=== PATIENT | male | born 1965 | race Caucasian/White ===

== ENCOUNTER 2024-08-23 16:34 | Emergency (ER) | payer BC, SELFPAY ==
[2024-08-23 16:35] VITALS: BP 146/88; PULSE 91; RESP 16; TEMP 36.8; O2SAT 96
--- NOTE | 2024-08-23 16:45 | DI.RAD_ITS ---
Exam(s) XR HAND RT COMPLETE EXAM: XR HAND RT COMPLETE CLINICAL HISTORY: right hand pain. TECHNIQUE: 2D digital imaging was performed. Three views. COMPARISON: No exams were available for comparison FINDINGS: BONES: Oblique fracture extending through mid to distal shaft of the 5th metacarpal. Small comminute d fragment. Mild displacement. No significant angulation. No additional fractures. No bony destru ctive lesion is seen. JOINTS: No dislocation present. Mild positive ulnar variance. SOFT TISSUE: Mild swelling. IMPRESSION: Fifth metacarpal fracture. DATA REPOSITORY: RADIATION DOSE DELIVERED:
--- NOTE | 2024-08-23 16:46 | W.ED.GENAD ---
Discharge Plan Disposition Patient Disposition: Home Discharge Details Clinical Impression: Closed fracture of metacarpal of right hand Primary Care Provider: Giovanni Wing ED Provider: Franko Birch Home Meds and New Rx's Prescriptions: No Action fluoxetine 20 mg capsule 20 mg PO DAILY albuterol 90 mcg/actuation aerosol 90 mcg inhalation PRN PRN loratadine [Claritin] 1 tab PO DAILY acetaminophen [Acetaminophen Extra Strength] 500 mg tablet 650 mg PO BID fluticasone propionate [Flonase Allergy Relief] 1 spray intranasal DAILY Discharge Instructions Instructions: Hand Fracture ED Additional Instructions: You have been referred for follow-up at [facility] orthopedic surgery as well as an [facility] orthopedic surgery, they will both contact you to schedule an appointment that works best for you Keep your hand in the splint Take 600 mg Motrin every 6 hours or 650 mg Tylenol every 4 hours as needed for pain You can continue to apply ice about 15 to 20 minutes once an hour to help with swelling HPI General Date/Time Provider Initiated Documentation: 08/23/24 16:39. Limitations to Documentation: no limitations. Information obtained by: patient. HPI Narrative: 59-year-old gentleman without significant past medical history presents for evaluation of acute onset right hand pain. Just prior to arrival the patient was flyfishing and coming [place] of [place] river and fell forward jamming his right fifth finger. Reports pain localized to the pinky finger aspect of the right hand. He is right-hand dominant. There is associated swelling, but no numbness tingling or open wounds. Did not take any medications prior to arrival Related Data Home Medications ?Medication ?Instructions ?Recorded ?Confirmed acetaminophen 500 mg tablet 650 mg PO BID 08/23/24 08/23/24 (Acetaminophen Extra Strength) albuterol 90 mcg/actuation aerosol 90 mcg inhalation PRN PRN 08/23/24 08/23/24 inhaler fluoxetine 20 mg capsule 20 mg PO DAILY 08/23/24 08/23/24 fluticasone propionate 1 spray intranasal DAILY 08/23/24 08/23/24 loratadine 1 tab PO DAILY 08/23/24 08/23/24 Allergies Allergy/AdvReac Type Severity Reaction Status Date / Time No Known Allergies Allergy Verified 08/23/24 16:38 General Stated Complaint: Orthopedic JOHNNA: 4 Exam Narrative Exam Narrative: Review of Systems: All systems reviewed & are unremarkable except as noted in HPI and below Well-developed, no acute distress NCAT Unlabored respiratory effort Right hand with swelling over the fifth metacarpal, tenderness at the MCP, no deformity of the digit, good cap refill neurovascularly intact, pain with range of motion at the MCP no crossover of pinky with fist. Course Vital Signs Vital signs: Vital Signs Temperature 36.8 C 08/23/24 16:35 Pulse 91 H 08/23/24 16:35 Respiratory Rate 16 08/23/24 16:35 Blood Pressure 146/88 H 08/23/24 16:35 Pulse Oximetry 96 08/23/24 16:35 Temperature 36.8 C 08/23/24 16:35 Temperature Source Oral 08/23/24 16:35 Pulse 91 H 08/23/24 16:35 Respiratory Rate 16 08/23/24 16:35 Blood Pressure 146/88 H 08/23/24 16:35 Pulse Oximetry 96 08/23/24 16:35 Oxygen Delivery Method Room Air 08/23/24 16:35 Oxygen Flow Rate 0 08/23/24 16:35 Pain Level 8 08/23/24 16:35 Comment Pain w/ movement 08/23/24 16:35 Procedures Orthopedic Splinting/Casting Injury #1: Side: right Upper Extremity Injury Location: hand Upper Extremity Immobilizer: ulnar gutter Medical Decision Making Emergent evaluation of acute right hand pain. Initial differential includes fracture, contusion, less likely dislocation. Swelling noted with tenderness in the setting of trauma. Pain medication will be given and imaging will be obtained of the right hand to evaluate for bony injury. 1730 X-ray reviewed and independently interpreted: Fracture with displacement of fifth metacarpal. Discussed with our orthopedic surgeon. Can be repaired here or at [facility] as the patient does live in [place]. Referrals to both have been sent. The patient was placed in an ulnar gutter splint. Discharged to follow-up with orthopedic surgery for definitive repair. Recommend Motrin and Tylenol as needed for pain. Splint instructions provided to the patient. Discharged in good condition. Quality:SDOH Health Related Social Needs: No Data to Display PFSH All Active Problems (Updated 08/23/24 @ 17:24 by Franko Birch MD) Closed fracture of metacarpal of right hand (Acute) Social History Smoking/Tobacco Use Status: Never Smoking risk assessment performed?: Yes Alcohol Intake: current Alcohol Intake frequency: 0-2 drinks per day Drug use: Rarely Substance use type: marijuana Housing: house Do you feel safe at home: Yes Do you feel safe in your relationship?: Yes
[2024-08-23] MEDS: Acetaminophen 500 MG TAB 1000 MG PO (17:01)
--- OUTSIDE RECORDS SUMMARY | 2024-08-23 17:26 | XMS_ITS | Encounter Summary ---
Author Organization [facility] [place] [address] Care Team Providers Care Attending Psychiatrist Name Role Phone Giovanni Wing MD Primary Care Provider [phone] Encounter Details Date Type Department Care Team (Late st Contact Info) Description 05/02/2023 Telephone Urology at [facility] [place] [place] [phone] Alexx Huntley MD [facility] [place] [address] [place] [address] Social History Tobacco Use Types Packs/Day Years Used Date Smoking Tobacco: Never Smokeless Tobacco: Never Alcohol Use Standard Drinks/Week Comments Yes 14 (1 standard drink = 0.6 oz pu re alcohol) 2/day liquor most often Overall Financial Resource Strain (CARDIA) Answe r Date Recorded How hard is it for you to pa y for the very basics like food, housing, medical care, and heating? Not hard at all 11/02/2022 Hunger Vital Sign Answer Date Recorded Within the past 12 months, y ou worried that your food would run out before you got the money to buy more. Never true 11/02/20 22 Within the past 12 months, t he food you bought just didn't last and you didn't have money to get more. Never true 11/02/2022 PRAPARE - Transportation Answer Date Re corded In the past 12 months, has l ack of transportation kept you from medical appointments or from getting medications? No 10/19 In the past 12 months, has l ack of transportation kept you from meetings, work, or from getting things needed for daily living? No 11/02/2022 Housing Stability Vital Sign Answer López e Recorded In the last 12 months, was t here a time when you were not able to pay the mortgage or rent on time? No 11/02/2022 In the last 12 months, how many places have you lived? 1 11/02/2022 In the last 12 months, was t here a time when you did not have a steady place to sleep or slept in a longterm (including now)? No 11/02/2022 Sex and Gender Information Value Date Recorded Sex Assigned at Not on file Gender Identity Not on file Sexual Orientation Not on file documented as of this encounter Miscellaneous Notes * Telephone Encounter - [facility] - 05/02/2023 8:38 AM EDTSummary: earlier appt available LMOM for pt to call back for a sooner appt available tomorrow at 11:20am with Dr. Huntley. documented in this encounter Plan of Treatment Not on file documented as of this encounter Visit Diagnoses Not on filedocumented in this encounter Care Teams Attending Psychiatrist Relationship Specialty Start Date End Date Giovanni Wing MD [address] [place] [address] PCP - General Family Medicine 08/29/18 documented as of this encounter
--- OUTSIDE RECORDS SUMMARY | 2024-08-23 17:26 | XMS_ITS | Encounter Summary ---
Author Organization [facility] Address [facility] [place] [address] Care Team Providers Care Manager Travel Name Role Phone Giovanni Wing MD Primary Care Provider [phone] Encounter Details Date Type Department Care Team (Latest Contact Info) Description 04/04/2023 Travel Social History Tobacco Use Types Packs/Day Years [...] place to sleep or slept in a snf (including now)? No 11/02/2022 Sex and Gender Information Value Date Recorded Sex Assigned at Not on file Gender Identity Not on file Sexual Orientation Not on file documented as of this encounter Plan of Treatment Not on file documented as of this encounter Visit Diagnoses Not on filedocumented in this encounter Care Teams Manager Travel Relationship Specialty Start Date End Date Giovanni Wign MD [address] [address] PCP - General Family Medicine 08/29/18 documented as of this encounter
--- OUTSIDE RECORDS SUMMARY | 2024-08-23 17:26 | XMS_ITS | Encounter Summary ---
Author Organization [facility] [place] [address] Care Team Providers Care Lump Machine Operator Name Role Phone Giovanni Wing MD Primary Care Provider [phone] Encounter Details Date Type Department Care Team (Latest Contact Info) Description 05/03/2023 2:00 PM EDT Laboratory Appointment Lab [facility] [place] [id number] Malignant neoplasm of prostate Social History Tobacco Use Types Packs/Day Years [...] place to sleep or slept in a detention (including now)? No 11/02/2022 Sex and Gender Information Value Date Recorded Sex Assigned at Not on file Gender Identity Not on file Sexual Orientation Not on file documented as of this encounter Plan of Treatment Not on file documented as of this encounter Procedures Procedure Name Priority Date/Time Associated Diagnosis Comments PSA (ULTRASENSITIVE) STAT 05/03/2023 2:11 PM EDT Malignant neoplasm of prostate documented in this encounter Results * PSA (Ultrasensitive) (05/03/2023 2:11 PM EDT) Prostate Specific Antigen (Ultrasensitive) <0.01 0.00 - 4.00 ng/mL [facility] Comment: PLEASE NOTE: The above reference interval is intended for healthy males with an intact prostate. Values within this reference interval may indicate recurrence in men who have undergone radical prostatectomy. This result was generated using a Colleen Kush immunoassay. ??Results obtained from other methods or manufacturers cannot be used interchangeably with this method. Blood 05/03/2023 2:11 PM EDT 05/03/2023 2:26 PM EDT Narrative Resulting Agency Comment Spec In Lab Rj Mcdonald MD CHEMISTRY ORDERABL ES [facility] [place] [address] documented in this encounter Visit Diagnoses Diagnosis Malignant neoplasm of prostate documented in this encounter Care Teams Lump Machine Operator Relationship Specialty Start Date End Date Giovanni Wing MD [address] [place] [address] PCP - General Family Medicine 08/29/18 documented as of this encounter
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
--- OUTSIDE RECORDS SUMMARY | 2024-08-23 17:26 | XMS_ITS | Clinical Summary ---
Author Organization [facility] Address [facility] [place] [address] Care Team Providers Care Business Solutions Director Name Role Phone Giovanni Wing MD Primary Care Provider [phone] Allergies No known active allergies Medications Medication Sig Dispensed Refills Start Date End Date Status VENTOLIN HFA 90 mcg/actuation HFA Aerosol Inhaler Inhale 2 puffs into the lungs as needed. 3 07/20/2017 Active triamcinolone (KENALOG) 0.1 % Cream Apply topically as needed. 0 06/26/2017 Active cholecalciferol, Vitamin D3, 1,000 unit Capsule Take 1,000 Units by mouth daily. Active MELATONIN ORAL Take by mouth nightly as needed. Active acetaminophen (TYLENOL) 650 mg Tablet Sustained Release 1,300 mg daily. Active FISH OIL-DHA-EPA ORAL Take by mouth daily. Active fluticasone propionate (Flonase) 50 mcg/actuation [place], Suspension every 24 hours. Ac tive loratadine (Claritin) 10 mg Tablet every 24 hours. Active FLUoxetine (PROzac) 10 mg Capsule TAKE 3 CAPSULES BY MOUTH EVERY DAY for 90 Active FIBER CHOICE ORAL Take by mouth. Metamucil tablets 12 tabs a day Active sildenafiL (Viagra) 100 mg tablet Take 1 tablet by mouth as needed. 30 tablet 5 01/31/2023 Active Miscellaneous Medical Supply KitIndications:Erecti le dysfunction after radical prostatectomy Vacuum erection device to be used as needed 1 kit 06/08/2023 Active Active Problems Problem Noted Date Diagnosed Date Erectile dysfunction after radical prostatectomy 05/03/2023 Pain in left elbow 02/02/2023 VASU (stress urinary incontinence), male 02/01/20 Prostate cancer 12/28/2022 Malignant neoplasm of prostate 11/11/2022 Rectal hemorrhage 08/14/2022 Elevated PSA 07/17/2022 Lower urinary tract symptoms (LUTS) 07/17/2022 Pain in right elbow 12/01/2021 Anxiety state 07/11/2019 Asthma 07/11/2019 Overweight 07/11/2019 Back pain 07/11/2019 Health care maintenance 07/11/2019 Muscle pain 03/28/2018 Thoracic spondylosis without myelopathy 01/24/20 18 Finger infection 10/26/2017 Pain in toe of right foot 12/12/2016 Hallux rigidus of right foot 11/21/2016 Chronic SI joint pain 02/24/2016 Mechanical low back pain 07/18/2012 Immunizations Name Administration Dates Next Due Hepatitis A Adult (HavRix, Vaqta) 01/15/2020, Influenza (Novel [id number]) Injectable ,12/12/2013,09/17/2012,2010 Influenza Trivalent w/Preservative 08/06/2018 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,2018 Pneumococcal Vaccine, Unspec ified Formulation 10/14/2018 Rabies Vaccine, IM Diploid Cell 08/05/2019,07/22,07/15/2019 Td Adult, Absorbed 10/25/2017 Tdap 01/26/2009 Typhoid, VICP 07/11/2019 Family History Medical History Relation Comments Parkinsonism Father Seizure Disorder Mother Diabetes Neg Hx Relation Status Comments Father Alive Mother Alive Sister Alive Social History Tobacco Use Types Packs/Day Years Used Date Smoking Tobacco: Never Smokeless Tobacco: Never Tobacco Cessation:Counseling Given: Not Answered Alcohol Use Standard Drinks/Week Comments Yes 14 [...] the money to buy more. Never true 12/15/20 22 Within the past 12 months, t [...] place to sleep or slept in a fdc (including now)? No 11/02/2022 DH IPV Inpatient Questions Answer Date Recorded Does Anyone Try to Keep You From Having Contact with Others or Doing Things Outside Your Home? no 06/15/2023 Feels Threatened by Someone no 05/20 Feels Unsafe at Home or Work/School no 06/15/2023 Physical Signs of Abuse Present no 06/15/2023 Sex and Gender Information Value Date Recorded Sex Assigned at Not on file Gender Identity Not on file Sexual Orientation Not on file Last Filed Vital Signs Vital Sign Reading Time Taken Comments Blood Pressure 126/81 08/10/2023 8:36 AM EDT Pulse 56 08/10/2023 8:36 AM EDT Temperature 36.6 ??C (97.9 ??F) 06/15/2023 7:52 PM ED T Respiratory Rate 20 06/15/2023 7:52 PM EDT Oxygen Saturation 97% 06/15/2023 7:52 PM EDT Inhaled Oxygen Concentration - - Weight 81.6 kg (180 lb) 06/15/2023 7:52 PM EDT Height 172.7 cm (5' 8) 12/28/2022 11:45 AM EST Body Mass Index 27.37 12/28/2022 11:45 AM EST Plan of Treatment Health Maintenance Due Date Last Done Comments CT Colonography 1967 FIT DNA 1967 FIT 1965 Sigmoidoscopy 1965 HIV screen 1985 Hepatitis C Screening 1985 Lipid Screening 1985 Hepatitis B vaccine (0-59 yrs) (1) 1986 Zoster vaccine (1 of 2) 2017 Pneumococcal Vaccine: At-Ris k 5-64yrs (2 of 2 - PCV) 10/14/2019 10/14/2018 Advance Directive 2022 Covid-19 Vaccine (1 - 2022-2 4 season) 2024 Influenza (Flu) vaccine (1 o f 1 - Influenza standard series) 07/20/2024 08/06/2018, 09/02/2014, 12/12/2013, Additional history exists Diabetes Screening (HgbA1C o r Glucose) 02/08/2026 02/08/2023, 12/29/2022, 12/14/2022, Additional history exists Tetanus/Diphtheria/Pertussis Vaccines (3 - Td or Tdap) 10/25/2027 10/25/2017, 01/26/2009 Colonoscopy 08/19/2028 08/19/2018, 08/19/2018 Colorectal Cancer Screening 08/19/2028 Sigmoidoscopy (10 year) with FIT yearly 08/19/2028 08/19/2018, 08/19/2018 Medical Devices Implanted Type Area Distribution Field Engineer Device Identifier Shelf Expiration Date Model / Serial / Lot Cariva Synthetic Catilage Implant 10mm Implanted:Qty: 1 on 10/31/2018 by Pascual [facility] Right: Toe 03/18/2020 CAR-10-US / NA / [id number] Description:RIGHT GREAT TOE Procedures Procedure Name Priority Date/Time Associated Diagnosis Comments COMPREHENSIVE METABOLIC PANEL Routine 02/08/2023 9:14 AM EDT Malignant neoplasm of prostate COLONOSCOPY Routine 08/19/2018 4:21 PM EDT from Last 3 Months or Most Recently Relevant to Health Maintenance Results * (ABNORMAL) Comprehensive metabolic panel (non-fasting) (02/08/2023 9:14 AM EDT) Glucose 104 65 - 199 mg/dL [facility] Comment:Diabetes: >=200 mg/d L plus symptoms Blood Urea Nitrogen 15 10 - 20 mg/dL [facility] Creatinine 0.90 0.80 - 1.50 mg/dL [facility] Sodium 139 135 - 145 mmol/L [facility] Potassium 4.5 3.5 - 5.0 mmol/L [facility] Comment: Please note: ??Patients with WBC >100,000 may have falsely elevated Potassium levels. ??For accurate Potassium quantification in these patients send serum separator tube (gold top) for subsequent determinations. ??Contact the Clinical Chemistry Laboratory if there are any questions. Chloride 105 98 - 107 mmol/L [facility] Carbon Dioxide 24 22 - 31 mmol/L [facility] Anion Gap 10 5 - 15 mmol/L [facility] Calcium 10.7(H) 8.5 - 10.5 mg/dL [facility] Protein, Total 7.1 6.1 - 8.0 g/dL [facility] Albumin 4.5 3.2 - 5.2 g/dL [facility] Aspartate Aminotransferase 22 0 - 39 unit/L [facility] Alanine Aminotransferase 21 0 - 55 unit/L [facility] Alkaline Phosphatase 66 40 - 130 unit/L [facility] Bilirubin, Total 0.4 0.2 - 1.3 mg/dL [facility] Est Glomerular Filtration Rate 101 >=60 mL/min/1. 73 m?? [facility] Comment: This patient's estimated GFR was calculated using the 2020 CKD-EPI equation. The estimated GFR can vary from the measured GFR by up to 30% in the absence of rapidly changing kidney function. Assessment of the estimated GFR is not appropriate when creatinine concentrations are rapidly changing. For clinical situations in which a more precise estimate of GFR is necessary, consider alternative methods of GFR estimation such as a 24-hour urine creatinine clearance. Assignment of CKD stage 1-5 for patients with an eGFR near the transition point between stages may be based on clinical assessment of muscle mass and symptoms in addition to eGFR. Blood 02/08/2023 9:14 AM EDT 02/08/2023 9:25 AM EDT Narrative Resulting Agency Comment Spec In Lab Henrik Yun MD [place] [address] * COLONOSCOPY (08/19/2018 4:21 PM EDT) COLONOSCOPY [facility] Endoscopy Procedure Date: 08/19/2018 4:21 PM ? Patient Name: Devan Chen ? Date of : 1965 ? Age: 53 ? Order #: [id number] ? Instrument Name: [id number] ? Procedure: ? Colonoscopy Indications: ? Screening for colorectal malignant ? neoplasm Providers: ? Angy Moreno, SERA, ? Rachelle Delgado Referring MD: ?Munira Crawford MD Medicines: ? Fentanyl 150 micrograms IV, Midazolam ? 4 mg IV Complications: ? No immediate complications. Procedure: ? Pre-Anesthesia Assessment: ? - Prior to the procedure, a History ? and Physical was performed, and ? patient medications, allergies and ? sensitivities were reviewed. The ? patient's tolerance of previous ? anesthesia was reviewed. ? - The risks and benefits of the ? procedure and the sedation options ? and risks were discussed with the ? patient. All questions were answered ? and informed consent was obtained. ? - Patient identification and proposed ? procedure were verified prior to the ? procedure by the physician, the nurse ? and the store facility technician. The procedure was ? verified in the pre-procedure area in ? the procedure room. ? - Pre-procedure physical examination ? revealed no contraindications to ? sedation. ? - ASA Grade Assessment: II - A ? patient with mild systemic disease. ? The procedure, indications, benefits, ? risks and alternatives were explained ? to the patient. Specifically ? discussed were potential ? complications including, but not ? limited to, bleeding, perforation, ? infection, missing a cancer, and ? adverse medication reactions. The ? patient was placed in the left ? lateral decubitus position, and a ? digital rectal exam was performed. ? The Colonoscope was inserted in the ? anus and under direct visualization, ? advanced to the terminal ileum. ? Careful inspection was made as the ? colonoscope was withdrawn. The ? colonoscopy was performed without ? difficulty. The patient tolerated the ? procedure well. The quality of the ? bowel preparation was evaluated using ? the BBPS ([place] Bowel Preparation ? Scale) with scores of: Right Colon = ? 2 (minor amount of residual staining, ? small fragments of stool and/or ? opaque liquid, but mucosa seen well), ? Transverse Colon = 2 (minor amount of ? residual staining, small fragments of ? stool and/or opaque liquid, but ? mucosa seen well) and Left Colon = 2 ? (minor amount of residual staining, ? small fragments of stool and/or ? opaque liquid, but mucosa seen well). ? The total BBPS score equals 6. The ? quality of the bowel preparation was ? good. ? Findings: ? The perianal and digital rectal examinations were ? normal. ? The terminal ileum appeared normal. ? A 2 mm polyp was found in the sigmoid colon. The ? polyp was sessile. The polyp was removed with a cold ? biopsy forceps. Resection and retrieval were ? complete. Verification of patient identification for ? the specimen was done by the physician, nurse and ? store facility technician using the patient's name, date and ? medical record number. Estimated blood loss was ? minimal. ? The exam was otherwise without abnormality on direct ? and retroflexion views. ? Moderate Sedation: ? Moderate (conscious) sedation was administered by the ? endoscopy nurse and supervised by the endoscopist. ? The patient's oxygen saturation, heart rate, blood ? pressure and response to care were monitored. Impression: ?- The examined portion of the ileum ? was normal. ? - One 2 mm polyp in the sigmoid ? colon, removed with a cold biopsy ? forceps. Resected and retrieved. ? - The examination was otherwise ? normal on direct and retroflexion ? views. Recommendation: ?- Discharge patient to home (with ? escort). ? - Resume previous diet. ? - Await pathology results. ? - Repeat colonoscopy for surveillance ? based on pathology results. ? Attending Participation: ? I personally performed the entire procedure. ? Cirilo Pathak, 08/19/2018 5:11:32 PM Number of Addenda: 0 Note Initiated On: 08/19/2018 4:21 PM PROVATION 08/19/2018 4:21 PM EDT Munira Crawford MD GENERAL SURGICAL O RDERABLES PROVATION from Last 3 Months or Most Recently Relevant to Health Maintenance Advance Directives * Attempt Cardiopulmonary Resuscitation - Inpatient (Latest Code Status on File) Date Activated Date Inactivated Comments 12/28/2022 10:30 PM 12/29/2022 7:59 PM Question Answer Comments Code Status decision made by: Patient * Attempt Cardiopulmonary Resuscitation - Inpatient Date Activated Date Inactivated Comments 12/28/2022 11:59 AM 12/28/2022 10:30 PM Question Answer Comments Code Status decision made by: Patient * Full Code Date Activated Date Inactivated Comments 10/26/2017 10:59 PM 10/27/2017 2:13 PM Question Answer Comments Does patient have capacity to make decision: Yes Care Teams Business Solutions Director Relationship Specialty Start Date End Date Giovanni Wing MD [address] [place] [place] [address] PCP - General Family Medicine 08/29/18
--- OUTSIDE RECORDS SUMMARY | 2024-08-23 17:26 | XMS_ITS | Encounter Summary ---
Author Organization [facility] [place] [address] Care Team Providers Care Cable Television Installer Name Role Phone Giovanni Wing MD Primary Care Provider [phone] Encounter Details Date Type Department Care Team (Latest Contact Info) Description 02/08/2024 3:05 PM EDT Laboratory Appointment Lab [facility]L [facility] [place] [id number] Malignant neoplasm of prostate Social History Tobacco [...] place to sleep or slept in a long term (including now)? No 11/02/2022 DH IPV Inpatient [...] Date/Time Associated Diagnosis Comments PSA (ULTRASENSITIVE) STAT 02/08/2024 3:12 PM EDT Malignant neoplasm of prostate documented in this encounter Results * PSA (Ultrasensitive) (02/08/2024 3:12 PM EDT) Prostate Specific Antigen (Ultrasensitive) <0.01 0.00 - 4.00 ng/mL [facility] Comment: PLEASE NOTE: The above reference interval is intended for healthy males with an intact prostate. Values within this reference interval may indicate recurrence in men who have undergone radical prostatectomy. This result was generated using a Colleen Kush immunoassay. ??Results obtained from other methods or manufacturers cannot be used interchangeably with this method. Blood 02/08/2024 3:12 PM EDT 02/08/2024 3:17 PM EDT Narrative Resulting Agency Comment Spec In Lab Rj Mcdonald MD CHEMISTRY ORDERABL ES [facility] [place] [address] documented in this encounter Visit Diagnoses Diagnosis Malignant neoplasm of prostate documented in this encounter Care Teams Cable Television Installer Relationship Specialty Start Date End Date Giovanni Wing MD [address] [address] PCP - General Family Medicine 08/29/18 documented as of this encounter
--- OUTSIDE RECORDS SUMMARY | 2024-08-23 17:26 | XMS_ITS | Encounter Summary ---
Author Organization [facility] [place] [address] Care Team Providers Care Public Health Professor Name Role Phone Giovanni Wing MD Primary Care Provider [phone] Encounter Details Date Type Department Care Team (Latest Contact Info) Description 08/10/2023 8:00 AM EDT Laboratory Appointment Lab [facility]L [facility] [place] [id number] Malignant neoplasm of prostate Social History Tobacco [...] place to sleep or slept in a senior living (including now)? No 11/02/2022 DH IPV Inpatient [...] Date/Time Associated Diagnosis Comments PSA (ULTRASENSITIVE) STAT 08/10/2023 8:00 AM EDT Malignant neoplasm of prostate documented in this encounter Results * PSA (Ultrasensitive) (08/10/2023 8:00 AM EDT) Prostate Specific Antigen (Ultrasensitive) <0.01 0.00 - 4.00 ng/mL [facility] Comment: PLEASE NOTE: The above reference interval is intended for healthy males with an intact prostate. Values within this reference interval may indicate recurrence in men who have undergone radical prostatectomy. This result was generated using a Colleen Kush immunoassay. ??Results obtained from other methods or manufacturers cannot be used interchangeably with this method. Blood 08/10/2023 8:00 AM EDT 08/10/2023 8:05 AM EDT Narrative Resulting Agency Comment Spec In Lab Rj Mcdonald MD CHEMISTRY ORDERABL ES [facility] [place] [address] documented in this encounter Visit Diagnoses Diagnosis Malignant neoplasm of prostate documented in this encounter Care Teams Public Health Professor Relationship Specialty Start Date End Date Giovanni Wing MD [address] [address] PCP - General Family Medicine 08/29/18 documented as of this encounter
--- OUTSIDE RECORDS SUMMARY | 2024-08-23 17:26 | XMS_ITS | Encounter Summary ---
Author Organization [facility] Address [facility] [place] [address] Care Team Providers Care Or Nurse Manager Name Role Phone Giovanni Wing MD Primary Care Provider [phone] Reason for Visit * Physical Therapy (Routine) - Closed Specialty Diagnoses / Procedures Referred By Contac t Referred To Contact Physical Therapy Diagnoses VASU (stress urinary incontinence), male Alexx Huntley MD [facility] [place] [address] Ioana Lorenzana, PT [facility] PHYSICAL MEDICINE & [place] [address] Referral ID Status Reason Start Date Expiration Date V isits Requested Visits Authorized [id number] Closed Evaluate and Treat 01/31/2023 01/31/2024 30 30 Encounter Details Date Type Department Care Team (Late st Contact Info) Description 03/29/2023 1:00 PM EDT Office Visit Physical Therapy at [facility] [address] [place] [address] Ioana Lorenzana, PT [facility] PHYSICAL MEDICINE & [place] [address] Muscle spasm; VASU (stress urinary incontinence), male Social History Tobacco Use Types Packs/Day Years [...] as of this encounter Miscellaneous Notes * Initial Evaluation - Ioana Lorenzana, PT - 03/29/2023 1:00 PM EDT Images from the original note were not included. Physical Therapy Initial Evaluation Note: Outpatient Date of Exam/First Treatment: 03/29/2023 Date of onset: 12/11 Referring Provider: Alexx Huntley MD Primary Insurance: Payor: [employer] [place] / Plan[place] / Product Type: *No Producttype* / Diagnosis and comorbidities: 1. Muscle spasm 2. VASU (stress urinary incontinence), male CURRENT HISTORY: History of current problem: Devan Chen is a 57 y.o. male referred to physical therapy for lev ani tightness associated with VASU. The patient states that his VASU was worse right after prostatectomy and now only wearing a pad when leaving the house. Leakage is occurring with heavy lifting and laughing. Voiding every hour but drinking lots of water and coffee. The patient has a history of back injuries and has strengthened back to health. Denies trouble with bowels. Patient's expressed goals for treatment: decrease pad use with decreased VASU Previous treatment/self care: heather Social History and Personal Factors affecting Plan of Care: sits all day working from home Medical/Surgical History: Patient Active Problem List Diagnosis Code ??? Mechanical low back pain M54.59 ??? Chronic SI joint pain M53.3, G89.29 ??? Hallux rigidus of right foot M20.21 ??? Pain in toe of right foot M79.674 ??? Finger infection L08.9 ??? Thoracic spondylosis without myelopathy M47.814 ??? Muscle pain M79.10 ??? Anxiety state F41.1 ??? Asthma J45.909 ??? Overweight E66.3 ??? Back pain M54.9 ??? Health care maintenance Z00.00 ??? Pain in right elbow M25.521 ??? Elevated PSA R97.20 ??? Lower urinary tract symptoms (LUTS) R39.9 ??? Rectal hemorrhage K62.5 ??? Malignant neoplasm of prostate C61 ??? Prostate cancer C61 ??? VASU (stress urinary incontinence), male N39.3 ??? Pain in left elbow M25.522 Prostate surgery: yes; date and type: 12/11 Have you had radiation treatment? 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 12/2022 Is your pelvic issue getting: Better Section 2: History 03/29/2023 1:07 PM PF MALE HISTORY Have you had any Prostate surgery or Radiation treatments? Prostatectomy Date(s) of radiation treatment? NA Section 3: Pelvic Pain 03/29/2023 1:07 PM PF MALE PELVIC PAIN Do you participate in regular sexual activity? Yes Do you have difficulty achieving and/or maintaining an erection? No Do you have pain with ejaculation? No Have you ever had prostatitis? No Do you have pain with a rectal exam? No Do you have pain with sitting? No Do you have any of the following areas of pain (check all that apply): Lower Back pain Do you have a history of abuse or trauma? No Section 4: Bladder Symptoms - Incontinence 03/29/2023 1:07 PM PF MALE BLADDER SYMPTOMS INCONTINENCE Do you have Leakage with: (check all that apply) Laughing Frequency of leakage: (check all that apply) Other - (Not Listed) Severity of leakage: (Select all that apply) Drops Section 5: Bladder Symptoms - Voiding 03/29/2023 1:07 PM PF MALE BLADDER SYMPTOMS VOIDING Do you have pain or burning when voiding? No Do you see blood in your urine? No Do you have frequent urinary tract infections (more than 3 times in 6 months)? No Would you describe your bladder sensation during filling as one of the following? Normal Do you usually experience frequent urination? Yes Number of daytime voids? (from the moment you wake up until you go to bed): 10 Number of nighttime voids? (get up from sleep to void): 3 Section 6: Bowel Symptoms 03/29/2023 1:07 PM PF MALE BOWEL SYMPTOMS Do you move your bowels Daily How often do you move your bowels in a day? 3 What is your stool consistency? Normal Do you include fiber in your diet? Yes Do you use laxatives or enemas regularly to maintain normal bowel function? No Do you experience a strong urge or urgency and have to moya to the bathroom to have a bowel movement? No Do you usually have pain when you pass stool? No Do you have a history of constipation? No Do you have diarrhea often? (either weekly or monthly) No Do you ever ignore the urge to defecate? No Do you lose stool beyond your control if the stool is well formed? No Do you lose stool beyond your control if the stool is loose or liquid? No Do you lose gas from your rectum beyond your control? No Do you feel you need to strain too hard to have a bowel movement? No Do you have to manually push on rectum to have or complete a bowel movement? No Do you feel you have not completely emptied your bowels at the end of a bowl movement? No Section 7: Fluid Intake 03/29/2023 1:07 PM PF MALE FLUID INTAKE Do you drink any of the following? (Check all that apply) Water Coffee / Tea / Soda - caffeinated Alcohol Juice How many ounces per day of non-caffeinated drinks do you drink? (Water, decaffeinated tea, juice, etc.) 64 oz (8 glasses) How many ounces per day of caffeinated drinks do you drink? (Coffee, Tea, etc.) 32 oz / (4 glasses) How many ounces per day of alcoholic beverages do you drink? 24 oz / (3 glasses) International Prostate System Score: 02/08/2023 9:45 AM IPSS Responses International Prostate Symptom Score 12 (Moderate LUTS) IPSS: ncomplete emptying Less than half the time IPSS: Frequency More than half the time IPSS: Intermittency Less than 1 time in 5 IPSS: Urgency Less than 1 time in 5 IPSS: Weak Stream Less than half the time IPSS: Straining Not at all IPSS: Nocturia 2 times IPSS: Quality of life Mixed - about equally satisfied and dissatisfied Score of 1-7 mild, 8-19 moderate and 20-35 severe CLINICAL FINDINGS: EXAMINATION OBJECTIVE: OBSERVATION: Patient is a pleasant gentleman in no acute distress POSTURE: Slightly rounded shoulders STRENGTH: lower extremity grossly 5/5 Patient gives verbal consent to external and internal exam. Patient has been given permission to terminate the exam at any time and/or ask questions. External Exam: Pelvic Floor Contraction: moderate levator ani activity with perineal body elevation Relaxation: Yes Anus: skin: redness perianal area Hemorrhoids:0 Discharge: none Sensation and reflex testing: S3-5, light touch intact and equal Anal wink present Rectal Exam: External anal sphincter: strength: 5/5,, tight, symmetric Puborectalis muscle strength: strength: 5/5, tone: 4/5 with pain, hold time: 5 seconds Number of quick contractions in 10 seconds: 5 Muscle tenderness: coccygeus deferred, piriformis deferred, Obturator Internus mild, Levator Ani marked SEMG: Resting rate 40mv ableto decrease to 20mv with relaxation LH: 30mv once relaxed CLINICAL EVALUATION AND DIAGNOSIS: Devan Chen is a 57 y.o. male is a 57 y.o. yo male referred for 1. Muscle spasm 2. VASU (stress urinary incontinence), male . These findings are consistent with overactive pelvic floor muscles, impaired strength, impaired coordination and impaired endurance with muscle spasm, pelvic floor dysfunction and stress urinary incontinence. The patient's clinical presentation is evolving due to slowly improving over time with kegels at home. This evaluation required clinical decision making of moderate complexity using standardized patient questionnaires, functional outcome measures and/or subjective and objective data gathered duringthe visit. With skilled physical therapy Devan Chen has a good prognosis to achieve their therapy goals. GOALS: MET Short Term Therapy Goals (4 weeks) Patient will... Patient will demonstrate the ability to adhere to an independent home program of pelvic floor muscle exercises for continued improvements in PFM function and functional ability. Patient will demonstrate an increase in pelvic floor muscle endurance to 10 sec for improved continence. Patient to demonstrate proper internal self massage with model with 50% accuracy Patient will demonstrate ability to perform PFM contraction with good quality 50% accuracy, no overflow and good relaxation. MET Leaf Stripper Therapy Goals (3 months) Patient will... The patient will be able to sit with VAS <2/10 pelvic pain. Patient to be independent in the performance of a HEP of PFM exercises on a daily basis to increasestrength and recruitment in increase continence control. Patient will be able to contract PFM effectively before increased intra abdominal pressure (cough, sneeze, lift) to be continent for 50% decreased UI INITIAL TREATMENT INCLUDED: Interventions completed today: Initial Evaluation: including patient education regarding physical therapy plan of care, diagnosis,and anatomy with use of model. Manual Therapy: [x] PFM STM [x] rectal Neuromuscular Re-education: [x] SEMG biofeedback [] Long hold 10 on, 10 off, using visual cue of SEMG graph [] Quick Flick, attention to full relaxation in between 3 sets of 5 reps [x] Downtraining/relaxation: vc to close eyes and take deep breaths, best result following endurance exercises [x] Pelvic Floor training: [x] Downtraining/relaxation: vc to close eyes and take deep breaths, best result following endurance exercises [] Reverse pelvic floor with diaphragmatic breathing [] Long hold 10 on, 20 off, 3 sets of 5 reps [] Short holds 3 on, 7 off, 3 sets of 5 reps [] Hip RC PREs: hip abd/ER with theraband and hip add/IR with ball, in sitting, 3 sets of 5 reps [] Instruction in PFM contraction/Kegel with full relaxation in between [] Yoga video for releasing the pelvic floor [x] Internal massage tool: Instruction in home use: [] Urge suppression: [] Sit down [] Pelvic floor contraction [] 3 sets of 5 reps of 5 on 10 off [] Long hold 30 sec [] Quick flick x5-10 [] Distraction [] Deep breath and relax [] Perineal pressure [] Walk normally to toilet, once urge goes away, do not moya Therapeutic exercise: [] Stretching [] Pelvic floor, [] LB, [] LE, [x] Strengthening []TrA Set, with [x]Sahrmann TrA level [] Self-care/Training: [] Dietary considerations [] Increase water intake by 8 oz to decrease urine concentration and bladder irritation [] Decrease caffeine consumption by 1 [] Decrease bladder irritants [] Decrease bowel irritants [] Reviewed difference in soluble and insoluble fiber [] Gluten free [] Dairy free [] FODMAP [x] Toilet positioning with stool to elevate legs and mechanics [] Bladder diary [x] Diaphragmatic breathing/mindfulness Patient will follow HEP as instructed above. No scans are attached to the encounter. PLAN: Frequency and duration:1 more visit Plan of care: Therapeutic exercise, pelvic floor muscle exercises, SEMG/Real time US, STM, stretching, patient/family education, home exercise program, relaxation/downtraining Total Treatment time: 60 minutes: eval 45 Total Timed Code Treatment: 15 minutes Informed Consent: The patient consented to the physical therapy evaluation. The plan has been discussed with the patient and the patient agrees to and understands the physical therapy treatment plan and goals. IOANA LORENZANA PT Physician Signature: Date: In signing this document, the physician certifies these services are medically necessary. documented in this encounter Plan of Treatment Not on file documented as of this encounter Visit Diagnoses Diagnosis Muscle spasm Spasm of muscle VASU (stress urinary incontinence), male Stress incontinence, male documented in this encounter Care Teams Or Nurse Manager Relationship Specialty Start Date End Date Giovanni Wing MD [address] [place] [address] PCP - General Family Medicine 08/29/18 documented as of this encounter
--- OUTSIDE RECORDS SUMMARY | 2024-08-23 17:26 | XMS_ITS | Encounter Summary ---
Author Organization [facility] Address [facility] [place] [address] Care Team Providers Care Professor Of Psychology Name Role Phone Giovanni Wing MD Primary Care Provider [phone] Encounter Details Date Type Department Care Team (Late st Contact Info) Description 08/10/2023 9:00 AM EDT Office Visit Urology at [facility] [place] [address] Rj Mcdonald MD [facility] [address] Malignant neoplasm of prostate Social History Tobacco [...] place to sleep or slept in a care home (including now)? No 11/02/2022 DH IPV Inpatient [...] on file documented as of this encounter Last Filed Vital Signs Vital Sign Reading Time Taken Comments Blood Pressure 126/81 08/10/2023 8:36 AM EDT Pulse 56 08/10/2023 8:36 AM EDT Temperature - - Respiratory Rate - - Oxygen Saturation - - Inhaled Oxygen Concentration - - Weight - - Height - - Body Mass Index - - documented in this encounter Progress Notes * Rj Mcdonald MD - 08/10/2023 9:00 AM EDT UROLOGY NOTE Mr Chen is here as a scheduled follow up s/p RALRP with PLND on 12/28/22 for a pT2N0 GG2 CaP with Mg+. He has good control of urine and bladder emptying. He describes normal erectile function. PSA remains undetectable. Surgical Pathology DIAGNOSIS A - Bilateral pelvic lymph nodes (excision): - Six lymph nodes and associated fibroadipose tissue, negative for malignancy (0/6). B - Prostate (radical prostatectomy): - Prostatic adenocarcinoma, Grade Group 2, Angie score 3+4=7. - See synoptic report for additional details and staging. Electronically signed by: Pat Villa MD Verified: 01/19/2023 10:43 Pathologist Performed at: -[facility], [place] [address] Weaving Inspector: Paolo Dowling MD, [facility] Certificate: [id number] SYNOPTIC Specimen Procedure: Radical prostatectomy Prostate Size Prostate Weight (Grams): 47 g Prostate Size in Centimeters (cm): 4.6 x 3.9 x 3.6 Centimeters (cm) Tumor Histologic Type: Acinar adenocarcinoma Histologic Grade Grade: Grade group 2 ([place] Score 3 + 4 = 7) Minor Tertiary Pattern 5 (less than 5%): Not applicable Percentage of Pattern 4: Less than or equal to 5% Intraductal Carcinoma (IDC): Not identified Cribriform Glands: Not identified Treatment Effect: No known presurgical therapy Tumor Quantitation Estimated Percentage of Prostate Involved by Tumor: 11 - 20% Location of Dominant Nodule: Left anterior/apical Extraprostatic Extension (EPE): Not identified Urinary Bladder Neck Invasion: Not identified Seminal Vesicle Invasion: Not identified Lymphovascular Invasion: Not Identified Perineural Invasion: Present Margins Margin Status: Invasive carcinoma present at margin Linear Length of Margin(s) Involved by Carcinoma: Less than 3 mm (limited) Focality of Margin Involvement: Multifocal Margin(s) Involved by Invasive Carcinoma: Left apical; Left posterior Margin Involvement by Invasive Carcinoma in Area of Extraprostatic Extension (EPE): Not identified Angie Pattern at Margin(s) Involved by Carcinoma: Pattern 3 Regional Lymph Nodes Regional Lymph Node Status: All regional lymph nodes negative for tumor Number of Lymph Nodes Examined: 6 Pathologic Stage Classification (pTNM, AJCC 8th Edition) Primary Tumor (pT): pT2 pN Category: pN0 Additional Findings SYNOPTIC Additional Findings: High-grade prostatic intraepithelial neoplasia (PIN); Nodular prostatic hyperplasia Best Tumor Blocks for Future Studies Tumor Block(s): B3, B9 Normal Block(s): B12 CAP eCC 2021 Q1 Release Past Medical History Past Medical History: Diagnosis Date Asthma Cancer prostate Chronic anxiety Chronic pain back Past Surgical History Past Surgical History: Procedure Laterality Date JOINT REPLACEMENT Right large toe LUMBAR DISC SURGERY L5-S1 PRO COLONOSCOPY, BIOPSY N/A 08/19/2018 COLONOSCOPY FLEXIBLE, WITH BX (WRVU 3.66) performed by Cirilo Pathak MD at [facility] ENDOSCOPY PRO HALLUX RIGIDUS W/CHEILECTOMY 1ST MP JT W/IMPLT Right 10/31/2018 CORRECTION HALLUX RIGIDUS, W IMPLANT (WRVU 8.01) performed by Pascual Peasron MD at [facility] MAIN OR PRO LAP, PELVIC LYMPHADENECTOMY Bilateral 12/28/2022 LAPAROSCOPY,WITH BILATERAL TOTAL PELVIC LYMPHADENECTOMY, ROBOTIC (VU 12) performed by Rj Mcdonald MD at [facility] MAIN OR PRO LAP, PROSTATECTOMY, RADICAL, W/NERVE SPARE N/A 12/28/2022 LAPAROSCOPIC PROSTATECTOMY, ROBOTICS ASSISTED (WRVU 21.36) performed by Rj Mcdonald MD at [facility] MAIN OR US GUIDED BIOPSY PROSTATE WITH URONAV FUSION 09/21/2022 US Guided Biopsy Prostate with Uronav Fusion 09/21/2022 [facility] RAD ULTRASOUND Social History Social History Socioeconomic History Marital status: Spouse name: None Number of children: None Years of education: None Highest education level: None Occupational History 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 Employer: [employer] Tobacco Use Smoking status: Never Smokeless tobacco: Never Vaping Use Vaping Use: Never used Substance and Sexual Activity Alcohol use: Yes Alcohol/week: 14.0 standard drinks Types: 14 Shots of liquor per week Comment: 2/day liquor most often Drug use: Yes Types: Marijuana Comment: occasionally Sexual activity: Yes Partners: Female Other Topics Concern None Social History Narrative None Social Determinants of Health Financial Resource Strain: Low Risk Difficulty of Paying Living Expenses: Not hard at all Food Insecurity: No Food Insecurity Worried About Running Out of Food in the Last Year: Never true Ran Out of Food in the Last Year: Never true Transportation Needs: No Transportation Needs Lack of Transportation (Medical): No Lack of Transportation (Non-Medical): No Physical Activity: Not on file Housing Stability: Low Risk Unable to Pay for Housing in the Last Year: No Number of Places Lived in the Last Year: 1 Unstable Housing in the Last Year: No Family History Family History Problem Relation Age of Onset Seizure Disorder Mother Parkinsonism Father Diabetes Neg Hx ROS: negative for fever, chills, nausea, vomiting, diarrhea, constipation, hematuria, dysuria, CP, SOB Patient Vitals for the past 24 hrs: Pulse BP 08/10/23 0836 56 126/81 Alert, oriented, nad A/P: Doing well s/p RALRP with PLND, PSA is undetectable and excellent functional outcomes. I explained the findings of the PSA to the patient and recommended to schedule a f/u in 6 months with a repeat PSA. documented in this encounter Plan of Treatment Not on file documented as of this encounter Results * PSA (Ultrasensitive) (02/08/2024 3:12 PM EDT) Prostate Specific Antigen (Ultrasensitive) <0.01 0.00 - 4.00 ng/mL [facility] Comment: PLEASE NOTE: The above reference interval is intended for healthy males with an intact prostate. Values within this reference interval may indicate recurrence in men who have undergone radical prostatectomy. This result was generated using a iPosias immunoassay. ??Results obtained from other methods or manufacturers cannot be used interchangeably with this method. Blood 02/08/2024 3:12 PM EDT 02/08/2024 3:17 PM EDT Narrative Resulting Agency Comment Spec In Lab Rj Mcdonald MD CHEMISTRY ORDERABL ES [facility] [place] [place] [address] documented in this encounter Visit Diagnoses Diagnosis Malignant neoplasm of prostate documented in this encounter Care Teams Professor Of Psychology Relationship Specialty Start Date End Date Giovanni Wing MD [address] [place] [address] PCP - General Family Medicine 08/29/18 documented as of this encounter
--- OUTSIDE RECORDS SUMMARY | 2024-08-23 17:26 | XMS_ITS | Encounter Summary ---
Author Organization [facility] Address [facility] [place] [address] Care Team Providers Care Intake Man Name Role Phone Giovanni Wing MD Primary Care Provider [phone] Reason for Visit * Occupational Therapy (Routine) - Closed Specialty Diagnoses / Procedures Referred By Emanuel flores Referred To Contact Occupational Therapy Diagnoses Pain in left elbow Suzy Jacobs PA [facility] [place] [address] [address]hab Ot [address] [place] [address] Referral ID Status Reason Start Date Expiration Date V isits Requested Visits Authorized [id number] Closed Evaluate and Treat 11/03/2022 11/03/2023 30 30 Encounter Details Date Type Department Care Team (Late st Contact Info) Description 03/28/2023 7:45 AM EDT Office Visit Occupational Therapy at [facility] [address] [place] [id number] Shara Alvarado OT Pain in left elbow [...] place to sleep or slept in a alf (including now)? No 11/02/2022 Sex and Gender Information Value Date Recorded Sex Assigned at Not on file Gender Identity Not on file Sexual Orientation Not on file documented as of this encounter Progress Notes * Shara Alvarado, OT - 03/28/2023 7:45 AM EDT OCCUPATIONAL THERAPY PROGRESS NOTE Certification Period: 02/02/23-05/05/23 Referral Source: LORENE Cowart MD Follow-up: PRN Total Treatment time: 45 Minutes Timed Code Treatment Time: 35 minutes OCCUPATIONAL PROFILE: Devan Chen is a 57 y.o. year old Right hand dominant male who is referred for left elbow pain since approximately Sep 2022. [place] hunting season - holding rifle and loading firewood. Got an [facility] left wrist brace that he wore for [...] 0/10 - Able to perform without difficulty 10) Activity At Evaluation 02/22/23 03/28/23 1.) Computer work Does not tend to have difficulty- send ergonomic suggestions- 08/28. 08/28 - Making gains, discomfort still there. Able to make computer changes- switched chairs- arm rest is supportive, foot rest, and new computer screen. A while ago tried Dragon dictation but was not able use it. Has been trying to keep elbows more close to his sides. 06/28 - feels mild discomfort after workingon the computer. 08/28 while using it. 2.) Firewood -12/29 Still a work in progress- still wouldn't do it. Still would be a 1-12/29. Has not recently; that kind of activity still sometimes aggravates -02/26. 3.) Opening containers -04/28 d/t pain -05/28- Probably a little better, still hurts to do and has been trying to avoid it. 05/28 - a little better than it was; edu jar of maple syrup - lid sticks alittle bit so will slightly aggravate it. Gave Dycem. 4.) Sleeping has been fine. Carries rifle [...] a lot of attention to it. 8-07/29. 5.) Driving - does not drive very much and does not bother him. Driving has been fine. Average Score: 5.7/10 6/10 6/10 Pain: (Assessed using the visual analog pain [...] OT but still discomfort in lateral elbow. Special Testing Completed: Sensation intact No edema evident Cozens - positive and weaker on left Anshu MF extension- mild positive on left Palpation: TTP left lateral epicondyle, triceps, mild at medial epicondyle 03/28/23: Matheus and Anshu mild positive on left. Mild TTP lateral epicondyle, tightness improvedin wrist extensors though still evident. Upper Limb Tension Test Right 03/21/23 Left 03/21/23 Median Nerve NT Mild Positive Ulnar Nerve NT Mild Positive Radial Nerve NT Positive Active Range of Motion: Measured in degrees of active motion with goniometer Right Left 03/28/23 Left 02/22/23 Left eval Elbow Extension/Flexion 0/WNL WNL, Mild with elbow flexion/mild discomfort with extension +1/WNL -5*/WNL Wrist Extension/Flexion 60/50 53/72 53/75 52*/58 Ulnar/Radial Deviation 32/14 32/13 Pronation/Supination WNL WNL WNL mild discomfort Composite Extension/Flexion 54/31 53/40 mild discomfort with extension /38 mild discomfort with ext54/30* Strength: Boiling House Hand Testing with Dynamometer setting #2 Pinch Testing with Pinch Gauge Right Left 03/28/23 Left 02/22/23 Left eval Boiling House Hand setting 2 89.8 43.6, with slight twinge/mildly bothers it. 26.2, 26.4 - starts to notice pain in left lateral elbow 35.3 Boiling House Hand Average 94.5 16.7 Rahman 21 17 21.5 3 Pt 17 15.5 twinge 18 no pain 15 Tip 12.5 13 11.5 Treatment Today: Educated patient in etiology and biomechanics as related to the patient's symptoms Hot pack (30204) for 10 minutes: applied with eight layers of towels in addition to hot pack insulation for a total of 12 layers, utilized for superficial heating for soft tissue preparation prior totreatment activities applied to the left elbow. Re-assessed PSFS function, pain, AROM, and strength - making gradual progress. Still discomfort in lateral elbow with gripping/lifting. Adding iontophoresis to treatment - first patch today. Kneading massage to left wrist extensors. Iontophoresis (72630): Skin prepped with soap and water, applied Iontopatch 80 mA with 2.0 cc of 0.4% dexamethasone sodium phosphate to be worn for 4 hours, then removed with soap and water, for reduction of pain and inflammation, applied today to the left lateral elbow / extensor wad. Provided with home exercise program to include 3x/day: -Heat first -Wall pec/bicep stretch -Composite flexion stretch elbow at side - hold as of 03/21 -Composite flexion stretch elbow extended - on hold as of 03/21 HEP: 1 lb left wrist extensor eccentrics - 2 sets of 10 reps 2x/day. - hold hold as of 03/21 brown theraputty for discount clerk and tip pinch; red tband for scap retraction. -Avoiding gripping/lifting with elbow extended and pronated -Pictures of computer workstation for ergonomic suggestions -AROM brachial plexus stretch, AROM radial nerve stretch, ulnar nerve glide distal, median nerve glide flossing See scanned documents Custom left volar wrist cockup orthosis Instructed in orthosis care and to be worn while sleeping to rest forearm musculature in a neutral position Instructed in home modalities to include: Moist heat CLINICAL DECISION MAKING: Devan Chen has left lateral epicondylitis causing functional deficits in ADL/IADL performance. Please see above, PSFS and DASH for specific functional deficits 03/28/23: Re-assessed PSFS function, pain, AROM, and strength - making gradual progress. Still discomfort in lateral elbow with gripping/lifting. Adding iontophoresis to treatment - first patch today.Re-education in scapular reaction as well as a reassessment of HEP is provided. Patient reports improvements with HEP and continues to progress. Nerve glides are going well to decrease left upper extremity tension/likely neural tension. Devan Chen is able to demonstrate home exercises with written instructions provided. Devan Chen has good potential for gains with therapy with identified needs for skilled therapy for treatment of deficits noted during evaluation, to maximize functional performance during daily activities. Fci Goals (to be met by discharge): Date Goal Met: 1.) Devan Chen will demonstrate significantly improved functional performance from re-assessment as measured by a total average score of 8 using the PSFS. Goal Status: In progress Short Term Goals (to be met by 04/09/23): Date Goal Met: Devan Cehn will be independent with home exercise program with written instructions. Goal Status: Met, ongoing Devan Chen will gain 2 degrees of left elbow extension, 5 lbs left discount clerk strength to demonstrate significantly improved functional performance as measured by >/= 2 point improvement on the total average score of the PSFS. Goal Status: In progress Devan Chen will demonstrate the ability to complete gripping firewood, opening containers tasks at a level of 6/10, with 0-2/10 pain using the visual analog pain scale. Goal Status: In progress PLAN: The patient is to be seen 2 time(s) per week, for 3 week(s) to progress toward short and assisted goals, Joint mobilizations to decrease pain and/or increase ROM , Soft tissue mobilization as therapeutically necessary to decrease pain and/or increase mobility, Therapeutic exercises to increase functional mobility, Orthosis to provide support and protection to the joint, Functional activities to increase hand function and independence in self care and Perform modalities as therapeuticallynecessary to decrease pain and increase mobility to include: Hot pack, Ultrasound, Iontopatch and Kinesiotape, Cupping (X) Devan Chen participated in the evaluation, collaborated on treatment goals, and agrees to the treatment plan. documented in this encounter Plan of Treatment Not on file documented as of this encounter Visit Diagnoses Diagnosis Pain in left elbow Pain in joint, upper arm documented in this encounter Care Teams Intake Man Relationship Specialty Start Date End Date Giovanni Wing MD [address] [address] PCP - General Family Medicine 08/29/18 documented as of this encounter
--- OUTSIDE RECORDS SUMMARY | 2024-08-23 17:26 | XMS_ITS | Encounter Summary ---
Author Organization Counts Include [facility] Address One [facility] [place] [address] Care Team Providers Care Roof Service Technician Name Role Phone Giovanni Wing MD Primary Care Provider [phone] Encounter Details Date Type Department Care Team (Latest Contact Info) Description 03/21/2023 Travel Social History Tobacco Use Types Packs/Day [...] on filedocumented in this encounter Care Teams Roof Service Technician Relationship Specialty Start Date End Date Giovanni Wing MD [address] [address] PCP - General Family Medicine 08/29/18 documented as of this encounter
--- OUTSIDE RECORDS SUMMARY | 2024-08-23 17:26 | XMS_ITS | Encounter Summary ---
Author Organization [facility] Address [facility] [place] [address] Care Team Providers Care Shop Repairer Name Role Phone Giovanni Wing MD Primary Care Provider [phone] Reason for Visit * Occupational Therapy (Routine) - Closed Specialty Diagnoses / Procedures Referred By Emanuel flores Referred To Contact Occupational Therapy Diagnoses Pain in left elbow Suzy Jacobs PA [facility] [place] [address] [address]hab Ot [address] [place] [address] Referral ID Status Reason Start Date Expiration Date V isits Requested Visits Authorized [id number] Closed Evaluate and Treat 11/03/2022 11/03/2023 30 30 Encounter Details Date Type Department Care Team (Late st Contact Info) Description 04/04/2023 2:00 PM EDT Office Visit Occupational Therapy at [facility] [address] [place] [id number] Shara Alvarado OT Pain in left elbow [...] - Therapy - Shara Alvarado OT - 04/04/2023 2:00 PM EDT OCCUPATIONAL THERAPY TREATMENT NOTE Certification Period: 02/02/23-05/05/23 Referral Source: LORENE Cowart MD Follow-up: PRN Total Treatment time: 45 Minutes Timed Code Treatment Time: 35 minutes OCCUPATIONAL PROFILE: Devan Chen is a 57 y.o. year old Right hand dominant male who is referred for left elbow pain since approximately Sep 2022. [place] hunting season - holding rifle and loading firewood. Got an [facility] left wrist brace that he wore [...] feels mild discomfort after workingon the computer. 1010 while using it. 2.) Firewood 1-12/29 Still a work in progress- still wouldn't do it. Still would be a 1-2. Has not recently; that kind of activity still sometimes aggravates -02/26. 3.) Opening containers 5-04/28 d/t pain -05/28- Probably a little better, [...] extension /38 mild discomfort with ext54/30* Strength: Recreation Program Coordinator Testing with Dynamometer setting #2 Pinch Testing with Pinch Gauge Right Left 03/28/23 Left 02/22/23 Left eval Recreation Program Coordinator setting 2 89.8 43.6, with slight twinge/mildly bothers it. 26.2, 26.4 - starts to notice pain in left lateral elbow 35.3 Recreation Program Coordinator Average 94.5 16.7 Rahman 21 17 21.5 3 Pt 17 15.5 twinge 18 no pain 15 Tip 12.5 13 11.5 Treatment Today: Educated patient in etiology and biomechanics as related to the patient's symptoms Hot pack (25656) for 10 minutes: applied with eight layers of towels in addition to hot pack insulation for a total of 12 layers, utilized for superficial heating for soft tissue preparation prior totreatment activities applied to the left elbow. Ultrasound (73540) (100%, 3.3 MHz, 1.0 W/cm2, 7 minutes) with additional 2 minutes of set-up time, used for soft tissue preparation prior to treatment activities applied today to the left just distalto lateral epicondyle. Kneading massage to left wrist extensors origin along with pin and stretch for ECRB - educated in pt performing this at home. Iontophoresis (50591): Skin prepped with soap and water, applied Iontopatch 80 mA with 2.0 cc of 0.4% dexamethasone sodium phosphate to be worn for 4 hours, then removed with soap and water, for reduction of pain and inflammation, applied today to the left lateral elbow / extensor wad. Patch 3 Educated patient in removal of patch using cool water and soap. Discussed body mechanics when hunting and use of shotgun strap to eliminate need for carrying shotgun. Discussed importance of body awareness related to shoulder tension when carrying gun and taking breaks, as well and putting gun down and doing shoulder rolls as needed. Provided with home exercise program to include 3x/day: -Heat first -Wall pec/bicep stretch -Composite flexion stretch elbow at side - hold as of 5/3 -Composite flexion stretch elbow extended - on hold as of 5/3 HEP: 1 lb left wrist extensor eccentrics - 2 sets of 10 reps 2x/day. - hold hold as of 5/3 brown theraputty for vice president of sales and tip pinch; red tband for scap [...] PSFS and DASH for specific functional deficits 04/04/23: Pt reports over the weekend he overused his left arm a bit carrying items out his drivewaybut it has calmed down. Educated today in pin and stretch manual technique for ECRB, and applied 3rd ionto patch. Pt noticing steady improvements in his symptoms. Devan Chen is able to demonstrate home exercises with written instructions provided. Devan Chen has good potential for gains with therapy with identified needs for skilled therapy for treatment of deficits noted during evaluation, to maximize functional performance during daily activities. Intermediate Goals (to be met by discharge): Date [...] of left elbow extension, 5 lbs left vice president of sales strength to demonstrate significantly improved functional performance [...] 3 week(s) to progress toward short and fpc goals, Joint mobilizations to decrease pain and/or [...] arm documented in this encounter Care Teams Shop Repairer Relationship Specialty Start Date End Date Giovanni Wing MD [address] [address] PCP - General Family Medicine 08/29/18 documented as of this encounter
--- OUTSIDE RECORDS SUMMARY | 2024-08-23 17:26 | XMS_ITS | Encounter Summary ---
Author Organization [facility] Address One [facility] [place] [address] Care Team Providers Care Forest Ecology Professor Name Role Phone Giovanni Wing MD Primary Care Provider [phone] Encounter Details Date Type Department Care Team (Latest Contact Info) Description 04/18/2023 Travel Social History Tobacco Use Types Packs/Day [...] place to sleep or slept in a half-way (including now)? No 11/02/2022 Sex and Gender Information Value Date Recorded Sex Assigned at Not on file Gender Identity Not on file Sexual Orientation Not on file documented as of this encounter Plan of Treatment Not on file documented as of this encounter Visit Diagnoses Not on filedocumented in this encounter Care Teams Forest Ecology Professor Relationship Specialty Start Date End Date Giovanni Wing MD [address] [address] PCP - General Family Medicine 08/29/18 documented as of this encounter
--- OUTSIDE RECORDS SUMMARY | 2024-08-23 17:26 | XMS_ITS | Encounter Summary ---
Author Organization [facility] [place] [address] Care Team Providers Care Liner Inserter Name Role Phone Giovanni Wing MD Primary Care Provider [phone] Reason for Visit * Reason Comments Insect Bite Encounter Details Date Type Department Care Team (Late st Contact Info) Description 04/10/2023 7:58 AM EDT - 04/10/2023 8:36 AM EDT Emergency Emergency Department [facility] [place] [id number] Tick bite of groin, initial encounter; Cellulitis, unspecified cellulitis site Discharge Disposition: Home Social History Tobacco Use Types Packs/Day Years [...] place to sleep or slept in a residential (including now)? No 11/02/2022 Sex and Gender Information Value Date Recorded Sex Assigned at Not on file Gender Identity Not on file Sexual Orientation Not on file documented as of this encounter Last Filed Vital Signs Vital Sign Reading Time Taken Comments Blood Pressure 126/84 04/10/2023 8:05 AM EDT Pulse 69 04/10/2023 8:05 AM EDT Temperature 36.7 ??C (98.1 ??F) 04/10/2023 8:05 AM ED T Respiratory Rate 18 04/10/2023 8:05 AM EDT Oxygen Saturation 96% 04/10/2023 8:05 AM EDT Inhaled Oxygen Concentration - - Weight - - Height - - Body Mass Index - - documented in this encounter Discharge Instructions * Discharge Instructions* Moisés Suarez PA - 04/10/2023 8:20 AM EDT You were seen in the emergency department for a tick bite and surrounding cellulitis. Please take your antibiotics as prescribed. Return emergency department if you have worsening redness, swelling, pain, fevers, chills or if you have any other questions or concerns. Your antibiotics will make you s ensitive to the sun. Please stay out of the sun or use skin protection. Antibiotics can also make you nauseous. Please eat something before you take your doxycycline. * Attachments The following attachments cannot be sent through Care Everywhere. * Cellulitis (Guatemalan) * Tick Bite (Guatemalan) documented in this encounter Medications at Time of Discharge Medication Sig Dispensed Refills Start Date End Date sildenafiL (Viagra) 100 mg tablet Take 1 tablet by mouth as needed. 30 tablet 5 01/31/2023 FIBER CHOICE ORAL Take by mouth. Metamucil tablets 12 tabs a day fluticasone propionate (Flonase) 50 mcg/actuation [place], Suspension every 24 hours. loratadine (Claritin) 10 mg Tablet every 24 hours. FLUoxetine (PROzac) 10 mg Capsule TAKE 3 CAPSULES BY MOUTH EVERY DAY for 90 FISH OIL-DHA-EPA ORAL Take by mouth daily. acetaminophen (TYLENOL) 650 mg Tablet Sustained Release 1,300 mg daily. MELATONIN ORAL Take by mouth nightly as needed. cholecalciferol, Vitamin D3, 1,000 unit Capsule Take 1,000 Units by mouth daily. VENTOLIN HFA 90 mcg/actuation HFA Aerosol Inhaler Inhale 2 puffs into the lungs as needed. 3 07/20/2017 triamcinolone (KENALOG) 0.1 % Cream Apply topically as needed. 0 06/26/2017 doxycycline (Vibramycin) 100 mg capsule Take 1 capsule by mouth 2 times daily for 10 days. 20 capsule 04/10/2023 04/20/2023 documented as of this encounter ED Notes * Moisés Suarez PA - 04/10/2023 8:36 AM EDT ED Provider Note HPI: Devan Chen is a 57 y.o. male who presents to the Emergency Department with concerns for a tickbite in his left groin with surrounding redness. Patient states that 2 nights ago he removed a tickfrom his left groin. He was given a prophylactic dose of doxycycline last night although he thinks that the tick was on for less than 24 hours. However he has had a slow progression of redness from the surrounding bite and is concerned for infection. He admits to a itchy/burning sensation around the tick bite. He denies any significant discomfort. No fevers or chills. ROS as per HPI Vitals: ED Triage Vitals [04/10/23 0805] BP: 126/84 Heart Rate: 69 Resp: 18 Temp: 36.7 ??C (98.1 ??F) Temp src: Temporal SpO2: 96 % O2 Device: O2 Flow Rate (L/min): n/a Physical Exam Constitutional: Appears well-developed and well-nourished. No distress. Head: Normocephalic and atraumatic. Cardiovascular: Normal rate Pulmonary/Chest: Effort normal Musculoskeletal: Exhibits no edema or tenderness. Neurological: Alert and oriented Skin: Skin is warm and dry. Small area of excoriated skin left groin with mild surrounding erythema. No surrounding induration, warmth or fluctuance. No subcutaneous air. Minimally tender with palpation. ED Course: No orders to display Procedures Assessment and Plan: 57 y.o. male presents emergency department with early cellulitis of his left groin after a tick bite. Patient has no systemic symptoms of infection. No evidence of deep space infection. We will plan to proceed with treatment with doxycycline which she has tolerated in the past. We discussed that this medication makes you more sensitive to the sun and we discussed GI side effects. Patient return to the emergency department if he has increased redness, pain, fevers, chills or if he has any other questions/concerns. Medications managed: Doxycycline Did this case involve critical care? No The visit findings, diagnosis, and care plan were discussed with the patient. The diagnosis and care plans discussions were outlined in the discharge instructions. The patient expressed understanding of the details of the visit, the return precautions and that he should returnto the ER at any time for worsening symptoms, new symptoms, or other concerns. he agrees with the follow- up plan. Moisés Suarez PA 04/10/23 0853 documented in this encounter Plan of Treatment Not on file documented as of this encounter Visit Diagnoses Diagnosis Tick bite of groin, initial encounter Cellulitis, unspecified cellulitis site documented in this encounter Care Teams Liner Inserter Relationship Specialty Start Date End Date Giovanni Wing MD [address] [place] [id number] PCP - General Family Medicine 08/29/18 documented as of this encounter
--- OUTSIDE RECORDS SUMMARY | 2024-08-23 17:26 | XMS_ITS | Encounter Summary ---
Author Organization [facility] Address [facility] [place] [address] Care Team Providers Care Sand Drier Name Role Phone Giovanni Wing MD Primary Care Provider [phone] Encounter Details Date Type Department Care Team (Late st Contact Info) Description 03/12/2023 Telephone Physical Therapy at [address] [place] [phone] Iesha Wylie Social History Tobacco Use Types Packs/Day Years [...] place to sleep or slept in a penitentiary (including now)? No 11/02/2022 Sex and Gender Information Value Date Recorded Sex Assigned at Not on file Gender Identity Not on file Sexual Orientation Not on file documented as of this encounter Plan of Treatment Not on file documented as of this encounter Visit Diagnoses Not on filedocumented in this encounter Care Teams Sand Drier Relationship Specialty Start Date End Date Giovanni Wing MD [address] [place] [address] PCP - General Family Medicine 08/29/18 documented as of this encounter
--- OUTSIDE RECORDS SUMMARY | 2024-08-23 17:26 | XMS_ITS | Encounter Summary ---
[facility] Organization [facility] Address [facility] [place] [address] Care Team Providers Care Take Down Inspector Name Role Phone Giovanni Wing MD Primary Care Provider [phone] Encounter Details Date Type Department Care Team (Late st Contact Info) Description 05/03/2023 3:00 PM EDT Office Visit Urology at [facility], [place] [place] [address] Rj Mcdonald MD [facility] [place] [address] Malignant neoplasm of prostate Social History Tobacco [...] place to sleep or slept in a fpc (including now)? 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 He has recovered well and describes good erectile function and bladder control. PSA is undetectable. Surgical Pathology DIAGNOSIS A - Bilateral pelvic lymph nodes (excision): - Six lymph nodes and associated fibroadipose tissue, negative for malignancy (0/6). B - Prostate (radical prostatectomy): - Prostatic adenocarcinoma, Grade Group 2, Angie score 3+4=7. - See synoptic report for additional details and staging. Electronically signed by: Pat Villa MD Verified: 01/19/2023 10:43 Pathologist Performed at: -[facility] Dept. of Pathology, [place] [id number] Crossing Guard: Paolo Dowling MD, FCAP, CLIA Certificate: [id number] SYNOPTIC Specimen Procedure: Radical prostatectomy Prostate Size Prostate Weight (Grams): 47 g Prostate Size in Centimeters (cm): 4.6 x 3.9 x 3.6 Centimeters (cm) Tumor Histologic Type: Acinar adenocarcinoma Histologic Grade Grade: Grade group 2 (Angie Score 3 + 4 = 7) Minor [...] CAP eCC 2021 Q1 Release Past Medical History: Diagnosis Date Asthma Cancer prostate Chronic anxiety Chronic pain back Past Surgical History: Procedure Laterality Date JOINT REPLACEMENT Right large toe LUMBAR DISC SURGERY L5-S1 PRO COLONOSCOPY, BIOPSY N/A 08/19/2018 COLONOSCOPY FLEXIBLE, WITH BX (WRVU 3.66) performed by Cirilo Pathak MD at [facility] ENDOSCOPY PRO HALLUX RIGIDUS W/CHEILECTOMY 1ST MP JT W/IMPLT Right 10/31/2018 CORRECTION HALLUX RIGIDUS, W IMPLANT (WRVU 8.01) performed by Pascual Pearson MD at [facility] MAIN OR PRO LAP, PELVIC LYMPHADENECTOMY Bilateral 12/28/2022 LAPAROSCOPY,WITH BILATERAL TOTAL PELVIC LYMPHADENECTOMY, ROBOTIC (WRVU 12) performed by Rj Mcdonald MD at [facility] MAIN OR PRO LAP, PROSTATECTOMY, RADICAL, W/NERVE SPARE N/A 12/28/2022 LAPAROSCOPIC PROSTATECTOMY, ROBOTICS ASSISTED (WRVU 21.36) performed by Rj Mcdonald MD at [facility] MAIN OR US GUIDED BIOPSY PROSTATE WITH URONAV FUSION 09/21/2022 US Guided Biopsy Prostate with Uronav Fusion 09/21/2022 [facility] RAD ULTRASOUND Social History Socioeconomic History Marital status: Spouse name: None Number of children: None Years of education: None Highest education level: None Occupational History 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 Alert, oriented, nad A/P: Doing well s/p RALRP with PLND, PSA is undetectable. I explained the findings to the patient and recommended to schedule a f/u in 3 months with a repeat PSA. documented in this encounter Plan of Treatment Not on file documented as of this encounter Results * PSA (Ultrasensitive) (08/10/2023 8:00 AM EDT) Prostate Specific Antigen (Ultrasensitive) <0.01 0.00 - 4.00 ng/mL [facility] Comment: PLEASE NOTE: The above [...] Lab Rj Mcdonald MD CHEMISTRY ORDERABL ES [facility] [place] [address] documented in this encounter Visit Diagnoses Diagnosis Malignant neoplasm of prostate documented in this encounter Care Teams Take Down Inspector Relationship Specialty Start Date End Date Giovanni Wing MD [address] [place] [address] PCP - General Family Medicine 08/29/18 documented as of this encounter
--- OUTSIDE RECORDS SUMMARY | 2024-08-23 17:26 | XMS_ITS | Encounter Summary ---
Author Organization [facility], [facility] Address [facility] [place] [address] Care Team Providers Care Calcine Furnace Tender Name Role Phone Giovanni Wing MD Primary Care Provider [phone] Encounter Details Date Type Department Care Team (Latest Contact Info) Description 06/15/2023 Travel Social History Tobacco Use Types Packs/Day [...] on filedocumented in this encounter Care Teams Calcine Furnace Tender Relationship Specialty Start Date End Date Giovanni Wing MD [address] [place] [address] PCP - General Family Medicine 08/29/18 documented as of this encounter
--- OUTSIDE RECORDS SUMMARY | 2024-08-23 17:26 | XMS_ITS | Encounter Summary ---
Author Organization [facility] Address [facility] [place] [address] Care Team Providers Care Blower Operator Name Role Phone Giovanni Wing MD Primary Care Provider [phone] Reason for Visit * Occupational Therapy (Routine) - Closed Specialty Diagnoses / Procedures Referred By Emanuel flores Referred To Contact Occupational Therapy Diagnoses Pain in left elbow Suzy Jacobs PA [facility] [place] [address] [address] [address] [place] [address] Referral ID Status Reason Start Date Expiration Date V isits Requested Visits Authorized [id number] Closed Evaluate and Treat 11/03/2022 11/03/2023 30 30 Encounter Details Date Type Department Care Team (Late st Contact Info) Description 03/21/2023 7:45 AM EDT Office Visit Occupational Therapy at [facility] [address] [place] [phone] Shara Alvarado OT Pain in left elbow [...] a senior living (including now)? No 11/02/2022 Sex and Gender Information Value Date Recorded Sex Assigned at Not on file Gender Identity Not on file Sexual Orientation Not on file documented as of this encounter Miscellaneous Notes * Treatment - Therapy - Sapna Allan - 03/21/2023 7:45 AM EDT OCCUPATIONAL THERAPY TREATMENT NOTE Certification Period: 02/02/23-05/05/23 Referral Source: LORENE Cowart MD Follow-up: PRN Total Treatment time: 45 Minutes Timed Code Treatment Time: 35 minutes OCCUPATIONAL PROFILE: Devan Chen is a 57 y.o. year old Right hand dominant male who is referred for left elbow pain since approximately Sep 2022. [place] hunting season - holding rifle and loading firewood. Got an OTC left wrist brace that he wore for [...] without difficulty 10) Activity At Evaluation 02/22/23 1.) Computer work Does not tend to have difficulty- send ergonomic suggestions- 08/28. 08/28 - Making gains, discomfort still there. Able to make computer changes- switched chairs- arm rest is supportive, foot rest, and new computer screen. A while ago tried Dragon dictation but was not able use it. Has been trying to keep elbows more close to his sides. 2.) Firewood -12/29 Still a work in progress- still wouldn't do it. Still would be a . 3.) Opening containers 5-04/28 d/t pain -05/28- Probably a little better, still hurts to do and has been trying to avoid it. 4.) Sleeping has been fine. Carries rifle in right hand previously but this year he did with the left hand. Shoulder strap previously used would slip down shoulder. 5.) Driving - does not drive very much and does not bother him. Average Score: 5.7/10 610 Pain: (Assessed using the visual analog pain scale) At Rest: 3/10 left lateral elbow, also a little into the tricep With Activity: 8/10 left lateral elbow with pronated gripping/lifting 4/6/23: 1-2/10 at rest, gets up to a 6/10 with gripping Special Testing Completed: Sensation intact No edema evident Cozens - positive and weaker on left Maudsley MF extension- mild positive on left Palpation: TTP left lateral epicondyle, triceps, mild at medial epicondyle Upper Limb Tension Test Right 03/21/23 Left 03/21/23 Median Nerve NT Mild Positive Ulnar Nerve NT Mild Positive Radial Nerve NT Positive Active Range of Motion: Measured in degrees of active motion with goniometer Right Left 02/22/23 Left eval Elbow Extension/Flexion 0/WNL +1/WNL -5*/WNL Wrist Extension/Flexion 60/50 53/75 52*/58 Ulnar/Radial Deviation 32/14 32/13 Pronation/Supination WNL WNL WNL mild discomfort Composite Extension/Flexion 54/31 /38 mild discomfort with ext 54/30* Strength: Hunter Testing with Dynamometer setting #2 Pinch Testing with Pinch Gauge Right Left 02/22/23 Left eval Hunter setting 2 89.8 26.2, 26.4 - starts to notice pain in left lateral elbow 35.3 Hunter Average 94.5 16.7 Rahman 21 21.5 3 Pt 17 18 no pain 15 Tip 12.5 11.5 Treatment Today: Educated patient in etiology and biomechanics as related to the patient's symptoms Hot pack (59381) for 10 minutes: applied with eight layers of towels in addition to hot pack insulation for a total of 12 layers, utilized for superficial heating for soft tissue preparation prior totreatment activities applied to the left elbow. Patient reports elbow is improving and that pain has shifted more radially. Upper limb traction testing is completed of the left side. Results listed above. Manual massage of left wrist extensors, and wrist flexors. Ultrasound (30079) (100%, 3.3 MHz, 1.0 W/cm2, 7 minutes) with additional 2 minutes of set-up time, used for soft tissue preparation prior to treatment activities applied today to the left lateral epicondyle and extensor wad. Therex and nerve glides completed for left tension and nerve impingement. Added to HEP: AROM brachial plexus stretch, AROM radial nerve stretch, ulnar nerve glide distal, median nerve glide flossing HEP is reassessed for streamlining / eliminating least pertinent exercises, and to follow nata'tsprogress. Provided with home exercise program to include 3x/day: -Heat first -Wall pec/bicep stretch -Composite flexion stretch elbow at side - hold as of 03/21 -Composite flexion stretch elbow extended - on hold as of 03/21 HEP: 1 lb left wrist extensor eccentrics - 2 sets of 10 reps 2x/day. - hold hold as of 03/21 brown theraputty for patient financial representative and tip pinch; red tband for scap retraction. -Avoiding gripping/lifting with elbow extended and pronated -Send pictures of computer workstation for ergonomic suggestions See scanned documents Fabricated a custom left volar wrist cockup orthosis Instructed in orthosis care and to be worn while sleeping to rest forearm musculature in a neutral position Instructed in home modalities to include: Moist heat CLINICAL DECISION MAKING: Devan Chen has left lateral epicondylitis causing functional deficits in ADL/IADL performance. Please see above, PSFS and DASH for specific functional deficits 03/21/23: Patient reports that his pain and discomfort are improving. However, the location of his discomfort has moved more radially. Patient continues to present with tension in his EDC's and mild tension in his lateral epicondyle. Re- education in scapular reaction as well as a reassessment of HEP is provided. Patient reports improvements with HEP and continues to progress. Nerve glides are provided to decrease left upper extremity tension and nerve impingement. . Devan Chen is able to demonstrate home exercises with written instructions provided. Devan Chen has good potential for gains with therapy with identified needs for skilled therapy for treatment of deficits noted during evaluation, to maximize functional performance during daily activities. [facility] Goals (to be met by discharge): Date Goal Met: 1.) Devan Chen will demonstrate significantly improved functional performance from re-assessment as measured by a total average score of 8 using the PSFS. Goal Status: In progress Short Term Goals (to be met by 02/22/23): Date Goal Met: Devan Chen will be independent with home exercise program with written instructions. Goal Status: In progress Devan Chen will gain 2 degrees of left elbow extension, 5 lbs left patient financial representative strength to demonstrate significantly improved functional performance [...] PLAN: The patient is to be seen 1 time(s) per week, for 3 week(s) to progress toward short and intermediate goals, Joint mobilizations to decrease pain and/or increase ROM , Soft tissue mobilization as therapeutically necessary to decrease pain and/or increase mobility, Therapeutic exercises to increase functional mobility, Orthosis to provide support and protection to the joint, Functional activities to increase hand function and independence in self care and Perform modalities as therapeuticallynecessary to decrease pain and increase mobility to include: Hot pack, Ultrasound and Kinesiotape, Cupping (X) Devan Chen participated in the evaluation, collaborated on treatment goals, and agrees to the treatment plan. This treatment and note were done under the direct supervision of a licensed occupational therapistby an occupational therapy student. documented in this encounter Plan of Treatment Not on file documented as of this encounter Visit Diagnoses Diagnosis Pain in left elbow Pain in joint, upper arm documented in this encounter Care Teams Blower Operator Relationship Specialty Start Date End Date Giovanni Wing MD [address] [address] PCP - General Family Medicine 08/29/18 documented as of this encounter
--- OUTSIDE RECORDS SUMMARY | 2024-08-23 17:26 | XMS_ITS | Encounter Summary ---
Author Organization [facility] Address [facility] [place] [address] Care Team Providers Care Battery Charger Name Role Phone Giovanni Wing MD Primary Care Provider [phone] Reason for Visit * Occupational Therapy (Routine) - Closed Specialty Diagnoses / Procedures Referred By Emanuel flores Referred To Contact Occupational Therapy Diagnoses Pain in left elbow Suzy Jacobs PA [facility] [place] [address] [address] [facility] [address] [place] [address] Referral ID Status Reason Start Date Expiration Date V isits Requested Visits Authorized [id number] Closed Evaluate and Treat 11/03/2022 11/03/2023 30 30 Encounter Details Date Type Department Care Team (Late st Contact Info) Description 04/09/2023 3:15 PM EDT Office Visit Occupational Therapy at [facility] [address] [place] [address] Shara Alvarado OT Pain in left elbow [...] place to sleep or slept in a assisted (including now)? No 11/02/2022 Sex and Gender Information Value Date Recorded Sex Assigned at Not on file Gender Identity Not on file Sexual Orientation Not on file documented as of this encounter Miscellaneous Notes * Treatment - Therapy - Sapna Allan - 04/09/2023 3:15 PM EDT OCCUPATIONAL THERAPY TREATMENT NOTE Certification Period: 02/02/23-05/05/23 Referral Source: LORENE Cowart MD Follow-up: PRN Total Treatment time: 45 Minutes Timed Code Treatment Time: 35 minutes OCCUPATIONAL PROFILE: Devan Chen is a 57 y.o. year old Right hand dominant male who is referred for left elbow pain since approximately Sep 2022. [place] hunting season - holding rifle and loading [...] in 2006, sees chiropractor and massage therapist Reassessment, mannual massage I's Date of onset of symptoms: September 2022 [...] workingon the computer. 1010 while using it. 06/28 Patient reports not leaning into all the support he has, and noticing fatigue. Reports that he needs to to get up for breaks due left arm and chest feeling weak, reports taking a couple breaks a day 2.) Firewood -12/29 Still a work in progress- still wouldn't do it. Still would be a -12/29. Has not recently; that kind of activity still sometimes aggravates -02/26. Has not done task recently -05/28 3.) Opening containers -04/28 d/t pain -05/28- Probably a little better, still hurts to do and has been trying to avoid it. 05/28 - a little better than it was; edu jar of maple syrup - lid sticks alittle bit so will slightly aggravate it. Gave Mar. Patient reports he has noticed no pain [...] to adjust the sizing of the rubber hotel security officer holding the strap in place. Reports that [...] 2-5/10, varies depending on activity. Special Testing Completed: Sensation intact No edema evident Cozens - positive and weaker on left Anshu MF extension- mild positive on left Palpation: TTP left lateral epicondyle, triceps, mild at medial epicondyle 03/28/23: Matheus and Anshu mild positive on left. Mild TTP lateral epicondyle, tightness improvedin wrist extensors though still evident. Upper Limb Tension Test Right 5/3/23 Left 03/21/23 Median Nerve NT Mild Positive [...] /38 mild discomfort with ext 54/30* Strength: Whizzer Hand Testing with Dynamometer setting #2 Pinch Testing with Pinch Gauge Right Left 04/09/23 Left 03/28/23 Left 02/22/23 Left eval Whizzer Hand setting 2 89.8 51.5, 71.8 78.2 43.6, with slight twinge/mildly bothers it. 26.2, 26.4 - starts to notice pain in left lateral elbow 35.3 Whizzer Hand Average 94.5 67.1 patient reports no pain or discomfort 16.7 Rahman 21 23 17 21.5 3 Pt 17 16 15.5 twinge 18 no pain 15 Tip 12.5 12 13 11.5 Treatment Today: Educated patient in etiology and biomechanics as related to the patient's symptoms Hot pack (77420) for 10 minutes: applied with eight layers of towels in addition to hot pack insulation for a total of 12 layers, utilized for superficial heating for soft tissue preparation prior totreatment activities applied to the left elbow. Completed reassessment of PSFS, strength, ROM and pain. Discussed continued areas of concern for patient. Patient reports that positions such as those required to button a shirt and lift a plate continue to cause slight pain. Kneading massage to left wrist extensors. Iontophoresis (99116): Skin prepped with soap and water, applied Iontopatch 80 mA with 2.0 cc of 0.4% dexamethasone sodium phosphate to be worn for 4 hours, then removed with soap and water, for reduction of pain and inflammation, applied today to the left lateral elbow / extensor wad. Patch 4 Educated patient in removal of patch using cool water and soap. Completed pronated I's and standing I's - Added to HEP Provided with home exercise program to include 3x/day: -Heat first -Wall pec/bicep stretch -Composite flexion stretch elbow at side - hold as of 03/21 -Composite flexion stretch elbow extended - on hold as of 03/21 HEP: 1 lb left wrist extensor eccentrics - 2 sets of 10 reps 2x/day. - hold hold as of 03/21 brown theraputty for hotel security officer and tip pinch; red tband for scap [...] PSFS and DASH for specific functional deficits 04/09/23 Patient reports that he over used his arm significantly this past weekend without any pain or discomfort following activity. He reports he used moist heat and massage following his activitiesto assist in recovery. Reassessment of PSFS, pain, strength and ROM completed. Patient has remained consistent in ROM however has improved in functional performance and strength. Discussed continued areas of concern for patient. Patient reports that positions such as those required to button a shirt and lift a plate continue to cause slight pain. Completed prone I's and standing I's - Added to HEP. Kneading massage to left wrist extensors. Devan Chen is able to demonstrate home exercises with written instructions provided. Devan Chen has good potential for gains with therapy with identified needs for skilled therapy for treatment of deficits noted during evaluation, to maximize functional performance during daily activities. [facility] Goals (to be met by discharge): Date Goal Met: 1.) Devan Chen will demonstrate significantly improved functional performance from re-assessment as measured by a total average score of 8 using the PSFS. Goal Status: In progress Short Term Goals (to be met by 5/22/23): Date Goal Met: Devan Chen will be independent with home exercise program with written instructions. Goal Status: Met, ongoing Devan Chen will gain 2 degrees of left elbow extension, 5 lbs left hotel security officer strength to demonstrate significantly improved functional performance [...] 3 week(s) to progress toward short and shelter goals, Joint mobilizations to decrease pain and/or [...] arm documented in this encounter Care Teams Battery Charger Relationship Specialty Start Date End Date Giovanni Wing MD [address] [place] [address] PCP - General Family Medicine 08/29/18 documented as of this encounter
--- OUTSIDE RECORDS SUMMARY | 2024-08-23 17:26 | XMS_ITS | Encounter Summary ---
Author Organization [facility] Address [facility] [place] [address] Care Team Providers Care Security Delivery Specialist Name Role Phone Giovanni Wing MD Primary Care Provider Reason for Visit * Reason Comments Tick Removal Redness, warmth and itching around site Encounter Details Date Type Department Care Team (Late st Contact Info) Description 06/15/2023 7:47 PM EDT - 06/15/2023 8:33 PM EDT Emergency Emergency Services at [facility] [address] [place] [id number] Kian Delaney MD [facility] [place] [address] Cellulitis of skin of back; Tick bite of flank, initial encounter Discharge Disposition: Home Social History Tobacco Use Types Packs/Day Years Used Date Smoking Tobacco: Never Smokeless Tobacco: Never Alcohol Use Standard Drinks/Week Comments Yes 14 (1 standard drink = 0.6 oz pu re alcohol) 2/day liquor most often Overall Financial Resource Strain (CARDIA) Laly r Date Recorded How hard is it [...] place to sleep or slept in a chcf (including now)? No 11/02/2022 DH IPV Inpatient [...] Sign Reading Time Taken Comments Blood Pressure 103/58 06/15/2023 7:52 PM EDT Pulse 84 06/15/2023 7:52 PM EDT Temperature 36.6 ??C (97.9 ??F) 06/15/2023 7:52 PM ED T Respiratory Rate 20 06/15/2023 7:52 PM EDT Oxygen Saturation 97% 06/15/2023 7:52 PM EDT Inhaled Oxygen Concentration - - Weight 81.6 kg (180 lb) 06/15/2023 7:52 PM EDT Height - - Body Mass Index 27.37 12/28/2022 11:45 AM EST documented in this encounter Discharge Instructions * Discharge Instructions* Kian Delaney MD - 06/15/2023 8:24 PM EDT Keep skin clean and dry Take doxycycline as prescribed to treat your skin infection Follow-up with your primary care provider next week to ensure you are getting better If you have worsening redness, pain, swelling, fevers or any other concerns please return the emergency department for evaluation * Attachments The following attachments cannot be sent through Care Everywhere. * Tick Bite (Kenyan) * Cellulitis (Kenyan) documented in this encounter Medications at Time of Discharge Medication Sig Dispensed Refills Start Date End Date Miscellaneous Medical Supply KitIndications:Erectile dysfunction after radical prostatectomy Vacuum erection device to be used as needed 1 kit 06/08/2023 sildenafiL (Viagra) 100 mg tablet Take 1 tablet by mouth as needed. 30 tablet 5 01/31/2023 FIBER CHOICE ORAL Take by mouth. Metamucil tablets 12 tabs a day fluticasone propionate (Flonase) 50 mcg/actuation [place], Suspension every 24 hours. loratadine (Claritin) 10 [...] times daily for 10 days. 20 capsule 06/15/2023 06/25/2023 documented as of this encounter ED Notes * Kian Delaney MD - 06/15/2023 8:33 PM EDT Images from the original note were not included. EMERGENCY DEPARTMENT ATTENDING PHYSICIAN NOTE History of Present Illness Devan Chen is a 58 y.o. male with a pmhx significant for prostate cancer not currently on treatment, asthma, anxiety who presents to the Emergency Department with the chief complaint of tick bite. Patient states he gets lots of tick bites, he noticed this tick bite to his right flank and his removed it either yesterday or this morning. He states it started to get progressively more itchy similar to when he had a skin cellulitis post tick bite a few months ago. No fever, chills, chest pain, shortness of breath, nausea, vomiting or diarrhea. No evidence of systemic symptoms or illness. No wound drainage. He is not immunosuppressed. The History of Present Illness was obtained from patient Review of Symptoms: As noted in the History of Present Illness. Past Medical History: Diagnosis Date Asthma Cancer prostate Chronic anxiety Chronic pain back Past Surgical History: Procedure Laterality Date JOINT REPLACEMENT Right large toe LUMBAR DISC SURGERY L5-S1 PRO COLONOSCOPY, BIOPSY N/A 08/19/2018 COLONOSCOPY FLEXIBLE, WITH BX (WRVU 3.66) performed by Cirilo Pathak MD at [facility] ENDOSCOPY PRO HALLUX RIGIDUS W/CHEILECTOMY 1ST MP JT W/IMPLT Right 10/31/2018 CORRECTION HALLUX RIGIDUS, W IMPLANT (WRVU 8.01) performed by Pascual Pearson MD at [facility] MAIN OR PRO LAP, PELVIC LYMPHADENECTOMY Bilateral 12/28/2022 LAPAROSCOPY,WITH BILATERAL TOTAL PELVIC LYMPHADENECTOMY, ROBOTIC (WRVU 12) performed by Rj Mcdonald MD at [facility] MAIN OR PRO LAP, PROSTATECTOMY, RADICAL, W/NERVE SPARE N/A 12/28/2022 LAPAROSCOPIC PROSTATECTOMY, ROBOTICS ASSISTED (WRVU 21.36) performed by Rj Mcdonald MD at [facility] MAIN OR US GUIDED BIOPSY PROSTATE WITH URONAV FUSION 09/21/2022 US Guided Biopsy Prostate with Uronav Fusion 09/21/2022 [facility] RAD ULTRASOUND Social History Socioeconomic History Marital status: Spouse name: Not on file Number of children: Not on file Years of education: Not on file Highest education level: Not on file Occupational History 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 Employer: [employer] Tobacco Use Smoking status: Never Smokeless tobacco: Never Vaping Use Vaping Use: Never used Substance and Sexual Activity Alcohol use: Yes Alcohol/week: 14.0 standard drinks Types: 14 Shots of liquor per week Comment: 2/day liquor most often Drug use: Yes Types: Marijuana Comment: occasionally Sexual activity: Yes Partners: Female Other Topics Concern Not on file Social History Narrative Not on file Social Determinants of Health Financial Resource Strain: [...] Disorder Mother Parkinsonism Father Diabetes Neg Hx No Known Allergies No current facility-administered medications on file prior to encounter. Current Outpatient Medications on File Prior to Encounter Medication Sig Dispense Refill FLUoxetine (PROzac) 10 mg Capsule TAKE 3 CAPSULES BY MOUTH EVERY DAY for 90 acetaminophen (TYLENOL) 650 mg Tablet Sustained Release 1,300 mg daily. cholecalciferol, Vitamin D3, 1,000 unit Capsule Take 1,000 Units by mouth daily. Miscellaneous Medical Supply Kit Vacuum erection device to be used as needed 1 kit 0 sildenafiL (Viagra) 100 mg tablet Take 1 tablet by mouth as needed. 30 tablet 5 FIBER CHOICE ORAL Take by mouth. Metamucil tablets 12 tabs a day fluticasone propionate (Flonase) 50 mcg/actuation [place], Suspension every 24 hours. loratadine (Claritin) 10 mg Tablet every 24 hours. FISH OIL-DHA-EPA ORAL Take by mouth daily. MELATONIN ORAL Take by mouth nightly as needed. VENTOLIN HFA 90 mcg/actuation HFA Aerosol Inhaler Inhale 2 puffs into the lungs as needed. 3 triamcinolone (KENALOG) 0.1 % Cream Apply topically as needed. 0 Physical Exam: Nursing notes and vitals were reviewed. Patient Vitals for the past 24 hrs: Temp Pulse Resp BP SpO2 O2 Device 06/15/231951 36.6 ??C (97.9 ??F) 84 20 103/58 97 % RA General: Well appearing, no acute distress HEENT: NCAT, Oropharynx clear, mmm, +SLIME, +EOMI Neck: Supple, FROM, No midline tenderness to palpation, Pulm: No increased work of breathing. Cardiac: Regular rate and rhythm. Normal pulses throughout Abd: SNTND, No peritoneal rebound or guarding. Skin: No rashes, no petechiae right flank shows an area of erythema and increased warmth consistentwith cellulitis. Neuro: Alert and Oriented. Normal gait, speech and balance. Follows commands. No acute deficits. MSK: No lower extremity swelling, pain, or tenderness Psych: Normal mood, thought and affect Results: Labs Reviewed - No data to display Media Information Document Information Photographic Image: Photographs - Images Right flank 06/15/2023 20:18 Attached To: Hospital Encounter on 06/15/23 Source Information Kian Delaney MD [facility] Emergency No orders to display ED Course & Medical Decision Making: Patient presents to the emergency department with recent removal of a tick to the right flank. Associated erythema and increased warmth noted most likely consistent with associated cellulitis. Also considered erythema migrans. No evidence of systemic illness or sepsis. No indication for laboratory studies today. Patient started on doxycycline. Patient treated with this a few months ago and responded well. Patient voiced understanding of outpatient care instructions and return precautions. Patient well-appearing at time of discharge. I have personally reviewed all of the patient's lab results for this visit and note the following results of significance: None for this encounter I have personally reviewed the patient's EKG and interpreted it as follows: None for this encounter I have personally reviewed the patient's x-ray images and interpreted them as follows: None for this encounter I have personally reviewed the patient's CT images and interpreted them as follows: None for this encounter I have spoken with the following individuals to solicit additional history and to assist in my medical decision making: at the bedside I have reviewed available records to assist in my medical decision making. Records reviewed include: EHR My ability to evaluate or manage the patient during this ED visit was directly affected by the following social determinant(s) of health: [ ] No Primary Care Provider [ ] Kenyan not primary language [ ] Housing instability [ ] Insurance instability [ ] Continuity of care [ ] Undocumented citizenship [ ] Impaired healthcare literacy [ ] Medication noncompliance [ ] Problems related to education [ ] No transportation [ ] Problems related to psychosocial circumstances (I.e., substance use) [X] None Diagnosis: 1. Cellulitis of skin of back 2. Tick bite of flank, initial encounter Condition: stable Disposition: discharge Kian Delaney MD 06/15/23 4322 documented in this encounter Miscellaneous Notes * ED Triage - Jordon Ugalde RN - 06/15/2023 7:59 PM EDT Pt.ambulated to triage with . PT.reports he has an infected tick bite of his right flank. Pt.reports pulled out tick this morning. Area is red, warm and itchy.Pt.reports denies, any chills, fever, malaise, or ROSADO. VSS, NAD HPI (Adult) Stated Reason for Visit: Pt.reports he has an infected tick bite on the right side of his flank History Obtained From: patient Duration (Days): 1 Medications/Treatments Prior to Arrival: none documented in this encounter Plan of Treatment Not on file documented as of this encounter Visit Diagnoses Diagnosis Cellulitis of skin of back Cellulitis and abscess of trunk Tick bite of flank, initial encounter documented in this encounter Administered Medications Inactive Administered Medications - up to 3 most recent administrations Medication Order MAR Action Action Date Dose Rate Site doxycycline monohydrate (Monodox) capsule 100 mg 100 mg, Oral, ONCE, 1 dose, On Sun06/15/23 at 2024, STAT, Indication for (Active or Suspected): Skin/Skin Structure Given 06/15/2023 8:31 PM EDT 100 mg documented in this encounter Active and Recently Administered Medications Times are shown in EDT. Scheduled Medication Order 2023 06/14/2023 06/15/2023 doxycycline monohydrate (Monodox) capsule 100 mg (COMPLETED) 100 mg, Oral, ONCE, 1 dose, On Sun06/15/23 at 2024, STAT, Indication for (Active or Suspected): Skin/Skin Structure 2030 (Given - Provid er: Jordon Ugalde RN) documented in this encounter Care Teams Security Delivery Specialist Relationship Specialty Start Date End Date Giovanni Wing MD [address] [place] [address] PCP - General Family Medicine 08/29/18 documented as of this encounter
--- OUTSIDE RECORDS SUMMARY | 2024-08-23 17:26 | XMS_ITS | Encounter Summary ---
Author Organization [facility] Address [facility] [place] [address] Care Team Providers Care Mess Cook Name Role Phone Giovanni Wing MD Primary Care Provider Encounter Details Date Type Department Care Team (Latest Contact Info) Description 05/03/2023 2:40 PM EDT Office Visit Urology at [facility] [place] [address] Alexx Huntley MD [facility] [place] [address] VASU (stress urinary incontinence), male; Erectile dysfunction after radical prostatectomy Social History Tobacco Use Types Packs/Day Years [...] place to sleep or slept in a group home (including now)? No 11/02/2022 Sex and Gender Information Value Date Recorded Sex Assigned at Not on file Gender Identity Not on file Sexual Orientation Not on file documented as of this encounter Last Filed Vital Signs Vital Sign Reading Time Taken Comments Blood Pressure 123/81 05/03/2023 2:25 PM EDT Pulse 75 05/03/2023 2:25 PM EDT Temperature - - Respiratory Rate - - Oxygen Saturation - - Inhaled Oxygen Concentration - - Weight - - Height - - Body Mass Index - - documented in this encounter Progress Notes * Alexx Huntley MD - 05/03/2023 2:40 PM EDT S: I saw Mr. Chen in follow-up for his history of erectile dysfunction and VASU following RARP. Hewas previously seen in January for these issues. Regarding his erectile dysfunction, he was prescribed a regimen of sildenafil. He denies any adverse effects from this medication, specifically pain, headaches, priapism or other concerning findings.He does note improvement in his erectile dysfunction on this medication. At our last visit we also discussed using a vacuum device to encourage corporal tissue oxygenation. He has been using the device without issue. He says he has been having good success with his erections without the need sildenafil and is very happy with this. Regarding his stress urinary incontinence, at our last visit I recommended a referral to pelvic floor physical therapy for further evaluation and management. He worked with pelvic floor physical therapy and notes that he is not currently using any pads. He also notes that leakage with abdominal exertion has resolved, save for the occasional loss of a drop of urine with heavy lifting. There have been no changes to his past medical, surgical, or social histories since his last visit.His allergies and medications were reviewed. A review of systems was performed and he has no pertinent positives, except for those listed in thehistory of present illness. O: On physical exam today he is in general a healthy, well-appearing man. He is awake, alert and oriented to person place and time. Mood and affect are normal. Gait: Normal and neurologically intact. No focal motor or sensory deficits are noted. Skin: Skin is warm and dry. There are no visible scars, rashes or lesions. HEENT: He is normocephalic and atraumatic. There is no scleral icterus. Pupils are equally round and reactive to light and accommodation. Extraocular motions intact. Trachea is midline. Lungs: No audible wheezing, normal respiratory effort. Chest rise is symmetric. Extremities: Extremities do not demonstrate clubbing, cyanosis or edema. His abdomen is nondistended. A: This is a 57-year-old gentleman with a history of erectile dysfunction and VASU that have both substantially improved with recovery from RARP. P: He is doing very well at this time and has had recovery of erectile function and recovery of urinary continence. We discussed future changes that may occur with both of these conditions but at present he is very happy with the results. He is welcome to follow-up on an as-needed basis. All questions were answered to his satisfaction, and he expressed understanding. Thank you very much for allowing me to participate in his care. Please do not hesitate to contact me if you have any questions. documented in this encounter Plan of Treatment Not on file documented as of this encounter Visit Diagnoses Diagnosis VASU (stress urinary incontinence), male Stress incontinence, male Erectile dysfunction after radical prostatectomy documented in this encounter Care Teams Mess Cook Relationship Specialty Start Date End Date Giovanni Wing MD [address] [place] [address] PCP - General Family Medicine 08/29/18 documented as of this encounter
--- OUTSIDE RECORDS SUMMARY | 2024-08-23 17:26 | XMS_ITS | Encounter Summary ---
Author Organization [facility] Address [facility] [place] [address] Care Team Providers Care Black Top Raker Name Role Phone Giovanni Wing MD Primary Care Provider [phone] Encounter Details Date Type Department Care Team (Latest Contact Info) Description 03/28/2023 Travel Social History Tobacco Use Types Packs/Day [...] on filedocumented in this encounter Care Teams Black Top Raker Relationship Specialty Start Date End Date Giovanni Wing MD [address] [address] PCP - General Family Medicine 08/29/18 documented as of this encounter
--- OUTSIDE RECORDS SUMMARY | 2024-08-23 17:26 | XMS_ITS | Encounter Summary ---
Author Organization [facility] Address [facility] [address] Care Team Providers Care Hospital Tray Service Worker Name Role Phone Giovanni Wing MD Primary Care Provider [phone] Encounter Details Date Type Department Care Team (Latest Contact Info) Description 03/30/2023 Travel Social History Tobacco Use Types Packs/Day [...] place to sleep or slept in a correction (including now)? No 11/02/2022 Sex and Gender Information Value Date Recorded Sex Assigned at Not on file Gender Identity Not on file Sexual Orientation Not on file documented as of this encounter Plan of Treatment Not on file documented as of this encounter Visit Diagnoses Not on filedocumented in this encounter Care Teams Hospital Tray Service Worker Relationship Specialty Start Date End Date Giovanni Wing MD [address] [address] PCP - General Family Medicine 08/29/18 documented as of this encounter
--- OUTSIDE RECORDS SUMMARY | 2024-08-23 17:26 | XMS_ITS | Encounter Summary ---
Author Organization [facility] Address [facility] [place] [address] Care Team Providers Care Research Neuropsychologist Name Role Phone Giovanni Wing MD Primary Care Provider Reason for Visit * Occupational Therapy (Routine) - Closed Specialty Diagnoses / Procedures Referred By Emanuel flores Referred To Contact Occupational Therapy Diagnoses Pain in left elbow Suzy Jacobs PA [facility] [place] [address] [facility] [address] [place] [address] Referral ID Status Reason Start Date Expiration Date V isits Requested Visits Authorized [id number] Closed Evaluate and Treat 11/03/2022 11/03/2023 30 30 Encounter Details Date Type Department Care Team (Late st Contact Info) Description 03/30/2023 2:30 PM EDT Office Visit Occupational Therapy at [facility] [address] [place] [phone] Shara Alvarado OT Pain in left elbow [...] place to sleep or slept in a nursing home (including now)? No 11/02/2022 Sex and Gender Information Value Date Recorded Sex Assigned at Not on file Gender Identity Not on file Sexual Orientation Not on file documented as of this encounter Miscellaneous Notes * Treatment - Therapy - Sapna Allan - 03/30/2023 2:30 PM EDT OCCUPATIONAL THERAPY TREATMENT NOTE Certification Period: 02/02/23-05/05/23 Referral Source: LORENE Cowart MD Follow-up: PRN Total Treatment time: 30 Minutes Timed Code Treatment Time: 25 minutes OCCUPATIONAL PROFILE: Devan Chen is a 57 y.o. year old Right hand dominant male who is referred for left elbow pain since approximately Sep 2022. [place] hunting season - holding rifle and loading [...] feels mild discomfort after workingon the computer. 10 while using it. 2.) [place] 1-12/29 Still [...] Testing Completed: Sensation intact No edema evident Matheus - positive and weaker on left Anshu [...] extension /38 mild discomfort with ext54/30* Strength: Supervisor Hanging And Trimming Testing with Dynamometer setting #2 Pinch Testing with Pinch Gauge Right Left 03/28/23 Left 02/22/23 Left eval Supervisor Hanging And Trimming setting 2 89.8 43.6, with slight twinge/mildly bothers it. 26.2, 26.4 - starts to notice pain in left lateral elbow 35.3 Supervisor Hanging And Trimming Average 94.5 16.7 Rahman 21 17 21.5 3 Pt 17 15.5 twinge 18 no pain 15 Tip 12.5 13 11.5 Treatment Today: Educated patient in etiology and biomechanics as related to the patient's symptoms Hot pack (79184) for 10 minutes: applied with eight layers of towels in addition to hot pack insulation for a total of 12 layers, utilized for superficial heating for soft tissue preparation prior totreatment activities applied to the left elbow. Ultrasound (38442) (100%, 3.3 MHz, 1.0 W/cm2, 7 minutes) with additional 2 minutes of set-up time, used for soft tissue preparation prior to treatment activities applied today to the left lateral epicondyle. Kneading massage to left wrist extensors origin. Iontophoresis (09446): Skin prepped with soap and water, applied Iontopatch 80 mA with 2.0 cc of 0.4% dexamethasone sodium phosphate to be worn for 4 hours, then removed with soap and water, for reduction of pain and inflammation, applied today to the left lateral elbow / extensor wad. Patch 2 Educated patient in removal of patch using [...] elbow at side - hold as of 3 -Composite flexion stretch elbow extended - on hold as of 03/21 HEP: 1 lb left wrist extensor eccentrics - 2 sets of 10 reps 2x/day. - hold hold as of 3 brown theraputty for sales executive and tip pinch; red tband for scap [...] PSFS and DASH for specific functional deficits 03/30/23: Patient reports that he overused his left arm this week when carrying a turkey, hunting. Reports that there was no significant pain only noticeable muscle use. Discussed body mechanics when hunting and use of shotgun strap to eliminate need for carrying shotgun. Discussed importance of body awareness related to shoulder tension when carrying gun and taking breaks, as well and putting gundown and doing shoulder rolls as needed. Manual massage applied over left wrist extensors origin. Ultrasound applied to the left lateral epicondyle. Ionophoresis patch 2 applied today to the left lateral elbow / extensor wad. Patient reports feeling improvements following first patch. Educated patient on removal of patch using cool water and soap. Devan Chen is able to demonstrate home [...] with written instructions. Goal Status: Met, ongoing Devna Chen will gain 2 degrees of left elbow extension, 5 lbs left sales executive strength to demonstrate significantly improved functional performance [...] 3 week(s) to progress toward short and mcfp goals, Joint mobilizations to decrease pain and/or [...] arm documented in this encounter Care Teams Research Neuropsychologist Relationship Specialty Start Date End Date Giovanni Wing MD [address] [place] [address] PCP - General Family Medicine 08/29/18 documented as of this encounter
--- OUTSIDE RECORDS SUMMARY | 2024-08-23 17:26 | XMS_ITS | Encounter Summary ---
Author Organization [facility] Address [facility] [place] [address] Care Team Providers Care Environmental Compliance Inspector Name Role Phone Giovanni Wing MD Primary Care Provider [phone] Encounter Details Date Type Department Care Team (Latest Contact Info) Description 04/09/2023 Travel Social History Tobacco Use Types Packs/Day [...] on filedocumented in this encounter Care Teams Environmental Compliance Inspector Relationship Specialty Start Date End Date Giovanni Wing MD [address] [address] PCP - General Family Medicine 08/29/18 documented as of this encounter
--- OUTSIDE RECORDS SUMMARY | 2024-08-23 17:26 | XMS_ITS | Encounter Summary ---
Author Organization Formerly [facility], 1928–1983 Address [facility] [place] [address] Care Team Providers Care Generator Operator Name Role Phone Giovanni Wing MD Primary Care Provider [phone] Encounter Details Date Type Department Care Team (Late st Contact Info) Description 06/08/2023 Orders Only Urology at [place] [address] Alexx Huntley MD [facility] [place] [address] Erectile dysfunction after radical prostatectomy Social History [...] in a fdc (including now)? No 11/02/2022 Sex and Gender Information Value Date Recorded Sex Assigned at Not on file Gender Identity Not on file Sexual Orientation Not on file documented as of this encounter Plan of Treatment Not on file documented as of this encounter Visit Diagnoses Diagnosis Erectile dysfunction after radical prostatectomy documented in this encounter Care Teams Generator Operator Relationship Specialty Start Date End Date Giovanni Wing MD [address] [place] [address] PCP - General Family Medicine 08/29/18 documented as of this encounter
--- OUTSIDE RECORDS SUMMARY | 2024-08-23 17:26 | XMS_ITS | Encounter Summary ---
Author Organization [facility] Address [facility] [place] [address] Care Team Providers Care Trap Puller Name Role Phone Giovanni Wing MD Primary Care Provider [phone] Encounter Details Date Type Department Care Team (Latest Contact Info) Description 05/03/2023 Travel Social History Tobacco Use Types Packs/Day [...] on filedocumented in this encounter Care Teams Trap Puller Relationship Specialty Start Date End Date Giovanni Wing MD [address] [address] PCP - General Family Medicine 08/29/18 documented as of this encounter
--- OUTSIDE RECORDS SUMMARY | 2024-08-23 17:26 | XMS_ITS | Encounter Summary ---
Author Organization [facility] Address One [facility] [place] [address] Care Team Providers Care Yard Demurrage Clerk Name Role Phone Giovanni Wing MD Primary Care Provider [phone] Encounter Details Date Type Department Care Team (Latest Contact Info) Description 08/10/2023 Travel Social History Tobacco Use Types Packs/Day [...] place to sleep or slept in a retirement (including now)? No 11/02/2022 DH IPV Inpatient [...] on filedocumented in this encounter Care Teams Yard Demurrage Clerk Relationship Specialty Start Date End Date Giovanni Wing MD [address] [place] [address] PCP - General Family Medicine 08/29/18 documented as of this encounter
--- OUTSIDE RECORDS SUMMARY | 2024-08-23 17:27 | XMS_ITS | Encounter Summary ---
Author Organization [facility] [place] [address] Care Team Providers Care Physical Instructor Name Role Phone Giovanni Wing MD Primary Care Provider [phone] Encounter Details Date Type Department Care Team (Latest Contact Info) Description 12/14/2022 9:30 AM EST Clinical Support Same Day at [facility] [place] [id number] Malignant neoplasm of prostate Social History Tobacco [...] place to sleep or slept in a mcc (including now)? No 11/02/2022 Sex and Gender Information Value Date Recorded Sex Assigned at Not on file Gender Identity Not on file Sexual Orientation Not on file documented as of this encounter Last Filed Vital Signs Vital Sign Reading Time Taken Comments Blood Pressure 113/81 12/14/2022 9:29 AM EST Pulse 74 12/14/2022 9:29 AM EST Temperature - - Respiratory Rate - - Oxygen Saturation 97% 12/14/2022 9:29 AM EST Inhaled Oxygen Concentration - - Weight 87.5 kg (193 lb) 12/14/2022 9:29 AM EST Height 174 cm (5' 8.5) 12/14/2022 9:29 AM EST Body Mass Index 28.92 12/14/2022 9:29 AM EST documented in this encounter Progress Notes * Dottie Salas RN - 12/14/2022 9:30 AM EST Anesthesia questionnaire reviewed with patient while in the [facility]. Patient reports no problems with anesthesia in the past. Patient states has instructions from surgeons office regarding preoperative bowel prep. Pre-operative instruction booklet reviewed. Patient verbalizes a good understanding of all information. PLAN Testing: Labs, T+S and urine done. Patient sent to for a CXR. Special medication instructions: n/a Procedure date: 12/28/22 - Dr. Mcdonald. Pre Surgery Covid screening patient response: No covid within the last 3 months. documented in this encounter Plan of Treatment Not on file documented as of this encounter Procedures Procedure Name Priority Date/Time Associated Diagnosis Comments URINE HOLD Routine 12/14/2022 11:11 AM EST URINALYSIS WITH REFLEX CULTURE Routine 12/14/2022 11:11 AM EST Malignant neoplasm of prostate TYPE AND SCREEN VALIDITY Routine 12/14/2022 10:04 AM EST ABORH RECHECK STATUS Routine 12/14/2022 10:04 AM EST HEMOGRAM Routine 12/14/2022 10:04 AM EST Malignant neoplasm of prostate DIFFERENTIAL, AUTOMATED Routine 12/14/2022 10:04 AM EST Malignant neoplasm of prostate HC VENIPUNCTURE Routine 12/14/2022 10:04 AM EST Malignant neoplasm of prostate ABO/RH TYPING Routine 12/14/2022 10:04 AM EST Malignant neoplasm of prostate HC CBC,PLT & AUTO DIFF Routine 12/14/2022 10:04 AM EST Malignant neoplasm of prostate ANTIBODY SCREEN Routine 12/14/2022 10:04 AM EST Malignant neoplasm of prostate BASIC METABOLIC PANEL STAT 12/14/2022 10:04 AM EST Malignant neoplasm of prostate documented in this encounter Results * Urine Hold (12/14/2022 11:11 AM EST) Hold, Urine Sample in lab. [facility] Urine Urine / Unknown 12/14/2022 1 1:11 AM EST 12/14/2022 11:18 AM EST Rj Mcdonald MD URINE ORDERABLES [facility] [address] [place] [address] * Urinalysis with reflex Culture (12/14/2022 11:11 AM EST) Glucose, Urine Dipstick Negative Negative mg/dL [facility] Protein, Urine Dipstick Negative Negative mg/dL [facility] Bilirubin, Urine Dipstick Negative Negative mg/dL [facility] Comment: Clinical correlation required for positive Urine Bilirubin results as false positive may occur with some drugs and drug related products. If a false positive is suspected a serum total bilirubin should be considered if clinically indicated. Urobilinogen, Urine Dipstick Normal Normal mg/dL [facility] pH, Urn (dipstick) 7.0 5.0 - 8.0 [facility] Blood, Urine Dipstick Negative Negative mg/dL [facility] Ketone, Urine Dipstick Negative Negative mg/dL [facility] Nitrite, Urine Dipstick Negative Negative [facility] Leukocytes, Urine Dipstick Negative Negative mcL [facility] Appearance, Urine Dipstick Clear Clear [facility] Specific [place] Urine Automated 1.020 1.005 - 1.030 [facility] Color, Urine Dipstick Yellow Yellow [facility] Reflex to Culture No [facility] Clean Catch Urine 12/14/2022 11:11 AM EST 12/14/2022 11:17 AM EST Narrative Resulting Agency Comment Spec In Lab Rj Mcdonald MD URINE ORDERABLES Performing Organization Address City/[facility]/ZIP Co de Phone Number [facility] [place] [address] * Type and Screen Validity (12/14/2022 10:04 AM EST) T&S only valid at [facility] Comment:This Type and Screen result is only valid at the [facility] Blood 12/14/2022 10:0 4 AM EST 12/14/2022 10:04 AM EST Narrative Resulting Agency Comment Spec In Lab Rj Mcdonald MD BLOOD BANK LAB ORD ERABLES Performing Organization Address City/[facility]/ZIP Co de Phone Number [facility] [place] [address] * ABORH Recheck Status (12/14/2022 10:04 AM EST) ABORH Recheck Order Order Placed [facility] ABORH Type Recheck Complete [facility] Blood 12/14/2022 10:0 4 AM EST 12/14/2022 10:04 AM EST Narrative Resulting Agency Comment Spec In Lab Rj Mcdonald MD BLOOD BANK LAB ORD ERABLES Performing Organization Address City/[facility]/[place] [address] * Differential, Automated (12/14/2022 10:04 AM EST) Neutrophil % 52.4 % [facility] Neutrophil Absolute 2.48 1.70 - 6.10 x10(3)/[facility] Lymph % 34.5 % [facility] Lymphocytes Abs 1.6 0.9 - 3.2 x10(3)/[facility] Monocyte % 11.0 % [facility] Monocyte Abs 0.5 0.3 - 0.9 x10(3)/[facility] Eos % 0.6 % [facility] Eosinophils Abs 0.0 0.0 - 0.4 x10(3)/[facility] Basophil % 1.3 % [facility] Baso Absolute 0.1 0.0 - 0.1 x10(3)/[facility] Immature Gran % 0.20 % [facility] Comment: Immature granulocytes(IG's)percentage and absolute count will include metamyelocytes, myelocytes, and promyelocytes. Blood smears from CBCs yielding IG's will be scanned manually for concordance. If this scan disagrees with the automated IG or if promyelocytes are noted, a manual differential will be performed. Immature Gran Absolute 0.01 0.00 - 0.04 x10(3)/[facility] Blood 12/14/2022 10:0 4 AM EST 12/14/2022 10:12 AM EST Narrative Resulting Agency Comment Spec In Lab Rj Mcdonald MD HEMATOLOGY ORDERAB LES Performing Organization Address [facility] [place] [place] [address] * Hemogram (12/14/2022 10:04 AM EST) White Blood Cell 4.7 4.0 - 9.5 x10(3)/[facility] Red Blood Cell 5.00 4.58 - 5.54 x10(6)/[facility] Hemoglobin 15.1 13.7 - 16.5 g/dL [facility] Hematocrit 44.2 40.5 - 48.5 % [facility] Mean Cell Volume 88.4 82.9 - 93.1 fL [facility] Mean Cell Hemoglobin 30.2 27.5 - 32.1 pg [facility] Mean Cell Hemoglobin Concentration 34.2 32.0 - 35.7 g/dL [facility] Platelet 241 145 - 357 x10(3)/[facility] RDW Standard Deviation 38.0 36.0 - 45.0 fL [facility] RDW coefficient of variation 11.9 11.4 - 13.8 % [facility] Mean Platelet Volume 10.4 7.6 - 12.9 fL [facility] NRBC% auto 0.0 % [facility] NRBC Absolute 0.000 0.000 - 0.000 x10(3)/[facility] Blood 12/14/2022 10:0 4 AM EST 12/14/2022 10:12 AM EST Narrative Resulting Agency Comment Spec In Lab Rj Mcdonald MD HEMATOLOGY ORDERAB LES Performing Organization Address City/[facility] Co de Phone Number [facility] [place] [address] * Antibody screen (12/14/2022 10:04 AM EST) Ab Screen Interp Negative [facility] Expires at 2359 on: 12/31/2022 [facility] Blood 12/14/2022 10:0 4 AM EST 12/14/2022 10:04 AM EST Narrative Resulting Agency Comment Spec In Lab Rj Mcdonald MD BLOOD BANK LAB ORD ERABLES Performing Organization Address City/[facility] Co de Phone Number [facility] [place] [address] * ABO/Rh Typing (12/14/2022 10:04 AM EST) ABORH Type O Pos [facility] Blood 12/14/2022 10:0 4 AM EST 12/14/2022 10:04 AM EST Narrative Resulting Agency Comment Spec In Lab Rj Mcdonald MD BLOOD BANK LAB ORD ERABLES [facility] [place] [address] * (ABNORMAL) Basic Metabolic Panel (non-fasting) (12/14/2022 10:04 AM EST) Glucose 85 65 - 199 mg/dL [facility] Comment:Diabetes: >=200 mg/d L plus symptoms Blood Urea Nitrogen 20 10 - 20 mg/dL [facility] Creatinine 0.97 0.80 - 1.50 mg/dL [facility] Sodium 136 135 - 145 mmol/L [facility] Potassium 4.6 3.5 - 5.0 mmol/L [facility] Comment: Please note: ??Patients with WBC >100,000 may have falsely elevated Potassium levels. ??For accurate Potassium quantification in these patients send serum separator tube (gold top) for subsequent determinations. ??Contact the Clinical Chemistry Laboratory if there are any questions. Chloride 102 98 - 107 mmol/L [facility] Carbon Dioxide 27 22 - 31 mmol/L [facility] Anion Gap 7 5 - 15 mmol/L [facility] Calcium 11.1(H) 8.5 - 10.5 mg/dL [facility] Est Glomerular Filtration Rate 92 >=60 mL/min/1. 73 m?? [facility] Comment: This patient's estimated GFR was [...] and symptoms in addition to eGFR. Blood 12/14/2022 10:0 4 AM EST 12/14/2022 10:12 AM EST Narrative Resulting Agency Comment Spec In Lab Rj Mcdonald MD CHEMISTRY ORDERABL ES [facility] [place] [address] documented in this encounter Visit Diagnoses Diagnosis Malignant neoplasm of prostate documented in this encounter Care Teams Physical Instructor Relationship Specialty Start Date End Date Giovanni Wing MD [address] [place] [address] PCP - General Family Medicine 08/29/18 documented as of this encounter
--- OUTSIDE RECORDS SUMMARY | 2024-08-23 17:27 | XMS_ITS | Encounter Summary ---
Author Organization [facility] [place] [address] Care Team Providers Care Vat Overhauler Name Role Phone Giovanni Wing MD Primary Care Provider [phone] Encounter Details Date Type Department Care Team (Late st Contact Info) Description 01/05/2023 2:00 PM EST Clinical Support Urology at [facility] [id number] Elevated PSA Social History Tobacco Use Types Packs/Day Years [...] as of this encounter Progress Notes * Krzysztof Son, RN - 01/05/2023 2:00 PM EST Patient presents today for a voiding trial and catheter removal s/p LAPAROSCOPIC PROSTATECTOMY, ROBOTICS ASSISTED . The patient was given Ciprofloxacin 500mg 1 by mouth. All incisions well approximated. No signs of infection noted. Procedure: 160ml normal saline instilled via sierra catheter. Balloon deflated. Sierra gently removed. Patient voided 160ml's. FOS good. Good control. Kegals practiced at this time. All instructions and literature reviewed with patient. Patient verbalized understanding of instructions. Supplies given: none PVR: 0cc measured in the supine position with the bladder scanner shortly after the patient had voided. Krzysztof Son RN documented in this encounter Plan of Treatment Not on file documented as of this encounter Visit Diagnoses Diagnosis Elevated PSA Elevated prostate specific antigen (PSA) documented in this encounter Care Teams Vat Overhauler Relationship Specialty Start Date End Date Giovanni Wing MD [address] [place] [address] PCP - General Family Medicine 08/29/18 documented as of this encounter
--- OUTSIDE RECORDS SUMMARY | 2024-08-23 17:27 | XMS_ITS | Encounter Summary ---
Author Organization [facility] Address [facility] [place] [address] Care Team Providers Care Lumber Stacker Name Role Phone Giovanni Wing MD Primary Care Provider [phone] Reason for Referral * Physical Therapy (Routine) - Closed Specialty Diagnoses / Procedures Referred By Contac t Referred To Contact Physical Therapy Diagnoses VASU (stress urinary incontinence), male Alexx Huntley MD [facility] [place] [place] [address] Sophia Lorenzana, PT [facility] PHYSICAL MEDICINE & [place] [address] Referral ID Status Reason Start Date Expiration Date V isits Requested Visits Authorized [id number] Closed Evaluate and Treat 01/31/2023 01/31/2024 30 30 Encounter Details Date Type Department Care Team (Latest Contact Info) Description 01/31/2023 4:00 PM EDT [place] [address] Alexx Huntley MD [facility] [place] [address] VASU (stress urinary incontinence), male; Erectile dysfunction [...] Sign Reading Time Taken Comments Blood Pressure 111/72 01/31/2023 4:06 PM EDT Pulse 79 01/31/2023 4:06 PM EDT Temperature - - Respiratory Rate - - Oxygen Saturation - - Inhaled Oxygen Concentration - - Weight - - Height - - Body Mass Index - - documented in this encounter Progress Notes * Alexx Huntley MD - 01/31/2023 4:00 PM EDT S: I have been requested by Dr. Mcdonald to see Mr. Chen for my opinion regarding his erectile dysfunction. He is a very pleasant 57-year-old gentleman with a history of erectile dysfunction for the last 5 weeks following radical prostatectomy. He says his penile rigidity is approximately 70-80% at best without medications. He has not tried PDE5 inhibitors in the past. His intentional erections are intact. His sustaining capacities are adequate. Nocturnal/morning spontaneous erections are absent, and less frequent than previous. He rates his sexual desire at 100% and says it is intact. He says his ejaculation is absent following RARP. He notes leakage of urine with arousal but not orgasm. Orgasmic capability is intact. He notes lifelong leftward penile curvature. He denies penile pain. He denies a history of penile trauma.He denies a history of pelvic or perineal trauma. He denies a history of regular bicycle riding. Sexual Health Inventory for Men (MARGARET) 1. Rate your confidence: 4 2. Hard enough for penetration: 0 3. Maintain after penetration: 0 4. Maintain to completion: 0 5. Satisfaction from intercourse: 0 -- TOTAL 4 -- 1-7 Severe ED 8-11 Moderate ED 12-16 Mild to Moderate ED 17-21 Mild ED Other issues include a history of prostate cancer status post RARP last month. Follow-up PSA is pending. Regarding his continence. He notes VASU with laughing or flatulence. He wears 1 shield per day and it is not saturated when he removes it. He is happy with these results thus far. Past medical history is notable for asthma, anxiety and depression, and seasonal allergies. Past surgical history includes RARP, right big toe joint replacement, back surgery. From a social perspective, he denies ever smoking. Alcohol usage is [address] drug usage is occasional cannabis. He is . 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 Family history is negative for any genitourinary cancers. He has no known drug allergies. His medications were reviewed and are consistent with those in the electronic medical record. A review of systems was performed and [...] clubbing, cyanosis or edema. His abdomen is soft, nontender, nondistended. There is no abdominal tenderness, guarding or rebound. No abdominal or inguinal hernias are seen. His phallus is circumcised. There are no penile lesions or palpable plaques. He has a patent, orthotopic urinary meatus. Both testes are scrotally located. The bilateral cords are palpable and withinnormal limits. There are no testicular masses or nodules bilaterally. His scrotum is without edema or erythema. A digital rectal exam was deferred. On standing cough test today he exhibited no leakage after four forceful coughs, indicating Male Stress Incontinence Grading Scale (MSIGS) score of 0. Pad placed this morning was dry. A: This is a 57-year-old gentleman with erectile dysfunction and VASU following RARP. P: We discussed his erectile dysfunction and VASU following robotic prostatectomy. At present, his VASU appears to be improving appropriately and he is doing well. We discussed potentially starting pelvic floor physical therapy to continue to improve his VASU and maximize his continence moving forward. He would like to proceed and I have placed a referral to PT for further evaluation and management. We discussed post-prostatectomy ED at length. We specifically talked about the management of post-prostatectomy ED. We then discussed the treatment algorithm for post-prostatectomy ED, and I explained his options. He seemed most comfortable with proceeding with PDE5 inhibitor therapy after extensive explanation of the risks and benefits. I sent a prescription for sildenafil to his pharmacy and also advised him to contact my office for any issues related to cost. If the medication is too expensive or not covered by his insurance, then a more cost-effective supply will be pursued. I explained to take the medication 2 hours before sexual activity. I also explained to take sildenafil on an empty stomach. I advised him that he may have side effects while the medication is active,including facial flushing, nasal congestion, headache, and color vision changes. These side effectsare a normal and expected part of PDE 5 inhibitor therapy and can be mitigated by taking NSAIDs if needed. I advised him to trial this medication at the 100 mg dose and then to trial it at 50 mg. If 50 mg is also an adequate dose, he will then have twice as much sildenafil. We discussed appropriatemedication administration, dosing and side effects. I also advised him to seek emergency care for arigid erection lasting longer than 4 hours. I advised him that he can use medication on demand for sexual activity or daily for penile rehabilitation if he chooses. We also discussed using a vacuum device to encourage corporal tissue oxygenation and he would like to proceed. I have given him resources to review for purchasing a penile vacuumerection device. He was in agreement with this plan and expressed understanding. All of his question s were answered at length. I spent approximately 45 minutes in counseling and coordination of care for this visit. I will see him again in 2 months to assess his progress. I will keep you updated as we move forward. Thank you very much for this kind referral. Please do not hesitate to contact me if you have any questions. documented in this encounter Plan of Treatment Scheduled Referrals Name Type Priority Associated Diagnoses Orde r Schedule Referral to Physical Therapy Outpatient Referral Routine VASU (stress urinary incontinence), male Ordered: 01/31/2023 documented as of this encounter Visit Diagnoses Diagnosis VASU (stress urinary incontinence), male Stress incontinence, male Erectile dysfunction after radical prostatectomy documented in this encounter Care Teams Lumber Stacker Relationship Specialty Start Date End Date Giovanni Wing MD [address] [address] PCP - General Family Medicine 08/29/18 documented as of this encounter
--- OUTSIDE RECORDS SUMMARY | 2024-08-23 17:27 | XMS_ITS | Encounter Summary ---
Author Organization [facility] Address [facility] [place] [address] Care Team Providers Care Control Systems Drafting Officer Name Role Phone Giovanni Wing MD Primary Care Provider [phone] Reason for Visit * Occupational Therapy (Routine) - Closed Specialty Diagnoses / Procedures Referred By Emanuel flores Referred To Contact Occupational Therapy Diagnoses Pain in left elbow Suzy Jacobs PA [facility] DR [place] [address] [address] [place] [address] Referral ID Status Reason Start Date Expiration Date V isits Requested Visits Authorized [id number] Closed Evaluate and Treat 11/03/2022 11/03/2023 30 30 Encounter Details Date Type Department Care Team (Late st Contact Info) Description 02/08/2023 1:00 PM EDT Office Visit Occupational Therapy at [facility] [address] [place] [phone] Shara Alvarado OT Pain in left elbow [...] place to sleep or slept in a prison (including now)? No 11/02/2022 Sex and Gender Information Value Date Recorded Sex Assigned at Not on file Gender Identity Not on file Sexual Orientation Not on file documented as of this encounter Miscellaneous Notes * Treatment - Therapy - Shara Alvarado OT - 02/08/2023 1:00 PM EDT OCCUPATIONAL THERAPY TREATMENT NOTE Certification Period: 02/02/23-05/05/23 Referral Source: LORENE Cowart MD Follow-up: PRN Total Treatment time: 45 Minutes Timed Code Treatment Time: 30 minutes OCCUPATIONAL PROFILE: Devan Chen is a 57 y.o. year old Right hand dominant male who is referred for left elbow pain since approximately Sep 2022. 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 Got an [facility] left wrist brace that he wore [...] 0/10 - Able to perform without difficulty 10/10) Activity At Evaluation 1.) Computer work Does not tend to have difficulty- send ergonomic suggestions- 08/28. 2.) Firewood 1-12/29 3.) Opening containers 5-/10 d/t pain 4.) Sleeping has been fine. Carries rifle in right hand previously but this year he did with the left hand. Shoulder strap previously used would slip down shoulder. 5.) Driving - does not drive very much and does not bother him. Average Score: 5.7/10 Pain: (Assessed using the visual analog pain scale) At Rest: 3/10 left lateral elbow, also a little into the tricep With Activity: 8/10 left lateral elbow with pronated gripping/lifting Special Testing Completed: Sensation intact No edema evident Cozens - positive and weaker on left [place] MF extension- mild positive on left Palpation: TTP left lateral epicondyle, triceps, mild at medial epicondyle Active Range of Motion: Measured in degrees of active motion with goniometer Right Left eval Elbow Extension/Flexion 0/WNL -5*/WNL Wrist Extension/Flexion 60/50 52*/58 Ulnar/Radial Deviation 32/14 32/13 Pronation/Supination WNL WNL mild discomfort Composite Extension/Flexion 54/31 54/30* Strength: Veneer Clipper Helper Testing with Dynamometer setting #2 Pinch Testing with Pinch Gauge Right Left eval Veneer Clipper Helper setting 2 89.8 35.3 Veneer Clipper Helper Average 94.5 16.7 Rahman 21 21.5 3 Pt 17 15 Tip 12.5 11.5 Treatment Today: Educated patient in etiology and biomechanics as related to the patient's symptoms Hot pack (72384) for 15 minutes: applied with eight layers of towels in addition to hot pack insulation for a total of 12 layers, utilized for superficial heating for soft tissue preparation prior totreatment activities applied to the left elbow. Ultrasound (42828) (100%, 3.3 MHz, 0.8 W/cm2, 7 minutes) with additional 2 minutes of set-up time, used for soft tissue preparation prior to treatment activities applied today to the left lateral elbow. Fitted with left counterforce strap to wear during the day. Educated in self cross friction massage. Added to HEP: 1 lb left wrist extensor eccentrics - 2 sets of 10 reps 2x/day. Provided with home exercise program to include 3x/day: -Heat first -Wall pec/bicep stretch -Composite flexion stretch elbow at side -Composite flexion stretch elbow extended -Avoiding gripping/lifting with elbow extended and pronated [...] PSFS and DASH for specific functional deficits 02/08/23: He has been wearing wrist orthosis at night, trying to avoid pain provoking activities during the day, good compliance with HEP. Discussed having him send picture of computer set up for ergonomic suggestions. . Devan Chen is able to demonstrate home exercises with written instructions provided. Devna Chen has good potential for gains with therapy with identified needs for skilled therapy for treatment of deficits noted during evaluation, to maximize functional performance during daily activities. Electrician Telephone Goals (to be met by discharge): Date [...] of left elbow extension, 5 lbs left concrete building assembler strength to demonstrate significantly improved functional performance [...] 3 week(s) to progress toward short and custodial goals, Joint mobilizations to decrease pain and/or [...] arm documented in this encounter Care Teams Control Systems Drafting Officer Relationship Specialty Start Date End Date Giovanni Wing MD [address] [place] [address] PCP - General Family Medicine 08/29/18 documented as of this encounter
--- OUTSIDE RECORDS SUMMARY | 2024-08-23 17:27 | XMS_ITS | Encounter Summary ---
Author Organization Pending [facility] To [facility] Address [facility] [place] [address] Care Team Providers Care Wood Pattern Maker Name Role Phone Giovanni Wing MD Primary Care Provider [phone] Encounter Details Date Type Department Care Team (Latest Contact Info) Description 02/08/2023 8:59 AM EDT - 02/08/2023 11:59 PM EDT Hospital Encounter Hematology and Oncology at [facility] [place] [address] Malignant neoplasm of prostate Discharge Disposition: Home Social History Tobacco Use [...] on file documented as of this encounter Medications at Time of Discharge Medication Sig Dispensed Refills Start Date End Date sildenafiL (Viagra) 100 mg tablet Take 1 tablet by mouth as needed. 30 tablet 5 01/31/2023 FIBER CHOICE ORAL Take by mouth. Metamucil tablets 12 tabs a day fluticasone propionate (Flonase) 50 mcg/actuation [place], Suspension every 24 hours. loratadine (Claritin) 10 [...] Cream Apply topically as needed. 0 06/26/2017 documented as of this encounter Plan of Treatment Not on file documented as of this encounter Procedures Procedure Name Priority Date/Time Associated Diagnosis Comments URINALYSIS MICROSCOPIC EXAM Routine 02/08/2023 9:30 AM EDT URINALYSIS WITH REFLEX CULTURE Routine 02/08/2023 9:30 AM EDT Malignant neoplasm of prostate URINE CULTURE Routine 02/08/2023 9:30 AM EDT HEMOGRAM Routine 02/08/2023 9:14 AM EDT Malignant neoplasm of prostate DIFFERENTIAL, AUTOMATED Routine 02/08/2023 9:14 AM EDT Malignant neoplasm of prostate HC CBC,PLT & AUTO DIFF Routine 9:14 AM EDT Malignant neoplasm of prostate HC VENIPUNCTURE Routine 02/08/2023 9:14 AM EDT Malignant neoplasm of prostate HC PROSTATE SPECIFIC ANTIGEN Routine 02/08/2023 9:14 AM EDT Malignant neoplasm of prostate COMPREHENSIVE METABOLIC PANEL Routine 02/08/2023 9:14 AM EDT Malignant neoplasm of prostate documented in this encounter Results * Urine culture (02/08/2023 9:30 AM EDT) Urine Culture No growth (Less than 1,000 cfu/ml). [facility] Clean Catch Urine 02/08/2023 9:30 AM EDT 02/08/2023 1:17 PM EDT Narrative Resulting Agency Comment Spec In Lab Henrik Yun MD MICROBIOLOGY - GENER AL ORDERABLES Performing Organization Address City/[facility]/ZIP Co de Phone Number [facility] [address] * (ABNORMAL) Urinalysis Microscopic Exam (02/08/2023 9:30 AM EDT) RBC, Urine 2 0 - 3 /HPF [facility] WBC, Urine 12(H) 0 - 3 /HPF [facility] Squamous Epithelial Cells Raw Data, Urine 1 <=4 /HPF [facility] Hyaline Casts, Urine 2 0 - 2 /LPF [facility] Clean Catch Urine 02/08/2023 9:30 AM EDT 02/08/2023 9:43 AM EDT Narrative Resulting Agency Comment Spec In Lab Henrik Yun MD URINE ORDERABLES [facility] [address] * (ABNORMAL) Urinalysis with reflex Culture (02/08/2023 9:30 AM EDT) Glucose, Urine Dipstick Negative Negative mg/dL [facility] Protein, Urine Dipstick Trace(A) Negative mg/dL [facility] Bilirubin, Urine Dipstick Negative Negative mg/dL [facility] Comment: Clinical correlation required for positive Urine Bilirubin results as false positive may occur with some drugs and drug related products. If a false positive is suspected a serum total bilirubin should be considered if clinically indicated. Urobilinogen, Urine Dipstick Normal Normal mg/dL [facility] pH, Urn (dipstick) 7.0 5.0 - 8.0 [facility] Blood, Urine Dipstick Negative Negative mg/dL [facility] Ketone, Urine Dipstick Negative Negative mg/dL [facility] Nitrite, Urine Dipstick Negative Negative [facility] Leukocytes, Urine Dipstick Small(A) Negative [facility] Appearance, Urine Dipstick Clear Clear [facility] Specific [place] Urine Automated 1.023 1.005 - 1.030 [facility] Color, Urine Dipstick Yellow Yellow [facility] Reflex to Culture Yes [facility] Clean Catch Urine 02/08/2023 9:30 AM EDT 02/08/2023 9:43 AM EDT Narrative Resulting Agency Comment Spec In Lab Henrik Yun MD URINE ORDERABLES Performing Organization Address [facility]/State/[facility] Co de Phone Number [facility] [address] * Differential, Automated (02/08/2023 9:14 AM EDT) Neutrophil % 61.0 % [facility] Neutrophil Absolute 2.86 1.70 - 6.10 x10(3)/[facility] Lymph % 26.9 % [facility] Lymphocytes Abs 1.3 0.9 - 3.2 x10(3)/[facility] Monocyte % 10.0 % [facility] Monocyte Abs 0.5 0.3 - 0.9 x10(3)/[facility] Eos % 0.6 % [facility] Eosinophils Abs 0.0 0.0 - 0.4 x10(3)/[facility] Basophil % 1.3 % [facility] Baso Absolute 0.1 0.0 - 0.1 x10(3)/[facility] Immature Gran % 0.20 % [facility] Comment: Immature granulocytes(IG's)percentage and absolute count will include metamyelocytes, myelocytes, and promyelocytes. Blood smears from CBCs yielding IG's will be scanned manually for concordance. If this scan disagrees with the automated IG or if promyelocytes are noted, a manual differential will be performed. Immature Gran Absolute 0.01 0.00 - 0.04 x10(3)/[facility] Blood 02/08/2023 9:14 AM EDT 02/08/2023 9:25 AM EDT Narrative Resulting Agency Comment Spec In Lab Henrik Yun MD HEMATOLOGY ORDERABLE S [facility] [place] [address] * Hemogram (02/08/2023 9:14 AM EDT) White Blood Cell 4.7 4.0 - 9.5 x10(3)/[facility] Red Blood Cell 4.66 4.58 - 5.54 x10(6)/[facility] Hemoglobin 14.5 13.7 - 16.5 g/dL [facility] Hematocrit 42.0 40.5 - 48.5 % [facility] Mean Cell Volume 90.1 82.9 - 93.1 fL [facility] Mean Cell Hemoglobin 31.1 27.5 - 32.1 pg [facility] Mean Cell Hemoglobin Concentration 34.5 32.0 - 35.7 g/dL [facility] Platelet 257 145 - 357 x10(3)/[facility] RDW Standard Deviation 39.4 36.0 - 45.0 fL [facility] RDW coefficient of variation 12.0 11.4 - 13.8 % [facility] Mean Platelet Volume 10.0 7.6 - 12.9 fL [facility] NRBC% auto 0.0 % [facility] NRBC Absolute 0.000 0.000 - 0.000 x10(3)/mcL [facility] Blood 02/08/2023 9:14 AM EDT 02/08/2023 9:25 AM EDT Narrative Resulting Agency Comment Spec In Lab Henrik Yun MD HEMATOLOGY ORDERABLE S [facility] [address] [place] [address] * (ABNORMAL) Comprehensive metabolic panel (non-fasting) (02/08/2023 9:14 AM EDT) Glucose 104 65 - 199 mg/dL [facility] Comment:Diabetes: >=200 mg/d L plus symptoms Blood Urea Nitrogen 15 10 - 20 mg/dL [facility] Creatinine 0.90 0.80 - 1.50 mg/dL [facility] Sodium 139 135 - 145 mmol/L [facility] Potassium 4.5 3.5 - 5.0 mmol/L [facility] Comment: Please note: ??Patients with WBC >100,000 may have falsely elevated Potassium levels. ??For accurate Potassium quantification in these patients send serum separator tube (gold top) for subsequent determinations. ??Contact the Clinical Chemistry Laboratory if there are any questions. Chloride 105 98 - 107 mmol/L [facility] Carbon Dioxide 24 22 - 31 mmol/L [facility] Anion Gap 10 5 - 15 mmol/L [facility] Calcium 10.7(H) 8.5 - 10.5 mg/dL [facility] Protein, Total 7.1 6.1 - 8.0 g/dL [facility] Albumin 4.5 3.2 - 5.2 g/dL [facility] Aspartate Aminotransferase 22 0 - 39 unit/L [facility] Alanine Aminotransferase 21 0 - 55 unit/L [facility] Alkaline Phosphatase 66 40 - 130 unit/L [facility] Bilirubin, Total 0.4 0.2 - 1.3 mg/dL [facility] Est Glomerular Filtration Rate 101 >=60 mL/min/1. 73 m?? [facility] Comment: This patient's estimated GFR [...] In Lab Henrik Yun MD CHEMISTRY ORDERABLES Performing Organization Address [facility] Co de Phone Number [facility] [address] * PSA (Ultrasensitive) (02/08/2023 9:14 AM EDT) Prostate Specific Antigen (Ultrasensitive) <0.01 0.00 - 4.00 ng/mL [facility] Comment: PLEASE NOTE: The above reference interval is intended for healthy males with an intact prostate. Values within this reference interval may indicate recurrence in men who have undergone radical prostatectomy. This result was generated using a Colleen Kush immunoassay. ??Results obtained from other methods or manufacturers cannot be used interchangeably with this method. Blood 02/08/2023 9:14 AM EDT 02/08/2023 9:25 AM EDT Narrative Resulting Agency Comment Spec In Lab Henrik Yun MD CHEMISTRY ORDERABLES Performing Organization Address [facility] Co de Phone Number [facility] [address] * Testosterone, total (02/08/2023 9:14 AM EDT) Testosterone 4.50 1.93 - 7.40 ng/mL [facility] Comment: Pediatric Reference Ranges: ? Males (7 - 18 years) ?Females (8 - 18 years) Garrett Stage ?ng/ml ? ng/ml ? 1 ? <0.03 ? <0.03 to 0.06 ? 2 ? <0.03 to 4.32 ? <0.03 to 0.10 ? 3 ?0.65 to 7.78 ? <0.03 to 0.24 ? 4 ?1.80 to 7.63 ? <0.03 to 0.27 ? 5 ?1.88 to 8.82 ?0.05 to 0.38 Stated reference ranges derived from review of Colleen Kush Testosterone II 07/2016, v6.0 Blood 02/08/2023 9:14 AM EDT 02/08/2023 9:25 AM EDT Narrative Resulting Agency Comment Spec In Lab Henrik Yun MD CHEMISTRY ORDERABLES Performing Organization Address [facility]/State/ZIP Co de Phone Number [facility] [address] documented in this encounter Visit Diagnoses Diagnosis Malignant neoplasm of prostate documented in this encounter Care Teams Wood Pattern Maker Relationship Specialty Start Date End Date Giovanni Wing MD [address] [place] [address] PCP - General Family Medicine 08/29/18 documented as of this encounter
--- OUTSIDE RECORDS SUMMARY | 2024-08-23 17:27 | XMS_ITS | Encounter Summary ---
Author Organization [facility]ly [facility] Address [facility] [place] [address] Care Team Providers Care Dispatch Machine Runner Name Role Phone Giovanni Wing MD Primary Care Provider [phone] Reason for Visit * Occupational Therapy (Routine) - Closed Specialty Diagnoses / Procedures Referred By Emanuel flores Referred To Contact Occupational Therapy Diagnoses Pain in left elbow Suzy Jacobs PA [facility] [place] [address] [address] Ot [address] [place] [address] Referral ID Status Reason Start Date Expiration Date V isits Requested Visits Authorized [id number] Closed Evaluate and Treat 11/03/2022 11/03/2023 30 30 Encounter Details Date Type Department Care Team (Late st Contact Info) Description 02/02/2023 9:30 AM EDT Office Visit Occupational Therapy at [facility] [address] [place] [phone] Shara Alvarado OT Pain in left elbow [...] encounter Miscellaneous Notes * Initial Evaluation - Shara Alvarado OT - 02/02/2023 9:30 AM EDT OCCUPATIONAL THERAPY INITIAL UPPER EXTREMITY EVALUATION Certification Period: 02/02/23-05/05/23 Referral Source: LORENE Cowart MD Follow-up: PRN Total Treatment time: 60 Minutes Timed Code Treatment Time: 20 minutes OCCUPATIONAL PROFILE: Devan Chen is a 57 y.o. year old Right hand dominant male who is referred for left elbow pain since approximately Sep 2022. [place] hunting season - holding rifle and loading [...] mild discomfort Composite Extension/Flexion 54/31 54/30* Strength: Food Service Supervisor Testing with Dynamometer setting #2 Pinch Testing with Pinch Gauge Right Left eval Food Service Supervisor setting 2 89.8 35.3 Food Service Supervisor Average 94.5 16.7 Rahman 21 21.5 3 Pt 17 15 Tip 12.5 11.5 Treatment Today: Evaluation LOW Complexity (14748) Orthosis - Wrist-Hand Orthotic, W/O [employer] Fit [employer] Adj (L3906) Educated patient in etiology and biomechanics as related to the patient's symptoms Provided with home exercise program to include [...] above, PSFS and DASH for specific functional deficits. Devan Chen is able to demonstrate home exercises with written instructions provided. Devan Chen has good potential for gains with therapy with identified needs for skilled therapy for treatment of deficits noted during evaluation today, to maximize functional performance during daily activities. Solo Truck Driver Goals (to be met by discharge): Date [...] of left elbow extension, 5 lbs left barrel marker strength to demonstrate significantly improved functional performance [...] 3 week(s) to progress toward short and long-term goals, Joint mobilizations to decrease pain and/or [...] Scheduled Referrals Name Type Priority Associated Diagnoses Order Schedule Referral to Occupational Therapy Outpatient Referral Routine Pain in left elbow Ordered: 11/03/2022 documented as of this encounter Visit Diagnoses Diagnosis Pain in left elbow Pain in joint, upper arm documented in this encounter Care Teams Dispatch Machine Runner Relationship Specialty Start Date End Date Giovanni Wing MD [address] [place] [address] PCP - General Family Medicine 08/29/18 documented as of this encounter
--- OUTSIDE RECORDS SUMMARY | 2024-08-23 17:27 | XMS_ITS | Encounter Summary ---
Author Organization [facility] [place] [address] Care Team Providers Care Education Counselor Name Role Phone Giovanni Wing MD Primary Care Provider [phone] Encounter Details Date Type Department Care Team (Late st Contact Info) Description 01/01/2023 Telephone Urology at [facility] [place] [phone] Rj Mcdonald MD [facility] [place] [place] [address] Social History Tobacco Use Types Packs/Day Years [...] encounter Miscellaneous Notes * Telephone Encounter - Julieta Jose RN - 01/01/2023 2:14 PM EST I have placed these things in the mail today. Sent patient a [employer] message. * Telephone Encounter - Caridad Rodriguez - 01/01/2023 11:13 AM EST Patients calling, the patient just had surgery on 12/28 and had a sierra catheter placed. They are wondering if they can get some more sticky pads that keep the catheter on the patients leg as well as some more alcohol wipes until the patients void trial on 01/08. PHONE: [phone] documented in this encounter Plan of Treatment Not on file documented as of this encounter Visit Diagnoses Not on filedocumented in this encounter Care Teams Education Counselor Relationship Specialty Start Date End Date Giovanni Wing MD [address] [place] [address] PCP - General Family Medicine 08/29/18 documented as of this encounter
--- OUTSIDE RECORDS SUMMARY | 2024-08-23 17:27 | XMS_ITS | Encounter Summary ---
Author Organization [facility] Address [facility] [place] [address] Care Team Providers Care Web Content Developer Name Role Phone Giovanni Wing MD Primary Care Provider [phone] Encounter Details Date Type Department Care Team (Latest Contact Info) Description 01/05/2023 Travel Social History Tobacco Use Types Packs/Day [...] on filedocumented in this encounter Care Teams Web Content Developer Relationship Specialty Start Date End Date Giovanni Wing MD [address] [address] PCP - General Family Medicine 08/29/18 documented as of this encounter
--- OUTSIDE RECORDS SUMMARY | 2024-08-23 17:27 | XMS_ITS | Encounter Summary ---
Author Organization [facility] [place] [address] Care Team Providers Care Loan Operations Specialist Name Role Phone Giovanni Wing MD Primary Care Provider [phone] Encounter Details Date Type Department Care Team (Late st Contact Info) Description 01/05/2023 Orders Only Urology at [facility] [place] [phone] Mirela Chapin APRN [facility] [place] [address] Social History Tobacco Use Types Packs/Day Years [...] place to sleep or slept in a usp (including now)? No 11/02/2022 Sex and Gender Information Value Date Recorded Sex Assigned at Not on file Gender Identity Not on file Sexual Orientation Not on file documented as of this encounter Plan of Treatment Not on file documented as of this encounter Visit Diagnoses Not on filedocumented in this encounter Care Teams Loan Operations Specialist Relationship Specialty Start Date End Date Giovanni Wing MD [address] [place] [address] PCP - General Family Medicine 08/29/18 documented as of this encounter
--- OUTSIDE RECORDS SUMMARY | 2024-08-23 17:27 | XMS_ITS | Encounter Summary ---
Author Organization [facility] Address [facility] [place] [address] Care Team Providers Care Maintenance Pipefitter Name Role Phone Giovanni Wing MD Primary Care Provider [phone] Encounter Details Date Type Department Care Team (Latest Contact Info) Description 12/14/2022 10:10 AM EST - 12/14/2022 11:59 PM [facility] Hospital Encounter XRay at [address] [place] [address] Rj Mcdonald MD [facility] [place] [address] Malignant neoplasm of prostate Discharge Disposition: Home [...] Sig Dispensed Refills Start Date End Date FIBER CHOICE ORAL Take by mouth. Metamucil tablets 12 tabs a day fluticasone propionate (Flonase) 50 mcg/actuation Herreid, Suspension every 24 hours. loratadine (Claritin) 10 [...] Cream Apply topically as needed. 0 06/26/2017 oxyCODONE (Roxicodone) 5 mg Tablet Take 1 tablet by mouth every 6 hours as needed for Pain for up to 3 days. 12 tablet 12/29/2022 01/01/2023 tamsulosin (Flomax) 0.4 mg Capsule Take 1 capsule by mouth nightly. 30 tablet 3 08/14/2022 12/27/2022 documented as of this encounter Plan of Treatment Not on file documented as of this encounter Procedures Procedure Name Priority Date/Time Associated Diagnosis Comments XR CHEST PA AND LATERAL Routine 12/14/2022 10:19 AM EST Malignant neoplasm of prostate documented in this encounter Results * XR Chest PA & Lateral (Generic) (12/14/2022 10:19 AM EST) Anatomical Region Laterality Modality Chest N/A Digital Radiogra phy Impressions 12/14/2022 1:52 PM EST No acute cardiopulmonary process. No pulmonary nodules identified. Thank you for letting us participate in the care of this patient. ??If you are a health care provider and have any questions regarding this report, please contact the number below. ??For patients who have questions please contact the health doggy daycare activities director that requested your imaging first. ? Narrative 12/14/2022 1:52 PM EST EXAMINATION: XR CHEST PA AND LATERAL (GENERIC) CLINICAL HISTORY: preop evaluation for prostate cancer surgery 57 yo male TECHNIQUE: PA and lateral views of the chest COMPARISON: None FINDINGS: The lungs are clear. No pneumothorax or pleural effusion. The cardiomediastinal silhouette, luisana, and pulmonary vasculature are within normal limits. No acute osseous abnormality. There are midthoracic bridging anterior osteophytes consistent with degenerative change. Procedure Note Jami Novoa MD - 12/14/2022 EXAMINATION: XR CHEST PA AND LATERAL (GENERIC) CLINICAL HISTORY: preop evaluation for prostate cancer surgery 57 yo male TECHNIQUE: PA and lateral views of the chest COMPARISON: None FINDINGS: The lungs are clear. No pneumothorax or pleural effusion. Thecardiomediastinal silhouette, luisana, and pulmonary vasculature are within normal limits. Noacute osseous abnormality. There are midthoracic bridging anterior osteophytes consistent withdegenerative change. IMPRESSION No acute cardiopulmonary process. No pulmonary nodules identified. Thank you for letting us participate in the care of this patient. If youare a health care provider and have any questions regarding this report,please contact the number below. For patients who have questions please contactthe health doggy daycare activities director that requested your imaging first. Rj Mcdonald MD IMG DX ORDERABLES documented in this encounter Visit Diagnoses Diagnosis Malignant neoplasm of prostate documented in this encounter Care Teams Maintenance Pipefitter Relationship Specialty Start Date End Date Giovanni Wing MD [address] [place] [address] [place] [address] PCP - General Family Medicine 08/29/18 documented as of this encounter
--- OUTSIDE RECORDS SUMMARY | 2024-08-23 17:27 | XMS_ITS | Encounter Summary ---
Author Organization [facility] Address [facility] [place] [address] Care Team Providers Care Minor League Baseball Player Name Role Phone Giovanni Wing MD Primary Care Provider [phone] Encounter Details Date Type Department Care Team (Latest Contact Info) Description 11/09/2022 Travel Social History Tobacco Use Types Packs/Day Years Used Date Smoking Tobacco: Never Smokeless Tobacco: Never Alcohol Use Standard Drinks/Week Comments Yes 0 (1 standard drink = 0.6 oz pur e alcohol) 2/day liquor most often Overall Financial [...] in a retirement (including now)? No 11/02/2022 Sex and Gender Information Value Date Recorded Sex Assigned at Not on file Gender Identity Not on file Sexual Orientation Not on file documented as of this encounter Plan of Treatment Not on file documented as of this encounter Visit Diagnoses Not on filedocumented in this encounter Care Teams Minor League Baseball Player Relationship Specialty Start Date End Date Giovanni Wing MD [address] [address] PCP - General Family Medicine 08/29/18 documented as of this encounter
--- OUTSIDE RECORDS SUMMARY | 2024-08-23 17:27 | XMS_ITS | Encounter Summary ---
Author Organization [facility] Address [place] [address] Care Team Providers Care Mexican Food Cook Name Role Phone Giovanni Wing MD Primary Care Provider [phone] Encounter Details Date Type Department Care Team (Latest Contact Info) Description 02/15/2023 Travel Social History Tobacco Use Types Packs/Day [...] on filedocumented in this encounter Care Teams Mexican Food Cook Relationship Specialty Start Date End Date Giovanni Wing MD [address] [address] PCP - General Family Medicine 08/29/18 documented as of this encounter
--- OUTSIDE RECORDS SUMMARY | 2024-08-23 17:27 | XMS_ITS | Encounter Summary ---
Author Organization [facility] [place] [address] Care Team Providers Care Door Technician Name Role Phone Giovanni Wing MD Primary Care Provider [phone] Encounter Details Date Type Department Care Team (Late st Contact Info) Description 01/02/2023 [place] [phone] Antwon Garvin MD [facility] [place] [address] Social History Tobacco Use Types Packs/Day Years [...] encounter Miscellaneous Notes * Telephone Encounter - Antwon Garvin MD - 01/02/2023 6:19 PM EST Brief Telephone Note The patient is calling today due to increased urgency to urinate - Prostatectomy was on 12/28/22 - Urine is clear, sierra is draining - Calling because this is new starting today Otherwise feeling really well Advised this is normal. Continue drinking fluids. Advil/tylenol around the clock. Call if no urine from catheter or other concerns such as fever/chills. Antwon Garvin MD Urology PGY-2 01/02/2023 documented in this encounter Plan of Treatment Not on file documented as of this encounter Visit Diagnoses Not on filedocumented in this encounter Care Teams Door Technician Relationship Specialty Start Date End Date Giovanni Wing MD [address] [place] [address] PCP - General Family Medicine 08/29/18 documented as of this encounter
--- OUTSIDE RECORDS SUMMARY | 2024-08-23 17:27 | XMS_ITS | Encounter Summary ---
Author Organization [facility] Address [facility] [place] [address] Care Team Providers Care Nickel Plant Operator Name Role Phone Giovanni Wing MD Primary Care Provider [phone] Encounter Details Date Type Department Care Team (Latest Contact Info) Description 02/02/2023 Travel Social History Tobacco Use Types Packs/Day [...] on filedocumented in this encounter Care Teams Nickel Plant Operator Relationship Specialty Start Date End Date Giovanni Wing MD [address] [address] PCP - General Family Medicine 08/29/18 documented as of this encounter
--- OUTSIDE RECORDS SUMMARY | 2024-08-23 17:27 | XMS_ITS | Encounter Summary ---
Author Organization [facility] Address [facility] [place] [address] Care Team Providers Care Meat Puller Name Role Phone Giovanni Wing MD Primary Care Provider [phone] Encounter Details Date Type Department Care Team (Latest Contact Info) Description 12/14/2022 Travel Social History Tobacco Use Types Packs/Day [...] place to sleep or slept in a skilled nursing (including now)? No 11/02/2022 Sex and Gender Information Value Date Recorded Sex Assigned at Not on file Gender Identity Not on file Sexual Orientation Not on file documented as of this encounter Plan of Treatment Not on file documented as of this encounter Visit Diagnoses Not on filedocumented in this encounter Care Teams Meat Puller Relationship Specialty Start Date End Date Giovanni Wing MD [address] [address] PCP - General Family Medicine 08/29/18 documented as of this encounter
--- OUTSIDE RECORDS SUMMARY | 2024-08-23 17:27 | XMS_ITS | Encounter Summary ---
Author Organization Formerly [facility] Address [facility] [place] [address] Care Team Providers Care Resource Manager Name Role Phone Giovanni Wing MD Primary Care Provider [phone] Reason for Visit * Reason Comments Establish Care * Consultation (Routine) - Closed Specialty Diagnoses / Procedures Referred By Contazeem t Referred To Contact Radiation Oncology Diagnoses Malignant neoplasm of prostate PROSTATE CA Procedures PROSTATE CA Rj Mcdonald MD [facility] [address] Henrik Yun MD [facility] [place] [place] [address] Referral ID Status Reason Start Date Expiration Date V isits Requested Visits Authorized [id number] Closed Consult, Test & Treat 09/26/2022 09/26/2023 1 1 Encounter Details Date Type Department Care Team (Late st Contact Info) Description 11/09/2022 11:30 AM EST Office [place] [address] Henrik Yun MD [facility] [place] [address] Malignant neoplasm of prostate Social History Tobacco [...] money to buy more. Never true 11/02/20 Within the past 12 months, t he [...] a care home (including now)? No 11/02/2022 Sex and Gender Information Value Date Recorded Sex Assigned at Not on file Gender Identity Not on file Sexual Orientation Not on file documented as of this encounter Last Filed Vital Signs Vital Sign Reading Time Taken Comments Blood Pressure 140/80 11/09/2022 10:52 AM EST Pulse 70 11/09/2022 10:52 AM EST Temperature - - Respiratory Rate - - Oxygen Saturation 96% 11/09/2022 10: 52 AM EST Inhaled Oxygen Concentration - - Weight 88.6 kg (195 lb 6.4 oz) 11/09/20 10:52 AM EST With shoes Height - - Body Mass Index 29.28 09/21/2022 8:03 AM EDT documented in this encounter Progress Notes * Maribel Reaves RN - 11/09/2022 11:30 AM EST RADIATION ONCOLOGY NURSING INITIAL NURSING ASSESSMENT IDENTIFICATION: Devan Chen is a 57 y.o. year-old male with Prostate cancer PRESENTING SYMPTOMS/CHIEF COMPLAINT: REVIEW OF SYSTEMS: Review of Systems - Oncology IN THE PAST 12 MONTHS HAVE YOU: Fallen more than one time? No Injured yourself as result of the fall? No Experienced difficulty with walking/problems with balance? No Do you use any assistive devices? No Any history of collagen vascular diseases:No Any Implanted Devices/Hardware: Yes. Right toe might have hardware in it If yes please put alert in ARIA patient summary Prior Radiotherapy: No Prior Chemotherapy: No Prior Hormone Therapy: No LEARNING ASSESSMENT REVIEWED: Yes ADVANCED DIRECTIVE: Yes PAIN ASSESSMENT: [4] out of 10 *eD-H Adult PCS Flow Sheet if 4 or above REVIEW OF SYSTEMS 11/02/2022 Constitutional None of the above Ear / nose / throat / mouth None of the above Eyes None of the above Respiratory None of the above Cardiovascular None of the above Gastrointestinal None of the above Skin, hair None of the above Musculoskeletal Joint stiffness, Back pain, Joint pain, Muscle stiffness, Reduced range of motion Neurological None of the above Genitourinary None of the above SOCIAL ASSESSMENT: See [facility] social assessment information entered. Support Systems: Patients . Couple lives in [place] Barriers to treatment: None Referrals/Interventions: None today RADIATION SPECIFIC TEACHING: [facility] Radiation Therapy and You Site specific teaching : Other: PLAN: Will discuss treatment plan with Dr Yun * Henrik Yun MD - 11/09/2022 11:30 AM EST Identification Devan Chen is a 57 y.o. gentleman with prostate cancer. He is being seen at the request of for consideration of the role of radiation therapy in his further management. Problem List Patient Active Problem List Diagnosis Code ??? [...] K62.5 ??? Malignant neoplasm of prostate C61 History of Present Illness 57 y.o. gentleman with family history of prostate cancer was found on routine exam (for insurance purposes) to have elevated PSA, confirmed on repetition -- PSA History review: ?06/30/2022- 12.3 ?%free 7 ?07/11/2022- .75 ?? He was seen by Dr. Mcdonald. MRI and biopsy were performed. Prostate MRI, 08/11/22: COMPARISON: None ?? FINDINGS: Prostate dimensions: 4.6 x 3.6 x 3.8cm. Estimated prostate volume: 36cc (X x Y x Z x 0.52) PSA density: 0.33 (PSA/prostate volume >0.15 susp, 0.25 highly susp) ?? Peripheral zone: Lesion 1. T2: Linear or wedge-shaped hypointensity or diffuse mild hypointensity with indistinct margin.. PI-RADs: . DWI: No abnormality on ADC and high b-value DWI. PI-RADs: . DCE-MRI: (-) No early arterial enhancement.. ?? Combined PI-RADs: . ?? Transition and peripheral zones: Lesion 1: Left transition zone in the mid gland with extension into the anterior peripheral zone in the apex. T2: non-circumscribed, homogeneous, moderately hypointense mass, 1.5 x 1 cm axially, 1.5 cm craniocaudally. PI-RADs: 4. DWI: Focal markedly hypointense on ADC and markedly hyperintense on high b-value DWI. PI-RADs: 4. DCE-MRI: (+) focal early enhancement which corresponds to the suspicious finding on T2WI and/or DWI. ?? Combined PI-RADs: 4. ?? Extraprostatic disease: ?? Seminal vesicle involvement:No Lymphadenopathy:No Sphincter involvement:No Bladder involvement:No Osseous metastases: No . MRI-derived Extraprostatic extension risk: Not ?? Other findings: None. ?? IMPRESSION ?? Lesion 1 TZ+PZ: PI-RADS 4. Clinically significant cancer is likely to be present. T2 location: axial series 12, image 25; sagittal series 14, image 17. ?? Prostate biopsy, 09/21/22: A - Prostate, Right lateral base, biopsy: ? - Prostatic adenocarcinoma, Grade Group 1 (Angie score 3+3=6), involving 10% ?of a single core. B - Prostate, Right lateral mid, biopsy: ? - Benign prostatic tissue. C - Prostate, Right lateral apex, biopsy: ? - Benign prostatic tissue. D - Prostate, Right base, biopsy: ? - Benign prostatic tissue. E - Prostate, Right mid, biopsy: ? - Prostatic adenocarcinoma, Grade Group 1 (Angie score 3+3=6), involving 10% ?of the single core. F - Prostate, Right apex, biopsy: ? - Benign prostatic tissue. G - Prostate, Left lateral base, biopsy: ? - Prostatic adenocarcinoma, Grade Group 1 (Angie score 3+3=6), involving 50% ?of the single core. H - Prostate, Left lateral mid, biopsy: ? - Benign prostatic tissue. I - Prostate, Left lateral apex, biopsy: ? - Prostatic adenocarcinoma, Grade Group 1 (Angie score 3+3=6), involving 50% ?of a single core. J - Prostate, Left base, biopsy: ? - Prostatic adenocarcinoma, Grade Group 1 ([place] score 3+3=6), involving 60% ?of a single core. K - Prostate, Left mid, biopsy: ? - Benign prostatic tissue. L - Prostate, Left apex, biopsy: ? - Prostatic adenocarcinoma, Grade Group 1 (Angie score 3+3=6), involving 50% ?of a single core. M - Prostate, fusion directed lesion, biopsy: ? - Prostatic adenocarcinoma, Grade Group 1 ([place] score 3+3=6), involving 2 ?out of 4 cores (5% and 5%, respectively), comprising less than 5% of overall ?submitted tissue. ROS IPSS Responses 11/02/2022 International Prostate Symptom Score 7 ( Mild LUTS) IPSS: ncomplete emptying Less than 1 time in 5 IPSS: Frequency Less than 1 time in 5 IPSS: Intermittency Less than half the time IPSS: Urgency Not at all IPSS: Weak Stream Less than 1 time in 5 IPSS: Straining Not at all IPSS: Nocturia 2 times IPSS: Quality of life Pleased EPIC-PC Responses 11/02/2022 Urinary Incontinence Symptom Score 0 Urinary Irritation/Obstructive Symptom Score 1 Bowel Symptom Score 0 Vitality/Hormonal Symptom Score 1 Overall Prostate Cancer QOL Score 2 Urinary function problem No Problem Urinary control Total control # of pads used per day None Urinary dripping/leakage problem No problem Pain or burning with urination No problem Weak urine stream/incomplete bladder emptying Very small problem Need to urinate frequently No problem Rectal pain or urgency of bowel movements No problem Increased frequency of your bowel movements No problem Overall problems with your bowel movements No problem Bloody stools No problem Ability to reach orgasm Very good Quality of your erections Firm enough for intercourse Problem with sexual function or lack of it No problem Hot flashes or breast tenderness/enlargement No problem Feeling depressed Very small problem Lack of energy No problem MARGARET Responses 11/02/2022 Sexual Health Inventory for Men 25 MARGARET: Confidence, level - past 6 months Very High MARGARET: Penetration - past 6 months Almost always or always MARGARET: Penetration, maintain - past 6 months Almost always or always MARGARET: Erection, maintain - past 6 months Not difficult MARGARET: Sexual satisfaction - past 6 months Almost always or always Review of Systems otherwise unremarkable. Please see Nurse's Note for details. Prior history of radiation therapy: None Current Outpatient Medications on File Prior to Visit Medication Sig Dispense Refill ??? FIBER CHOICE ORAL Take by mouth. Metamucil tablets 4-5 tabs a day ??? fluticasone propionate (Flonase) 50 mcg/actuation [place], Suspension every 24 hours. ??? loratadine (Claritin) 10 mg Tablet every 24 hours. ??? FLUoxetine (PROzac) 10 mg Capsule TAKE 3 CAPSULES BY MOUTH EVERY DAY for 90 ??? FISH OIL-DHA-EPA ORAL Take by mouth. ??? acetaminophen (TYLENOL) 650 mg Tablet Sustained Release daily. ??? cholecalciferol, Vitamin D3, 1,000 unit Capsule Take 1,000 Units by mouth daily. ??? VENTOLIN HFA 90 mcg/actuation HFA Aerosol Inhaler Inhale 2 puffs into the lungs as needed. 3 ??? triamcinolone (KENALOG) 0.1 % Cream Apply topically as needed. 0 ??? naproxen sodium (ANAPROX) 220 mg Tablet Every 12 hours. ??? tamsulosin (Flomax) 0.4 mg Capsule Take 1 capsule by mouth nightly. (Patient not taking: Reported on 11/09/2022) 30 tablet 3 ??? MELATONIN ORAL Take by mouth. No current facility-administered medications on file prior to visit. No Known Allergies No past medical history on file.. Past Surgical History: Procedure Laterality Date ??? LUMBAR DISC SURGERY L5-S1 ??? PRO COLONOSCOPY, BIOPSY N/A 08/19/2018 COLONOSCOPY FLEXIBLE, WITH BX (WRVU 3.66) performed by Cirilo Pathak MD at [facility] ENDOSCOPY ??? PRO HALLUX RIGIDUS W/CHEILECTOMY 1ST MP JT W/IMPLT Right 10/31/2018 CORRECTION HALLUX RIGIDUS, W IMPLANT (WRVU 8.01) performed by Pascual Pearson MD at [facility] MAIN OR ??? US GUIDED BIOPSY PROSTATE WITH URONAV FUSION 09/21/2022 US Guided Biopsy Prostate with Uronav Fusion 09/21/2022 [facility] RAD ULTRASOUND Family History Problem Relation Age of Onset ??? Seizure Disorder Mother ??? Parkinsonism Father ??? Diabetes Neg Hx Social History Socioeconomic History ??? Marital status: Spouse name: Not on file ??? Number of children: Not on file ??? Years of education: Not on file ??? Highest education level: Not on file Occupational History ??? 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 Smoking status: Never ??? Smokeless tobacco: Never Vaping Use ??? Vaping Use: Never used Substance and Sexual Activity ??? Alcohol use: Yes Comment: 2/day liquor most often ??? Drug use: No Frequency: 7.0 times per week Comment: CBD oil as needed for pain, daily instead of advil ??? Sexual activity: Not on file Other Topics Concern ??? Not on file Social History Narrative ??? Not on file Social Determinants of Health Financial Resource Strain: Low Risk ??? Difficulty of Paying Living Expenses: Not hard at all Food Insecurity: No Food Insecurity ??? Worried About Running Out of Food in the Last Year: Never true ??? Ran Out of Food in the Last Year: Never true Transportation Needs: No Transportation Needs ??? Lack of Transportation (Medical): No ??? Lack of Transportation (Non-Medical): No Physical Activity: Not on file Housing Stability: Low Risk ??? Unable to Pay for Housing in the Last Year: No ??? Number of Places Lived in the Last Year: 1 ??? Unstable Housing in the Last Year: No Physical Exam BP 140/80 (Patient Position: Sitting) Pulse 70 Wt 88.6 kg (195 lb 6.4 oz) Comment: With shoes SpO2 96% BMI 29.28 kg/m?? KPS: 90 Sclera anicteric. No adenopathy in cervical, supraclavicular, or inguinal regions. Lungs clear in all marcum. No back or costo-vertebral angle tenderness. CV with regular rate and rhythm Abdomen soft, nontender, positive bowels sounds, no hepatosplenomegaly. No suprapubic tenderness. External genitalia unremarkable. No pretibial edema. Rectal with normal tone, guiac negative stool, no masses. Prostate is smooth, symmetric, mildly enlarged, without nodularity, tenderness, induration, or other focal abnormality. Stage T1c on this ARACELI. Investigations As above. Recent Results (from the past 72 hour(s)) Comprehensive metabolic panel (non-fasting) Result Value Ref Range Glucose Lvl 88 65 - 199 mg/dL BUN 19 10 - 20 mg/dL Creatinine 1.06 0.80 - 1.50 mg/dL Sodium 138 135 - 145 mmol/L Potassium 4.8 3.5 - 5.0 mmol/L Chloride 105 98 - 107 mmol/L CO2 26 22 - 31 mmol/L Anion Gap 7 5 - 15 mmol/L Calcium 10.8 (H) 8.5 - 10.5 mg/dL Total Protein 7.3 6.1 - 8.0 g/dL Albumin 4.5 3.2 - 5.2 g/dL AST 23 0 - 39 unit/L ALT 27 0 - 55 unit/L Alk Phos 69 40 - 130 unit/L Total Bilirubin 0.7 0.2 - 1.3 mg/dL Estimated GFR 83 >=60 mL/min/1.73 m?? PSA (Ultrasensitive) Result Value Ref Range PSA Total (Ultrasensitive) 16.00 (H) 0.00 - 4.00 ng/mL Testosterone, total Result Value Ref Range Testo Total 4.47 1.93 - 7.40 ng/mL Hemogram Result Value Ref Range WBC 4.7 4.0 - 9.5 x10(3)/mcL RBC 4.95 4.58 - 5.54 x10(6)/mcL Hemoglobin 15.3 13.7 - 16.5 g/dL Hematocrit 43.4 40.5 - 48.5 % MCV 87.7 82.9 - 93.1 fL MCH 30.9 27.5 - 32.1 pg MCHC 35.3 32.0 - 35.7 g/dL Platelets 229 145 - 357 x10(3)/mcL RDWSD 38.5 36.0 - 45.0 fL RDWCV 12.0 11.4 - 13.8 % MPV 10.0 7.6 - 12.9 fL nRBC % Auto 0.0 % nRBC Abs Auto 0.000 0.000 - 0.000 x10(3)/mcL Differential, Automated Result Value Ref Range Neutrophils % 52.7 % Neutr Abs (ANC) 2.49 1.70 - 6.10 x10(3)/mcL Lymphocytes % 34.2 % Lymphocytes Abs 1.6 0.9 - 3.2 x10(3)/mcL Monocytes % 10.1 % Monocyte Abs 0.5 0.3 - 0.9 x10(3)/mcL Eosinophils % 1.5 % Eosinophils Abs 0.1 0.0 - 0.4 x10(3)/mcL Basophils % 1.3 % Basophils Abs 0.1 0.0 - 0.1 x10(3)/mcL Immature Gran % 0.20 % Domi Gran Abs 0.01 0.00 - 0.04 x10(3)/mcL Assessment/Plan 57 y.o. gentleman with positive family history for prostate cancer now presents with rising PSA, upto 16.00 currently, Stage [id number] prostate cancer, [place] Score 3+3=6, Grade Group 1, 7 of 13 sites positive. Per NCCN criteria, this constitutes unfavorable intermediate risk disease (due to >50% of sites positive). Per AJCC 8th edition, this is Stage IIA disease. We discussed the full panoply of treatment options for this low-intermediate risk prostate cancer. Certainly surgical resection is an excellent option, although it does entail a risk of erectile dysfunction, and a low risk of persistent leaking, along with a post-operative recovery period of gradual return to normal function. There is also some risk of positive margin or extracapsular disease extension (emphasized by the majority of biopsy sites containing tumor), which might lead to recommendation for post-operative radiation therapy, thereby exposing the patient to the risks associated withboth treatment modalities. Radiation therapy offers comparable benefit to surgical resection for at least 20 to 25 years following treatment. The long-term side effects of radiation treatment are relatively low-risk, other than the significant risk (30-40%) of erectile dysfunction, though this risk is lower than the risk of ED seen with surgery. (Lyle et al, [facility] 2016; 375:7105-5681.) With radiation treatment there is alow risk of significant damage to bowel or bladder function (less than 5%), and a low risk of second malignancy (at or below 2% at 20 years, though this risk continues to escalate over decades). Given the patient's family history, escalating PSA, and majority of biopsy sites with tumor, we agreed that an observational approach would not be appropriate, but that treatment in the near term would be gavin. Given his young age and the low grade nature of his disease, surgical removal of the gland would seem his best option. This may well provide him definitive treatment of this disease, while avoiding the long-term risks of XRT, which rise over years. As he has a time horizon extending three to four decades, this would seem the most prudent approach. If he does experience recurrence following surgery, post-operative XRT might be a reasonable optionat that juncture. It is to be hoped that this may be avoided. Mr. Chen expressed appreciation for the consultation. He plans on following up shortly with Dr. Mcdonald to proceed with prostatectomy. Devan Chen was seen for a total of 60 minutes, with 55 minutes of that time spent in discussion with the patient regarding his current clinical condition, test results, and further management. documented in this encounter Plan of Treatment Not on file documented as of this encounter Visit Diagnoses Diagnosis Malignant neoplasm of prostate documented in this encounter Care Teams Resource Manager Relationship Specialty Start Date End Date Giovanni Wing MD [address] [place] [id number] PCP - General Family Medicine 08/29/18 documented as of this encounter
--- OUTSIDE RECORDS SUMMARY | 2024-08-23 17:27 | XMS_ITS | Encounter Summary ---
Author Organization [facility] [place] [address] Care Team Providers Care Cotton Chopper Name Role Phone Giovanni Wing MD Primary Care Provider Reason for Visit * Auth/Cert (Routine) Specialty Diagnoses / Procedures Referred By Contac t Referred To Contact Diagnoses Malignant neoplasm of prostate Malignant neoplasm of prostate Procedures PRO LAP, PROSTATECTOMY, RADICAL, W/NERVE SPARE PRO LAP, PELVIC LYMPHADENECTOMY LAPAROSCOPIC PROSTATECTOMY, ROBOTICS ASSISTED (WRVU 21.36) LAPAROSCOPY,WITH BILATERAL TOTAL PELVIC LYMPHADENECTOMY, ROBOTIC (WRVU 12) MODIFIER ROBOT,DAVINCI Allen Lane MD [facility] [place] [address] [facility] Referral ID Status Reason Start Date Expiration Date Visits Re quested Visits Authorized [id number] 1 1 Encounter Details Date Type Department Care Team (Late st Contact Info) Description 12/28/2022 12:24 PM EST - 12/28/2022 5:20 PM EST Surgery [place] [address] Allen Mcdonald MD [facility] [place] [address] ROBOTIC LAPAROSCOPIC PROSTATECTOMY (WRVU 22.46) Social History Tobacco Use Types Packs/Day Years [...] Sign Reading Time Taken Comments Blood Pressure 116/71 12/28/2022 5:15 PM EST Pulse 73 12/28/2022 5:15 PM EST Temperature 37.3 ??C (99.1 ??F) 12/28/2022 5:12 PM ES T Respiratory Rate 13 12/28/2022 5:15 PM EST Oxygen Saturation 99% 12/28/2022 5:15 PM EST Inhaled Oxygen Concentration - - Weight 85.3 kg (188 lb) 12/28/2022 11:45 AM EST Height 172.7 cm (5' 8) 12/28/2022 11:45 AM EST Body Mass Index 28.59 12/28/2022 11:45 AM EST documented in this encounter Discharge Summaries * Adilia Prieto PA - 12/29/2022 1:27 PM EST Images from the original note were not included. Discharge Summary Patient Name: Devan Chen Patient Age: 57 y.o. Language: Moroccan Race: White Ethnicity: Not nor Admit date: 12/28/2022 Discharge date: 12/29/2022 Attending Physician: Allen Mcdonald MD Discharge Diagnoses (Hospital Problems) and Secondary Diagnoses (Chronic Problems): Active Hospital Problems Diagnosis ??? Prostate cancer Resolved Hospital Problems No resolved problems to display. Active Non-Hospital Problems Diagnosis ??? Malignant neoplasm of prostate ??? Rectal hemorrhage ??? Elevated PSA ??? Lower urinary tract symptoms (LUTS) ??? Pain in right elbow ??? Anxiety state ??? Asthma ??? Overweight ??? Back pain ??? Health care maintenance ??? Muscle pain ??? Thoracic spondylosis without myelopathy ??? Finger infection ??? Pain in toe of right foot ??? Hallux rigidus of right foot ??? Chronic SI joint pain ??? Mechanical low back pain Operations/Major Procedures: Procedure(s): LAPAROSCOPIC PROSTATECTOMY, ROBOTICS ASSISTED (WRVU 21.36) LAPAROSCOPY,WITH BILATERAL TOTAL PELVIC LYMPHADENECTOMY, ROBOTIC (WRVU 12) MODIFIER ROBOT,KANE XI 12/28/2022 History of Presentation (taken from Dr. Mcdonald H&P 12/28/22) Devan Chen is a 57 y.o. male with PMH of favorable intermediate risk prostate cancer (due to PSA), presenting for planned RALP/PLND. ?? PSA 11.75 Prostate Volume: 36cc Angie 3+3=6 prostate cancer (R base/mid, left base/apex No LUTS Sexually active ?? Anticoagulation: None UA 12/04 - negative ?? No recent changes to health status. ?? PMH: TADEO 2 drinks per day ?? PSHx: None abdominal Hospital Course: Patient was admitted electively to [facility] via the same day surgery program and underwent the above procedure. He tolerated surgery well and was tranferred from the PACU to the general floor in good condition a few hours after surgery. Patient's hospital course was uncomplicated. Patient had some dizziness with ambulation during POD1 morning but this improved. Patient walked much better in the afternoon with no dizziness and felt steady on his feet. Potassium high this morning at 5.3 but potassiumbaseline usually runs on higher end of normal. He remained afebrile, with stable vital signs throughout his hospital stay. Today, on POD# 1 he has met all criteria for discharge home: his pain is well controlled with medications by mouth, he is tolerating a regular diet, catheter draining appropriately, and is up and ambulating without complications. He has been deemed safe for discharge. Findings: Uncomplicated RALP/PLND Water tight anastmosis to 120cc Vital Signs at Discharge: Weight: Wt Readings from Last 1 Encounters: 02/09/ 85.3 kg (188 lb) Height: Ht Readings from Last 1 Encounters: 02/09/ 172.7 cm (5' 8) BMI: Body mass index is 28.59 kg/m??. Last value Range last 24 hrs Temperature Temp: 36.8 ??C (98.2 ??F) Temp: [36.6 ??C (97.9 ??F)-37.3 ??C (99.1 ??F)] Heart Rate Heart Rate: 96 Heart Rate: [71-96] Blood Pressure BP: 128/77 BP: (112-128)/(69-77) Respiratory Rate Resp: 16 Resp: [11-16] SpO2 SpO2: 95 % SpO2: [92 %-99 %] Exam at Discharge: General: NAD, resting comfortably, pleasant, conversant HEENT: PERRL, anicteric sclerae CVS: Reg rate and rhythm Pulm: Non labored on room air Abd: soft, appropriately tender, mildly distended. : Sierra draining clear yellow urine Skin: warm, dry Ext: no c/c/e, well perfused Functional and Cognitive Status: Ambulating and cognitively intact. Important Studies and Lab Data: Labs: 135 Sodium Potassium 5.3 Potassium Chloride 102 Chloride CO2 20 CO2 BUN 21 BUN Creat 1.12 Creat Ca total 10.0 Ca total CBC RBC 4.22 RBC MCV 89.6 MCV MCH 30.6 MCH MCHC 34.1 MCHC RDWSD 39.8 RDWSD RDWCV 12.1 RDWCV MPV 10.1 MPV nRBC % Auto 0.0 nRBC % Auto nRBC Abs Auto 0.000 nRBC Abs Auto Neutr Abs (ANC) 12.79 Neutr Abs (ANC) AUTO DIFF Immature Gran % 0.40 Immature Gran % Eosinophils % 0.0 Eosinophils % Neutr Abs (ANC) 12.79 Neutr Abs (ANC) Domi Gran Abs 0.06 Domi Gran Abs Lymphocytes Abs 0.8 Lymphocytes Abs Monocyte Abs 1.4 Monocyte Abs Eosinophils Abs 0.0 Eosinophils Abs Basophils Abs 0.0 Basophils Abs MANUAL DIFFS & SCANS Neutr Abs (ANC) 12.79 Neutr Abs (ANC) ELECTROLYTES / RENAL FUNCTION Anion Gap 13 Anion Gap Estimated GFR 78 Studies: None Pending Studies and Lab Data: No current labs Discharge Conditions/Prognosis: Stable Discharge to: Home Updated Allergies/ADRs: No Known Allergies Immunizations Given this Hospitalization: Immunization History Administered Date(s) Administered ??? Hepatitis A Vaccine, Adult 07/11/2019, 01/15/2020 ??? Influenza Vaccine (Novel) O2Y3-09, Injectable 10/05/2011, 09/17/2012, 12/12/2013, 09/02/2014 ??? Influenza Vaccine w/Preservative, Split 08/06/2018 ??? Barbadian Encephalitis (Ixiaro) 07/11/2019, 08/05/2019 ??? Pneumococcal Vaccine, Unspecified Formulation 10/14/2018 ??? Rabies Vaccine, IM Diploid Cell 07/15/2019, 07/22/2019, 08/05/2019 ??? Td Vaccine, Absorbed, Adult 10/25/2017 ??? Tdap Vaccine 01/26/2009 ??? Typhoid, VICP 07/11/2019 Discharge Medications: Your Medications New Medications Dose Details oxyCODONE 5 mg Tab Commonly known as: Roxicodone Take 1 tablet by mouth every 6 hours as needed for Pain for up to 3 days. 5 mg Quantity: 12 tablet Refills: 0 Continued medications, unchanged Dose Details acetaminophen 650 mg Tbsr Commonly known as: TYLENOL 1,300 mg daily. 1,300 mg Refills: 0 cholecalciferol (Vitamin D3) 25 mcg (1,000 unit) Cap Take 1,000 Units by mouth daily. 1,000 Units Refills: 0 FIBER CHOICE ORAL Take by mouth. Metamucil tablets 4-5 tabs a day Refills: 0 FISH OIL-DHA-EPA ORAL Take by mouth daily. Refills: 0 FLUoxetine 10 mg Cap Commonly known as: PROzac TAKE 3 CAPSULES BY MOUTH EVERY DAY for 90 Refills: 0 fluticasone propionate 50 mcg/actuation Spsn Commonly known as: Flonase every 24 hours. Refills: 0 loratadine 10 mg Tab Commonly known as: Claritin every 24 hours. Refills: 0 MELATONIN ORAL Take by mouth nightly as needed. Refills: 0 triamcinolone 0.1 % Crea Commonly known as: Kenalog Apply topically as needed. Refills: 0 Ventolin HFA 90 mcg/actuation Hfaa Inhale 2 puffs into the lungs as needed. Generic drug: albuteroL 2 puff Refills: 3 Smoking Status at Discharge: Social History Tobacco Use Smoking Status Never Smokeless Tobacco Never Instructions Given to Patient at Discharge: Patient Instructions DISCHARGE INSTRUCTIONS FOLLOWING PROSTATECTOMY Call your doctor for: ??? fevers greater than 101 ??? severe nausea or vomiting ??? increasing pain not controlled by pain medications ??? increasing redness or drainage from incisions ??? decreased urine output our if your catheter is no longer draining. The number for questions is [phone] before 5 PM weekdays and [phone] after 5 PM and weekends. Activity level: No heavy lifting greater than 10 pounds (about equal to a full gallon jug) for the next 4 weeks or until cleared to do so at follow-up appointment. Otherwise activity as tolerated by comfort level. Sierra Catheter Care: Keep the catheter in place to open drainage, attached to either the large drainage bag or small leg bag. Diet: You may resume your regular diet as tolerated. Driving: No driving while still taking opioid pain medications (wait at least 6- 8 hours since last dose). No driving with your catheter in place or if you are still experiencing postoperative pain asit may limit your ability to react quickly if necessary. Shower/Bath: You may shower and get incisions wet. Pat dry immediately following. Do not scrub themvigorously for the next 2-3 weeks. Do not soak incisions (i.e. soaking in bath or swimming) until told you may do so by a doctor, as this may promote a wound infection. Wound Care: You may cover wounds with sterile gauze as needed to prevent incision rubbing on clothes or for any seepage. Your drain site may leak fluid for the next few days after drain removal. Thisis normal and expected and should slow down each day. Pain Control: Take Ibuprofen and Tylenol as needed for the next two weeks for pain control. If you are still having moderate pain, take your narcotic pain medication as prescribed. Bowel regimen: Take Colace twice daily to keep bowel movements soft. If you experience diarrhea or more than 2 bowel movements/day, stop taking the colace. Follow up Appointments: Follow-up appointment will be scheduled with Urology in 7-10 days for a voiding trial. Appointment has been requested and will be mailed to you. Please call [phone] (clinic number for appointments) to confirm date and time of your appointment if you do not receive it in2-3 days. Pain Medication: ??? You may take acetaminophen (Tylenol) up to 1000mg every 6 hours and/or ibuprofen (Motrin, Advil, or generic) up to 600mg every 8 hours if you can tolerate these medications ??? We recommend alternating acetaminophen and ibuprofen so that you are taking one every 3 hours. For example, acetaminophen at 12pm, ibuprofen 3pm, acetaminophen 6pm, ibuprofen 9pm, etc. ??? Do not exceed 4000mg acetaminophen in 24 hours. Do not exceed 3200mg ibuprofen in 24 hours. ??? You have been prescribed narcotic pain medications to control your discomfort after surgery. Please wean/decrease your use of these medications over time as you can tolerate. ? DO NOT use alcohol, drive, or operate heavy or complex machinery while taking these medications. ? Narcotic pain medications may cause constipation. ??? Keep your bowel movements soft to prevent straining ??? Take a stool softener daily example: Colace, Sennakot, ducolax Stool softeners, such as Colace; mild laxatives, such as Milk of Magnesia, Sennakot, or Ducolax tabs; or enemas may be used if needed and are [id number]-[id number] medications available at most local pharmacies. Prunes or prune juice, taken daily, can also be helpful for constipation treatment or prevention and are available at most supermarkets. Important considerations regarding narcotic pain medication: Altered mental status: Narcotics can make you sleepy and have delayed reactions. Therefore, do not drive or operate any heavy machinery while taking narcotics. 3. Addictive: Narcotics are addictive. Please take as prescribed and wean down/decrease your dose as soon as you can tolerate. 4. Restricted: Narcotics are highly regulated. If you are running out of your prescription and feelyou will need more, plan ahead and call your Physician as these cannot be filled electronically or at night/over the weekend. Again, as your pain decreases, reduce your use of these medications. You do not need to use all of the pills provided. ?? You may be given a prescription for a narcotic medication immediately following your surgery. Narcotics are prescribed for short-term use to help treat your pain. ?? Initial prescriptions are typically for no longer than 2 weeks following your surgery. This willbe determined by your surgeon. ?? Narcotics have many side effects such as constipation, lightheadedness, dizziness, sedation, confusion, nausea and vomiting. ?? Driving and the use of alcohol are strongly discouraged while you are using narcotic pain medications.Narcotics do not reduce inflammation, and inflammation is usually a major cause of pain after surgery. Non-steroidal anti-inflammatory drugs (NSAIDs) such as naproxen (Aleve) and ibuprofen (Advil, Motrin) are medications that can significantly reduce pain and inflammation. ?? As you progress through your post-operative period, your pain should decrease and the use of narcotic medications should be less necessary. To reduce the chance of side effects, you may save your narcotic medication for nighttime use and instead use NSAIDs or acetaminophen (Tylenol) during the day. ?? Alternative means of pain relief such as rest and relaxation, heating pads, positioning, as wellas decreasing stimulants such as coffee, tea, soft drinks, and nicotine may also help to alleviate pain. Use caution with heating pads and use only on low setting as your skin???s sensation may be altered due to surgery and you may not feel excessive heat until you are burned. ?? If you continue to experience significant pain 5-7 days after your procedure, it may be necessary to be re-evaluated by your physician. ?? Renewal requests should be called in to the clinic. Narcotic renewals may be requested during business hours, Sunday to Sunday. Due to patient safety, narcotic renewals will not be honored after hours or on weekends. It is best to make your request 2-3 days before you run out of your medication as it will take at least 24 hours for physician approval and nurse follow-up. ?? Certain prescriptions, such as Percocet, oxycodone, Vicodin, and hydrocodone, cannot be called in to a pharmacy and must be picked up or mailed to you. If mailed to you, expect 2-5 business days prior to arrival. BLADDER - URINARY CATHETER Catheter care Always wash your hands before and after you handle your catheter. Make sure that urine is flowing out of the catheter into the urine collection bag. Make sure that the catheter tubing does not get twisted or kinked. Keep the urine collection bag below the level of your bladder. Make sure that the urine collection bag does not drag and pull on the catheter. Unless you have been told not to , it isokay to shower with your catheter and urine collection bag in place. Check for inflammation or signs of infection in the area around the catheter. Signs of infection include irritated, swollen, red, or tender skin. You may see pus around the catheter. Clean the skin around the catheter twice a day using soap and water. Dry with a clean towel afterward. Do not apply powder or lotion to the skin around the catheter. Do not tug or pull on the catheter. Do not have sexual intercourse while wearing a catheter. At night you may wish to hang the urine collection bag on the side of your bed. To empty the urine collection bag Wash your hands with soap and water. If your doctor has asked you to keep a record, measure the amount of urine in the bag before you empty it. Remove the drain spout from its sleeve at the bottom ofthe collection bag. Open the valve on the spout. Let the urine flow out of the bag and into the toilet or container. Do net let the tubing or drain spout touch anything. After you empty the bag, wipeoff any liquid on the end of the drain spout. Close the valve. Then put the drain spout back into its sleeve at the bottom of the collection bag. Wash your hands with soap and water. When should you call for help? Call your doctor now or seek immediate medical care if: You have symptoms of urinary infection. For example: You have blood or pus in your urine. You have pain in your back just below your rib cage. This is called flank pain. You have a fever, chills or body aches. You have groin or belly pain. Your urine smells bad. You see large blood clots in your urine No urine or very little urine is flowing into the bag for 4 or more hours. Watch closely for changes in your health and be sure to contact your doctor if: The area around the catheter becomes irritated, swollen, red, tender or has pus draining from it. Urine is leaking from the place where the catheter enters your body. General Instructions None Future Appointments and Orders Future Appointments and Orders Future Appointments Provider Department Dept Phone 01/31/2023 4:00 PM Alexx Huntley MD Urology at [facility] Arrive at: Acquisition Editor Area [phone] Follow-Up: Future Appointments Date Time Provider Department Center 01/31/2023 4:00 PM Alexx Huntley MD [facility] URO [facility] Primary Care Provider: Giovanni Wing MD [phone] Follow-up Recommendations for Providers: None Call your doctor if: Please call your doctor immediately or go to an Emergency Department if you notice worsening pain not controlled by pain medications, uncontrolled headache, vision changes, chest pain, difficulty breathing, persistent nausea and vomiting, new redness or swelling in any extremities, new onset weakness or changes in sensation, or for any fevers greater than 101.3 F. Your care was managed by the Urology Team at [facility]. If you have any questions or concerns, please feel free to contact us. Provider Contact Information: Urology Clinic: [facility] (after business hours): LORENE Corado 12/29/2022 Associated attestation - Allen Mcdonald MD - 01/01/2023 7:54 AM EST I have seen the patient and reviewed the resident's above history and I agree with the details as written. The assessment and plan were formulated in discussion with me and I agree with them as documented. documented in this encounter Discharge Instructions * Patient Instructions* Adilia Prieto PA - 12/29/2022 1:16 PM EST DISCHARGE INSTRUCTIONS FOLLOWING PROSTATECTOMY Call your doctor for: fevers greater than 101 severe nausea or vomiting increasing pain not controlled by pain medications increasing redness or drainage from incisions decreased urine output our if your catheter is no longer draining. The number for questions is [phone] before 5 PM weekdays and [phone] after 5 PM and weekends. Activity level: No heavy lifting greater than 10 pounds (about equal to a full gallon jug) for the next 4 weeks or until cleared to do so at follow-up appointment. Otherwise activity as tolerated by comfort level. Sierra Catheter Care: Keep the catheter in place to open drainage, attached to either the large drainage bag or small leg bag. Diet: You may resume your regular diet as tolerated. Driving: No driving while still taking opioid pain medications (wait at least 6- 8 hours since last dose). No driving with your catheter in place or if you are still experiencing postoperative pain asit may limit your ability to react quickly if necessary. Shower/Bath: You may shower and get incisions wet. Pat dry immediately following. Do not scrub themvigorously for the next 2-3 weeks. Do not soak incisions (i.e. soaking in bath or swimming) until told you may do so by a doctor, as this may promote a wound infection. Wound Care: You may cover wounds with sterile gauze as needed to prevent incision rubbing on clothes or for any seepage. Your drain site may leak fluid for the next few days after drain removal. Thisis normal and expected and should slow down each day. Pain Control: Take Ibuprofen and Tylenol as needed for the next two weeks for pain control. If you are still having moderate pain, take your narcotic pain medication as prescribed. Bowel regimen: Take Colace twice daily to keep bowel movements soft. If you experience diarrhea or more than 2 bowel movements/day, stop taking the colace. Follow up Appointments: Follow-up appointment will be scheduled with Urology in 7-10 days for a voiding trial. Appointment has been requested and will be mailed to you. Please call [phone] (clinic number for appointments) to confirm date and time of your appointment if you do not receive it in2-3 days. Pain Medication: You may take acetaminophen (Tylenol) up to 1000mg every 6 hours and/or ibuprofen (Motrin, Advil, orgeneric) up to 600mg every 8 hours if you can tolerate these medications We recommend alternating acetaminophen and ibuprofen so that you are taking one every 3 hours. For example, acetaminophen at 12pm, ibuprofen 3pm, acetaminophen 6pm, ibuprofen 9pm, etc. Do not exceed 4000mg acetaminophen in 24 hours. Do not exceed 3200mg ibuprofen in 24 hours. You have been prescribed narcotic pain medications to control your discomfort after surgery. Pleasewean/decrease your use of these medications over time as you can tolerate. DO NOT use alcohol, drive, or operate heavy or complex machinery while taking these medications. Narcotic pain medications may cause constipation. Keep your bowel movements soft to prevent straining Take a stool softener daily example: Colace, Sennakot, ducolax Stool softeners, such as Colace; mild laxatives, such as Milk of Magnesia, Sennakot, or Ducolax tabs; or enemas may be used if needed and are atfg-fhv-[id number] medications available at most local pharmacies. Prunes or prune juice, taken daily, can also be helpful for constipation treatment or prevention and are available at most supermarkets. Important considerations regarding narcotic pain medication: Altered mental status: Narcotics can make you sleepy and have delayed reactions. Therefore, do not drive or operate any heavy machinery while taking narcotics. 3. Addictive: Narcotics are addictive. Please take as prescribed and wean down/decrease your dose as soon as you can tolerate. 4. Restricted: Narcotics are highly regulated. If you are running out of your prescription and feelyou will need more, plan ahead and call your Physician as these cannot be filled electronically or at night/over the weekend. Again, as your pain decreases, reduce your use of these medications. You do not need to use all of the pills provided. You may be given a prescription for a narcotic medication immediately following your surgery. Narcotics are prescribed for short-term use to help treat your pain. Initial prescriptions are typically for no longer than 2 weeks following your surgery. This will bedetermined by your surgeon. Narcotics have many side effects such as constipation, lightheadedness, dizziness, sedation, confusion, nausea and vomiting. Driving and the use of alcohol are strongly discouraged while you are using narcotic pain medications.Narcotics do not reduce inflammation, and inflammation is usually a major cause of pain after surgery. Non-steroidal anti-inflammatory drugs (NSAIDs) such as naproxen (Aleve) and ibuprofen (Advil, Motrin) are medications that can significantly reduce pain and inflammation. As you progress through your post-operative period, your pain should decrease and the use of narcotic medications should be less necessary. To reduce the chance of side effects, you may save your narcotic medication for nighttime use and instead use NSAIDs or acetaminophen (Tylenol) during the day. Alternative means of pain relief such as rest and relaxation, heating pads, positioning, as well asdecreasing stimulants such as coffee, tea, soft drinks, and nicotine may also help to alleviate pain. Use caution with heating pads and use only on low setting as your skin???s sensation may be altered due to surgery and you may not feel excessive heat until you are burned. If you continue to experience significant pain 5-7 days after your procedure, it may be necessary to be re-evaluated by your physician. Renewal requests should be called in to the clinic. Narcotic renewals may be requested during business hours, Sunday to Sunday. Due to patient safety, narcotic renewals will not be honored after hours or on weekends. It is best to make your request 2-3 days before you run out of your medication as it will take at least 24 hours for physician approval and nurse follow-up. Certain prescriptions, such as Percocet, oxycodone, Vicodin, and hydrocodone, cannot be called in to a pharmacy and must be picked up or mailed to you. If mailed to you, expect 2-5 business days prior to arrival. BLADDER - URINARY CATHETER Catheter care Always wash your hands before and after you handle your catheter. Make sure that urine is flowing out of the catheter into the urine collection bag. Make sure that the catheter tubing does not get twisted or kinked. Keep the urine collection bag below the level of your bladder. Make sure that the urine collection bag does not drag and pull on the catheter. Unless you have been told not to , it isokay to shower with your catheter and urine collection bag in place. Check for inflammation or signs of infection in the area around the catheter. Signs of infection include irritated, swollen, red, or tender skin. You may see pus around the catheter. Clean the skin around the catheter twice a day using soap and water. Dry with a clean towel afterward. Do not apply powder or lotion to the skin around the catheter. Do not tug or pull on the catheter. Do not have sexual intercourse while wearing a catheter. At night you may wish to hang the urine collection bag on the side of your bed. To empty the urine collection bag Wash your hands with soap and water. If your doctor has asked you to keep a record, measure the amount of urine in the bag before you empty it. Remove the drain spout from its sleeve at the bottom ofthe collection bag. Open the valve on the spout. Let the urine flow out of the bag and into the toilet or container. Do net let the tubing or drain spout touch anything. After you empty the bag, wipeoff any liquid on the end of the drain spout. Close the valve. Then put the drain spout back into its sleeve at the bottom of the collection bag. Wash your hands with soap and water. When should you call for help? Call your doctor now or seek immediate medical care if: You have symptoms of urinary infection. For example: You have blood or pus in your urine. You have pain in your back just below your rib cage. This is called flank pain. You have a fever, chills or body aches. You have groin or belly pain. Your urine smells bad. You see large blood clots in your urine No urine or very little urine is flowing into the bag for 4 or more hours. Watch closely for changes in your health and be sure to contact your doctor if: The area around the catheter becomes irritated, swollen, red, tender or has pus draining from it. Urine is leaking from the place where the catheter enters your body. documented in this encounter Medications at Time of Discharge Medication Sig Dispensed Refills Start Date End Date FIBER CHOICE ORAL Take by mouth. Metamucil tablets 12 tabs a day fluticasone propionate (Flonase) 50 mcg/actuation [place], Suspension every 24 hours. loratadine (Claritin) 10 [...] to 3 days. 12 tablet 12/29/2022 01/01/2023 documented as of this encounter Progress Notes * Soha Moser RN - 12/29/2022 5:24 PM EST Devan Chen discharged to home with via private care. All belongings sent with patient. BASHIR removed, abdominal incision CDI. Skin free from pressure ulcers. Discharge instructions, medications, and follow-up appointments reviewed, education provided on alternating pain medication and catheter care, all questions answered. Patient instructed to call with concerns. * Celine Fritz RN - 12/29/2022 2:37 AM EST Transferred to [facility] from PACU. A&Ox4. VSS on 2L NC. Sierra catheter in place draining bloody urine. LBM unknown. Patient endorsing 7/10 pain at lap sites. PRN oxycodone administered. Some relief noted. Lap sites on abdomen open to air. Abdomen tender to touch and distended. SCD's on as per orders. Heels offloaded. Call valerio within reach. Safety maintained. * Giovanni Szymanski MD - 12/28/2022 10:30 PM EST Surgery Post Op Check Devan Chen is a 57 y.o. male status post prostatectomy S: No vomiting but does mention some nausea, zofran ordered. Denies chest pain, SOB, pain well controlled, offers no complaints O: Temp: [36.7 ??C (98.1 ??F)-37.3 ??C (99.1 ??F)] Heart Rate: [71-88] Resp: [11-16] BP: (112-127)/(69-76) SpO2: [92 %-99 %] Heart Rate from SpO2: [71 bpm-87 bpm] I/O last 3 completed shifts: In: 1200 [P.O.:20; I.V.:1080; IV Piggyback:100] Out: 190 [Urine:90; Blood:100] I/O this shift: In: 400 [I.V.:400] Out: 40 [Urine:40] Physical Exam General: NAD, resting comfortably HEENT: NCAT CVS: RR Pulm: NWOB Abd: Non-distended, multiple incisions closed with dermabond without drainage, induration, or erythema. Ext: Grossly intact Neuro: Grossly intact to conversation AP Devan Chen is a 57 y.o. male status post prostatectomy currently in stable condition and recovering well. Some nausea, PRN zofran ordered. - pain well controlled - hemodynamically stable Giovanni Szymanski MD 12/28/22 * Virginia Quach RN - 12/28/2022 6:24 PM EST 1823 Break coverage for SERA Preciado. Pt resting between care, IV Dilaudid recently given per JAN. VSS. 1853 Updates to primary RN to resume care. Dinner ordered to unit. * Ilana Meehan RN - 12/28/2022 5:11 PM EST 1710: Devan Chen arrives from OR 11 on bed to PACU 20. Placed patient on monitor with parameters adjusted to be appropriate for patient with alarms on and active. [id number]: Break coverage provided by PACU nurseVirginia. 1899: Patient meets PACU discharge criteria. 1944: Awaiting callback from 2D nurse to give report. 1954: Verbal report called to 2D nurseYamini. Plans for transport per protocol to [facility]. documented in this encounter H&P Notes * Allen Mcdonald MD - 12/27/2022 1:16 PM EST Patient Name: Devan Chen Age: 57 y.o. Date of : 1965 Attending Provider: Allen Mcdonald MD Urology Pre-op H&P Devan Chen is a 57 y.o. male with PMH of favorable intermediate risk prostate cancer (due to PSA), presenting for planned RALP/PLND. PSA 11.75 Prostate Volume: 36cc Angie 3+3=6 prostate cancer (R base/mid, left base/apex No LUTS Sexually active Anticoagulation: None UA 12/04 - negative No recent changes to health status. PMH: TADEO 2 drinks per day PSHx: None abdominal PHYSICAL EXAM Temp: [37 ??C (98.6 ??F)] Heart Rate: [79] Resp: [16] BP: (124)/(82) SpO2: [96 %] Heart Rate from SpO2: -- GEN: Resting comfortably in bed, conversant, NAD. CHEST: CTAB CV: RRR, no murmurs appreciated ASSESSMENT / PLAN 57 y.o. male presenting for Robotic assisted lap radical prostatectomy with bilateral pelvic lymph node dissection. All risks, benefits and alternatives have been explained, patient wishes to proceed with scheduled procedure. Consent is signed: Yes Site marking: None Prophylactic antibiotics ordered: Ancef Prophylactic 5000U heparin ordered: Yes Type and screen: Expires 12/31, negative antibodies Code status reviewed: Full. documented in this encounter Miscellaneous Notes * Brief Op Note - Shelley Dowling - 12/28/2022 5:05 PM EST Brief Operative Note Patient Name: Devan Chen : [id number] MR#: [id number] Case Date: 12/28/2022 Surgeon: Surgeon(s) and Role: * Allen Mcdonald MD - Primary * Shelley Dowling MD - Resident * Eleonora Lamar MD - Resident * Antwon Garvin MD - Resident Preoperative diagnosis: Malignant neoplasm of prostate Postoperative diagnosis: Malignant neoplasm of prostate Procedure(s) (LRB): LAPAROSCOPIC PROSTATECTOMY, ROBOTICS ASSISTED (WRVU 21.36) (N/A) LAPAROSCOPY,WITH BILATERAL TOTAL PELVIC LYMPHADENECTOMY, ROBOTIC (WRVU 12) (Bilateral) MODIFIER ROBOT,DAVINCI XI (N/A) Anesthesia: General Findings: - Uncomplicated RALP/PLND - Bilateral nerve spare - Water tight anastomosis to 120cc Complications: None immediate Estimated Blood Loss: 100 mL Specimens removed during surgery: Order Name Source Comment Collection Info Order Time SPECIMEN TO PATHOLOGY Malignant neoplasm of prostate Bilateral pelvic lymph nodes excision 12/28/2022 2:57 PM Number of tissue samples (in container) 1 Time specimen removed from patient: 2:57 PM SPECIMEN TO PATHOLOGY Malignant neoplasm of prostate Prostate resection 12/28/2022 4:34 PM Number of tissue samples (in container) 1 Time specimen removed from patient: 4:34 PM Fluids: Intraprocedure Crystalloid Total Intake Lactated Ringers 200.00 mL lactated ringers infusion 700.00 mL ceFAZolin (Ancef) 2 g vial attach to sodium chloride 0.9% 100 mL Mini-Bag Plus 100.00 mL Total Intake 1000 mL Output Blood Loss 100 mL Total Output 100 mL Net Net Volume 900 mL PRBCs: none (See Anesthesia Record/Report for Other Blood Products) Urine Output: (no urine output recorded) Drains: 18F urethral sierra catheter with 10cc in balloon Disposition: awakened from anesthesia, extubated and taken to the recovery room in a stable condition, having suffered no apparent untoward event. Condition: doing well without problems (Please see the Surgical Encounter Summary for any Implant and Specimen details pertinent to this patient.) Surgical Infection Prevention Bundle Used? N/A Associated attestation - Allen Mcdonald MD - 12/29/2022 7:48 AM EST I was the attending physician supervising the resident in the above care and I was present with theresident for the entire procedure. * Op Note - Shelley Dowling - 12/28/2022 1:26 PM EST [facility] Operative Note Patient Name: Devan Chen : [id number] MR#: [id number] Case Date: 12/28/2022 Surgeon: Surgeon(s) and Role: * Allen Mcdonald MD - Primary Preoperative diagnosis: Malignant neoplasm of prostate Postoperative diagnosis: same Procedure(s) (LRB): LAPAROSCOPIC PROSTATECTOMY, ROBOTICS ASSISTED (WRVU 21.36) (N/A) LAPAROSCOPY,WITH BILATERAL TOTAL PELVIC LYMPHADENECTOMY, ROBOTIC (WRVU 12) (Bilateral) MODIFIER ROBOT,DAVINCI XI (N/A) Findings: Uncomplicated RALP/PLND Water tight anastmosis to 120cc Anesthesia: General Estimated Blood Loss: 100 mL Specimens removed during surgery: Order Name Source Comment Collection Info Order Time SPECIMEN TO PATHOLOGY Malignant neoplasm of prostate Bilateral pelvic lymph nodes excision 12/28/2022 2:57 PM Number of tissue samples (in container) 1 Time specimen removed from patient: 2:57 PM SPECIMEN TO PATHOLOGY Malignant neoplasm of prostate Prostate resection 12/28/2022 4:34 PM Number of tissue samples (in container) 1 Time specimen removed from patient: 4:34 PM Drains: 18F urethral sierra catheter with 10cc in balloon Surgical Closure: Primary Closure - skin incision is completely closed without any wires, shreya, drains or other devices Disposition: awakened from anesthesia, extubated and taken to the recovery room in a stable condition, having suffered no apparent untoward event. Condition: doing well without problems (Please see the Surgical Encounter Summary for any Implant and Specimen details pertinent to this patient.) HPI/Surgical Indications: Devan Chne is a 57 y.o. male with PMH of favorable intermediate riskprostate cancer (due to PSA), presenting for planned RALP/PLND. ?? PSA 11.75 Prostate Volume: 36cc Angie 3+3=6 prostate cancer (R base/mid, left base/apex No LUTS Sexually active ?? Anticoagulation: None UA 12/04 - negative Procedure Description: The patient was identified and consented in the preoperative??area. ??He wasbrought to the Operating Room and placed on the OR table in a supine position. ??General anaesthesia was administered, IV??antibiotics??(Ancef)??were given and a time out was performed. ??The legs were placed in a stirrups and the abdomen was shaved. The abdomen was prepped and draped in the usual sterile fashion. ?? First, an??18 F Sierra catheter was placed with 20 cc sterile water??instilled into??the balloon. A Veress needle was used in the Left upper quadrant to gain laparoscopic access to the abdomen. Once pneumnoperitoneal was established, an 8 mm Optivew port was placed supraumbilically. The peritoneal cavity was insufflated and inspected with the 0??degree??lens for abnormalities, of which there were none. The 30 degree lens was then used. Three additional 8 mm ports were placed (two on the right, one on the left). A 12 mm AirSeal sales support assistant port was placed most laterally on the left. A 5 mm sales support assistant port was placed in the upper left quadrant. ?? After placing the patient in a steep Trendelenburg position, the da Faustino robot was then docked. The arms were docked and the pelvis was inspected.?We made an incision in the posterior peritoneum to access the rectovesical space. We identified the seminal vesicles and vas deferens. ??The vas deferens was transected using bipolar cautery. ??We dissected the seminal vesicles free and bipolar cauterized the seminal vesicular artery. ??These were dissected free down to the ampulla. ??We incised the Denonvilliers fascia posteriorly to create space posteriorly behind the prostate. ? We then turned our attention to the??bilateral pelvic lymph node dissection.??No gross disease was seen.?We dissected the right??side down from the external iliac vein and artery down to the node of [place]. Small lymphatics were secured with bipolar cautery. ??On the??left??side, we similarly removed from the left external iliac vein down to the node of [place]. Obturator nerves were identifie d bilaterally and unharmed from the dissection. The nodes were then passed off and sent the Pathology for analysis. ? The??obliterated umbilical ligaments were then transected with electrocautery and we??dropped the bladder posteriorly to access the space of Retzius. ??Fibrofatty tissue overlying the prostate was cleared off as was the endopelvic fascia. ??We opened the endopelvic fascia sharply and dissected thisfree down to the apex of the prostate and identified the notch of the dorsal venous complex. ??A vicryl suture was then placed around the DVC for hemostatic control. ? We turned our attention to the prostatovesical junction which was incised using monopolar cautery. ??We identified the catheter and elevated this. There was??no??significant median lobe tissue. The UOs were identified.??The posterior bladder neck was then incised in a similar fashion and and then worked posteriorly to the previously dissected seminal vesicles.?We divided the prostatic pedicle using a series of??Weck clips and electrocautery.??A?nerve spare was performed bilaterally.??We took this down to the apex of the prostate, transected this cleanly. The urethra was then divided. A 4-0 vicryl was used on 2 areas of more active bleeding on the rectum. ? We turned our attention to the vesicourethral anastomosis. ??We used a double- armed 3-0 V-lock suture to perform a running anastomosis. This was run circumferentially. ??The catheter was irrigated with 120??cc fluid??and noted to be water tight.??Surgipowder was placed over the neurovascular bundles. ?? The prostate specimen was placed in an EndoCatch specimen bag. ??The left AirSeal lateral port was closed with Nir-Veronica suture. ??The robot was undocked and the patient was taken out of Trendelenburg.?The specimen was extracted through an extension of the incision midline. ??The fascia ofthis incision was closed with??a series of figure of eight??0 Vicryl sutures. ??The skin was then closed with 4-0 subcuticular Monocryl and Dermabond. ? The patient was extubated, and taken to the recovery room in stable condition. ?? Dr. Mcdonald, the attending surgeon, was present for the entire procedure.?? Surgical Infection Prevention Bundle Used? N/A Associated attestation - Allen Mcdonald MD - 12/29/2022 7:49 AM EST Attestation: Case Date: 12/28/2022 I was present and I participated during the entire procedure (does not need to include opening and closing). ALLEN MCDONALD MD 12/29/2022 documented in this encounter Plan of Treatment Not on file documented as of this encounter Procedures Procedure Name Priority Date/Time Associated Diagnosis Comments HEMOGRAM Timed 12/29/2022 1:04 AM EST DIFFERENTIAL, AUTOMATED Timed 12/29/19 1:04 AM EST HC VENIPUNCTURE Timed 12/29/2022 1:04 AM EST BASIC METABOLIC PANEL Timed 12/29/2022 1:04 AM EST SPECIMEN TO PATHOLOGY Routine 12/28/2022 4:34 PM EST SURGICAL PATHOLOGY REPORT Routine 12/28/2022 2:58 PM EST SPECIMEN TO PATHOLOGY Routine 12/28/2022 2:58 PM EST MODIFIER ROBOT,BERTHAI XI 12/28/2022 12:53 PM EST Malignant neoplasm of prostate Lap, Pelvic Lymphadenectomy (92425) 12/28/2022 12:53 PM EST Malignant neoplasm of prostate Lap, Prostatectomy, Radical, W/Nerve Spare (97227) 12/28/2022 12:53 PM EST Malignant neoplasm of prostate documented in this encounter Results * (ABNORMAL) Differential, Automated (12/29/2022 1:04 AM EST) Neutrophil % 84.5 % [facility] Neutrophil Absolute 12.79(H) 1.70 - 6.10 x10(3)/mc L [facility] Lymph % 5.5 % [facility] Lymphocytes Abs 0.8(L) 0.9 - 3.2 x10(3)/ L [facility] Monocyte % 9.3 % [facility] Monocyte Abs 1.4(H) 0.3 - 0.9 x10(3)/mc L [facility] Eos % 0.0 % [facility] Eosinophils Abs 0.0 0.0 - 0.4 x10(3)/[facility] Basophil % 0.3 % [facility] Baso Absolute 0.0 0.0 - 0.1 x10(3)/[facility] Immature Gran % 0.40 % [facility] Comment: Immature granulocytes(IG's)percentage and absolute count will include metamyelocytes, myelocytes, and promyelocytes. Blood smears from CBCs yielding IG's will be scanned manually for concordance. If this scan disagrees with the automated IG or if promyelocytes are noted, a manual differential will be performed. Immature Gran Absolute 0.06(H) 0.00 - 0.04 x10(3)/ L [facility] Blood 12/29/2022 1:04 AM EST 12/29/2022 1:33 AM EST Narrative Resulting Agency Comment Spec In Lab Shelley Dowling MD HEMATOLOGY ORDERABLE S [facility] [place] [address] * (ABNORMAL) Hemogram (12/29/2022 1:04 AM EST) White Blood Cell 15.1(H) 4.0 - 9.5 x10(3)/mc L [facility] Red Blood Cell 4.22(L) 4.58 - 5.54 x10(6)/[facility] Hemoglobin 12.9(L) 13.7 - 16.5 g/dL [facility] Hematocrit 37.8(L) 40.5 - 48.5 % [facility] Mean Cell Volume 89.6 82.9 - 93.1 fL [facility] Mean Cell Hemoglobin 30.6 27.5 - 32.1 pg [facility] Mean Cell Hemoglobin Concentration 34.1 32.0 - 35.7 g/dL [facility] Platelet 263 145 - 357 x10(3)/mc L [facility] RDW Standard Deviation 39.8 36.0 - 45.0 fL [facility] RDW coefficient of variation 12.1 11.4 - 13.8 % [facility] Mean Platelet Volume 10.1 7.6 - 12.9 fL [facility] NRBC% auto 0.0 % [facility] NRBC Absolute 0.000 0.000 - 0.000 x10(3)/ L [facility] Blood 12/29/2022 1:04 AM EST 12/29/2022 1:33 AM EST Narrative Resulting Agency Comment Spec In Lab Shelley Dowling MD HEMATOLOGY ORDERABLE S Performing Organization Address City/State/[facility] Co de Phone Number [facility] [place] [address] * (ABNORMAL) Basic Metabolic Panel (non-fasting) (12/29/2022 1:04 AM EST) Glucose 162 65 - 199 mg/dL [facility] Comment:Diabetes: >=200 mg/d L plus symptoms Blood Urea Nitrogen 21(H) 10 - 20 mg/dL [facility] Creatinine 1.12 0.80 - 1.50 mg/dL [facility] Sodium 135 135 - 145 mmol/L [facility] Potassium 5.3(H) 3.5 - 5.0 mmol/L [facility] Comment: Please note: ??Patients with WBC >100,000 may have falsely elevated Potassium levels. ??For accurate Potassium quantification in these patients send serum separator tube (gold top) for subsequent determinations. ??Contact the Clinical Chemistry Laboratory if there are any questions. Chloride 102 98 - 107 mmol/L [facility] Carbon Dioxide 20(L) 22 - 31 mmol/L [facility] Anion Gap 13 5 - 15 mmol/L [facility] Calcium 10.0 8.5 - 10.5 mg/dL [facility] Est Glomerular Filtration Rate 78 >=60 mL/min/1. 73 m?? [facility] Comment: This patient's estimated GFR [...] and symptoms in addition to eGFR. Blood 12/29/2022 1:04 AM EST 12/29/2022 1:33 AM EST Narrative Resulting Agency Comment Spec In Lab Allen Mcdonald MD CHEMISTRY ORDERABL ES Performing Organization Address City/[facility] Co de Phone Number [facility] [place] [address] * Specimen to Pathology (12/28/2022 4:34 PM EST) AP Specimen 12/28/2022 4:34 PM EST 12/28/2022 4:34 PM EST Narrative [facility] - 12/28/2022 4:34 PM EST Specimen requisition ordered. ??Separate Pathology report to follow Allen Mcdonald MD PATHOLOGY/CYTOLOGY ORDERABLES Performing Organization Address [facility]/ZIP Co de Phone Number [facility] [place] [address] * Surgical Pathology Report (12/28/2022 2:58 PM EST) Final Diagnosis [id number] ? Location: L2WDS; 0211; A The signing pathologist has (i) examined the relevant preparation(s) for the specimen(s) and (ii) rendered or confirmed the diagnosis(es). . ?Surgical Pathology DIAGNOSIS A - Bilateral pelvic lymph nodes (excision): ??- Six lymph nodes and associated fibroadipose tissue, ?negative for malignancy (0/6). B - Prostate (radical prostatectomy): ??- Prostatic adenocarcinoma, Grade Group 2, Fairmont score 3+4=7. ??- See synoptic report for additional details and staging. Electronically signed by: ?Daisy HERRERA, Pat Anguiano Verified: ??01/19/2023 10:43 ??Pathologist Performed at: ??-[facility] Dept. of Pathology, [place] [address] Teaching Fellow: Paolo Dowling MD, FCAP, ??CLIA Certificate: [id number] SYNOPTIC Specimen ? Procedure: ??Radical prostatectomy ? Prostate Size ?Prostate Weight (Grams): ??47 g ?Prostate Size in Centimeters (cm): ??4.6 x 3.9 x 3.6 Centimeters (cm) Tumor ? Histologic Type: ??Acinar adenocarcinoma ? Histologic Grade ?Grade: ??Grade group 2 (Fairmont Score 3 + 4 = 7) ? Minor Tertiary Pattern 5 (less than 5%): ??Not applicable ? Percentage of Pattern 4: ??Less than or equal to 5% ? Intraductal Carcinoma (IDC): ??Not identified ? Cribriform Glands: ??Not identified ? Treatment Effect: ??No known presurgical therapy ? Tumor Quantitation ?Estimated Percentage of Prostate Involved by Tumor: ??11 - 20% ?Location of Dominant Nodule: ??Left anterior/apical ? Extraprostatic Extension (EPE): ??Not identified ? Urinary Bladder Neck Invasion: ??Not identified ? Seminal Vesicle Invasion: ??Not identified ? Lymphovascular Invasion: ??Not Identified ? Perineural Invasion: ??Present Margins ? Margin Status: ??Invasive carcinoma present at margin ?Linear Length of Margin(s) Involved by Carcinoma: ??Less than 3 mm ? (limited) ?Focality of Margin Involvement: ??Multifocal ?Margin(s) Involved by Invasive Carcinoma: ??Left apical; ??Left posterior ?Margin Involvement by Invasive Carcinoma in Area of Extraprostatic ? Extension (EPE): ??Not identified ?Angie Pattern at Margin(s) Involved by Carcinoma: ??Pattern 3 Regional Lymph Nodes ? Regional Lymph Node Status: ??All regional lymph nodes negative for tumor ? Number of Lymph Nodes Examined: ??6 Pathologic Stage Classification (pTNM, AJCC 8th Edition) ? Primary Tumor (pT): ??pT2 ? pN Category: ??pN0 Additional Findings . SYNOPTIC ? Additional Findings: ??High-grade prostatic intraepithelial neoplasia (PIN); ?Nodular prostatic hyperplasia Best Tumor Blocks for Future Studies ? Tumor Block(s): ??B3, B9 ? Normal Block(s): ??B12 ? CAP eCC 2021 Q1 Release SPECIMEN(S) SUBMITTED A - Bilateral pelvic lymph nodes, excision (1) B - Prostate, resection (1) CLINICAL INFORMATION Malignant neoplasm of prostate SPECIMEN PROCESSING A - Labeled/Fixative: Bilateral pelvic lymph nodes, fresh. Quantity/Size: Multiple, aggregating 5.3 x 2.8 x 1.8 cm. Tissue Description: Adipose tissue with three nodes, plus small fibers of indurated adipose which may represent smaller nodes, up to 3.2 x 1.0 x 0.9 cm. The titus tissue is totally submitted. Sections/Processin g: Threshing Operator sections in 6 cassettes as follows: ?A1: ??Indurated fat, possible nodes, intact abdomen cassette single node ?A2: ??Single node ?A3-A4: ??Single node ?A5-A6: ??Single node B - Labeled/Fixative: Prostate, fresh. Tissue Description: Intact, radical prostatectomy, right seminal vesicle, left seminal vesicle, right vas deferens, left vas deferens. DIMENSIONS/WEIGHT Weight: 47 g. [place] to base: 3.6 cm. Transverse: 4.6 cm. Anterior to posterior: 3.9 cm. Rt Seminal Vesicle: 2.8 x 1.3 x 1.0 cm. Lt Seminal Vesicle: 2.9 x 1.4 x 0.9 cm. Rt Vas Deferens: 2.5 x 0.4 cm. Lt Vas Deferens: 3.3 x 0.4 cm. PROSTATE Outer Surface: Ragged, brown-pink, grossly of the gland is symmetrical. Cut Surface: On section, surfaces are brown-pink with nodularity around the central core. There is yellow-white mottling predominantly on the left extending from the apex into slice #3, involving approximately 20% of the overall parenchyma grossly. Note: A wedge-shaped focus of hemorrhage is noted in slices #2 and #3, 1.3 x 0.8 cm in average dimensions, left posterior lateral. The right half of the specimen is inked black and the left half inked yellow. ??The bladder neck margin is removed and submitted radially. The prostate is serially sectioned from apex to base at 3-mm intervals. ??Slice I is submitted on edge as anterior and posterior halves. ??Beginning with slice II, the remaining slices are submitted in sequence as whole mount sections. Sections/Processin g: Threshing Operator sections in 25 cassettes as follows: ?B1: ??Bladder neck margin right side radial sections ?B2: ??Bladder neck margin left side radial sections ?B3: ??Slice #1 anterior apex, perpendicular sections ?B4-B5: ??Slice #1 posterior apex, perpendicular sections ?B6: ??Slice #2, whole mount . SPECIMEN PROCESSING ?B7: ??Slice #3, whole mount ?B8: ??Slice #4, whole mount ?B9: ??Slice #5, whole mount ?B10: ??Slice #6, whole mount, anterior (posterior sections submitted separately ? with seminal vesicles in continuity) ?B11: ??Slice #7, whole mount, tangential cut, anterior only ?B12: ??Slice #8, whole mount ?B13: ??Margins, bilateral vas deferens ?B14-B21: ??Posterior slice #6 with interface to seminal vesicles ?B22-B23: ??Remaining right seminal vesicles ?B24-B25: ??Remaining left seminal vesicles ??pps 01/19/2023 10:43 AM EST [facility] PROSTATIC STRUCTURE / Unknown 12/28/2022 2:58 PM EST 12/28/2022 2:58 PM EST PROSTATIC STRUCTURE / Unknown 12/28/2022 2:58 PM EST 12/28/2022 2:58 PM EST Allen Mcdonald MD PATHOLOGY/CYTOLOGY ORDERABLES Performing Organization Address [facility]/State/[facility] Co de Phone Number [facility] [place] [address] [facility] [place] [address] * Specimen to Pathology (12/28/2022 2:58 PM EST) AP Specimen 12/28/2022 2:58 PM EST 12/28/2022 2:58 PM EST Narrative [facility] - 12/28/2022 2:58 PM EST Specimen requisition ordered. ??Separate Pathology report to follow Allen Mcdonald MD PATHOLOGY/[place] [address] documented in this encounter Visit Diagnoses Not on filedocumented in this encounter Admitting Diagnoses Diagnosis Prostate cancer Malignant neoplasm of prostate documented in this encounter Administered Medications Inactive Administered Medications - up to 3 most recent administrations Medication Order MAR Action Action Date Dose Rate Site acetaminophen (Tylenol) tablet 1,000 mg 1,000 mg, Oral, ONCE, 1 dose, On Kathrine 12/28/22 at 1215, Administer with SIP of H2O only. Maximum dose of acetaminophen is 4,000 mg from all sources in 24 hours., Day of Surgery (Day of Procedure), Routine Given 12/28/2022 12:10 PM EST 1,000 mg acetaminophen (Tylenol) tablet 975 mg 975 mg, Oral, EVERY 6 HOURS SCHEDULED, First dose on Kathrine 12/28/22 at 1800, Until Discontinued, Maximum dose of acetaminophen is 4,000 mg from all sources in 24 hours. When ordered for pain, acetaminophen should be given even when other ordered pain medications are indicated. , Routine Given 12/29/2022 5:15 PM EST 975 mg Given 12/29/2022 12:20 PM EST 975 mg Given 12/29/2022 6:12 AM EST 975 mg BUpivacaine (pf) (Marcaine) (5 mg/mL) 0.5% injection ONCE PRN, Starting on Kathrine 12/28/22 at 1656, Until Sun12/29/22 at 1954, Intra-Operative (Intra-Procedure), Routine Given 12/28/2022 4:56 PM EST 10 mLs docusate sodium (Colace) capsule 100 mg 100 mg, Oral, 2 TIMES DAILY, First dose on Kathrine 12/28/22 at 2330, Until Discontinued, Routine Given 12/29/2022 9:53 AM EST 100 mg Given 12/29/2022 12:00 AM EST 100 mg fentaNYL (pf) (50 mcg/mL) multi-dose injection 25 mcg 25 mcg, Intravenous, EVERY 5 MIN PRN, Starting on Kathrine 12/28/22 at 1711, Until Sun12/28/22 at 1805, Pain, Mild to moderate pain (1-5 out of 10), Hold for respiratory rate less than 10 per minute. Maximum dose 200 mcg over one hour, including OR administration. If ordered with HYDROmorphone or morphine, give HYDROmorphone or morphine first and use fentaNYL for breakthrough pain., PACU Recovery, Routine Given 12/28/2022 5:56 PM EST 25 mcg Given 12/28/2022 5:47 PM EST 25 mcg fentaNYL (pf) (50 mcg/mL) multi-dose injection 50 mcg 50 mcg, Intravenous, EVERY 5 MIN PRN, Starting on Kathrine 12/28/22 at 1711, Until Kathrine 12/28/22 at 1805, Pain, Moderate to severe pain (6-10 out of 10), Hold for respiratory rate less than 10 per minute. Maximum dose 200 mcg over one hour, including OR administration. If ordered with HYDROmorphone or morphine, give HYDROmorphone or morphine first and use fentaNYL for breakthrough pain., PACU Recovery, Routine Given 12/28/2022 5:36 PM EST 50 mcg FLUoxetine (PROzac) capsule 30 mg 30 mg, Oral, DAILY, First dose on Sun12/29/22 at 0900, Until Discontinued, Routine Given 12/29/2022 9:54 AM EST 30 mg heparin (porcine) (5,000 units/1 mL) subcutaneous injection 5,000 Units 5,000 Units, Subcutaneous, EVERY 8 HOURS SCHEDULED, First dose on Sun12/28/22 at 2330, Until Discontinued, Routine Given 12/29/2022 3:00 PM EST 5,000 Unit s Given 12/29/2022 6:12 AM EST 5,000 Units Given 12/29/2022 12:00 AM EST 5,000 Units HYDROmorphone (Dilaudid) (2 mg/mL) multi-dose injection solution 0.4 mg 0.4 mg, Intravenous, EVERY 10 MIN PRN, Starting on Kathrine 12/28/22 at 1805, Until Kathrine 12/28/22 at 2007, Pain, For Moderate to Severe Pain (6-10 out of 10), Hold for respiratory rate less than 10 per minute. Maximum dose 3 mg over one hour including administrations in the OR. If multiple pain medications are ordered, start with HYDROmorphone or morphine and use fentaNYL for breakthrough pain., PACU Recovery, Routine Given 12/28/2022 6:21 PM EST 0.4 mg Given 12/28/2022 6:11 PM EST 0.4 mg ibuprofen (Advil) tablet 600 mg 600 mg, Oral, EVERY 6 HOURS PRN, Starting on Kathrine 12/28/22 at 1729, Until Sun12/29/22 at 1954, Pain, Administer orally with milk or food to minimize GI irritation. Maximum dose of 3,200 mg from all sources in 24 hours, Routine Given 12/29/2022 10:04 AM EST 600 mg Given 12/28/2022 8:40 PM EST 600 mg lactated ringers infusion 1,000 mL, at 100 mL/hr, Intravenous, CONTINUOUS, Starting on Kathrine 12/28/22 at 1215, Until Kathrine 12/28/22 at 2006, Day of Surgery (Day of Procedure) Continued Bag 12/28/2022 5:12 PM EST 1,000 mLs 100 mL/hr New Bag 12/28/2022 12:52 PM EST ondansetron (pf) (Zofran) (2 mg/mL) injection 4 mg 4 mg, Intravenous, EVERY 8 HOURS PRN, Starting on Kathrine 12/28/22 at 2230, Until Sun12/29/22 at 1954, Nausea, May repeat times one in 30 minutes if ineffective. If multiple antiemetics are ordered, use ondansetron first., Recovery (Recovery-Hospital Unit) ondansetron (Zofran) tablet 4 mg 4 mg, Oral, EVERY 8 HOURS PRN, Starting on Kathrine 12/28/22 at 2230, Until Sun12/29/22 at 1954, Nausea, Vomiting, If multiple antiemetics are ordered, use ondansetron first. PO Preferred. If patient unable to take PO, may give IV if ordered. May repeat times one in 45 minutes if ineffective., Recovery (Recovery-Hospital Unit), Routine oxyCODONE (Roxicodone) tablet 10-15 mg 10-15 mg, Oral, EVERY 4 HOURS PRN, Starting on Kathrine 12/28/22 at 1729, Until Sun12/29/22 at 1954, Pain, severe pain (7-10), Initial dose 10mg. If pain control not adequate in 60 minutes, give additional 5mg., Routine Given 12/28/2022 10:10 PM EST 15 m g Given 12/28/2022 6:37 PM EST 10 mg oxyCODONE (Roxicodone) tablet 5-10 mg 5-10 mg, Oral, EVERY 4 HOURS PRN, Starting on Kathrine 12/28/22 at 1729, Until Sun12/29/22 at 1954, Pain, moderate pain (4-6), Initial dose 5mg. If pain control not adequate in 60 minutes, give additional 5mg., Routine polyethylene glycoL (Miralax) packet 17 g 17 g, Oral, DAILY PRN, Starting on Sun12/29/22 at 1518, Until Sun12/29/22 at 1954, Constipation, Routine prochlorperazine (Compazine) (5 mg/mL) injection 5 mg 5 mg, Intravenous, EVERY 30 MIN PRN, 2 doses, Starting on Kathrine 12/28/22 at 1711, Until Kathrine 12/28/22 at 2007, Nausea, Vomiting, If multiple antiemetics ordered, use ondansetron first and if ineffective use prochlorperazine or haloperidoL second and if ineffective use promethazine., PACU Recovery, Routine Given 12/28/2022 6:01 PM EST 5 mg sodium chloride 0.9 % (flush) (BD PosiFlush Normal Saline 0.9) flush 5 mL 5 mL, Intravenous, 2 TIMES DAILY, First dose on Kathrine 12/28/22 at 2330, Until Discontinued, Recovery (Recovery-Hospital Unit), Routine Given 12/29/2022 10:00 AM EST 5 mLs Given 12/29/2022 12:01 AM EST 5 mLs documented in this encounter Active and Recently Administered Medications Times are shown in EST. Scheduled Medication Order 12/27/2022 12/28/2022 12/29/2022 acetaminophen (Tylenol) tablet 1,000 mg (COMPLETED) 1,000 mg, Oral, ONCE, 1 dose, On Kathrine 12/28/22 at 1215, Administer with SIP of H2O only. Maximum dose of acetaminophen is 4,000 mg from all sources in 24 hours., Day of Surgery (Day of Procedure), Routine 1210 (Given - Provider: Alden Schaefer RN) acetaminophen (Tylenol) tablet 975 mg 975 mg, Oral, EVERY 6 HOURS SCHEDULED, First dose on Kathrine 12/28/22 at 1800, Until Discontinued, Maximum dose of acetaminophen is 4,000 mg from all sources in 24 hours. When ordered for pain, acetaminophen should be given even when other ordered pain medications are indicated. , Routine 1837 (Given - Provider: Virginia Quach RN) 0000 (Given - Provider: Celine Fritz RN)0612 (Given - Provider: Celine Fritz RN)1220 (Given - Provider: Soha Moser RN)1715 (Given - Provider: Soha Moser RN) ceFAZolin (Ancef) 2 g vial attach to sodium chloride 0.9% 100 mL Mini-Bag Plus (COMPLETED) 2 g, Intravenous, APPLICATION MANAGER TO O.R., 1 dose, On Kathrine 12/28/22 at 1245, Administer over 30 Minutes, Indication for (Active or Suspected): Prophylaxis 1310 (New Bag - Provider: Lincoln Coffey CRNA) docusate sodium (Colace) capsule 100 mg 100 mg, Oral, 2 TIMES DAILY, First dose on Kathrine 12/28/22 at 2330, Until Discontinued, Routine 0000 (Given - Provid er: Celine Fritz RN)0953 (Given - Provider: Soha Moser RN) FLUoxetine (PROzac) capsule 30 mg 30 mg, Oral, DAILY, First dose on Sun12/29/22 at 0900, Until Discontinued, Routine 0954 (Given - Provid er: Soha Moser RN) heparin (porcine) (5,000 units/1 mL) subcutaneous injection 5,000 Units (COMPLETED) 5,000 Units, Subcutaneous, APPLICATION MANAGER TO O.R., 1 dose, On Kathrine 12/28/22 at 1245, Routine 1245 (Given - Provider: Lincoln Coffey CRNA) heparin (porcine) (5,000 units/1 mL) subcutaneous injection 5,000 Units 5,000 Units, Subcutaneous, EVERY 8 HOURS SCHEDULED, First dose on Kathrine 12/28/22 at 2330, Until Discontinued, Routine 0000 (Given - Provid er: Celine Fritz RN)0612 (Given - Provider: Celine Fritz RN)1500 (Given - Provider: Soha Moser RN) sodium chloride 0.9 % (flush) (BD PosiFlush Normal Saline 0.9) flush 5 mL 5 mL, Intravenous, 2 TIMES DAILY, First dose on Kathrine 12/28/22 at 2330, Until Discontinued, Recovery (Recovery-Hospital Unit), Routine 0001 (Given - Provid er: Celine Fritz RN)1000 (Given - Provider: Soha Moser RN) Continuous Medication Order 12/27/2022 12/28/2022 12/29/2022 lactated ringers infusion (CANCELED) 1,000 mL, at 100 mL/hr, Intravenous, CONTINUOUS, Starting on Kathrine 12/28/22 at 1215, Until Kathrine 12/28/22 at 2007, Day of Surgery (Day of Procedure) 1252 (New Bag - Provider: Frederic Tai CRNA)1325 (Anesthesia Volume Adjustment - Provider: Lincoln Coffey CRNA)1359 (Anesthesia Volume Adjustment - Provider: Lincoln Coffey CRNA)1712 (Continued Bag - Provider: Ilana Meehan RN)2004 (Stopped - Provider: Ilana Meehan RN) PRN Medication Order 12/27/2022 12/28/2022 12/29/2022 albuteroL (Proventil, Ventolin) (2.5 mg/3 mL) (0.083 %) nebulizer solution 2.5 mg 2.5 mg, Nebulization, EVERY 2 HOURS PRN, Starting on Kathrine 12/28/22 at 2230, Until Sun12/29/22 at 1954, Wheezing, Shortness of Breath, Routine BUpivacaine (pf) (Marcaine) (5 mg/mL) 0.5% injection (CANCELED) ONCE PRN, Starting on Kathrine 12/28/22 at 1656, Until Sun12/29/22 at 1954, Intra-Operative (Intra-Procedure), Routine 1656 (Given - Provider: Antwon Garvin MD) fentaNYL (pf) (50 mcg/mL) multi-dose injection 25 mcg (CANCELED)(Linked Group 1) 25 mcg, Intravenous, EVERY 5 MIN PRN, Starting on Kathrine 12/28/22 at 1711, Until Kathrine 12/28/22 at 1805, Pain, Mild to moderate pain (1-5 out of 10), Hold for respiratory rate less than 10 per minute. Maximum dose 200 mcg over one hour, including OR administration. If ordered with HYDROmorphone or morphine, give HYDROmorphone or morphine first and use fentaNYL for breakthrough pain., PACU Recovery, Routine 173 (See Alternative - Provider: Ilana Meehan RN)1747 (Given - Provider: Ilana Meehan RN)1756 (Given - Provider: Ilana Meehan RN) fentaNYL (pf) (50 mcg/mL) multi-dose injection 50 mcg (CANCELED)(Linked Group 1) 50 mcg, Intravenous, EVERY 5 MIN PRN, Starting on Kathrine 12/28/22 at 1711, Until Kathrine 12/28/22 at 1805, Pain, Moderate to severe pain (6-10 out of 10), Hold for respiratory rate less than 10 per minute. Maximum dose 200 mcg over one hour, including OR administration. If ordered with HYDROmorphone or morphine, give HYDROmorphone or morphine first and use fentaNYL for breakthrough pain., PACU Recovery, Routine 173 (Given - Provider: Ilana Meehan RN)174 (See Alternative - Provider: Ilana Meehan RN)1756 (See Alternative - Provider: Ilana Meehan RN) HYDROmorphone (Dilaudid) (2 mg/mL) multi-dose injection solution 0.4 mg (CANCELED)(Linked Group 2) 0.4 mg, Intravenous, EVERY 10 MIN PRN, Starting on Kathrine 12/28/22 at 1805, Until Kathrine 12/28/22 at 2007, Pain, For Moderate to Severe Pain (6-10 out of 10), Hold for respiratory rate less than 10 per minute. Maximum dose 3 mg over one hour including administrations in the OR. If multiple pain medications are ordered, start with HYDROmorphone or morphine and use fentaNYL for breakthrough pain., PACU Recovery, Routine 1810 (Given - Provider: Ilana Meehan RN)182 (Given - Provider: Ilana Meehan RN) ibuprofen (Advil) tablet 600 mg 600 mg, Oral, EVERY 6 HOURS PRN, Starting on Kathrine 12/28/22 at 1729, Until Sun12/29/22 at 1954, Pain, Administer orally with milk or food to minimize GI irritation. Maximum dose of 3,200 mg from all sources in 24 hours, Routine 2039 (Given - Provider: Celine Fritz RN) 100 (Given - Provider: Soha Moser RN) lidocaine (Xylocaine) 1% (10 mg/mL) injection 3 mg 3 mg (0.3 mL), Subcutaneous, ONCE PRN, 1 dose, Starting on Kathrine 12/28/22 at 2230, Until Sun12/29/22 at 1953, for discomfort with PIV insertion, Recovery (Recovery-Hospital Unit), Routine melatonin tablet 3 mg 3 mg, Oral, NIGHTLY PRN, Starting on Kathrine 12/28/22 at 2230, Until Sun12/29/22 at 1953, insomnia ondansetron (pf) (Zofran) (2 mg/mL) injection 4 mg(Linked Group 3) 4 mg, Intravenous, EVERY 8 HOURS PRN, Starting on Kathrine 12/28/22 at 2230, Until Sun12/29/22 at 1953, Nausea, May repeat times one in 30 minutes if ineffective. If multiple antiemetics are ordered, use ondansetron first., Recovery (Recovery-Hospital Unit) ondansetron (Zofran) tablet 4 mg(Linked Group 3) 4 mg, Oral, EVERY 8 HOURS PRN, Starting on Kathrine 12/28/22 at 2230, Until Sun12/29/22 at 1953, Nausea, Vomiting, If multiple antiemetics are ordered, use ondansetron first. PO Preferred. If patient unable to take PO, may give IV if ordered. May repeat times one in 45 minutes if ineffective., Recovery (Recovery-Hospital Unit), Routine oxyCODONE (Roxicodone) tablet 10-15 mg(Linked Group 4) 10-15 mg, Oral, EVERY 4 HOURS PRN, Starting on Kathrine 12/28/22 at 1729, Until Sun12/29/22 at 1953, Pain, severe pain (7-10), Initial dose 10mg. If pain control not adequate in 60 minutes, give additional 5mg., Routine 1836 (Given - Provider: Virginia Quach RN)2209 (Given - Provider: Celine Fritz RN) oxyCODONE (Roxicodone) tablet 5-10 mg(Linked Group 4) 5-10 mg, Oral, EVERY 4 HOURS PRN, Starting on Kathrine 12/28/22 at 1729, Until Sun12/29/22 at 195, Pain, moderate pain (4-6), Initial dose 5mg. If pain control not adequate in 60 minutes, give additional 5mg., Routine 183 (See Alternative - Provider: Virginia Quach RN)2209 (See Alternative - Provider: Celine Fritz RN) polyethylene glycoL (Miralax) packet 17 g 17 g, Oral, DAILY PRN, Starting on Sun12/29/22 at 1518, Until Sun12/29/22 at 195, Constipation, Routine prochlorperazine (Compazine) (5 mg/mL) injection 5 mg (CANCELED) 5 mg, Intravenous, EVERY 30 MIN PRN, 2 doses, Starting on Kathrine 12/28/22 at 1711, Until Kathrine 12/28/22 at 2007, Nausea, Vomiting, If multiple antiemetics ordered, use ondansetron first and if ineffective use prochlorperazine or haloperidoL second and if ineffective use promethazine., PACU Recovery, Routine 180 (Given - Provider: Ilana Meehan RN) sodium chloride 0.9 % (flush) (BD PosiFlush Normal Saline 0.9) flush 5-20 mL 5-20 mL, Intravenous, EVERY 1 MIN PRN, Starting on Kathrine 12/28/22 at 2230, Until Sun12/29/22 at 195, flush, Flush pertains to all indwelling lines. Flush per protocol found in the job aid using the link provided on this medication record., Recovery (Recovery-Hospital Unit), Routine Linked Groups Order Group 1: fentaNYL (pf) (50 mcg/mL) multi-dose injection 25 mcg (CANCELED)Jump to med 25 mcg, Intravenous, EVERY 5 MIN PRN, Starting on Kathrine 12/28/22 at 1711, Until Kathrine 12/28/22 at 1805, Pain, Mild to moderate pain (1-5 out of 10), Hold for respiratory rate less than 10 per minute. Maximum dose 200 mcg over one hour, including OR administration. If ordered with HYDROmorphone or morphine, give HYDROmorphone or morphine first and use fentaNYL for breakthrough pain., PACU Recovery, Routine Or fentaNYL (pf) (50 mcg/mL) multi-dose injection 50 mcg (CANCELED)Jump to med 50 mcg, Intravenous, EVERY 5 MIN PRN, Starting on Kathrine 12/28/22 at 1711, Until Kathrine 12/28/22 at 1805, Pain, Moderate to severe pain (6-10 out of 10), Hold for respiratory rate less than 10 per minute. Maximum dose 200 mcg over one hour, including OR administration. If ordered with HYDROmorphone or morphine, give HYDROmorphone or morphine first and use fentaNYL for breakthrough pain., PACU Recovery, Routine Group 2: HYDROmorphone (Dilaudid) (2 mg/mL) multi-dose injection solution 0.2 mg (CANCELED) 0.2 mg, Intravenous, EVERY 10 MIN PRN, Starting on Kathrine 12/28/22 at 1805, Until Kathrine 12/28/22 at 2006, Pain, For Mild to Moderate Pain (1-5 out of 10), Hold for respiratory rate less than 10 per minute. Maximum dose 3 mg over one hour including administrations in the OR. If multiple pain medications are ordered, start with HYDROmorphone or morphine and use fentaNYL for breakthrough pain., PACU Recovery, Routine Or HYDROmorphone (Dilaudid) (2 mg/mL) multi-dose injection solution 0.4 mg (CANCELED)Jump to med 0.4 mg, Intravenous, EVERY 10 MIN PRN, Starting on Kathrine 12/28/22 at 1805, Until Kathrine 12/28/22 at 2007, Pain, For Moderate to Severe Pain (6-10 out of 10), Hold for respiratory rate less than 10 per minute. Maximum dose 3 mg over one hour including administrations in the OR. If multiple pain medications are ordered, start with HYDROmorphone or morphine and use fentaNYL for breakthrough pain., PACU Recovery, Routine Group 3: ondansetron (Zofran) tablet 4 mgJump to med 4 mg, Oral, EVERY 8 HOURS PRN, Starting on Kathrine 12/28/22 at 2230, Until Sun12/29/22 at 1954, Nausea, Vomiting, If multiple antiemetics are ordered, use ondansetron first. PO Preferred. If patient unable to take PO, may give IV if ordered. May repeat times one in 45 minutes if ineffective., Recovery (Recovery-Hospital Unit), Routine Or ondansetron (pf) (Zofran) (2 mg/mL) injection 4 mgJump to med 4 mg, Intravenous, EVERY 8 HOURS PRN, Starting on Kathrine 12/28/22 at 2230, Until 12/29/22 at 1954, Nausea, May repeat times one in 30 minutes if ineffective. If multiple antiemetics are ordered, use ondansetron first., Recovery (Recovery-Hospital Unit) Group 4: oxyCODONE (Roxicodone) tablet 5-10 mgJump to med 5-10 mg, Oral, EVERY 4 HOURS PRN, Starting on Kathrine 12/28/22 at 1729, Until 12/29/22 at 1954, Pain, moderate pain (4-6), Initial dose 5mg. If pain control not adequate in 60 minutes, give additional 5mg., Routine Or oxyCODONE (Roxicodone) tablet 10-15 mgJump to med 10-15 mg, Oral, EVERY 4 HOURS PRN, Starting on Kathrine 12/28/22 at 1729, Until 12/29/22 at 1954, Pain, severe pain (7-10), Initial dose 10mg. If pain control not adequate in 60 minutes, give additional 5mg., Routine documented in this encounter Care Teams Cotton [employer]pper Relationship Specialty Start Date End Date Giovanni Wing MD [address] [id number] PCP - General Family Medicine 08/29/18 documented as of this encounter
--- OUTSIDE RECORDS SUMMARY | 2024-08-23 17:27 | XMS_ITS | Encounter Summary ---
Author Organization Formerly [facility] Address [facility] [place] [address] Care Team Providers Care Real Estate Administrative Assistant Name Role Phone Giovanni Wing MD Primary Care Provider [phone] Reason for Visit * Occupational Therapy (Routine) - Closed Specialty Diagnoses / Procedures Referred By Emanuel flores Referred To Contact Occupational Therapy Diagnoses Pain in left elbow Suzy Jacobs PA [facility] [place] [address] Htr Rehab Ot [address] [place] [address] Referral ID Status Reason Start Date Expiration Date V isits Requested Visits Authorized [id number] Closed Evaluate and Treat 11/03/2022 11/03/2023 30 30 Encounter Details Date Type Department Care Team (Late st Contact Info) Description 02/15/2023 8:30 AM EDT Office Visit Occupational Therapy at [facility] [address] [place] [id number] Shara Alvarado OT Pain in left elbow [...] - Therapy - Shara Alvarado OT - 02/15/2023 8:30 AM EDT OCCUPATIONAL THERAPY TREATMENT NOTE Certification Period: 02/02/23-05/05/23 Referral Source: LORENE Cowart MD Follow-up: PRN Total Treatment time: 38 Minutes Timed Code Treatment Time: 38 minutes OCCUPATIONAL PROFILE: Devan Chen is a 57 y.o. year old Right hand dominant male who is referred for left elbow pain since approximately Sep 2022. 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 Got an [facility] left wrist brace that he wore [...] mild discomfort Composite Extension/Flexion 54/31 54/30* Strength: Thermal Spray Operator Testing with Dynamometer setting #2 Pinch Testing with Pinch Gauge Right Left eval Thermal Spray Operator setting 2 89.8 35.3 Thermal Spray Operator Average 94.5 16.7 Rahman 21 21.5 3 Pt 17 15 Tip 12.5 11.5 Treatment Today: Educated patient in etiology and biomechanics as related to the patient's symptoms Patient had sent pictures of computer workstation, ergonomic suggestions were provided: -Raising height of laptop or alternate PC to improve eyeline / not looking downward -Raise chair to meet height of desk for arm position - if arm of chair abuts desk, could add seat -Foot rest to allow feet to be flat on floor. -Pt has ergonomic chair that he may switch his computer chair out for. Patient reports elbow is improving but is still bothersome. Velcro straps of wrist orthosis were adjusted today. He has found counterforce strap helpful during the day. Kneading massage of left wrist extensors, educated in self cross friction massage. Added to [...] PSFS and DASH for specific functional deficits 02/15/23: He is noticing gradual improvements; ergonomic suggestions were provided today. . Devan Chen is able to demonstrate home exercises with written instructions provided. Devan Chen has good potential for gains with therapy with identified needs for skilled therapy for treatment of deficits noted during evaluation, to maximize functional performance during daily activities. Bsa/Aml Compliance Officer Goals (to be met by discharge): Date [...] of left elbow extension, 5 lbs left circular head saw operator strength to demonstrate significantly improved functional performance [...] 3 week(s) to progress toward short and usp goals, Joint mobilizations to decrease pain and/or [...] arm documented in this encounter Care Teams Real Estate Administrative Assistant Relationship Specialty Start Date End Date Giovanni Wing MD [address] [facility] [address] [place] [address] PCP - General Family Medicine 08/29/18 documented as of this encounter
--- OUTSIDE RECORDS SUMMARY | 2024-08-23 17:27 | XMS_ITS | Encounter Summary ---
Author Organization [facility] Address [facility] [place] [address] Care Team Providers Care Lidding Machine Operator Name Role Phone Giovanni Wing MD Primary Care Provider [phone] Encounter Details Date Type Department Care Team (Latest Contact Info) Description 02/22/2023 Travel Social History Tobacco Use Types Packs/Day [...] place to sleep or slept in a jail (including now)? No 11/02/2022 Sex and Gender Information Value Date Recorded Sex Assigned at Not on file Gender Identity Not on file Sexual Orientation Not on file documented as of this encounter Plan of Treatment Not on file documented as of this encounter Visit Diagnoses Not on filedocumented in this encounter Care Teams Lidding Machine Operator Relationship Specialty Start Date End Date Giovanni Wing MD [address] [address] PCP - General Family Medicine 08/29/18 documented as of this encounter
--- OUTSIDE RECORDS SUMMARY | 2024-08-23 17:27 | XMS_ITS | Encounter Summary ---
Author Organization [facility] Address [facility] [place] [address] Care Team Providers Care Autobody Technician Name Role Phone Giovanni Wing MD Primary Care Provider [phone] Encounter Details Date Type Department Care Team (Late st Contact Info) Description 02/08/2023 Orders Only [facility] [place] [address] Henrik Yun MD [facility] [place] [address] Malignant neoplasm of prostate Social History Tobacco [...] documented as of this encounter Results * (ABNORMAL) Urinalysis with reflex Culture (02/08/2023 9:30 AM EDT) Glucose, Urine Dipstick Negative Negative mg/dL [facility] Protein, Urine Dipstick Trace(A) Negative mg/dL [facility] Bilirubin, Urine Dipstick Negative Negative mg/dL [facility] Comment: Clinical correlation required for positive Urine Bilirubin results as false positive may occur with some drugs and drug related products. If a false positive is suspected a serum total bilirubin should be considered if clinically indicated. Urobilinogen, Urine Dipstick Normal Normal mg/dL [facility] pH, Urn (dipstick) 7.0 5.0 - 8.0 [facility] Blood, Urine Dipstick Negative Negative mg/dL [facility] Ketone, Urine Dipstick Negative Negative mg/dL [facility] Nitrite, Urine Dipstick Negative Negative [facility] Leukocytes, Urine Dipstick Small(A) Negative [facility] Appearance, Urine Dipstick Clear Clear [facility] Specific [place] Urine Automated 1.023 1.005 - 1.030 [facility] Color, Urine Dipstick Yellow Yellow [facility] Reflex to Culture Yes [facility] Clean Catch Urine 02/08/2023 9:30 AM EDT 02/08/2023 9:43 AM EDT Narrative Resulting Agency Comment Spec In Lab Henrik Yun MD URINE ORDERABLES [facility] [place] [address] * Testosterone, total (02/08/2023 9:14 AM EDT) Testosterone 4.50 1.93 - 7.40 ng/mL [facility] Comment: Pediatric Reference Ranges: ? Males [...] Yun MD CHEMISTRY ORDERABLES Performing Organization Address [facility] Co de Phone Number [facility] [place] [address] * PSA (Ultrasensitive) (02/08/2023 9:14 AM EDT) Prostate Specific Antigen (Ultrasensitive) <0.01 0.00 - 4.00 ng/mL [facility] Comment: PLEASE NOTE: The above reference interval is intended for healthy males with an intact prostate. Values within this reference interval may indicate recurrence in men who have undergone radical prostatectomy. This result was generated using a [employer] immunoassay. ??Results obtained from other methods or manufacturers cannot be used interchangeably with this method. Blood 02/08/2023 9:14 AM EDT 02/08/2023 9:25 AM EDT Narrative Resulting Agency Comment Spec In Lab Henrik Yun MD CHEMISTRY ORDERABLES Performing Organization Address [facility] Co de Phone Number [facility] [place] [address] * (ABNORMAL) Comprehensive metabolic panel (non-fasting) (02/08/2023 9:14 AM EDT) Glucose 104 65 - 199 mg/dL [facility] Comment:Diabetes: >=200 mg/d L plus symptoms Blood Urea Nitrogen 15 10 - 20 mg/dL [facility] Creatinine 0.90 0.80 - 1.50 mg/dL [facility] Sodium 139 135 - 145 mmol/L [facility] Potassium 4.5 3.5 - 5.0 mmol/L [facility] Comment: Please note: ??Patients with WBC >100,000 may have falsely elevated Potassium levels. ??For accurate Potassium quantification in these patients send serum separator tube (gold top) for subsequent determinations. ??Contact the Clinical Chemistry Laboratory if there are any questions. Chloride 105 98 - 107 mmol/L [facility] Carbon Dioxide 24 22 - 31 mmol/L [facility] Anion Gap 10 5 - 15 mmol/L [facility] Calcium 10.7(H) 8.5 - 10.5 mg/dL [facility] Protein, Total 7.1 6.1 - 8.0 g/dL [facility] Albumin 4.5 3.2 - 5.2 g/dL [facility] Aspartate Aminotransferase 22 0 - 39 unit/L [facility] Alanine Aminotransferase 21 0 - 55 unit/L [facility] Alkaline Phosphatase 66 40 - 130 unit/L [facility] Bilirubin, Total 0.4 0.2 - 1.3 mg/dL [facility] Est Glomerular Filtration Rate 101 >=60 mL/min/1. 73 m?? [facility] Comment: This patient's estimated GFR [...] Yun MD CHEMISTRY ORDERABLES Performing Organization Address City/State/[facility] Co de Phone Number [facility] [place] [address] documented in this encounter Visit Diagnoses Diagnosis Malignant neoplasm of prostate documented in this encounter Care Teams Autobody Technician Relationship Specialty Start Date End Date Giovanni Wing MD [address] [place] [address] PCP - General Family Medicine 08/29/18 documented as of this encounter
--- OUTSIDE RECORDS SUMMARY | 2024-08-23 17:27 | XMS_ITS | Encounter Summary ---
Author Organization Formerly [facility] Address [facility] [place] [address] Care Team Providers Care Tester Regulator Name Role Phone Giovanni Wing MD Primary Care Provider Reason for Visit * Occupational Therapy (Routine) - Closed Specialty Diagnoses / Procedures Referred By Emanuel flores Referred To Contact Occupational Therapy Diagnoses Pain in left elbow Suzy Jacobs PA [facility] [place] [address] H[address]hab Ot [address] [place] [address] Referral ID Status Reason Start Date Expiration Date V isits Requested Visits Authorized [id number] Closed Evaluate and Treat 11/03/2022 11/03/2023 30 30 Encounter Details Date Type Department Care Team (Late st Contact Info) Description 02/22/2023 3:15 PM EDT Office Visit Occupational Therapy at [facility] [address] [place] [phone] Shara Alvarado OT Pain in left elbow [...] Progress Notes * Shara Alvarado, OT - 02/22/2023 3:15 PM EDT OCCUPATIONAL THERAPY PROGRESS NOTE Certification Period: 02/02/23-05/05/23 Referral Source: LORENE Cowart MD Follow-up: PRN Total Treatment time: 50 Minutes Timed Code Treatment Time: 35 minutes OCCUPATIONAL PROFILE: Devan Chen is a 57 y.o. year old Right hand dominant male who is referred for left elbow pain since approximately Sep 2022. 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 Got an [facility] left wrist brace that he wore for [...] does not bother him. Average Score: 5.7/10 04/28 Pain: (Assessed using the visual analog pain [...] /38 mild discomfort with ext 54/30* Strength: Candy Forming Machine Operator Testing with Dynamometer setting #2 Pinch Testing with Pinch Gauge Right Left 02/22/23 Left eval Candy Forming Machine Operator setting 2 89.8 26.2, 26.4 - starts to notice pain in left lateral elbow 35.3 Candy Forming Machine Operator Average 94.5 16.7 Rahman 21 21.5 3 Pt 17 18 no pain 15 Tip 12.5 11.5 Treatment Today: Educated patient in etiology and biomechanics as related to the patient's symptoms Hot pack (86472) for 15 minutes: applied with eight layers of towels in addition to hot pack insulation for a total of 12 layers, utilized for superficial heating for soft tissue preparation prior totreatment activities applied to the left elbow. Re-assessed PSFS function, pain, AROM, and strength. Patient has been able to do computer workstation updates and is noticing improvements. Patient reports elbow is improving but is still bothersome. Kneading massage of left wrist extensors, educated in self cross friction massage. HEP: 1 lb left wrist extensor eccentrics - 2 sets of 10 reps 2x/day. 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 Provided with home exercise program to include [...] PSFS and DASH for specific functional deficits 02/22/23: Patient has been able to do computer workstation updates. Reports elbow is improving but isstill bothersome. Added theraputty and red tband for scap retraction. . 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
--- OUTSIDE RECORDS SUMMARY | 2024-08-23 17:27 | XMS_ITS | Encounter Summary ---
Author Organization [facility] [place] [address] Care Team Providers Care Furnace Converter Name Role Phone Giovanni Wing MD Primary Care Provider [phone] Encounter Details Date Type Department Care Team (Late st Contact Info) Description 01/02/2023 [place] [phone] Antwon Garvin MD [facility] [place] [address] Social History Tobacco Use Types Packs/Day Years [...] Encounter - Antwon Garvin MD - 01/02/2023 6:11 PM EST Brief Telephone Note Returned patient call - no answer x2 so left voicemail. If urgent concerns can call back, other general questions can call our clinic during normal hours tomorrow. Antwon Garvin MD Urology PGY-2 01/02/2023 documented in this encounter Plan of Treatment Not on file documented as of this encounter Visit Diagnoses Not on filedocumented in this encounter Care Teams Furnace Converter Relationship Specialty Start Date End Date Giovanni Wing MD [address] [place] [address] PCP - General Family Medicine 08/29/18 documented as of this encounter
--- OUTSIDE RECORDS SUMMARY | 2024-08-23 17:27 | XMS_ITS | Encounter Summary ---
Author Organization Formerly [facility] [place] [address] Care Team Providers Care Poultry Scientist Name Role Phone Giovanni Wing MD Primary Care Provider [phone] Reason for Visit * Auth/Cert (Routine) Specialty Diagnoses / Procedures Referred By Contac t Referred To Contact Diagnoses Malignant neoplasm of prostate Malignant neoplasm of prostate Procedures PRO LAP, PROSTATECTOMY, RADICAL, W/NERVE SPARE PRO LAP, PELVIC LYMPHADENECTOMY LAPAROSCOPIC PROSTATECTOMY, ROBOTICS ASSISTED (WRVU 21.36) LAPAROSCOPY,WITH BILATERAL TOTAL PELVIC LYMPHADENECTOMY, ROBOTIC (WRVU 12) MODIFIER ROBOT,DAVINCI Rj Lane MD [facility] [place] [address] [facility] Referral ID Status Reason Start Date Expiration Date Visits Re quested Visits Authorized [id number] 1 1 Encounter Details Date Type Department Care Team (Late st Contact Info) Description 12/28/2022 12:52 PM EST Anesthesia Event Main [place] [address] Anca De Souza MD [facility] [place] [address] Rina Schwartz MD [facility] [place] [address] Anesthesia Record Procedure Summary Procedure Name Responsible Anesthesiologist Anesthesia Start Time Anesthesia Stop Time ROBOTIC LAPAROSCOPIC PROSTATECTOMY (WRVU 22.46) (Pelvis) Anca De Souza MD 12/28/22 1252 12/28/22 1716 Events Date Time Event Comment 12/28/2022 1220 1252 AN Verify 1252 Start 1252 An Start Data 1257 An Induction 1302 An Intubation 1305 Anesthesia Ready 1318 Break/Relief In I assumed ca re for Break Relief before which we: 1. Identified the patient 2. Identified the responsible provider(s) 3. Reviewed the pertinent medical history 4. Discussed the surgical plan and course 5. Reviewed intra-op anesthesia management and issues during anesthesia 6. Set expectations for the relief (and/or post-procedure) period 7. Allowed opportunity for questions and acknowledgement of understanding Elvira Mansfield CRNA 1327 Procedure Start 1351 Break/Relief Out 1510 Break/Relief In I assumed ca re for Break Relief before which we: 1. Identified the patient 2. Identified the responsible provider(s) 3. Reviewed the pertinent medical history 4. Discussed the surgical plan and course 5. Reviewed intra-op anesthesia management and issues during anesthesia 6. Set expectations for the relief (and/or post-procedure) period 7. Allowed opportunity for questions and acknowledgement of understanding Mohini Davalos RELAY REPAIRER 1525 Break/Relief Out 1701 Extubation/LMA Out 1708 an stop data 1715 Recovery or ICU Handoff Joanne ent care was transferred to the destination unit staff after review of the patient's medical history, current anesthetic/surgical status and plan, according to the Provider Handoff Checklist. 1716 Stop Meds Name Total Midazolam 2 mg fentaNYL 100 mcg IV Lidocaine 100 mg Propofol 350 mg Rocuronium 200 mg Ondansetron 4 mg Dexamethasone 8 mg Glycopyrrolate 0.4 mg heparin (porcine) (5,000 units/1 mL) sub cutaneous injection 5,000 Units 5,000 Units ceFAZolin (Ancef) 2 g vial a ttach to sodium chloride 0.9% 100 mL Mini-Bag Plus 2 g HYDROmorphone 2 mg/mL 1 mg Dexmedetomidine 24 mcg Sugammadex 200 mg lactated ringers infusion 700 mL Lactated Ringers 200 mL * Agents Name O2 Air N2O Sevoflurane (et) * Blood No blood administrations on file. Lines, Drains, and Airways Type Details Placement Removal Urethral Catheter 12/28/22; 1326; Urol ogic surgery; indwelling double lumen catheter; latex; 18; inserted at this facility; 1; 5; 10 12/28/22 1326 by Radha Fernández, RN Incision 12/28/22; 1327; abdo men; laparoscopic punctures (specify); multiple trocar sites 12/28/22 1327 by Radha Fernández RN (RETIRED) Peripheral IV Line - Single Lumen 12/28/22; 1212; cephalic vein (lateral side of arm), left; [id number] catheter system; Anatomical Landmarks; US Not Used; 20 gauge, 1 in length; Alden Schaefer; intradermal injection; 0; 12/29/22; 1640 12/28/22 1212 by Alden Schaefer RN 12/29/22 1640 by Soha Moser RN ETT Mask Ventilation: Ea loy (1); ETT Type: Cuffed, Oral; ETT Size: 7.5 mm; Mac Blade: 4; Notes: Asleep, Pre-O2, Stylette; Attempts: 1; Laryngoscopy Grade: 1; ETT Placement Verified By: Auscultation, Capnometry, Visual; Secured at Teeth: 23 cm; Inserted by: DALTON Coffey; Removal Date: 12/28/22; Removal Time: 17012/28/22 1302 by Lincoln Coffey CRNA 12/28/22 170 by Lincoln Coffey CRNA (RETIRED) Peripheral IV Line - Single Lumen 12/28/22; 1305; metacarpal vein (top of hand), right; [id number]-bnlhxm catheter system; Anatomical Landmarks; 16 gauge; DALTON Coffey; 12/29/22; 1640 12/28/22 1305 by Lincoln Coffey CRNA 12/29/22 1640 by Soha Moser RN documented in this encounter Social History Tobacco Use Types Packs/Day Years [...] on file documented as of this encounter OR Notes * Anesthesia Postprocedure Evaluation - Anca De Souza MD - 12/28/2022 5:30 PM EST Department of Anesthesiology Post-procedure Note Patient: Devan Chen Procedure Summary Date: 12/28/22 Room / Location: [facility] OR [address] [place] [address] MAIN OR Anesthesia Start: 1251 Anesthesia Stop: 1715 Procedures: LAPAROSCOPIC PROSTATECTOMY, ROBOTICS ASSISTED (WRVU 21.36) (Pelvis) LAPAROSCOPY,WITH BILATERAL TOTAL PELVIC LYMPHADENECTOMY, ROBOTIC (WRVU 12) (Bilateral: Flank) MODIFIER ROBOT,BERTHAI XI Diagnosis: (Malignant neoplasm of prostate) Surgeons: Rj Mcdonald MD Responsible Provider: Anca De Souza MD Anesthesia Type: general ASA Status: 2 All Anesthesia Providers: Anesthesiologist: Anca De Souza MD; Rina Schwartz MD RELAY REPAIRER: Lincoln Coffey CRNA Vitals Value Taken Time BP 119/72 02/09/23 1900 Temp 36.7 ??C (98.1 ??F) 12/28/22 1900 Pulse 95 12/28/22 1906 Resp 17 12/28/22 190 SpO2 98 % 12/28/222003 Pain Level 0 12/28/22 190 Vitals shown include unvalidated device data. Patient Location: PACU/[facility] Level of Consciousness: Conscious but Sleepy Pain Management: Satisfactory Analgesia PONV: None Cardiovascular Status: Hemodynamically Stable Respiratory Status: Stable Respiratory Status and Supplemental O2 (NC or FM) Postoperative Fluid Status: Intravascular EUvolemia Possible Anesthetic Complications: NONE apparent at time of evaluation Final Primary Anesthesia Type: General (The anesthetic type performed was the same as planned.) Comments: Anca De Souza MD * Anesthesia Preprocedure Evaluation - Rina Schwartz MD - 12/28/2022 8:18 AM EST Pre-Anesthesia Evaluation for: Devan Chen a 57 y.o. male. Procedure(s): LAPAROSCOPIC PROSTATECTOMY, ROBOTICS ASSISTED (WRVU 21.36) LAPAROSCOPY,WITH BILATERAL TOTAL PELVIC LYMPHADENECTOMY, ROBOTIC (WRVU 12) MODIFIER ROBOT,KANE HUYNH Patient Active Problem List Diagnosis Date Noted ??? Malignant neoplasm of prostate 11/11/2022 ??? Rectal hemorrhage 08/14/2022 ??? Elevated PSA 07/17/2022 ??? Lower urinary tract symptoms (LUTS) 07/17/2022 ??? Pain in right elbow 12/01/2021 ??? Anxiety state 07/11/2019 ??? Asthma 07/11/2019 ??? Overweight 07/11/2019 ??? Back pain 07/11/2019 ??? Health care maintenance 07/11/2019 ??? Muscle pain 03/28/2018 ??? Thoracic spondylosis without myelopathy 01/23/2018 ??? Finger infection 10/26/2017 ??? Pain in toe of right foot 12/12/2016 ??? Hallux rigidus of right foot 11/21/2016 ??? Chronic SI joint pain 02/24/2016 ??? Mechanical low back pain 07/18/2012 Past Medical History: Diagnosis Date ??? Asthma ??? Cancer prostate ??? Chronic anxiety ??? Chronic pain back Past Surgical History: Procedure Laterality Date ??? JOINT REPLACEMENT Right large toe ??? LUMBAR DISC SURGERY L5-S1 ??? PRO COLONOSCOPY, BIOPSY N/A 08/19/2018 COLONOSCOPY FLEXIBLE, WITH BX (WRVU 3.66) performed by Cirilo Pathak MD at [facility] ENDOSCOPY ??? PRO HALLUX RIGIDUS W/CHEILECTOMY 1ST MP JT W/IMPLT Right 10/31/2018 CORRECTION HALLUX RIGIDUS, W IMPLANT (WRVU 8.01) performed by Pascual Pearson MD at [facility] MAIN OR ??? US GUIDED BIOPSY PROSTATE WITH URONAV FUSION 09/21/2022 US Guided Biopsy Prostate with Uronav Fusion 09/21/2022 [facility] RAD ULTRASOUND Social History Tobacco Use ??? Smoking status: Never ??? Smokeless tobacco: Never Substance Use Topics ??? Alcohol use: Yes Alcohol/week: 14.0 standard drinks Types: 14 Shots of liquor per week Comment: 2/day liquor most often Social History Substance and Sexual Activity Drug Use Yes ??? Types: Marijuana Comment: rare No Known Allergies Medications: MAR and/or home medications have been reviewed. Physical Exam: Preprocedure Vitals Current as of 12/28/22 0818 No BP, pulse, respiration, SpO2, or temperature recorded. Height: 174 cm (5' 8.5) (12/14/22) Weight: 87.5 kg (193 lb) (12/14/22) BMI: 28.92 IBW: 69.6 kg (153 lb 5.6 oz) Airway Assessment: Mallampati: I TM distance: >3 FB Neck ROM: full Cardiovascular Assessment: system normal Pulmonary Assessment: unlabored breathing Dental Assessment: - normal exam Misc Assessment: Last Filed Perioperative Cognitive Screening None Anesthesia Plan: ASA 2 general, with a(n) intravenous induction 57yo 87kg (BMI 29) M s/f robotic prostatectomy PMH significant for asthma (very mild, rare inhaler use, no daily meds), chronic low back pain, thoracic spondylosis without myelopathy, and prostate cancer. Tolerated GA in 2018 for foot surgery without issue, LMA iGel #4, no airway notes available for review. No known cardiac disease. METs>4. Denies GERD, SOB, recent illness. Plan: GETA, PIV access, standard ASA monitors The patient was informed of the risks, benefits and alternatives of anesthesia. These risks included, but were not limited to, post-operative nausea and/or vomiting, pain, sore throat, dental/lip trauma, and other rare but serious complications such as major organ damage, awareness, severe allergicreactions, position-related nerve injuries, and need blood transfusions. All questions sought and answered. Consent was signed and placed in chart. Rina Schwartz MD Ski Lift Attendant Region - Other Informed Consent: Anesthetic plan and risks discussed with patient. Plan discussed with RELAY REPAIRER. Anesthesia Screening documented in this encounter Plan of Treatment Not on file documented as of this encounter Visit Diagnoses Not on filedocumented in this encounter Administered Medications Inactive Administered Medications - up to 3 most recent administrations Medication Order MAR Action Action Date Dose Rate Site ceFAZolin (Ancef) 2 g vial attach to sodium chloride 0.9% 100 mL Mini-Bag Plus 2 g, Intravenous, FACILITY MAINTENANCE TECHNICIAN TO O.R., 1 dose, On Kathrine 12/28/22 at 1245, Administer over 30 Minutes, Indication for (Active or Suspected): Prophylaxis New Bag 12/28/2022 1:10 PM EST 2 g dexAMETHasone (Decadron) injection Intravenous, PRN, Starting on Kathrine 12/28/22 at 1310, Until Kathrine 12/28/22 at 1716, Anesthesia Intra-op, Routine Given 12/28/2022 1:10 PM EST 8 mg dexmedeTOMIDine (Precedex) (4 mcg/mL) bolus injection (Anesthsia) Intravenous, PRN, Starting on Kathrine 12/28/22 at 1636, Until Kathrine 12/28/22 at 1716, Anesthesia Intra-op, Routine Given 12/28/2022 5:01 PM EST 8 mcg Given 12/28/2022 4:40 PM EST 8 mcg Given 12/28/2022 4:36 PM EST 8 mcg fentaNYL (pf) (50 mcg/mL) multi-dose injection Intravenous, PRN, Starting on Kathrine 12/28/22 at 1259, Until Kathrine 12/28/22 at 1716, Anesthesia Intra-op, Routine Given 12/28/2022 1:26 PM EST 50 mcg Given 12/28/2022 12:59 PM EST 50 mcg glycopyrrolate (Robinul) (0.2 mg/mL) multi-dose injection Intravenous, PRN, Starting on Kathrine 12/28/22 at 1331, Until Kathrine 12/28/22 at 1716, Anesthesia Intra-op, Routine Given 12/28/2022 1:34 PM EST 0.2 mg Given 12/28/2022 1:31 PM EST 0.2 mg heparin (porcine) (5,000 units/1 mL) subcutaneous injection 5,000 Units 5,000 Units, Subcutaneous, FACILITY MAINTENANCE TECHNICIAN TO O.R., 1 dose, On Kathrine 12/28/22 at 1245, Routine Given 12/28/2022 12:45 PM EST 5,000 Units HYDROmorphone (Dilaudid) (2 mg/mL) multi-dose injection solution Intravenous, PRN, Starting on Kathrine 12/28/22 at 1529, Until Kathrine 12/28/22 at 1716, Anesthesia Intra-op, Routine Given 12/28/2022 5:01 PM EST 0.2 mg Given 12/28/2022 4:47 PM EST 0.2 mg Given 12/28/2022 4:33 PM EST 0.2 mg lactated ringers infusion 1,000 mL, at 100 mL/hr, Intravenous, CONTINUOUS, Starting on Kathrine 12/28/22 at 1215, Until Kathrine 12/28/22 at 2007, Day of Surgery (Day of Procedure) Continued Bag 12/28/2022 5:12 PM EST 1,000 mLs 100 mL/hr New Bag 12/28/2022 12:52 PM EST lactated ringers infusion Intravenous, CONTINUOUS PRN, Starting on Kathrine 12/28/22 at 1305, Until Kathrine 12/28/22 at 1716, Anesthesia Intra-op New Bag 12/28/2022 1:05 PM EST lidocaine (pf) (Xylocaine) (20 mg/mL) 2% injection syringe Intravenous, PRN, Starting on Kathrine 12/28/22 at 1257, Until Kathrine 12/28/22 at 1716, Anesthesia Intra-op, Routine Given 12/28/2022 12:57 PM EST 100 mg midazolam (pf) (Versed) (1 mg/mL) multi-dose injection Intravenous, PRN, Starting on Kathrine 12/28/22 at 1245, Until Kathrine 12/28/22 at 1716, Anesthesia Intra-op, Routine Given 12/28/2022 12:45 PM EST 2 mg ondansetron (pf) (Zofran) (2 mg/mL) injection Intravenous, PRN, Starting on Kathrine 12/28/22 at 1636, Until Kathrine 12/28/22 at 1716, Anesthesia Intra-op, Routine Given 12/28/2022 4:36 PM EST 4 mg propofoL (Diprivan) 10 mg/mL bolus injection (Anesthesia) Intravenous, PRN, Starting on Kathrine 12/28/22 at 1259, Until Kathrine 12/28/22 at 1716, Anesthesia Intra-op Given 12/28/2022 1:01 PM EST 50 mg Given 12/28/2022 1:00 PM EST 100 mg Given 12/28/2022 12:59 PM EST 200 mg rocuronium (Zemuron) (10 mg/mL) multi-dose injection Intravenous, PRN, Starting on Kathrine 12/28/22 at 1300, Until Kathrine 12/28/22 at 1716, Anesthesia Intra-op, Routine Given 12/28/2022 4:12 PM EST 20 mg Given 12/28/2022 3:40 PM EST 30 mg Given 12/28/2022 3:08 PM EST 20 mg sugammadex (Bridion) 100 mg/mL injection Intravenous, PRN, Starting on Kathrine 12/28/22 at 1655, Until Kathrine 12/28/22 at 1716, Anesthesia Intra-op, Routine Given 12/28/2022 4:55 PM EST 200 mg documented in this encounter Care Teams Poultry Scientist Relationship Specialty Start Date End Date Giovanni Wing MD [address] [address] PCP - General Family Medicine 08/29/18 documented as of this encounter
--- OUTSIDE RECORDS SUMMARY | 2024-08-23 17:27 | XMS_ITS | Encounter Summary ---
Author Organization [facility] Address [facility] [place] [address] Care Team Providers Care Institutional Nutrition Consultant Name Role Phone Giovanni Wing MD Primary Care Provider [phone] Encounter Details Date Type Department Care Team (Latest Contact Info) Description 11/09/2022 9:45 AM EST - 11/09/2022 11:59 PM [facility] Hospital Encounter Hematology and Oncology at [facility] [place] [id number] Malignant neoplasm of prostate Discharge Disposition: Home [...] a day fluticasone propionate (Flonase) 50 mcg/actuation Caro, Suspension every 24 hours. loratadine (Claritin) 10 [...] to 3 days. 12 tablet 12/29/2022 01/01/2023 naproxen sodium (ANAPROX) 220 mg Tablet Every 12 hours. 12/14/2022 tamsulosin (Flomax) 0.4 mg Capsule Take 1 capsule by mouth nightly. 30 tablet 3 08/14/2022 12/27/2022 documented as of this encounter Plan of Treatment Not on file documented as of this encounter Procedures Procedure Name Priority Date/Time Associated Diagnosis Comments HEMOGRAM Routine 11/09/2022 10:02 AM EST Malignant neoplasm of prostate DIFFERENTIAL, AUTOMATED Routine 11/09/2022 10:02 AM EST Malignant neoplasm of prostate HC VENIPUNCTURE Routine 11/09/2022 10:02 AM EST Malignant neoplasm of prostate HC TESTOSTERONE, SERUM Routine 10:02 AM EST Malignant neoplasm of prostate HC PROSTATE SPECIFIC ANTIGEN Routine 11/09/2022 10:02 AM EST Malignant neoplasm of prostate COMPREHENSIVE METABOLIC PANEL Routine 11/09/2022 10:02 AM EST Malignant neoplasm of prostate documented in this encounter Results * Differential, Automated (11/09/2022 10:02 AM EST) Neutrophil % 52.7 % [facility] Neutrophil Absolute 2.49 1.70 - 6.10 x10(3)/[facility] LAB[facility] Lymph % 34.2 % [facility] Lymphocytes Abs 1.6 0.9 - 3.2 x10(3)/[facility] LABORATORY Monocyte % 10.1 % [facility] Monocyte Abs 0.5 0.3 - 0.9 x10(3)/[facility] LABOR[facility]ORY Eos % 1.5 % [facility] Eosinophils Abs 0.1 0.0 - 0.4 x10(3)/[facility] LAB[facility] Basophil % 1.3 % [facility] Baso Absolute 0.1 0.0 - 0.1 x10(3)/[facility] LABORATORY Immature Gran % 0.20 % [facility] Comment: Immature granulocytes(IG's)percentage and absolute count will include metamyelocytes, myelocytes, and promyelocytes. Blood smears from CBCs yielding IG's will be scanned manually for concordance. If this scan disagrees with the automated IG or if promyelocytes are noted, a manual differential will be performed. Immature Gran Absolute 0.01 0.00 - 0.04 x10(3)/[facility] LABOR[facility]ORY Blood 11/09/2022 10:0 2 AM EST 11/09/2022 10:07 AM EST Narrative Resulting Agency Comment Spec In Lab Henrik Yun MD HEMATOLOGY ORDERABLE S Performing Organization Address City/[facility] Co de Phone Number [facility] [place] [address] * Hemogram (11/09/2022 10:02 AM EST) White Blood Cell 4.7 4.0 - 9.5 x10(3)/[facility] LABORATORY Red Blood Cell 4.95 4.58 - 5.54 x10(6)/[facility] Hemoglobin 15.3 13.7 - 16.5 g/dL [facility] Hematocrit 43.4 40.5 - 48.5 % [facility] Mean Cell Volume 87.7 82.9 - 93.1 fL [facility] Mean Cell Hemoglobin 30.9 27.5 - 32.1 pg [facility] Mean Cell Hemoglobin Concentration 35.3 32.0 - 35.7 g/dL [facility] Platelet 229 145 - 357 x10(3)/[facility] LABORATORY RDW Standard Deviation 38.5 36.0 - 45.0 fL [facility] RDW coefficient of variation 12.0 11.4 - 13.8 % [facility] Mean Platelet Volume 10.0 7.6 - 12.9 fL [facility] NRBC% auto 0.0 % [facility] NRBC Absolute 0.000 0.000 - 0.000 x10(3)/[facility] Blood 11/09/2022 10:0 2 AM EST 11/09/2022 10:07 AM EST Narrative Resulting Agency Comment Spec In Lab Henrik Yun MD HEMATOLOGY ORDERABLE S Performing Organization Address City/[facility] Co de Phone Number [facility] [place] [address] * Testosterone, total (11/09/2022 10:02 AM EST) Testosterone 4.47 1.93 - 7.40 ng/mL [facility] Comment: Pediatric Reference Ranges: ? Males [...] Colleen Kush Testosterone II 07/2016, v6.0 Blood 11/09/2022 10:0 2 AM EST 11/09/2022 10:07 AM EST Narrative Resulting Agency Comment Spec In Lab Henrik Yun MD CHEMISTRY ORDERABLES [facility] [place] [address] * (ABNORMAL) PSA (Ultrasensitive) (11/09/2022 10:02 AM EST) Prostate Specific Antigen (Ultrasensitive) 16.00(H) 0.00 - 4.00 ng/mL [facility] Comment: PLEASE NOTE: The above reference interval is intended for healthy males with an intact prostate. Values within this reference interval may indicate recurrence in men who have undergone radical prostatectomy. This result was generated using a Colleen Kush immunoassay. ??Results obtained from other methods or manufacturers cannot be used interchangeably with this method. Blood 11/09/2022 10:0 2 AM EST 11/09/2022 10:07 AM EST Narrative Resulting Agency Comment Spec In Lab Henrik Yun MD CHEMISTRY ORDERABLES [facility] [place] [address] * (ABNORMAL) Comprehensive metabolic panel (non-fasting) (11/09/2022 10:02 AM EST) Glucose 88 65 - 199 mg/dL [facility] Comment:Diabetes: >=200 mg/d L plus symptoms Blood Urea Nitrogen 19 10 - 20 mg/dL [facility] Creatinine 1.06 0.80 - 1.50 mg/dL [facility] Sodium 138 135 - 145 mmol/L [facility] Potassium 4.8 3.5 - 5.0 mmol/L [facility] Comment: Please note: ??Patients with WBC >100,000 may have falsely elevated Potassium levels. ??For accurate Potassium quantification in these patients send serum separator tube (gold top) for subsequent determinations. ??Contact the Clinical Chemistry Laboratory if there are any questions. Chloride 105 98 - 107 mmol/L [facility] Carbon Dioxide 26 22 - 31 mmol/L [facility] Anion Gap 7 5 - 15 mmol/L [facility] Calcium 10.8(H) 8.5 - 10.5 mg/dL [facility] Protein, Total 7.3 6.1 - 8.0 g/dL [facility] Albumin 4.5 3.2 - 5.2 g/dL [facility] Aspartate Aminotransferase 23 0 - 39 unit/L [facility] Alanine Aminotransferase 27 0 - 55 unit/L [facility] Alkaline Phosphatase 69 40 - 130 unit/L [facility] Bilirubin, Total 0.7 0.2 - 1.3 mg/dL [facility] Est Glomerular Filtration Rate 83 >=60 mL/min/1. 73 m?? [facility] Comment: This patient's estimated GFR was [...] and symptoms in addition to eGFR. Blood 11/09/2022 10:0 2 AM EST 11/09/2022 10:07 AM EST Narrative Resulting Agency Comment Spec In Lab Henrik Yun MD CHEMISTRY ORDERABLES [facility] [place] [address] documented in this encounter Visit Diagnoses Diagnosis Malignant neoplasm of prostate documented in this encounter Care Teams Institutional Nutrition Consultant Relationship Specialty Start Date End Date Giovanni Wing MD [address] [address] PCP - General Family Medicine 08/29/18 documented as of this encounter
--- OUTSIDE RECORDS SUMMARY | 2024-08-23 17:27 | XMS_ITS | Encounter Summary ---
Author Organization [facility] Address [facility] [place] [address] Care Team Providers Care Police Surgeon Name Role Phone Giovanni Wing MD Primary Care Provider [phone] Encounter Details Date Type Department Care Team (Latest Contact Info) Description 03/08/2023 Travel Social History Tobacco Use Types Packs/Day [...] on filedocumented in this encounter Care Teams Police Surgeon Relationship Specialty Start Date End Date Giovanni Wing MD [address] [address] PCP - General Family Medicine 08/29/18 documented as of this encounter
--- OUTSIDE RECORDS SUMMARY | 2024-08-23 17:27 | XMS_ITS | Encounter Summary ---
Author Organization [facility] Address [facility] [place] [address] Care Team Providers Care Ground Support Agent Name Role Phone Giovanni Wing MD Primary Care Provider [phone] Reason for Visit * Auth/Cert (Routine) Specialty Diagnoses / Procedures Referred By Contac t Referred To Contact Diagnoses Malignant neoplasm of prostate Malignant neoplasm of prostate Procedures PRO LAP, PROSTATECTOMY, RADICAL, W/NERVE SPARE PRO LAP, PELVIC LYMPHADENECTOMY LAPAROSCOPIC PROSTATECTOMY, ROBOTICS ASSISTED (WRVU 21.36) LAPAROSCOPY,WITH BILATERAL TOTAL PELVIC LYMPHADENECTOMY, ROBOTIC (WRVU 12) MODIFIER ROBOT,DAVINCI Allen Lane MD [facility] [place] [address] [facility] Referral ID Status Reason Start Date Expiration Date Visits Re quested Visits Authorized [id number] 1 1 Encounter Details Date Type Department Care Team (Latest Contact Info) Description 12/28/2022 11:13 AM EST - 12/29/2022 5:[address] [facility] Hospital Encounter Surgical Unit Level 2 [place] [address] Allen Mcdonald MD [facility] [place] [address] Discharge Disposition: Home Social History Tobacco Use [...] in a chcf (including now)? No 11/02/2022 Sex and Gender Information Value Date Recorded Sex Assigned at Not on file Gender Identity Not on file Sexual Orientation Not on file documented as of this encounter Last Filed Vital Signs Vital Sign Reading Time Taken Comments Blood Pressure 128/77 12/29/2022 11:44 AM EST Pulse 96 12/29/2022 11:44 AM EST Temperature 36.8 ??C (98.2 ??F) 12/29/2022 11:[address] Respiratory Rate 16 12/29/2022 11:44 AM EST Oxygen Saturation 95% 12/29/2022 11:44 AM EST Inhaled Oxygen Concentration - - [...] Devan Chen Patient Age: 57 y.o. Language: Ghanaian Race: White Ethnicity: Not nor Admit date: [...] RALP/PLND. ?? PSA 11.75 Prostate Volume: 36cc Doon 3+3=6 prostate cancer (R base/mid, left base/apex No LUTS Sexually active ?? Anticoagulation: None UA 12/04 - negative ?? No recent changes to health status. ?? PMH: TADEO 2 drinks per day ?? PSHx: None abdominal Hospital Course: Patient was admitted electively to [facility] via the same day surgery program and [...] Height: Ht Readings from Last 1 Encounters: /09/ 172.7 cm (5' 8) BMI: Body mass [...] Adult 07/11/2019, 01/15/2020 ??? Influenza Vaccine (Novel) [id number], Injectable 10/05/2011, 09/17/2012, 12/12/2013, 09/02/2014 ??? Influenza Vaccine w/Preservative, Split 08/06/2018 ??? Spanish Encephalitis (Ixiaro) 07/11/2019, 08/05/2019 ??? Pneumococcal Vaccine, [...] longer draining. The number for questions is [phone] before 5 PM weekdays and [phone] after 5 PM and weekends. Activity level: [...] will be mailed to you. Please call [phone] (clinic number for appointments) to confirm date [...] may be used if needed and are [id number] medications available at most local pharmacies. Prunes [...] 4:00 PM Alexx Huntley MD Urology at [facility] Arrive at: Machine [place] Area [phone] Follow-Up: Future Appointments Date Time Provider Department Center 01/31/2023 4:00 PM Alexx Huntley MD [facility] URO [facility] Primary Care Provider: Giovanni Wing MD [phone] Follow-up Recommendations for Providers: None Call your [...] was managed by the Urology Team at [facility]. If you have any questions or concerns, please feel free to contact us. Provider Contact Information: Urology Clinic: [facility] (after business hours): LORENE Corado 12/29/2022 Associated [...] longer draining. The number for questions is [phone] before 5 PM weekdays and [phone] after 5 PM and weekends. Activity level: [...] will be mailed to you. Please call [phone] (clinic number for appointments) to confirm date [...] may be used if needed and are [id number] medications available at most local pharmacies. Prunes [...] a day fluticasone propionate (Flonase) 50 mcg/actuation [place], Suspension every 24 hours. loratadine (Claritin) 10 [...] - 12/29/2022 2:37 AM EST Transferred to [facility] from PACU. A&Ox4. VSS on 2L NC. [...] for patient with alarms on and active. [phone]: Break coverage provided by PACU nurseVirginia. 1899: Patient meets PACU discharge criteria. 1944: Awaiting callback from 2D nurse to give report. 1954: Verbal report called to 2D nurseYamini. Plans for transport per protocol to [facility]. documented in this encounter H&P Notes * [...] Operative Note Patient Name: Devan Chen : [id number] MR#: [id number] Case Date: 12/28/2022 Surgeon: Surgeon(s) and Role: [...] Shelley Dowling - 12/28/2022 1:26 PM EST [facility] Operative Note Patient Name: Devan Chen : [id number] MR#: [id number] Case Date: 12/28/2022 Surgeon: Surgeon(s) and Role: [...] pertinent to this patient.) HPI/Surgical Indications: Devan Chen is a 57 y.o. male [...] on the left). A 12 mm AirSeal technology assistant port was placed most laterally on the left. A 5 mm technology assistant port was placed in the upper [...] and artery down to the node of Webber. Small lymphatics were secured with bipolar cautery. ??On the??left??side, we similarly removed from the left external iliac vein down to the node of Webber. Obturator nerves were identifie d bilaterally and [...] PATHOLOGY Routine 12/28/2022 2:58 PM EST MODIFIER ROBOT,KANE XI 12/28/2022 12:53 PM EST Malignant neoplasm of prostate Lap, Pelvic Lymphadenectomy (42302) 12/28/2022 12:53 PM EST Malignant neoplasm of prostate Lap, Prostatectomy, Radical, W/Nerve Spare (83293) 12/28/2022 12:53 PM EST Malignant neoplasm of prostate documented in this encounter Results * (ABNORMAL) Differential, Automated (12/29/2022 1:04 AM EST) Neutrophil % 84.5 % [facility] Neutrophil Absolute 12.79(H) 1.70 - 6.10 x10(3)/mc L [facility] Lymph % 5.5 % [facility] Lymphocytes Abs 0.8(L) 0.9 - 3.2 x10(3)/ L [facility] Monocyte % 9.3 % [facility] Monocyte Abs 1.4(H) 0.3 - 0.9 x10(3)/mc L [facility] Eos % 0.0 % [facility] Eosinophils Abs 0.0 0.0 - 0.4 x10(3)/[facility] Basophil % 0.3 % [facility] Baso Absolute 0.0 0.0 - 0.1 x10(3)/ L [facility] Immature Gran % 0.40 % [facility] Comment: Immature granulocytes(IG's)percentage and absolute count will include metamyelocytes, myelocytes, and promyelocytes. Blood smears from CBCs yielding IG's will be scanned manually for concordance. If this scan disagrees with the automated IG or if promyelocytes are noted, a manual differential will be performed. Immature Gran Absolute 0.06(H) 0.00 - 0.04 x10(3)/ L [facility] Blood 12/29/2022 1:04 AM EST 12/29/2022 1:33 AM EST Narrative Resulting Agency Comment Spec In Lab Shelley Dowling MD HEMATOLOGY ORDERABLE S [facility] [place] [address] * (ABNORMAL) Hemogram (12/29/2022 1:04 AM EST) White Blood Cell 15.1(H) 4.0 - 9.5 x10(3)/mc L [facility] Red Blood Cell 4.22(L) 4.58 - 5.54 x10(6)/mc L [facility] Hemoglobin 12.9(L) 13.7 - 16.5 g/dL [facility] Hematocrit 37.8(L) 40.5 - 48.5 % [facility] Mean Cell Volume 89.6 82.9 - 93.[address] [facility] Mean Cell Hemoglobin 30.6 27.5 - 32.[address] [facility] Mean Cell Hemoglobin Concentration 34.1 32.0 - 35.7 g/dL [facility] Platelet 263 145 - 357 x10(3)/mc L [facility] RDW Standard Deviation 39.8 36.0 - 45.[address] [facility] RDW coefficient of variation 12.1 11.4 - 13.8 % [facility] Mean Platelet Volume 10.1 7.6 - 12.[address] [facility] NRBC% auto 0.0 % [facility] NRBC Absolute 0.000 0.000 - 0.000 x10(3)/ L [facility] Blood 12/29/2022 1:04 AM EST 12/29/2022 1:33 AM EST Narrative Resulting Agency Comment Spec In Lab Shelley Dowling MD HEMATOLOGY ORDERABLE S Performing Organization Address City/State/[facility] Co de Phone Number [facility] [place] [address] * (ABNORMAL) Basic Metabolic Panel (non-fasting) (12/29/2022 1:04 AM EST) Glucose 162 65 - 199 mg/dL [facility] Comment:Diabetes: >=200 mg/d L plus symptoms Blood Urea Nitrogen 21(H) 10 - 20 mg/dL [facility] Creatinine 1.12 0.80 - 1.50 mg/dL [facility] Sodium 135 135 - 145 mmol/L [facility] Potassium 5.3(H) 3.5 - 5.0 mmol/L [facility] Comment: Please note: ??Patients with WBC >100,000 may have falsely elevated Potassium levels. ??For accurate Potassium quantification in these patients send serum separator tube (gold top) for subsequent determinations. ??Contact the Clinical Chemistry Laboratory if there are any questions. Chloride 102 98 - 107 mmol/L [facility] Carbon Dioxide 20(L) 22 - 31 mmol/L [facility] Anion Gap 13 5 - 15 mmol/L [facility] Calcium 10.0 8.5 - 10.5 mg/dL [facility] Est Glomerular Filtration Rate 78 >=60 mL/min/1. 73 m?? [facility] Comment: This patient's estimated GFR [...] MD CHEMISTRY ORDERABL ES Performing Organization Address [facility] Co de Phone Number [facility] [place] [address] * Specimen to Pathology (12/28/2022 4:34 PM EST) AP Specimen 12/28/2022 4:34 PM EST 12/28/2022 4:[address] [facility] - 12/28/2022 4:34 PM EST Specimen requisition ordered. ??Separate Pathology report to follow Allen Mcdonald MD PATHOLOGY/CYTOLOGY ORDERABLES Performing Organization Address [facility] Co de Phone Number [facility] [place] [address] * Surgical Pathology Report (12/28/2022 2:58 PM EST) Final Diagnosis [id number] ? Location: L2WDS; 0211; A The signing pathologist has (i) examined the relevant preparation(s) for the specimen(s) and (ii) rendered or confirmed the diagnosis(es). . ?Surgical Pathology DIAGNOSIS A - Bilateral pelvic lymph nodes (excision): ??- Six lymph nodes and associated fibroadipose tissue, ?negative for malignancy (0/6). B - Prostate (radical prostatectomy): ??- Prostatic adenocarcinoma, Grade Group 2, Angie score 3+4=7. ??- See synoptic report for additional details and staging. Electronically signed by: ?Daisy HERRERA, Pat Anguiano Verified: ??01/19/2023 10:43 ??Pathologist Performed at: ??-[facility] Dept. of Pathology, [place] [address] Case Picker: Paolo Dowling MD, FCAP, ??CLIA Certificate: [id number] SYNOPTIC Specimen ? Procedure: ??Radical prostatectomy ? Prostate Size ?Prostate Weight (Grams): ??47 g ?Prostate Size in Centimeters (cm): ??4.6 x 3.9 x 3.6 Centimeters (cm) Tumor ? Histologic Type: ??Acinar adenocarcinoma ? Histologic Grade ?Grade: ??Grade group 2 (Angie Score 3 + 4 = 7) ? [...] of Extraprostatic ? Extension (EPE): ??Not identified ?Doon Pattern at Margin(s) Involved by Carcinoma: ??Pattern [...] 3.2 x 1.0 x 0.9 cm. The ittus tissue is totally submitted. Sections/Processin g: Welt Trimming Machine Operator sections in 6 cassettes as follows: ?A1: ??Indurated fat, possible nodes, intact abdomen cassette single node ?A2: ??Single node ?A3-A4: ??Single node ?A5-A6: ??Single node B - Labeled/Fixative: Prostate, fresh. Tissue Description: Intact, radical prostatectomy, right seminal vesicle, left seminal vesicle, right vas deferens, left vas deferens. DIMENSIONS/WEIGHT Weight: 47 g. [place] to base: 3.6 cm. Transverse: 4.6 cm. [...] sequence as whole mount sections. Sections/Processin g: Welt Trimming Machine Operator sections in 25 cassettes as follows: [...] seminal vesicles ??pps 01/19/2023 10:43 AM EST [facility] PROSTATIC STRUCTURE / Unknown 12/28/2022 2:58 PM EST 12/28/2022 2:58 PM EST PROSTATIC STRUCTURE / Unknown 12/28/2022 2:58 PM EST 12/28/2022 2:58 PM EST Allen Mcdonald MD PATHOLOGY/CYTOLOGY ORDERABLES Performing Organization Address [facility]/State/ZIP Co de Phone Number [facility] [place] [address] [facility] [place] [address] * Specimen to Pathology (12/28/2022 2:58 PM EST) AP Specimen 12/28/2022 2:58 PM EST 12/28/2022 2:[address] [facility] - 12/28/2022 2:58 PM EST Specimen requisition ordered. ??Separate Pathology report to follow Allen Mcdonald MD PATHOLOGY/[place] [address] documented in this encounter Visit Diagnoses Diagnosis Prostate cancer- Primary Malignant neoplasm of prostate documented in this encounter Admitting Diagnoses Diagnosis Prostate [...] Given 12/29/2022 6:12 AM EST 975 mg docusate sodium (Colace) capsule 100 mg 100 [...] Intravenous, EVERY 10 MIN PRN, Starting on Sun12/28/22 at 1805, Until Sun12/28/22 at 2007, Pain, For Moderate to Severe [...] Oral, EVERY 6 HOURS PRN, Starting on Sun12/28/22 at 1729, Until Sun12/29/22 at 1954, Pain, [...] mL Mini-Bag Plus (COMPLETED) 2 g, Intravenous, GRIPPER MACHINE OPERATOR TO O.R., 1 dose, On Kathrine 12/28/22 [...] injection 5,000 Units (COMPLETED) 5,000 Units, Subcutaneous, GRIPPER MACHINE OPERATOR TO O.R., 1 dose, On Kathrine 12/28/22 [...] fentaNYL for breakthrough pain., PACU Recovery, Routine 1736 (See Alternative - Provider: Ilana Meehan RN)1747 (Given - Provider: Ilana Meehan RN)1756 (Given - Provider: Ilana Meehan RN) fentaNYL (pf) (50 mcg/mL) multi-dose injection 50 mcg (CANCELED)(Linked Group 1) 50 mcg, Intravenous, EVERY 5 MIN PRN, Starting on Kathrine 2 at 1711, Until Kathrine 223 at 1805, Pain, Moderate to severe pain (6-10 out of 10), Hold for respiratory rate less than 10 per minute. Maximum dose 200 mcg over one hour, including OR administration. If ordered with HYDROmorphone or morphine, give HYDROmorphone or morphine first and use fentaNYL for breakthrough pain., PACU Recovery, Routine 173 (Given - Provider: Ilana Meehan RN)174 (See Alternative - Provider: Ilana Meehan RN)175 (See Alternative - Provider: Ilana Meehan RN) HYDROmorphone (Dilaudid) (2 mg/mL) multi-dose injection solution 0.4 mg (CANCELED)(Linked Group 2) 0.4 mg, Intravenous, EVERY 10 MIN PRN, Starting on Kathrine 12/28/22 at 1805, Until Kathrine 2 at 2007, Pain, For Moderate to Severe [...] 2039 (Given - Provider: Celine Fritz RN) 1004 (Given - Provider: Soha Moser RN) lidocaine [...] at 1729, Until Sun12/29/22 at 1953, Pain, moderate pain (4-6), Initial dose 5mg. If pain control not adequate in 60 minutes, give additional 5mg., Routine 1836 (See Alternative - Provider: Virginia Quach RN)2209 [...] 12/28/22 at 2230, Until Sun12/29/22 at 1954, flush, Flush pertains to all indwelling lines. [...] Until Kathrine 12/28/22 at 2006, Pain, For Moderate to Severe Pain (6-10 [...] Routine documented in this encounter Care Teams Ground Support Agent Relationship Specialty Start Date End Date Giovanni Wing MD [address] [address] PCP - General Family Medicine 08/29/18 documented as of this encounter
--- OUTSIDE RECORDS SUMMARY | 2024-08-23 17:27 | XMS_ITS | Encounter Summary ---
Author Organization [facility] Address [facility] [place] [address] Care Team Providers Care Slot Key Person Name Role Phone Giovanni Wing MD Primary Care Provider [phone] Encounter Details Date Type Department Care Team (Latest Contact Info) Description 02/08/2023 Travel Social History Tobacco Use Types Packs/Day [...] on filedocumented in this encounter Care Teams Slot Key Person Relationship Specialty Start Date End Date Giovanni Wing MD [address] [address] PCP - General Family Medicine 08/29/18 documented as of this encounter
--- OUTSIDE RECORDS SUMMARY | 2024-08-23 17:27 | XMS_ITS | Encounter Summary ---
Author Organization [facility] Address [facility] [place] [address] Care Team Providers Care Medical Care Evaluation Specialist Name Role Phone Giovanni Wing MD Primary Care Provider [phone] Encounter Details Date Type Department Care Team (Late st Contact Info) Description 12/14/2022 10:00 AM EST Laboratory Appointment Lab at [facility] [place] [address] Social History Tobacco Use Types Packs/Day Years [...] place to sleep or slept in a fci (including now)? No 11/02/2022 Sex and Gender Information Value Date Recorded Sex Assigned at Not on file Gender Identity Not on file Sexual Orientation Not on file documented as of this encounter Plan of Treatment Not on file documented as of this encounter Visit Diagnoses Not on filedocumented in this encounter Care Teams Medical Care Evaluation Specialist Relationship Specialty Start Date End Date Giovanni Wing MD [address] [place] [address] [place] [address] PCP - General Family Medicine 08/29/18 documented as of this encounter
--- OUTSIDE RECORDS SUMMARY | 2024-08-23 17:27 | XMS_ITS | Encounter Summary ---
Author Organization [facility] Address [facility] [place] [address] Care Team Providers Care Resolution Rep Name Role Phone Giovanni Wing MD Primary Care Provider [phone] Reason for Visit * Occupational Therapy (Routine) - Closed Specialty Diagnoses / Procedures Referred By Emanuel flores Referred To Contact Occupational Therapy Diagnoses Pain in left elbow Suzy Jacobs PA [facility] [place] [address] [facility] [address] [place] [address] Referral ID Status Reason Start Date Expiration Date V isits Requested Visits Authorized [id number] Closed Evaluate and Treat 11/03/2022 11/03/2023 30 30 Encounter Details Date Type Department Care Team (Late st Contact Info) Description 03/08/2023 8:00 AM EDT Office Visit Occupational Therapy at [facility] [address] [place] [phone] Shara Alvarado OT Pain in left elbow [...] Treatment - Therapy - Sapna Allan - 03/08/2023 8:00 AM EDT OCCUPATIONAL THERAPY TREATMENT NOTE Certification Period: 02/02/23-05/05/23 Referral Source: LORENE Cowart MD Follow-up: PRN Total Treatment time: 45 Minutes Timed Code Treatment Time: 30 minutes OCCUPATIONAL PROFILE: Devan Chen is a 57 y.o. year old Right hand dominant male who is referred for left elbow pain since approximately Sep 2022. [place] season - holding rifle and loading [...] /38 mild discomfort with ext 54/30* Strength: Manager Oncology Testing with Dynamometer setting #2 Pinch Testing with Pinch Gauge Right Left 02/22/23 Left eval Manager Oncology setting 2 89.8 26.2, 26.4 - starts to notice pain in left lateral elbow 35.3 Manager Oncology Average 94.5 16.7 Rahman 21 21.5 3 Pt 17 18 no pain 15 Tip 12.5 11.5 Treatment Today: Educated patient in etiology and biomechanics as related to the patient's symptoms Hot pack (88141) for 15 minutes: applied with eight layers of towels in addition to hot pack insulation for a total of 12 layers, utilized for superficial heating for soft tissue preparation prior totreatment activities applied to the left elbow. Patient reports elbow is improving but is still bothersome. Has stopped preforming theraband exercises due to increased discomfort during use. Kneading massage of left wrist extensors, educated in self cross friction massage. Graston tools for deep tissue massage Cupping to encourage circulation and extensor release. Maxime with string used to encourage composite flexion and extension movements. Ultrasound (18363) (100%, 3.3 MHz, 1.0 W/cm2, 7 minutes) with additional 2 minutes of set-up time, used for soft tissue preparation prior to treatment activities applied today to the left lateral epicondyl and wrist extensors. Provided with home exercise program to include 3x/day: -Heat first -Wall pec/bicep stretch -Composite flexion stretch elbow at side -Composite flexion stretch elbow extended HEP: 1 lb left wrist extensor eccentrics - 2 sets of 10 reps 2x/day. brown theraputty for production underwriter and tip pinch; red tband for scap [...] to maximize functional performance during daily activities. Senior Business Objects Developer Goals (to be met by discharge): Date [...] of left elbow extension, 5 lbs left production underwriter strength to demonstrate significantly improved functional performance [...] arm documented in this encounter Care Teams Resolution Rep Relationship Specialty Start Date End Date Giovanni Wing MD [address] [address] PCP - General Family Medicine 08/29/18 documented as of this encounter
--- OUTSIDE RECORDS SUMMARY | 2024-08-23 17:27 | XMS_ITS | Encounter Summary ---
Author Organization [facility] Address [facility] [place] [address] Care Team Providers Care Supervisor Mail Carriers Name Role Phone Giovanni Wing MD Primary Care Provider [phone] Encounter Details Date Type Department Care Team (Late st Contact Info) Description 02/08/2023 10:00 AM EDT Office Visit [facility] [place] [address] Henrik Yun MD [facility] [place] [address] Malignant neoplasm of prostate Social History Tobacco [...] Sign Reading Time Taken Comments Blood Pressure 119/77 02/08/2023 9:58 AM EDT Pulse 81 02/08/2023 9:58 AM EDT Temperature 36.5 ??C (97.7 ??F) 02/08/2023 9:58 AM ED T Respiratory Rate 18 02/08/2023 9:58 AM EDT Oxygen Saturation 98% 02/08/2023 9:58 AM EDT Inhaled Oxygen Concentration - - Weight 85.5 kg (188 lb 6.4 oz) 02/08/2023 9:58 A M EDT Height - - Body Mass Index 28.65 12/28/2022 11:45 AM EST documented in this encounter Progress Notes * Henrik Yun MD - 02/08/2023 10:00 AM EDT Identification Devan Chen is a 57 y.o. gentleman with prostate cancer. I originally saw the patient on 11/09/22. At that time he was found to have PSA 16.00, Stage [id number] prostate cancer, Angie Score 3+3=6,Grade Group 1, 7 of 13 sites positive -- unfavorable intermediate risk disease (NCCN), but Stage IIA disease (AJCC 8th edition). We reviewed treatment options, and on balance prostatectomy was endorsed. The patient now returns in follow-up. Interval history Dr. Mcdonald performed prostatectomy on 12/28/22. Pathology 12/28/22 DIAGNOSIS A - Bilateral pelvic lymph nodes (excision): ?? - Six lymph nodes and associated fibroadipose tissue, ? negative for malignancy (0/6). B - Prostate (radical prostatectomy): ?? - Prostatic adenocarcinoma, Grade Group 2, Angie score 3+4=7. ?? - See synoptic report for additional details and staging. SYNOPTIC Specimen ?Procedure: ??Radical prostatectomy ?Prostate Size ? Prostate Weight (Grams): ??47 g ? Prostate Size in Centimeters (cm): ??4.6 x 3.9 x 3.6 Centimeters (cm) Tumor ?Histologic Type: ??Acinar adenocarcinoma ?Histologic Grade ? Grade: ??Grade group 2 ([place] Score 3 + 4 = 7) ?Minor Tertiary Pattern 5 (less than 5%): ??Not applicable ?Percentage of Pattern 4: ??Less than or equal to 5% ?Intraductal Carcinoma (IDC): ??Not identified ?Cribriform Glands: ??Not identified ?Treatment Effect: ??No known presurgical therapy ?Tumor Quantitation ? Estimated Percentage of Prostate Involved by Tumor: ??11 - 20% ? Location of Dominant Nodule: ??Left anterior/ apical ?Extraprostatic Extension (EPE): ??Not identified ?Urinary Bladder Neck Invasion: ??Not identified ?Seminal Vesicle Invasion: ??Not identified ?Lymphovascular Invasion: ??Not Identified ?Perineural Invasion: ??Present Margins ?Margin Status: ??Invasive carcinoma present at margin ? Linear Length of Margin(s) Involved by Carcinoma: ??Less than 3 mm ?(limited) ? Focality of Margin Involvement: ??Multifocal ? Margin(s) Involved by Invasive Carcinoma: ??Left apical; ??Left posterior ? Margin Involvement by Invasive Carcinoma in Area of Extraprostatic ?Extension (EPE): ??Not identified ? [place] Pattern at Margin(s) Involved by Carcinoma: ??Pattern 3 Regional Lymph Nodes ?Regional Lymph Node Status: ??All regional lymph nodes negative for tumor ?Number of Lymph Nodes Examined: ??6 Pathologic Stage Classification (pTNM, AJCC 8th Edition) ?Primary Tumor (pT): ??pT2 ?pN Category: ??pN0 Additional Findings ?Additional Findings: ??High-grade prostatic intraepithelial neoplasia (PIN);??Nodularprostatic hyperplasia ROS 02/08/2023 IPSS Responses International Prostate Symptom Score 12 [...] Mixed - about equally satisfied and dissatisfied Multiple values from one day are sorted in reverse-chronological order 02/08/2023 EPIC-PC Responses Urinary Incontinence Symptom Score 3 Urinary Irritation/Obstructive Symptom Score 2 Bowel Symptom Score 1 Vitality/Hormonal Symptom Score 2 Overall Prostate Cancer QOL Score 8 Urinary function problem Small problem Urinary control Occasional dribbling # of pads used per day One pad per Day Urinary dripping/leakage problem Very small problem Pain or burning with urination No problem Weak urine stream/incomplete bladder emptying Very small problem Need to urinate frequently Very small problem Rectal pain or urgency of bowel movements Very small problem Increased frequency of your bowel movements No problem Overall problems with your bowel movements No problem Bloody stools No problem Ability to reach orgasm Very good Quality of your erections Firm enough for masturbation and foreplay Problem with sexual function or lack of it Small problem Hot flashes or breast tenderness/enlargement No problem Feeling depressed Very small problem Lack of energy Very small problem Multiple values from one day are sorted in reverse-chronological order 02/08/2023 MARGARET Responses Sexual Health Inventory for Men 4 (Severe ED) MARGARET: Confidence, level - past 6 months Moderate MARGARET: Penetration - past 6 months Almost never or never MARGARET: Penetration, maintain - past 6 months Did not attempt intercourse MARGARET: Erection, maintain - past 6 months Did not attempt intercourse MARGARET: Sexual satisfaction - past 6 months Did not attempt intercourse Multiple values from one day are sorted in reverse-chronological order Doing well overall. Using pads occasionally, about 2-3 a week during the day, and then routinely atnight. Doing Kegels at present. Will be seeing a specialist the end of March. Current Outpatient Medications on File Prior to Visit Medication Sig Dispense Refill ??? sildenafiL (Viagra) 100 mg tablet Take 1 tablet by mouth as needed. 30 tablet 5 ??? FIBER CHOICE ORAL Take by mouth. Metamucil tablets 12 tabs a day ??? fluticasone propionate (Flonase) 50 mcg/actuation [place], Suspension every 24 hours. ??? loratadine (Claritin) 10 mg Tablet every 24 hours. ??? FLUoxetine (PROzac) 10 mg Capsule TAKE 3 CAPSULES BY MOUTH EVERY DAY for 90 ??? FISH OIL-DHA-EPA ORAL Take by mouth daily. ??? acetaminophen (TYLENOL) 650 mg Tablet Sustained Release 1,300 mg daily. ??? cholecalciferol, Vitamin D3, 1,000 unit Capsule Take 1,000 Units by mouth daily. ??? MELATONIN ORAL Take by mouth nightly as needed. ??? VENTOLIN HFA 90 mcg/actuation HFA Aerosol Inhaler Inhale 2 puffs into the lungs as needed. 3 ??? triamcinolone (KENALOG) 0.1 % Cream Apply topically as needed. 0 No current facility-administered medications on file prior to visit. No Known Allergies Physical Exam BP 119/77 (Patient Position: Sitting) Pulse 81 Temp 36.5 ??C (97.7 ??F) (Temporal) Resp 18 Wt 85.5 kg (188 lb 6.4 oz) SpO2 98% BMI 28.65 kg/m?? Deferred. Investigations Recent Results (from the past 24 hour(s)) Testosterone, total Result Value Ref Range Testo Total 4.50 1.93 - 7.40 ng/mL PSA (Ultrasensitive) Result Value Ref Range PSA Total (Ultrasensitive) <0.01 0.00 - 4.00 ng/mL Comprehensive metabolic panel (non-fasting) Result Value Ref Range Glucose Lvl 104 65 - 199 mg/dL BUN 15 10 - 20 mg/dL Creatinine 0.90 0.80 - 1.50 mg/dL Sodium 139 135 - 145 mmol/L Potassium 4.5 3.5 - 5.0 mmol/L Chloride 105 98 - 107 mmol/L CO2 24 22 - 31 mmol/L Anion Gap 10 5 - 15 mmol/L Calcium 10.7 (H) 8.5 - 10.5 mg/dL Total Protein 7.1 6.1 - 8.0 g/dL Albumin 4.5 3.2 - 5.2 g/dL AST 22 0 - 39 unit/L ALT 21 0 - 55 unit/L Alk Phos 66 40 - 130 unit/L Total Bilirubin 0.4 0.2 - 1.3 mg/dL Estimated GFR 101 >=60 mL/min/1.73 m?? Hemogram Result Value Ref Range WBC 4.7 4.0 - 9.5 x10(3)/mcL RBC 4.66 4.58 - 5.54 x10(6)/mcL Hemoglobin 14.5 13.7 - 16.5 g/dL Hematocrit 42.0 40.5 - 48.5 % MCV 90.1 82.9 - 93.1 fL MCH 31.1 27.5 - 32.1 pg MCHC 34.5 32.0 - 35.7 g/dL Platelets 257 145 - 357 x10(3)/mcL RDWSD 39.4 36.0 - 45.0 fL RDWCV 12.0 11.4 - 13.8 % MPV 10.0 7.6 - 12.9 fL nRBC % Auto 0.0 % nRBC Abs Auto 0.000 0.000 - 0.000 x10(3)/mcL Differential, Automated Result Value Ref Range Neutrophils % 61.0 % Neutr Abs (ANC) 2.86 1.70 - 6.10 x10(3)/mcL Lymphocytes % 26.9 % Lymphocytes Abs 1.3 0.9 - 3.2 x10(3)/mcL Monocytes % 10.0 % Monocyte Abs 0.5 0.3 - 0.9 x10(3)/mcL Eosinophils % 0.6 % Eosinophils Abs 0.0 0.0 - 0.4 x10(3)/mcL Basophils % 1.3 % Basophils Abs 0.1 0.0 - 0.1 x10(3)/mcL Immature Gran % 0.20 % Domi Gran Abs 0.01 0.00 - 0.04 x10(3)/mcL Urinalysis with reflex Culture Specimen: Clean Catch Urine Result Value Ref Range Glucose UA Negative Negative mg/dL Protein UA Trace (A) Negative mg/dL Bilirubin UA Negative Negative mg/dL Urobilinogen UA Normal Normal mg/dL pH UA 7.0 5.0 - 8.0 Blood UA Negative Negative mg/dL Ketones UA Negative Negative mg/dL Nitrite UA Negative Negative Leukocytes UA Small (A) Negative mcL Appearance UA Clear Clear Spec [place] UA 1.023 1.005 - 1.030 Color UA Yellow Yellow Culture Reflexed Yes Urinalysis Microscopic Exam Result Value Ref Range RBC UA 2 0 - 3 /HPF WBC UA 12 (H) 0 - 3 /HPF Squam Epith UA 1 <=4 /HPF Hyaline Cast UA 2 0 - 2 /LPF Assessment and Plan S/p prostatectomy 12/28/22, PSA is now undetectable. Grade group II disease without JESSICA, but small positive margin ~3 mm. Tumor involvement was <20% of the gland. Multiple randomized trials have demonstrated that a surveillance approach would be appropriate for Mr. Chen, with periodic PSAs to be performed to assure no evidence for disease recurrence. In the future, if the PSA does elevate, then salvage therapy may be instituted at that time. The patient was comfortable with this treatment approach. He will continue in follow-up with his other physicians. We will see him again as needed. Devan Chen was seen in follow-up for a total of 20 minutes, with 20 minutes of that time spentdiscussing his current clinical condition, reviewing pathology results, and outlining further management. documented in this encounter Plan of Treatment Not on file documented as of this encounter Visit Diagnoses Diagnosis Malignant neoplasm of prostate documented in this encounter Care Teams Supervisor Mail Carriers Relationship Specialty Start Date End Date Giovanni Wing MD [address] [place] [address] PCP - General Family Medicine 08/29/18 documented as of this encounter
--- OUTSIDE RECORDS SUMMARY | 2024-08-23 17:27 | XMS_ITS | Encounter Summary ---
Author Organization [facility] [address] Care Team Providers Care Carburetor Repairer Name Role Phone Giovanni Wing MD Primary Care Provider [phone] Encounter Details Date Type Department Care Team (Late st Contact Info) Description 01/19/2023 Telephone Urology at [facility] [place] [id number] Rj Mcdonald MD [facility] [place] [address] Social History Tobacco Use Types Packs/Day Years [...] encounter Miscellaneous Notes * Telephone Encounter - Rj Mcdonald MD - 01/19/2023 2:30 PM EST I contacted the patient to inform him about the pathology which showed GG2 CaP, negative nodes, Mg+. I recommended to schedule a PSA and f/u in 3 months. documented in this encounter Plan of Treatment Not on file documented as of this encounter Results * PSA (Ultrasensitive) (05/03/2023 2:11 PM EDT) Prostate Specific Antigen (Ultrasensitive) <0.01 0.00 - 4.00 ng/mL [facility] Comment: PLEASE NOTE: The [...] Lab Rj Mcdonald MD CHEMISTRY ORDERABL ES [facility] [place] [address] documented in this encounter Visit Diagnoses Diagnosis Malignant neoplasm of prostate documented in this encounter Care Teams Carburetor Repairer Relationship Specialty Start Date End Date Giovanni Wing MD [address] [address] PCP - General Family Medicine 08/29/18 documented as of this encounter
--- OUTSIDE RECORDS SUMMARY | 2024-08-23 17:28 | XMS_ITS | Encounter Summary ---
Author Organization [facility] [place] [address] Care Team Providers Care Sole Molder Name Role Phone Giovanni Wing MD Primary Care Provider [phone] Reason for Referral * Diagnostic Test (Routine) - Closed Specialty Diagnoses / Procedures Referred By Contac t Referred To Contact Radiology Diagnoses Elevated PSA Procedures MRI Pelvis wwo (Prostate) Lilian Rogers APRN [facility] [place] [address] [place] [address] Referral ID Status Reason Start Date Expiration Date V isits Requested Visits Authorized [id number] Closed Specialty Service Requested 08/02/2022 09/30/2022 1 1 Reason for Visit * Diagnostic Test (Routine) - Closed Specialty Diagnoses / Procedures Referred By Contac t Referred To Contact Radiology Diagnoses Elevated PSA Procedures MRI Pelvis wwo (Prostate) Lilian Rogers APRN [facility] [place] [address] [place] [address] Referral ID Status Reason Start Date Expiration Date V isits Requested Visits Authorized [id number] Closed Specialty Service Requested 08/02/2022 09/30/2022 1 1 Encounter Details Date Type Department Care Team (Latest Contact Info) Description 08/11/2022 9:01 AM EDT - 08/11/2022 11:59 PM EDT Hospital Encounter MRI at [facility] [place] [address] Lilian Rogers APRN [facility] [place] [address] Elevated PSA Discharge Disposition: Home Social History Tobacco Use Types Packs/Day Years Used Date Smoking Tobacco: Never Smokeless Tobacco: Never Alcohol Use Standard Drinks/Week Comments Yes 0 (1 standard drink = 0.6 oz pur e alcohol) 2/day liquor most often Sex and Gender Information Value Date Recorded Sex Assigned at Not on file Gender Identity Not on file Sexual Orientation Not on file documented as of this encounter Medications at Time of Discharge Medication Sig Dispensed Refills Start Date End Date FISH OIL-DHA-EPA ORAL Take by mouth daily. [...] Cream Apply topically as needed. 0 06/26/2017 fluticasone propionate (Flonase) 50 mcg/actuation [place], Suspension every 24 hours. 08/14/2022 azithromycin (ZITHROMAX) 500 mg TabletIndications:Couns eling for travel Take 1 tablet by mouth daily. Take once daily for fever with diarrhea. 3 tablet 07/11/2019 08/14/2022 loratadine (CLARITIN) 10 mg Tablet Take 10 mg by mouth daily. 08/14/2022 Ibuprofen 200 mg Capsule Take by mouth as needed. 08/14/2022 FLUoxetine (PROZAC) 20 mg Capsule Take 20 mg by mouth daily. 3 11/20/2017 09/21/2022 UNABLE TO FIND daily as needed. CBD Oil 08/14/2022 documented as of this encounter Plan of Treatment Not on file documented as of this encounter Procedures Procedure Name Priority Date/Time Associated Diagnosis Comments MRI PELVIS WWO (PROSTATE) Routine 08/11/2022 10:55 AM EDT Elevated PSA documented in this encounter Results * MRI Pelvis wwo (Prostate) (08/11/2022 10:55 AM EDT) Anatomical Region Laterality Modality Pelvis Magnetic Resonan ce Impressions 08/11/2022 1:39 PM EDT Lesion 1 TZ+PZ: PI-RADS 4. Clinically significant cancer is likely to be present. T2 location: axial series 12, image 25; sagittal ??series 14, image 17. Segmented in UroNav. PI-RADS v2.1 Assessment Categories PI-RADS 1 -- Very low (clinically significant cancer is highly unlikely to be present) PI-RADS 2 -- Low (clinically significant cancer is unlikely to be present) PI-RADS 3 -- Intermediate (the presence of clinically significant cancer is equivocal) PI-RADS 4 -- High (clinically significant cancer is likely to be present) PI-RADS 5 -- Very high (clinically significant cancer is highly likely to be present) References: Richard S1, Shiela JH1, Devin S1, Miranda C1, Wilcox J1, Faustino M1, Gold S1, Saxena G1, Yana K1, Daron MJ1, Dennis BJ1, Neema PA1, Jessica PL1, Tom B1. ??A Grading System for the Assessment of Risk of Extraprostatic Extension of Prostate Cancer at Multiparametric MRI. Radiology. 2019 Mar;290(3):709-719. doi: 10.1148/radiol.7170392158. Epub 2018Dec 10. Thank you for letting us participate in the care of this patient. ??If you are a health care provider and have any questions regarding this report, please contact the number below. ??For patients who have questions please contact the health client care specialist that requested your imaging first. ? Electronically signed by: Harvey Arriaga MD, [facility] ([phone]), at 08/11/2022 1:39 PM Narrative 08/11/2022 1:39 PM EDT EXAMINATION: MRI PELVIS WWO (PROSTATE) CLINICAL HISTORY: Elevated PSA and family history of prostate cancer. REASON FOR PROSTATE EXAM: HAS PATIENT HAD PREVIOUS BIOPSY?:No, MOST RECENT PSA LEVEL:11.75 SOUTH SCORE: TECHNIQUE: Multiparametric MRI of the prostate prior to and following IV administration of 17 cc of Dotarem contrast. ?? QUALITY: Meets PI-RADS technical criteria. COMPARISON: None FINDINGS: Prostate dimensions: 4.6 x 3.6 x 3.8cm. Estimated prostate volume: 36cc (X x Y x Z x 0.52) PSA density: 0.33 (PSA/prostate volume >0.15 susp, 0.25 highly susp) Peripheral zone: Lesion 1. T2: Linear or wedge-shaped hypointensity or diffuse mild hypointensity with indistinct margin.. PI-RADs: . DWI: ??No abnormality on ADC and high b-value DWI. PI-RADs: . DCE-MRI: (-) No early arterial enhancement.. ? Combined PI-RADs: . Transition and peripheral zones: Lesion 1: Left transition zone in the mid gland with extension into the anterior peripheral zone in the apex. T2: non-circumscribed, homogeneous, moderately hypointense mass, 1.5 x 1 cm axially, 1.5 cm craniocaudally. PI-RADs: 4. DWI: ??Focal markedly hypointense on ADC and markedly hyperintense on high b-value DWI. PI-RADs: 4. DCE-MRI: ??(+) focal early enhancement which corresponds to the suspicious finding on T2WI and/or DWI. ? Combined PI-RADs: 4. Extraprostatic disease: Seminal vesicle involvement:No Lymphadenopathy:No Sphincter involvement:No Bladder involvement:No Osseous metastases: No . MRI-derived Extraprostatic extension risk: Not Other findings: None. Procedure Note Harvey Arriaga MD - 08/11/2022 EXAMINATION: MRI PELVIS WWO (PROSTATE) CLINICAL HISTORY: Elevated PSA and family history of prostate cancer. REASON FOR PROSTATE EXAM: HAS PATIENT HAD PREVIOUS BIOPSY?:No, MOST RECENT PSA LEVEL:11.75 SOUTH SCORE: TECHNIQUE: Multiparametric MRI of the prostate prior to and following IV administration of 17 cc of Dotarem contrast. QUALITY: Meets PI-RADS technical criteria. COMPARISON: None FINDINGS: Prostate dimensions: 4.6 x 3.6 x 3.8cm. Estimated prostate volume: 36cc (X x Y x Z x 0.52) PSA density: 0.33 (PSA/prostate volume >0.15 susp, 0.25 highly susp) Peripheral zone: Lesion 1. T2: Linear or wedge-shaped hypointensity or diffuse mild hypointensitywith indistinct margin.. PI-RADs: . DWI: No abnormality on ADC and high b-value DWI. PI-RADs: . DCE-MRI: (-) No early arterial enhancement.. Combined PI-RADs: . Transition and peripheral zones: Lesion 1: Left transition zone in the mid gland with extension into theanterior peripheral zone in the apex. T2: non-circumscribed, homogeneous, moderately hypointense mass, 1.5 x 1cm axially, 1.5 cm craniocaudally. PI-RADs: 4. DWI: Focal markedly hypointense on ADC and markedly hyperintense onhigh b-value DWI. PI-RADs: 4. DCE-MRI: (+) focal early enhancement which corresponds to thesuspicious finding on T2WI and/or DWI. Combined PI-RADs: 4. Extraprostatic disease: Seminal vesicle involvement:No Lymphadenopathy:No Sphincter involvement:No Bladder involvement:No Osseous metastases: No . MRI-derived Extraprostatic extension risk: Not Other findings: None. IMPRESSION Lesion 1 TZ+PZ: PI-RADS 4. Clinically significant cancer is likely to be present. T2 location: axial series 12, image 25; sagittal series 14,image 17. Segmented in UroNav. PI-RADS v2.1 Assessment Categories PI-RADS 1 -- Very low (clinically significant cancer is highly unlikely ernie present) PI-RADS 2 -- Low (clinically significant cancer is unlikely to bepresent) PI-RADS 3 -- Intermediate (the presence of clinically significant canceris equivocal) PI-RADS 4 -- High (clinically significant cancer is likely to bepresent) PI-RADS 5 -- Very high (clinically significant cancer is highly likely ernie present) References: Mehralivand S1, Shiela JH1, Beltran S1, Miranda C1, Wilcox J1, Czarniecki M1,Gold S1, Saxena G1, Rayn K1, Neri MJ1, Wood BJ1, Bethea PA1, Jessica PL1, Turkelodia B1.A Grading System for the Assessment of Risk of Extraprostatic Extension of Prostate Cancer at Multiparametric MRI. Radiology. 2019Mar;290(3):709-719. doi: 10.1148/radiol.9746523155. Epub 2018Dec 10. Thank you for letting us participate in the care of this patient. If youare a health care provider and have any questions regarding this report,please contact the number below. For patients who have questions please contactthe health client care specialist that requested your imaging first. Lilian Rogers APRN [facility] MRI ORDERABLES documented in this encounter Visit Diagnoses Diagnosis Elevated PSA Elevated prostate specific antigen (PSA) documented in this encounter Administered Medications Inactive Administered Medications - up to 3 most recent administrations Medication Order MAR Action Action Date Dose Rate Site gadoterate meglumine (Dotarem) (0.5 mMol/mL) injection solution 0-100 mL 0-100 mL, Intravenous, ONCE PRN, 1 dose, Starting on Sun08/11/22 at 1016, Until Sun08/11/22 at 1118, Per Protocol, Radiology Contrast, Routine Given 08/11/2022 11:18 AM EDT 17 mLs documented in this encounter Care Teams Sole Molder Relationship Specialty Start Date End Date Giovanni Wing MD [address] [place] [address] PCP - General Family Medicine 08/29/18 documented as of this encounter
--- OUTSIDE RECORDS SUMMARY | 2024-08-23 17:28 | XMS_ITS | Encounter Summary ---
Author Organization [facility] Address [facility] [place] [address] Care Team Providers Care Wire Stretcher Name Role Phone Giovanni Wing MD Primary Care Provider [phone] Encounter Details Date Type Department Care Team (Late st Contact Info) Description 11/13/2018 Orders [place] [address] Pascual Pearson MD [facility] [place] [address] Hallux rigidus of right foot Social History Tobacco Use Types Packs/Day Years [...] documented as of this encounter Results * XR Toe(s) Min 2 view Right (Generic) (11/14/2018 12:28 PM EST) Anatomical Region Laterality Modality Right Digital Radiogra phy Impressions 11/14/2018 1:31 PM EST Status post placement of a radiolucent implant in the head of the first metatarsal. No change in radiographic appearance since 10/31/2018. Narrative 11/14/2018 1:31 PM EST EXAMINATION: XR TOE(S) MIN 2 VIEW RIGHT (GENERIC) CLINICAL HISTORY: s/p hallux rigidus correction TECHNIQUE: 3 views RIGHT toe(s). AP view of the right foot, lateral view of the mid and forefoot. Oblique view of the right great toe. COMPARISON: Right foot radiograph 11/24/2017 and 03/13/2017. Bilateral foot radiographs 11/04/2015. Fluoroscopic images dated 10/31/2018. FINDINGS: Interval post surgical changes after placement of a radiolucent implant in the head of the first metatarsal. Radiographic appearance of the implant is similar compared to fluoroscopic images from 10/31/2018. There remains small marginal osteophytes at the first metatarsophalangeal joint. There are small marginal osteophytes at the first tarsometatarsal joint. Procedure Note Pat Verduzco MD - 11/14/2018 EXAMINATION: XR TOE(S) MIN 2 VIEW RIGHT (GENERIC) CLINICAL HISTORY: s/p hallux rigidus correction TECHNIQUE: 3 views RIGHT toe(s). AP view of the right foot, lateral view of the midand forefoot. Oblique view of the right great toe. COMPARISON: Right foot radiograph 11/24/2017 and 03/13/2017. Bilateral foot radiographs 11/04/2015. Fluoroscopic images dated 10/31/2018. FINDINGS: Interval post surgical changes after placement of a radiolucent implant inthe head of the first metatarsal. Radiographic appearance of the implant issimilar compared to fluoroscopic images from 10/31/2018. There remains smallmarginal osteophytes at the first metatarsophalangeal joint. There are smallmarginal osteophytes at the first tarsometatarsal joint. IMPRESSION Status post placement of a radiolucent implant in the head of the first metatarsal. No change in radiographic appearance since 10/31/2018. Pascual Pearson MD IMG DX ORDERABLES documented in this encounter Visit Diagnoses Diagnosis Hallux rigidus of right foot Hallux rigidus Hallux rigidus of right foot Hallux rigidus documented in this encounter Care Teams Wire Stretcher Relationship Specialty Start Date End Date Giovanni Wing MD [address] [place] [id number] PCP - General Family Medicine 08/29/18 documented as of this encounter
--- OUTSIDE RECORDS SUMMARY | 2024-08-23 17:28 | XMS_ITS | Encounter Summary ---
Author Organization [facility] [place] [address] Care Team Providers Care Cue Selector Name Role Phone Giovanni Wing MD Primary Care Provider [phone] Reason for Referral * Consultation (Routine) - Closed Specialty Diagnoses / Procedures Referred By Contazeem t Referred To Contact Radiation Oncology Diagnoses Malignant neoplasm of prostate Rj Mcdonald MD [facility] [place] [address] [facility] [place] [address] Referral ID Status Reason Start Date Expiration Date V isits Requested Visits Authorized [id number] Closed Consult, Test & Treat 10/06/2022 10/06/2023 1 1 Encounter Details Date Type Department Care Team (Late st Contact Info) Description 10/06/2022 1:00 PM EST [place] [address] Rj Mcdonald MD [facility] [place] [address] Malignant neoplasm of prostate Social History Tobacco Use Types Packs/Day Years Used Date Smoking Tobacco: Never Smokeless Tobacco: Never Tobacco Cessation:Counseling Given: Not Answered Alcohol Use Standard Drinks/Week Comments Yes 0 (1 standard drink = 0.6 oz pur e alcohol) 2/day liquor most often Sex and Gender Information Value Date Recorded Sex Assigned at Not on file Gender Identity Not on file Sexual Orientation Not on file documented as of this encounter Last Filed Vital Signs Vital Sign Reading Time Taken Comments Blood Pressure 120/69 10/06/2022 1:09 PM EST Pulse 78 10/06/2022 1:09 PM EST Temperature - - Respiratory Rate - - Oxygen Saturation - - Inhaled Oxygen Concentration - - Weight - - Height - - Body Mass Index - - documented in this encounter Progress Notes * Rj Mcdonald MD - 10/06/2022 1:00 PM EST UROLOGY NEW PATIENT VISIT CC: Prostate Cancer HPI: 57 yo male with a recently diagnosed GG1 prostate cancer, PSA >10. He underwent an uneventful prostate biopsy for a P5 lesion. He is otherwise healthy and denies any bothersome LUTS or hematuria. His father had prostate cancer and underwent surgery. PSA History review: 06/30/2022- 12.3 %free 7 07/11/2022- 11.75 ? Surgical Pathology DIAGNOSIS A - Prostate, Right lateral base, biopsy: ? - Prostatic adenocarcinoma, Grade Group 1 (Penn score 3+3=6), involving 10% ?of a single core. B - Prostate, Right lateral mid, biopsy: ? - Benign prostatic tissue. C - Prostate, Right lateral apex, biopsy: ? - Benign prostatic tissue. D - Prostate, Right base, biopsy: ? - Benign prostatic tissue. E - Prostate, Right mid, biopsy: ? - Prostatic adenocarcinoma, Grade Group 1 (Penn score 3+3=6), involving 10% ?of the single [...] ? - Prostatic adenocarcinoma, Grade Group 1 (Penn score 3+3=6), involving 60% ?of a single core. K - Prostate, Left mid, biopsy: ? - Benign prostatic tissue. L - Prostate, Left apex, biopsy: ? - Prostatic adenocarcinoma, Grade Group 1 (Penn score 3+3=6), involving 50% ?of a single core. M - Prostate, fusion directed lesion, biopsy: ? - Prostatic adenocarcinoma, Grade Group 1 (Angie score 3+3=6), involving 2 ?out of 4 cores (5% and 5%, respectively), comprising less than 5% of overall ?submitted tissue. Electronically signed by: ?MD Jeff, Hima Potter Verified: ??09/25/2022 17:36 ??Pathologist Performed at:?-[facility] Dept. of Pathology, [place], [place] History reviewed. No pertinent past medical history. Past Surgical History: Procedure Laterality Date ??? LUMBAR DISC SURGERY L5-S1 ??? PRO COLONOSCOPY, BIOPSY N/A 08/19/2018 COLONOSCOPY FLEXIBLE, WITH BX (WRVU 3.66) performed by Cirilo Pathak MD at [facility] ENDOSCOPY ??? PRO HALLUX RIGIDUS W/CHEILECTOMY 1ST MP JT W/IMPLT Right 10/31/2018 CORRECTION HALLUX RIGIDUS, W IMPLANT (WRVU 8.01) performed by Pascual Pearson MD at [facility] MAIN OR ??? US GUIDED BIOPSY PROSTATE WITH URONAV FUSION 09/21/2022 US Guided Biopsy Prostate with Uronav Fusion 09/21/2022 [facility] RAD ULTRASOUND Patient Active Problem List Diagnosis ??? Rectal hemorrhage ??? Elevated PSA ??? [...] joint pain ??? Mechanical low back pain Social History Socioeconomic History ??? Marital status: Spouse name: None ??? Number of children: None ??? Years of education: None ??? Highest education level: None Occupational History ??? 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 Smoking status: Never ??? Smokeless tobacco: Never Vaping Use ??? Vaping Use: Never used Substance and Sexual Activity ??? Alcohol use: Yes Comment: 2/day liquor most often ??? Drug use: No Frequency: 7.0 times per week Comment: CBD oil as needed for pain, daily instead of advil ??? Sexual activity: None Other Topics Concern ??? None Social History Narrative ??? None Social Determinants of Health Financial Resource Strain: Not on file Food Insecurity: Not on file Transportation Needs: Not on file Physical Activity: Not on file Housing Stability: Not on file Family History Problem Relation Age of Onset ??? Seizure Disorder Mother ??? Parkinsonism Father ??? Diabetes Neg Hx ROS: General Health: GENERAL: Denies fevers, sweats, chills, anorexia, denies weight changes. MONITORING AND EVALUATION ADVISOR: Denies loss of consciousness, denies balance difficulty, denies pins/needle sensations. HEENT: Denies headaches and vision changes. RESP: Denies cough or breathing difficulties. CVS: Denies chest pain and JETER. No claudication. GI: Denies nausea/vomiting/diarrhea/constipation. Normal appetite and bowels. : see hpi MUSCULOSKELETAL: Denies joint or muscle aches. Denies back pain. SKIN: Denies rashes. HEME: Denies bleeding tendencies, bruisability. EXAMINATION: Patient Vitals for the past 24 hrs: Pulse BP 10/06/22 1309 78 120/69 GENERAL: Well appearing male in NAD. Healthy appearance. HEENT: Atraumatic, normocephalic. Anicteric sclera. MMM. NECK: Supple with no significant lymphadenopathy. RESPIRATORY: Unlabored respirations with no audible wheezing. CARDIAC: Regular rhythm with no audible MGR. ABDOMEN: Benign without masses. No rebound or guarding. BACK: No CVA tenderness GENITALIA: Scrotum - Color and texture normal; no masses. Testicles and epididymides - No tenderness or masses. Penis - Circumcised with orthotopic meatus; no masses or surface lesions. NEUROLOGIC: Alert and oriented x 3. EXTREMITIES: Warm and well perfused with no pitting edema. IMAGING: EXAMINATION: MRI PELVIS WWO (PROSTATE) 08/11/22 ?? CLINICAL HISTORY: Elevated PSA and family history of prostate cancer. ? REASON FOR PROSTATE EXAM: HAS PATIENT HAD PREVIOUS BIOPSY?:No, MOST RECENT PSA LEVEL:11.75 ANGIE SCORE: ?? TECHNIQUE: Multiparametric MRI of the prostate prior to and following IV administration of 17 cc of Dotarem contrast. ?? QUALITY: Meets PI-RADS technical criteria. ?? COMPARISON: None ?? FINDINGS: Prostate dimensions: 4.6 [...] 25; sagittal series 14, image 17. ?? ASSESSMENT/PLAN: We discussed his recent diagnosis of prostate cancer and reviewed treatment options in detail. Active surveillance, surgery, and radiotherapy were presented and discussed. Regarding active surveillance, we discussed that his young age and moderate volume disease and a PSA of >10 made him a suboptimal candidate, however this option would be acceptable to start with understanding the need for repeat PSA/MRI and prostate biopsy. Regarding surgery, we discussed open vs minimally invasive approaches, specifically robotic assisted laparoscopic prostatectomy. We reviewed the rationale for roboticsurgery, in particular decrease risk of blood loss and potentially expedited recovery. We reviewed p ossible complications or side effects of surgery including bleeding, infection, damage to local structures including rectum, ureter, bladder, bowel, nerves and blood vessels, urinary incontinence, erectile dysfunction/impotence, urinary leak, lymph leak, bladder neck contracture, recurrence, need for additional treatment, anesthesia complications, blood clot, hernia, etc. We reviewed the details of perioperative care and expectations postoperatively. He would have pelvic lymphadenectomy. He would likely have bilateral NS. Regarding radiation treatment, we discussed that this is a comparable treatment option to surgery in terms of cure rate, however with a different side effect profile. Details of radiation were reviewed, specifically external beam therapy and brachytherapy. Logistics and possible side effects were reviewed. We discussed the option of a consultation with radiation oncology which he opted for. documented in this encounter Plan of Treatment Scheduled Referrals Name Type Priority Associated Diagnoses Orde r Schedule Referral to Radiation Oncology Outpatient Referral Routine Malignant neoplasm of prostate Ordered: 10/06/2022 documented as of this encounter Visit Diagnoses Diagnosis Malignant neoplasm of prostate documented in this encounter Care Teams Cue Selector Relationship Specialty Start Date End Date Giovanni Wing MD [address] [place] [address] PCP - General Family Medicine 08/29/18 documented as of this encounter
--- OUTSIDE RECORDS SUMMARY | 2024-08-23 17:28 | XMS_ITS | Encounter Summary ---
Author Organization [facility] Address [facility] [place] [address] Care Team Providers Care Director Auto Name Role Phone Giovanni Wing MD Primary Care Provider [phone] Encounter Details Date Type Department Care Team (Late st Contact Info) Description 10/24/2022 Orders Only Urology at [facility] [id number] Rj Mcdonald MD [facility] [place] [address] Malignant neoplasm of prostate Social History Tobacco [...] documented as of this encounter Results * Urinalysis with reflex Culture (12/14/2022 11:11 AM EST) Glucose, Urine Dipstick Negative Negative mg/dL [facility] Protein, Urine Dipstick Negative Negative mg/dL [facility] Bilirubin, Urine Dipstick Negative Negative mg/dL [facility] Comment: Clinical correlation required for positive Urine Bilirubin results as false positive may occur with some drugs and drug related products. If a false positive is suspected a serum total bilirubin should be considered if clinically indicated. Urobilinogen, Urine Dipstick Normal Normal mg/dL [facility] pH, Urn (dipstick) 7.0 5.0 - 8.0 [facility] Blood, Urine Dipstick Negative Negative mg/dL [facility] Ketone, Urine Dipstick Negative Negative mg/dL [facility] Nitrite, Urine Dipstick Negative Negative [facility] Leukocytes, Urine Dipstick Negative Negative mcL [facility] Appearance, Urine Dipstick Clear Clear [facility] Specific Iselin Urine Automated 1.020 1.005 - 1.030 [facility] Color, Urine Dipstick Yellow Yellow [facility] Reflex to Culture No [facility] Clean Catch Urine 12/14/2022 11:11 AM EST 12/14/2022 11:17 AM EST Narrative Resulting Agency Comment Spec In Lab Rj Mcdonald MD URINE ORDERABLES Performing Organization Address City/State/[facility] Co de Phone Number [facility] [place] [address] * XR Chest PA & Lateral (Generic) [...] who have questions please contact the health overnight caregiver that requested your imaging first. ? Narrative [...] patients who have questions please contactthe health overnight caregiver that requested your imaging first. Rj Mcdonald MD [facility] [place] ORDER[place]LES * (ABNORMAL) Basic Metabolic Panel (non-fasting) (12/14/2022 10:04 AM EST) Glucose 85 65 - 199 mg/dL [facility] Comment:Diabetes: >=200 mg/d L plus symptoms Blood Urea Nitrogen 20 10 - 20 mg/dL [facility] Creatinine 0.97 0.80 - 1.50 mg/dL [facility] Sodium 136 135 - 145 mmol/L [facility] Potassium 4.6 3.5 - 5.0 mmol/L [facility] Comment: Please note: ??Patients with WBC >100,000 may have falsely elevated Potassium levels. ??For accurate Potassium quantification in these patients send serum separator tube (gold top) for subsequent determinations. ??Contact the Clinical Chemistry Laboratory if there are any questions. Chloride 102 98 - 107 mmol/L [facility] Carbon Dioxide 27 22 - 31 mmol/L [facility] Anion Gap 7 5 - 15 mmol/L [facility] Calcium 11.1(H) 8.5 - 10.5 mg/dL [facility] Est Glomerular Filtration Rate 92 >=60 mL/min/1. 73 m?? [facility] Comment: This patient's estimated [...] Lab Rj Mcdonald MD CHEMISTRY ORDERABL ES [facility] [place] [address] documented in this encounter Visit Diagnoses Diagnosis Malignant neoplasm of prostate Malignant neoplasm of prostate documented in this encounter Care Teams Director Auto Relationship Specialty Start Date End Date Giovanni Wing MD [address] [place] [address] PCP - General Family Medicine 08/29/18 documented as of this encounter
--- OUTSIDE RECORDS SUMMARY | 2024-08-23 17:28 | XMS_ITS | Encounter Summary ---
Author Organization [facility] [address] Care Team Providers Care Morning Nanny Name Role Phone Giovanni Wing MD Primary Care Provider [phone] Reason for Visit * Auth/Cert Specialty Diagnoses / Procedures Referred By Contac t Referred To Contact Diagnoses Hallux rigidus, right foot Right hallux rigidus Procedures PRO HALLUX RIGIDUS W/CHEILECTOMY 1ST MP JT W/IMPLT CORRECTION HALLUX RIGIDUS, W IMPLANT (WRVU 8.01) Referral ID Status Reason Start Date Expiration Date Visits Re quested Visits Authorized [id number] 1 1 Encounter Details Date Type Department Care Team (Late st Contact Info) Description 10/31/2018 11:00 AM EST - 10/31/2018 12:28 PM EST [place] [address] Pascual Vásquez MD [facility] [place] [address] CORRECTION HALLUX RIGIDUS, W IMPLANT (WRVU 8.01) Social History Tobacco Use Types Packs/Day Years [...] Sign Reading Time Taken Comments Blood Pressure 128/76 10/31/2018 11:15 AM EST Pulse 68 10/31/2018 11:20 AM EST Temperature 36.2 ??C (97.2 ??F) 10/31/2018 9:26 AM ES T Respiratory Rate 13 10/31/2018 11:20 AM EST Oxygen Saturation 99% 10/31/2018 11:20 AM EST Inhaled Oxygen Concentration - - Weight - - Height - - Body Mass Index - - documented in this encounter Discharge Instructions * Discharge Instructions* Bradley Lsat RN - 10/31/2018 1:09 PM EST POST ANESTHESIA INSTRUCTIONS Go home, rest, use caution on stairs. Change positions slowly. Do not smoke if you are alone. Diet light to regular as tolerated today. If nausea occurs start with clear liquids and progress slowly. No driving, operating machinery, alcoholic beverages and no important decisions for 24 hours. Monitor IV site for signs and symptoms of infection: increasing redness, swelling, foul drainage, if occurs contact M.D. Patients who have had endotrachial tubes (this tube, used by anesthesia department, is passed down your throat after you are asleep, to ensure safe air passage during your operation). A sore throat is normal due to the tube. Cold liquids or soothing lozenges will help ease the discomfort. The generalized muscle aches are due to the medication given to you just before the tube is inserted. As the medication wears off, you may develop muscle soreness, which usually goes away in 12-24 hours. SAME DAY PROGRAM POST-OPERATIVE INSTRUCTIONS NERVE BLOCK PATIENTS What to expect after a nerve block Nerve blocks affect many types of nerves. The affected nerves control movement, pain, and normal sensation. This causes feelings such as ? Weakness ? Numbness ? Tingling ? Heaviness ? A feeling that your arm or leg has ???fallen asleep?? A nerve block can last for 24-48 hours, depending on the medications used. Usually the weakness wears off first, and then you will feel a numb/tingly sensation. Finally, the pain may come back. This can happen in any order. If you had a shoulder block, you may have other symptoms such as: ??? Mild shortness of breath ??? A hoarse voice ??? Blurry vision ??? Unequal pupils ??? Drooping of your face on the same side as the nerve block These are common and expected side effects of this type of nerve block. Symptoms usually go away within 12 hours. If these symptoms do not go away, please call the Anesthesiology Department at . If you have severe or prolonged shortness of breath, please go to the nearest emergency room. If you continue to feel the effects of the nerve block for longer than 48 hours, please call the Anesthesiology Department at . PAIN MEDICATION If needed, your surgeon will give you a prescription for pain medication. Start taking this medication before the nerve block wears off. Nerve blocks sometimes wear off during the night. It is a goodidea to take your pain medicine as prescribed before going to sleep so you won???t wake up with pain. The idea is to have pain medication in your body before the nerve block wears off. To help prevent nausea, eat something before taking the pain medication. Once a nerve block starts to wear off, it is usually completely gone within 60 minutes. It is important to have pain medicine in your system before the block wears off completely. Helpful tips to protect the part of your body that is numb After a nerve block, you cannot feel pain, pressure, or extremes in temperature. Because your arm or leg is numb, it is more at risk for injury. For example, you could burn your arm or leg without knowing it. Here are some hints to help protect your limb while it is numb. ??? While you are awake, try to change positions of your arm or leg often. This will help you avoidputting too much pressure on the limb for long periods of time. ??? While sleeping, pad the blocked limb with pillows to avoid placing too much pressure on the limb. ??? If you have a cast or a tight dressing, check the color of your fingers/toes every couple of hours. Call your doctor if any look discolored. ??? If you had a shoulder, arm or hand nerve block, you may go home with a sling. The sling will help to keep your arm in the ideal position. Wear the sling at all times until feelings returns. If you do not have a sling, watch the position of the blocked arm to make sure it is in a safe location. ??? Ask your family or support people to help with the above hints. Questions? Please call the Anesthesiology Department at with concerns or questions. After hours, call the hospital landfill gas collection operator at and ask for the anesthesiologist programmer operator numerical control. SAME DAY PROGRAM POST-OPERATIVE INSTRUCTIONS NERVE BLOCK PATIENTS What to expect after a nerve block Nerve blocks affect many types of nerves. The affected nerves control movement, pain, and normal sensation. This causes feelings such as ? Weakness ? Numbness ? Tingling ? Heaviness ? A feeling that your arm or leg has ???fallen asleep?? A nerve block can last for 24-48 hours, depending on the medications used. Usually the weakness wears off first, and then you will feel a numb/tingly sensation. Finally, the pain may come back. This can happen in any order. If you had a shoulder block, you may have other symptoms such as: ??? Mild shortness of breath ??? A hoarse voice ??? Blurry vision ??? Unequal pupils ??? Drooping of your face on the same side as the nerve block These are common and expected side effects of this type of nerve block. Symptoms usually go away within 12 hours. If these symptoms do not go away, please call the Anesthesiology Department at . If you have severe or prolonged shortness of breath, please go to the nearest emergency room. If you continue to feel the effects of the nerve block for longer than 48 hours, please call the Anesthesiology Department at . PAIN MEDICATION If needed, your surgeon will give you a prescription for pain medication. Start taking this medication before the nerve block wears off. Nerve blocks sometimes wear off during the night. It is a goodidea to take your pain medicine as prescribed before going to sleep so you won???t wake up with pain. The idea is to have pain medication in your body before the nerve block wears off. To help prevent nausea, eat something before taking the pain medication. Once a nerve block starts to wear off, it is usually completely gone within 60 minutes. It is important to have pain medicine in your system before the block wears off completely. Helpful tips to protect the part of your body that is numb After a nerve block, you cannot feel pain, pressure, or extremes in temperature. Because your arm or leg is numb, it is more at risk for injury. For example, you could burn your arm or leg without knowing it. Here are some hints to help protect your limb while it is numb. ??? While you are awake, try to change positions of your arm or leg often. This will help you avoidputting too much pressure on the limb for long periods of time. ??? While sleeping, pad the blocked limb with pillows to avoid placing too much pressure on the limb. ??? If you have a cast or a tight dressing, check the color of your fingers/toes every couple of hours. Call your doctor if any look discolored. ??? If you had a shoulder, arm or hand nerve block, you may go home with a sling. The sling will help to keep your arm in the ideal position. Wear the sling at all times until feelings returns. If you do not have a sling, watch the position of the blocked arm to make sure it is in a safe location. ??? Ask your family or support people to help with the above hints. Questions? Please call the Anesthesiology Department at with concerns or questions. After hours, call the hospital landfill gas collection operator at and ask for the anesthesiologist programmer operator numerical control. * Patient Instructions* Mohinder Ann MD - 10/31/2018 12:41 PM EST Activity: You can weight bear as tolerated through your RIGHT heel only. Use the forefoot offloading shoe provided to you after surgery when walking. This shoe will ensure that you are bearing weightonly through your heel. Anticoagulation: Aspirin 81 mg twice daily for 2 weeks Diet: Resume usual diet but increase your intake of fluids and fiber while you are on narcotic painmeds to prevent constipation Driving: No not until you are cleared to do so by your orthopedic surgeon. Ideally you should not drive while on narcotic pain meds as these can affect judgement and reaction time. Contact you surgeon with any questions/concerns. Medications: 1. The pain medication you are on can cause constipation so increase your intake of fluids and fiber while you are on them. You can take the stool softener, sennakot, that was ordered to facilitate abowel movement. If needed an qmvb-das-fnzvikc medication, miralax can also be used to help. 2. If you need a renewal on your narcotic pain medication, you need to give the Orthopedic clinic enough time to process your request. This can take up to three days, so plan accordingly. 3. Continue to take the tylenol around the clock for the next 10 days. It can be effective in controlling pain along with your other medications. Shower/Bath: Keep your postop soft dressing on until seen back in follow-up. Prevent it from getting wet - so cover it with a bag taped at the top when showering. It might be easier to sponge bath until you are seen in followup. Wound care: Keep your dressings on until seen back at your followup appointment. Keep it clean and dry. Keep your foot elevated as much as possible to help decrease swelling and control your pain. Call your doctor (#[phone]) if: 1. You have a fever > 101.5 or experience chills ??? Increased discharge from the incision ??? Any redness or swelling around the incision ??? Increased pain or change in the pain that is not controlled by your pain meds FOLLOWUP APPOINTMENTS: 1. You will have followup appointments at [facility] [place] as indicated in Future Appointments and Orders. Future Appointments Date Time Provider Department Center 11/15/2018 1:30 PM Luz Chávez PA [facility] [address] [place] [address] CLIN documented in this encounter Medications at Time of Discharge Medication Sig Dispensed Refills Start Date End Date cholecalciferol, Vitamin D3, 1,000 unit Capsule Take 1,000 Units by mouth daily. VENTOLIN HFA 90 mcg/actuation HFA Aerosol Inhaler Inhale 2 puffs into the lungs as needed. 3 07/20/2017 triamcinolone (KENALOG) 0.1 % Cream Apply topically as needed. 0 06/26/2017 aspirin 81 mg Tablet, Chewable Take 81 mg by mouth 2 times daily for 14 days. 28 tablet 10/31/2018 11/14/2018 oxyCODONE (ROXICODONE) 5 mg Tablet Take 1 tablet by mouth every 6 hours as needed for Pain. Do not drive while taking this medication. 25 tablet 10/31/2018 12/10/2018 loratadine (CLARITIN) 10 mg Tablet Take 10 mg by mouth daily. 08/14/2022 Ibuprofen 200 mg Capsule Take by mouth as needed. 08/14/2022 FLUoxetine (PROZAC) 20 mg Capsule Take 20 mg by mouth daily. 3 11/20/2017 09/21/2022 UNABLE TO FIND daily as needed. CBD Oil 08/14/2022 documented as of this encounter H&P Notes * Pascual Vásquez MD - 10/31/2018 11:05 AM EST 24-Hour Pre-Operative H&P Update Devan Chen 1965 [id number] Patient seen in pre-op holding area today. There are no clinically significant changes to the patient's sangeeta since the original H&P. Patient denies any recent fevers or chills. The patient is ready to proceed with the planned surgical procedure today. Surgical consent form reviewed. Operative extremity marked. All questions sought and answered. Mohinder Ann MD Orthopaedic Surgery I spoke with and examined the patient on the date of the primary author's note, prior to proceedingto the operating room. I agree with the primary author's assessment and plan. The patient and I discussed in detail the risks and benefits of surgery. We discussed the risks of bleeding, infection, damage to nerves, vessels, tendons, and ligaments. We discussed the risks of fracture, hardware failure, wound breakdown, need for reoperation, pain, stiffness, and non-relief or exacerbation of symptoms. We discussed the risks of blood clots, pulmonary embolism, stroke, heart attack, and other cardiopulmonary complications up to and including the risk of . We discussed the acute recovery fromsurgery, the 12 month timeframe for full recovery, and the period of limite weight bearing for an anticipated 2+ weeks that would be required postoperatively. Specific to this procedure, we discussedthe risk of need for future fusion, uncertainty about the adjunct faculty for medical terminology longevity of the Cartiva implant. We reviewed the nonoperative options for treatment. The patient voiced understanding of all we discussed and expressed a desire to move forward with surgery despite the risks of the procedure and the alternatives. He signed consent today. Pascual Vásquez MD MS Orthopaedic Surgery Attending * Mohinder Ann MD - 10/31/2018 11:04 AM EST Patient Name: Devan Chen Patient Age: 53 y.o. Birthdate: 1965 Admit date: 10/31/2018 Attending Physician: Pascual Vásquez MD Please see complete H&P from PCP. Mohinder Ann MD Orthopaedic Surgery documented in this encounter Miscellaneous Notes * Op Note - Pascual Vásquez MD - 10/31/2018 12:20 PM EST [facility] [place] Patient Name: Devan Chen : [id number] MR#: [id number] Case Date: 10/31/2018 Surgeon: Surgeon(s) and Role: * Pascual Vásquez MD - Primary * Mohinder Ann MD - Resident-Surgeon Chief Preoperative diagnosis: Right hallux rigidus Postoperative diagnosis: Right hallux rigidus Procedure(s) (LRB): CORRECTION HALLUX RIGIDUS, W CARTIVA IMPLANT (WRVU 8.01) (Right) Anesthesia: General Estimated Blood Loss: 5 cc Specimens removed during surgery: None Drains: Surgical Closure: Primary Closure - skin incision is completely closed without any wires, shreya, drains or other devices Disposition: awakened from anesthesia, extubated and taken to the recovery room in a stable condition, having suffered no apparent untoward event. 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 Her thorough discussion of the risks and benefits, he elected to move forward with interposition arthroplasty of his right first MTP joint with a Cartiva implant. Procedure Description: After being identified, marked, and having preoperative consent confirmed inthe preoperative holding area, the patient proceeded to the operative theater. A preoperative timeout was held the patient received preoperative antibiotics. LMA anesthesia was induced. A regional nerve block was administered prior. LMA anesthesia was induced he was placed supine on the operating room table with all bony prominences well-padded. Right calf tourniquet was placed well below the level of the fibular head. His right leg was prepped and draped in a sterile fashion. His leg was elevated, exsanguinated, and the tourniquet inflated to 250 mmHg where it stayed for 35 minutes. We made an incision centered over the dorsal aspect of the first MTP joint. Dissection was carried down until the extensor hallucis longus tendon was identified. The sheath was split and the tendon was taken laterally. A 15 blade was used to come through the dorsal capsule. We raised flaps mediallyand laterally off of the metatarsal head and the proximal phalangeal base. We took down overhangingdorsal osteophytes. We examined the joint. Greater than 50% of the medial aspect of the metatarsal head was bare of articular cartilage. There are areas of exposed subchondral bone on the base of thephalanx as well. We released the capsule of the first MTP joint until we could expose the first meta tarsal head in its entirety. We then placed a wire in the center center position of the metatarsal head, checking our position on C-arm fluoroscopy. We used the reamer to gently ream over the wire. We copiously irrigated the joint. We checked the depth of the reaming and found it to be appropriate,with approximately a millimeter to a millimeter and a half of prominence on the lateral aspect of the joint where there was good articular cartilage, and 2-3 mm of prominence on the medial aspect of the joint. After copiously irrigating we loaded the Cartiva implant into the introducer. We placed the introducer within the cavity created and deployed the implants. It sat in appropriate position wit h good bony coverage surrounding it. We checked range of motion and found no dorsal impingement. X-rays show good placement of the implant and good druze of the joint space. We copiously irrigated. We closed the dorsal capsule with 3-0 Vicryls. We closed the deep dermal tissue with 3-0 Vicryls. We closed the skin with 3 oh nylons. A dry sterile dressing and a forefoot off boat loader helper shoe were placed. The patient's anesthesia was reversed and he was discharged to the PACU in stable condition. Implant Name Type Inv. Item Serial No. Survey Workers Supervisor Lot No. LRB No. Used Action CARIVA SYNTHETIC CATILAGE IMPLANT 10MM NA [id number] Right 1 Implanted Infection Bundle used? N/A Attestation: Case Date: 10/31/2018 I was present and I participated during the entire procedure (does not need to include opening and closing). PASCUAL VÁSQUEZ MD 10/31/2018 documented in this encounter Plan of Treatment Not on file documented as of this encounter Procedures Procedure Name Priority Date/Time Associated Diagnosis Comments XR FLUORO NO RAD <1HR - OR USE Routine 10/31/2018 12:26 PM EST CORRECTION HALLUX RIGIDUS, W IMPLANT (WRVU 8.01) 10/31/2018 11:21 AM EST Hallux rigidus of right foot IMPLANTABLE DEVICES SCAN 10/31/2018 12:00 AM EST documented in this encounter Results * XR Fluoro No Rad <1Hr - OR Use (10/31/2018 12:26 PM EST) Narrative [facility] - 10/31/2018 12:26 PM EST This order does not need a radiologist interpretation. ?? Pascual Vásquez MD IMG FLUORO ORDERABLE S [place], [place] * SCAN DOC: IMPLANTABLE DEVICES (10/31/2018 12:00 AM EST) Narrative 10/31/2018 12:00 AM EST Ordered by an unspecified provider. Scanning Provider MEDIA MGR SCAN EXT O RDR/RSLT documented in this encounter Visit Diagnoses Diagnosis Hallux rigidus of right foot Hallux rigidus documented in this encounter Administered Medications Inactive Administered Medications - up to 3 most recent administrations Medication Order MAR Action Action Date Dose Rate Site acetaminophen (TYLENOL) tablet 1,000 mg 1,000 mg, Oral, ONCE, 1 dose, On Kathrine 10/31/18 at 0945, Maximum dose of acetaminophen is 4000 mg from all sources in 24 hours., Day of Surgery (Day of Procedure), Routine Given 10/31/2018 9:50 AM EST 1,000 mg fentaNYL (PF) 50 mcg/mL injection 1 dose, Starting on Kathrine 10/31/18 at 1023, Until Kathrine 10/31/18 at 1100, MALLORY ANDRES.: cabinet override Given 10/31/2018 11:00 AM EST 25 mcg Given 10/31/2018 10:55 AM EST 50 mcg gabapentin (NEURONTIN) capsule 300 mg 300 mg, Oral, ONCE, 1 dose, On Kathrine 10/31/18 at 0945, Day of Surgery (Day of Procedure), Routine Given 10/31/2018 9:50 AM EST 300 mg lactated Ringers infusion 1,000 mL 1,000 mL, at 100 mL/hr, Intravenous, CONTINUOUS, Starting on Kathrine 10/31/18 at 0945, Until Kathrine 10/31/18 at 1359, Day of Surgery (Day of Procedure) New Bag 10/31/2018 9:45 AM EST 1,000 mLs 100 mL/hr lactated Ringers infusion 1,000 mL 1,000 mL, at 100 mL/hr, Intravenous, CONTINUOUS, Starting on Kathrine 10/31/18 at 1000, Until Kathrine 10/31/18 at 1359, Day of Surgery (Day of Procedure) New Bag 10/31/2018 10:03 AM EST 1,000 mLs 100 mL/hr lidocaine (XYLOCAINE) 10 mg/mL (1 %) injection 3 mg 3 mg (0.3 mL), Subcutaneous, ONCE PRN, 1 dose, Starting on Kathrine 10/31/18 at 0936, Until Kathrine 10/31/18 at 1003, for discomfort with PIV insertion, Day of Surgery (Day of Procedure), Routine Given 10/31/2018 10:03 AM EST 3 mg midazolam (PF) (VERSED) 1 mg/mL injection 1 dose, Starting on Kathrine 10/31/18 at 1023, Until Kathrine 10/31/18 at 1055, MALLORY ANDRES: cabinet override Given 10/31/2018 10:55 AM EST 2 mg documented in this encounter Active and Recently Administered Medications Times are shown in EST. Scheduled Medication Order 10/29/2018 10/30/2018 10/31/2018 acetaminophen (TYLENOL) tablet 1,000 mg (COMPLETED) 1,000 mg, Oral, ONCE, 1 dose, On Kathrine 18 at 0945, Maximum dose of acetaminophen is 4000 mg from all sources in 24 hours., Day of Surgery (Day of Procedure), Routine 0950 (Given - Provid er: Mallory Andres RN) ceFAZolin (ANCEF) 2g in dextrose 5% 100 mL (COMPLETED) 2 g, Intravenous, EVERY 3 HOURS, 1 dose, First dose on Kathrine 18 at 0945, Administer over 30 Minutes, Redose after 3 hours., Intra-Operative (Intra-Procedure), Indication for (Active or Suspected): Prophylaxis 1130 (Given - Provid er: Eveline Vides CRNA) gabapentin (NEURONTIN) capsule 300 mg (COMPLETED) 300 mg, Oral, ONCE, 1 dose, On Kathrine 18 at 0945, Day of Surgery (Day of Procedure), Routine 0950 (Given - Provid er: Mallory Andres RN) Continuous Medication Order 10/29/2018 10/30/2018 10/31/2018 lactated Ringers infusion 1,000 mL (CANCELED) 1,000 mL, at 100 mL/hr, Intravenous, CONTINUOUS, Starting on Kathrine 10/31/18 at 0945, Until Kathrine 10/31/18 at 1359, Day of Surgery (Day of Procedure) 0945 (New Bag - Prov ider: Mallory Andres RN) lactated Ringers infusion 1,000 mL (CANCELED) 1,000 mL, at 100 mL/hr, Intravenous, CONTINUOUS, Starting on Kathrine 10/31/18 at 1000, Until Kathrine 10/31/18 at 1359, Day of Surgery (Day of Procedure) 1003 (New Bag - Prov ider: Mallory Andres RN)1153 (Anesthesia Volume Adjustment - Provider: Luz Basilio CRNA)1222 (Anesthesia Volume Adjustment - Provider: Eveline Vides CRNA) PRN Medication Order 10/29/2018 10/30/2018 10/31/2018 lidocaine (XYLOCAINE) 10 mg/mL (1 %) injection 3 mg (COMPLETED) 3 mg (0.3 mL), Subcutaneous, ONCE PRN, 1 dose, Starting on Kathrine 12/13/18 at 0936, Until Kathrine 10/31/18 at 1003, for discomfort with PIV insertion, Day of Surgery (Day of Procedure), Routine 1003 (Given - Provid er: Mallory Andres RN) No Frequency Medication Order 10/29/2018 10/30/2018 10/31/2018 fentaNYL (PF) 50 mcg/mL injection (COMPLETED) 1 dose, Starting on Kathrine 10/31/18 at 1023, Until Kathrine 10/31/18 at 1100, MALLORY ANDRES: cabinet override 1055 (Given - Provid er: Mallory Andres RN)1100 (Given - Provider: Mallory Andres RN) midazolam (PF) (VERSED) 1 mg/mL injection 1 dose, Starting on Kathrine 10/31/18 at 1023, Until Kathrine 10/31/18 at 1559, MALLORY ANDRES: cabinet override 1030 (Not Given - Pr ovider: Mallory Andres RN - Reason: See comment - Comment: not administered- returned to omnicell) midazolam (PF) (VERSED) 1 mg/mL injection (COMPLETED) 1 dose, Starting on Kathrine 10/31/18 at 1023, Until Kathrine 10/31/18 at 1055, MALLORY ANDRES: cabinet override 1055 (Given - Provid er: Mallory Andres RN) documented in this encounter Care Teams Morning Nanny Relationship Specialty Start Date End Date Giovanni Wing MD [address] [place] [address] PCP - General Family Medicine 08/29/18 documented as of this encounter
--- OUTSIDE RECORDS SUMMARY | 2024-08-23 17:28 | XMS_ITS | Encounter Summary ---
Author Organization [facility] [place] [address] Care Team Providers Care Charge Machine Operator Name Role Phone Giovanni Wing MD Primary Care Provider Reason for Referral * Consultation (Routine) - Closed Specialty Diagnoses / Procedures Referred By Contazeem t Referred To Contact Urology Diagnoses Elevated PSA Giovanni Wing MD [address] [address] [facility] [place] [address] Referral ID Status Reason Start Date Expiration Date V isits Requested Visits Authorized [id number] Closed Consult, Test & Treat PCP Updated and/or Approved 07/12/2022 07/12/2023 6 6 Encounter Details Date Type Department Care Team (Late st Contact Info) Description 07/12/2022 Transcribe Orders eDH Incoming Referrals [phone] Giovanni Wing MD [address] [phone] Elevated PSA Social History Tobacco Use Types [...] as of this encounter Plan of Treatment Scheduled Referrals Name Type Priority Associated Diagnoses Orde r Schedule Referral to Urology Outpatient Referral Routine Elevated PSA Ordered: 07/12/2022 documented as of this encounter Visit Diagnoses Diagnosis Elevated PSA Elevated prostate specific antigen (PSA) documented in this encounter Care Teams Charge Machine Operator Relationship Specialty Start Date End Date Giovanni Wing MD [address] [place] [address] PCP - General Family Medicine 08/29/18 documented as of this encounter
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
--- OUTSIDE RECORDS SUMMARY | 2024-08-23 17:28 | XMS_ITS | Encounter Summary ---
Author Organization [facility] [place] [address] Care Team Providers Care Spring Layer Name Role Phone Robert Wing MD Primary Care Provider [phone] Reason for Visit * Reason Onset Date Comments Triage 07/07/2021 Encounter Details Date Type Department Care Team (Late st Contact Info) Description 07/07/2021 Telephone [address] [facility] [phone] Nataly Vigil, rail grinder Social History Tobacco Use Types Packs/Day Years [...] encounter Miscellaneous Notes * Telephone Encounter - Nataly Vigil, RN - 07/07/2021 11:36 AM EDT Telephone call placed/received to schedule covid 19 testing with patient. Ordering provider: robert wing Facility: [facility] Date of Testin07/08/21 Time of Testin Symptoms: asympt/post travel work requires Is this the first test for Covid 19 Yes If no, please list date of previous test, result, and type of test (Molecular, Antigen, Antibody orunknown):na Covid-19 vaccine: Yes Resides in congregate care setting No Employee or Household Member of Employee No Healthcare Worker No documented in this encounter Plan of Treatment Not on file documented as of this encounter Visit Diagnoses Not on filedocumented in this encounter Care Teams Spring Layer Relationship Specialty Start Date End Date Robert Wing MD [address] [address] PCP - General Family Medicine 08/29/18 documented as of this encounter
--- OUTSIDE RECORDS SUMMARY | 2024-08-23 17:28 | XMS_ITS | Encounter Summary ---
Author Organization [facility] [place] [address] Care Team Providers Care Crook Operator Name Role Phone Giovanni Wing MD Primary Care Provider [phone] Reason for Visit * Reason Comments Follow-up right hallux correct ion 10/31/18 Encounter Details Date Type Department Care Team (Late st Contact Info) Description 12/10/2018 1:00 PM EST Office Visit Orthopaedics at [facility] [place] [phone] Hallux rigidus of right foot Social History [...] Sign Reading Time Taken Comments Blood Pressure 131/77 12/10/2018 1:13 PM EST Pulse 79 12/10/2018 1:13 PM EST Temperature - - Respiratory Rate - - Oxygen Saturation - - Inhaled Oxygen Concentration - - Weight - - Height - - Body Mass Index - - documented in this encounter Progress Notes * Azael Scott PA - 12/10/2018 1:00 PM EST Chief complaint: First planned follow up s/p Right Ella Correction. Dr. Pearson. 10/31/2018. History of present illness: Devan Chen is a 53 y.o. year-old male who presents today for his first postoperative appointment for the above surgery. The patient explains he is improving. He explains he feels better and better each day he gets out from surgery. He denies any fever chills, night sweats. He denies any incision site redness or drainage. He explains that it was looking so good, hedecided to progress back into a regular shoe, which she started 6 days ago. He could not tolerate that long at first, but now he is feeling much better. He has some pain about the plantar aspect of his metatarsal arch, as he localizes discomfort. He has yet to work on range of motion at this point in time. Past medical history: Patient Active Problem List Diagnosis Date Noted ??? Muscle pain 03/28/2018 ??? Thoracic spondylosis without myelopathy 01/23/2018 ??? Finger infection 10/26/2017 ??? Pain in toe of left foot 12/12/2016 ??? Hallux rigidus of right foot 11/21/2016 ??? Chronic SI joint pain 02/24/2016 ??? Mechanical low back pain 07/18/2012 History of blood clots or bleeding disorders: Denies Denies history of cardiac, lung, kidney, liver diease or diabetes Medications: ??? loratadine (CLARITIN) 10 mg Tablet ??? Ibuprofen 200 mg Capsule ??? cholecalciferol, Vitamin D3, 1,000 unit Capsule ??? VENTOLIN HFA 90 mcg/actuation HFA Aerosol Inhaler ??? FLUoxetine (PROZAC) 20 mg Capsule ??? triamcinolone (KENALOG) 0.1 % Cream ??? UNABLE TO FIND Allergies: No Known Allergies Social history: Social History Tobacco Use ??? Smoking status: Never Smoker ??? Smokeless tobacco: Never Used Substance Use Topics ??? Alcohol use: Yes Comment: 2/day liquor most often Review of systems: No chest pain or shortness of breath at baseline No fevers, night sweats or chills Questionnaire Responses: myD-H Hip & Knee 11/14/2018 MODEMS Expectation - MODEMS Satisfaction - VR12 - Physical Component Summary - VR12 - Mental Component Summary - PROMIS-10 General Health Very Good PROMIS-10 Quality of Life Very Good PROMIS-10 Physical Health Very Good PROMIS-10 Mental Health Very Good PROMIS-10 Social Activity and Relationship Satisfaction Very Good PROMIS-10 Social Roles at Home and Work Good PROMIS-10 Everyday Physical Activities A little PROMIS-10 Anxious or Depressed last 7 days Sometimes PROMIS-10 Fatigue last 7 days Moderate PROMIS-10 Pain last 7 days 3 PROMIS PHYSICAL HEALTH SCORE (range 16-68) 42.3 PROMIS MENTAL HEALTH SCORE (range 21-68) 50.8 Physical Exam: No Apparent distress Right foot exam: Dorsally based incision about the first MTP joint is well-healed. No wound dehiscence, no dischargeupon expression. His great toe flexes to about 5 degrees, extends to about 10 degrees. He toleratesthis passively without issue. He can wiggle his lesser toes. DP/PT pulses are 2+. He is sensate to light touch but superficial peroneal, deep peroneal, sural, saphenous, tibial nerve distributions. Imaging: Personal review of the patient's imaging reveals: XR obtained and reviewed which show no postoperative complication. No evidence of foreign or loose body in the joint. No fracture, dislocation, or displacement. Joint space is patent and intact aboutthe first MTP joint. Assessment: 53 y.o. year-old male doing well status post right side Cartiva correction, 10/31/2018. Plan: We reviewed his radiographs today. We discussed that his wound appears well-healed at this point time. I recommend continue transition to a stiff soled sneaker. He is already done this without difficulty. Recommend monitoring for signs and symptoms of infection such as fevers, chills, night sweats, wound breakdown. We reviewed at this point time, progressing to range of motion of his great toe, passive, active, active assist basis. No aggressive passive motion. We discussed the goal is toobtain some of the range of motion that he lost with his osteoarthritis. He is receptive to this. Recommend acetaminophen, anti- inflammatories as tolerated. Rest, ice, compression, elevation as needed. This patient was seen in conjuncture with Dr. Pearson. Follow up: 3 months, NXR This plan was discussed with the patient and they are in agreement. All of the patient's questions were answered. The above dictation was made with voice recogonition software documented in this encounter Plan of Treatment Not on file documented as of this encounter Visit Diagnoses Diagnosis Hallux rigidus of right foot Hallux rigidus documented in this encounter Care Teams Crook Operator Relationship Specialty Start Date End Date Giovanni Wing MD [address] [place] [address] PCP - General Family Medicine 08/29/18 documented as of this encounter
--- OUTSIDE RECORDS SUMMARY | 2024-08-23 17:28 | XMS_ITS | Encounter Summary ---
Author Organization [facility] [place] [address] Care Team Providers Care Soft Tile Setter Name Role Phone Giovanni Wing MD Primary Care Provider [phone] Encounter Details Date Type Department Care Team (Latest Contact Info) Description 07/22/2019 4:00 PM EDT Clinical Support Infectious Disease at [facility] [place] [phone] Counseling for travel; Need for prophylactic vaccination and inoculation against rabies Social History Tobacco Use Types Packs/Day Years [...] as of this encounter Progress Notes * Tu Akins LPN - 07/22/2019 4:00 PM EDT Pt here today for Rabies dose 2 vaccine pre-travel. Pt denies any issues with previoius vaccines. Pt tolerated todays injection without issue, no complaints of discomfort or ill effects upon leaving. documented in this encounter Plan of Treatment Not on file documented as of this encounter Visit Diagnoses Diagnosis Counseling for travel Other specified counseling Need for prophylactic vaccination and inoculation against rabies documented in this encounter Care Teams Soft Tile Setter Relationship Specialty Start Date End Date Giovanni Wing MD [address] [place] [address] PCP - General Family Medicine 08/29/18 documented as of this encounter
--- OUTSIDE RECORDS SUMMARY | 2024-08-23 17:28 | XMS_ITS | Encounter Summary ---
Author Organization Replaced By [facility] [address] Care Team Providers Care Package Line Relief Operator Name Role Phone Giovanni Wing MD Primary Care Provider [phone] Encounter Details Date Type Department Care Team (Late st Contact Info) Description 07/05/2021 Telephone Primary Care at [facility] [address] [place] [id number] Iesha Babin RMA Social History Tobacco Use Types Packs/Day Years [...] encounter Miscellaneous Notes * Telephone Encounter - Iesha Babin RMA - 07/05/2021 3:45 PM EDT High Threat Infection Intake Questions Best Contact number: [phone] PATIENT TRIAGE: Asx COVID-19 Screening and Testing Protocol 1. TESTING FOR VARIANTS OF CONCERN (select all that apply) [] Domestic Travel in the past 14 days. Location: [place] Date of travel: 07/04/21 [] International Travel in the past 14 days. [] Previously diagnosed with COVID - 19 in the past 90 days, but concern for re- infection due to exposure and or symptoms. [] Fully vaccinated against COVID - 19 [] Partially vaccinated against COVID - 19 [] Not vaccinated against COVID - 19 According to The Center for Disease Control and Prevention (CDC), the following symptoms may indicate COVID-19 if they are new, and not explained by another health condition: COVID-19 Symptoms (select all that apply): Are you a [] Healthcare worker [] Teacher [] Student 2. EXPOSURE: 3. ASYMPTOMATIC PATIENTS (no signs or symptoms suspicious for COVID-19)- Check all that apply. [] Patients being admitted to facilities that require testing prior to admission (ideally done 24-48 hours prior to ) [] Patients being admitted for stem cell or solid organ transplant (ideally done 24-48 hours prior to admission) [] We are performing community asymptomatic screening for: family members or close contacts of confirmed COVID-19 cases; members of or healthcare workers at group homes/shelters, half-way facilities or mcfp care facilities (LTCFs); and all first responders. [] For patients with an [facility] primary care provider (PCP), we perform asymptomatic screening requiredfor school, work, or travel. [x] Community testing of resident within the [facility] service region ([place], [place], [place], [place], [place], [place], [place], [place], [place], [place], [place], [place]) 4. WEEKEND TESTING - URGENT - SYMPTOMATIC OR EXPOSURE [] Provider will call [phone] and give the patient information to the nurse. The nurse willthen contact the patient with an appointment time. PLAN [x] Patient scheduled for testing [] Patient scheduled for an appointment with provider [] Respiratory Clinic [] [facility] [] [] Patient declined provider appointment [] Triage note sent to provider for input [] After hours - Inform patient to call clinic [phone] in am to arrange testing. [facility] [] Patient referred to emergency department. Emergency department notified. Patient instructions: All symptomatic patients or those with known exposure should self-quarantine until they receive a negative test. If possible they should stay in a separate room from other household members. COVID-19 Quarantine: [place] Quarant[place] Guide [place]gov[place] documented in this encounter Plan of Treatment Not on file documented as of this encounter Visit Diagnoses Not on filedocumented in this encounter Care Teams Package Line Relief Operator Relationship Specialty Start Date End Date Giovanni Wing MD [address] [address] PCP - General Family Medicine 08/29/18 documented as of this encounter
--- OUTSIDE RECORDS SUMMARY | 2024-08-23 17:28 | XMS_ITS | Encounter Summary ---
Author Organization Formerly [facility] [place] [address] Care Team Providers Care Barrel Planer Name Role Phone Giovanni Wing MD Primary Care Provider [phone] Encounter Details Date Type Department Care Team (Late st Contact Info) Description 09/28/2022 Telephone Urology at [place] [address] Don Bahena Social History Tobacco Use Types Packs/Day Years [...] encounter Miscellaneous Notes * Telephone Encounter - Don Bahena - 09/28/2022 8:03 AM EST [facility] Intermediate Risk Prostate Cancer sent to patient. documented in this encounter Plan of Treatment Not on file documented as of this encounter Visit Diagnoses Not on filedocumented in this encounter Care Teams Barrel Planer Relationship Specialty Start Date End Date Giovanni Wing MD [address] [place] [address] PCP - General Family Medicine 08/29/18 documented as of this encounter
--- OUTSIDE RECORDS SUMMARY | 2024-08-23 17:28 | XMS_ITS | Encounter Summary ---
Author Organization [facility] Address [facility] [address] Care Team Providers Care Aircraft Stress Analyst Name Role Phone Giovanni Wing MD Primary Care Provider [phone] Reason for Referral * Consultation (Routine) - Closed Specialty Diagnoses / Procedures Referred By Contac t Referred To Contact Radiation Oncology Diagnoses Malignant neoplasm of prostate PROSTATE CA Procedures PROSTATE CA Rj Mcdonald MD [facility] [address] Henrik Yun MD [facility] [place] [address] Referral ID Status Reason Start Date Expiration Date V isits Requested Visits Authorized [id number] Closed Consult, Test & Treat 09/26/2022 09/26/2023 1 1 Encounter Details Date Type Department Care Team (Late st Contact Info) Description 09/26/2022 [place] [address] Rj Mcdonald MD [facility] [place] [address] Social History Tobacco Use Types Packs/Day Years [...] Telephone Encounter - Rj Mcdonald MD - 09/26/2022 1:21 PM EST I contacted the patient to inform him about the results of the prostate biopsy, which showed cT1c Angie 3+3 CaP (stage IIa based on PSA >10). I recommended a referral to radiation oncology and will schedule an appointment with myself as well to discuss management options. documented in this encounter Plan of Treatment Scheduled Referrals Name Type Priority Associated Diagnoses Orde r Schedule Referral to Radiation Oncology Outpatient Referral Routine Malignant neoplasm of prostate Ordered: 09/26/2022 documented as of this encounter Visit Diagnoses Diagnosis Malignant neoplasm of prostate documented in this encounter Care Teams Aircraft Stress Analyst Relationship Specialty Start Date End Date Giovanni Wing MD [address] [place] [address] PCP - General Family Medicine 08/29/18 documented as of this encounter
--- OUTSIDE RECORDS SUMMARY | 2024-08-23 17:28 | XMS_ITS | Encounter Summary ---
Author Organization [facility] [place] [address] Care Team Providers Care Washateria Attendant Name Role Phone Giovanni Wing MD Primary Care Provider [phone] Reason for Visit * Reason Onset Date Comments Medication Refill 07/16/2019 Encounter Details Date Type Department Care Team (Late st Contact Info) Description 07/16/2019 Refill Infectious Disease at [facility] [place] [id number] Melany Mac, RN Counseling for travel; Need for prophylactic vaccination [...] encounter Miscellaneous Notes * Telephone Encounter - Melany Mac RN - 07/16/2019 10:19 AM EDT Traveler seen 07/11/19 for travel to [facility] for work. He will be returning to [facility] over the next fewyears for work with the [employer]. Was unable to start rabies series at visit due to schedule conflict with upcoming travel and Labor Day holiday . After our visit he traveled to [place] for work. He was able to get a first rabies vaccine with the [employer] [facility] in [place] on Sunday. He will return to [place] on Saturday and return to clinic here for rabies #2 on 07/22/19 and #3 on 08/05/19. Orders entered and patient scheduled for injection visits. documented in this encounter Plan of Treatment Not on file documented as of this encounter Visit Diagnoses Diagnosis Counseling for travel Other specified counseling Need for prophylactic vaccination and inoculation against rabies documented in this encounter Care Teams Washateria Attendant Relationship Specialty Start Date End Date Giovanni Wing MD [address] [address] PCP - General Family Medicine 08/29/18 documented as of this encounter
--- OUTSIDE RECORDS SUMMARY | 2024-08-23 17:28 | XMS_ITS | Encounter Summary ---
Author Organization [facility] [place] [address] Care Team Providers Care Sand Mixer Machine Name Role Phone Giovanni Wing MD Primary Care Provider [phone] Encounter Details Date Type Department Care Team (Late st Contact Info) Description 09/28/2022 Telephone Urology at [facility] [address] Don Bahena Social History Tobacco [...] Telephone Encounter - Don Bahena - 09/28/2022 8:05 AM EST LMOM - Needs New Cancer with Dr. Mcdonald for Prostate Cancer (diagnosed here). Looks like 11/10 is still available. documented in this encounter Plan of Treatment Not on file documented as of this encounter Visit Diagnoses Not on filedocumented in this encounter Care Teams Sand Mixer Machine Relationship Specialty Start Date End Date Giovanni Wing MD [address] [place] [address] PCP - General Family Medicine 08/29/18 documented as of this encounter
--- OUTSIDE RECORDS SUMMARY | 2024-08-23 17:28 | XMS_ITS | Encounter Summary ---
Author Organization [facility] [place] [address] Care Team Providers Care Rock Loader Name Role Phone Giovanni Wing MD Primary Care Provider [phone] Encounter Details Date Type Department Care Team (Latest Contact Info) Description 08/05/2019 8:30 AM EDT Clinical Support Infectious Disease at [facility] [place] [phone] Counseling for travel; Need for prophylactic vaccination and inoculation against rabies; Need for prophylactic vaccination with Spanish encephalitis vaccine Social History Tobacco Use Types Packs/Day Years [...] Progress Notes * Tu Akins LPN - 08/05/2019 8:30 AM EDT Pt here today for Rabies pre-travel dose 3 and Spanish Encephalitis dose 2. Pt denies any issues with previous vaccines. Tolerated todays injection without issue, no complaints of discomfort or ill effects upon leaving. documented in this encounter Plan of Treatment Not on file documented as of this encounter Visit Diagnoses Diagnosis Counseling for travel Other specified counseling Need for prophylactic vaccination and inoculation against rabies Need for prophylactic vaccination with Spanish encephalitis vaccine Need for prophylactic vaccination and inoculation against arthropod-borne viral encephalitis documented in this encounter Care Teams Rock Loader Relationship Specialty Start Date End Date Giovanni Wing MD [address] [address] PCP - General Family Medicine 08/29/18 documented as of this encounter
--- OUTSIDE RECORDS SUMMARY | 2024-08-23 17:28 | XMS_ITS | Encounter Summary ---
Author Organization [facility] [place] [address] Care Team Providers Care Practice Managers Name Role Phone Chapin Wing MD Primary Care Provider Reason for Visit * Auth/Cert Specialty Diagnoses / Procedures Referred By Contac t Referred To Contact Diagnoses Hallux rigidus, right foot Right hallux rigidus Procedures PRO HALLUX RIGIDUS W/CHEILECTOMY 1ST MP JT W/IMPLT CORRECTION HALLUX RIGIDUS, W IMPLANT (WRVU 8.01) Referral ID Status Reason Start Date Expiration Date Visits Re quested Visits Authorized [id number] 1 1 Encounter Details Date Type Department Care Team (Late st Contact Info) Description 10/31/2018 11:19 AM EST Anesthesia [place] [address] Chapin Harris MD [facility] DR ANESTHESIOLOGY [place] [address] Anesthesia Record Procedure Summary Procedure Name Responsible Anesthesiologist Anesthesia Start Time Anesthesia Stop Time CORRECTION HALLUX RIGIDUS, W IMPLANT (WRVU 8.01) (Right: Foot) Chapin Harris MD 10/31/18 1119 10/31/18 1239 Events Date Time Event Comment 10/31/2018 1000 1119 AN Verify 1119 Start 1122 An Start Data 1125 An Induction 1126 An Intubation 1127 Anesthesia Ready 1141 Break/Relief In Luz E Clou se, ENVELOPE SEALER 1147 An Tourn Inflated 1148 Procedure Start 1213 Break/Relief Out 1224 An Tourn Deflated 1230 Procedure Stop 1234 Extubation/LMA Out 1234 an stop data 1239 Recovery or ICU Handoff Joanne ent care was transferred to the destination unit staff after review of the patient's medical history, current anesthetic/surgical status and plan, according to the Provider Handoff Checklist. 1239 Stop Meds Name Total Propofol 200 mg Propofol INF 245.28 mg fentaNYL 25 mcg IV Lidocaine 100 mg Dexamethasone 4 mg Ondansetron 4 mg ceFAZolin (ANCEF) 2g in dextrose 5% 100 mL 2 g BUpivacaine 0.5% 21 mL Dexmedetomidine 8 mcg lactated Ringers infusion 1,000 mL 500 m L * Agents Name O2 Air N2O Sevoflurane (et) * Blood No blood administrations on file. Lines, Drains, and Airways Type Details Placement Removal (RETIRED) Peripheral IV Line - Single Lumen 10/31/18; 1006; metacarpal vein (top of hand), right; gauh-umh-[id number] catheter system; 18 gauge, 3/4 in length; Christine Sierra RN; distraction, intradermal injection, tolerated well; 2; 10/31/18; 1359 10/31/18 1006 by Mallory Andres RN 10/31/18 1359 by Bradley Last, RN Supraglottic Mask Ventilation: No t Attempted (0); LMA Type: iGel; LMA Size: 4; Inserted by: DALTON Vides; Removal Date: 10/31/18; Removal Time: 1234 10/31/18 1126 by Eveline Vides CRNA 10/31/18 1234 by Eveline Vides CRNA Incision 10/31/18; 1153; firs t toe; midline; 07/17/22 (LDA cleanup utility RA#[id number]); 1715 (LDA cleanup utility RA#[id number]) 10/31/18 1153 by Dianna Chang RN 07/17/22 1715 by Hilda Multani documented in this encounter Social History Tobacco [...] OR Notes * Anesthesia Postprocedure Evaluation - Chapin Harris MD - 10/31/2018 1:17 PM EST [facility] Department of Anesthesiology Post-procedure Note Patient: Devan Chen Procedure Summary Date: 10/31/18 Room / Location: [facility] OR [facility] MAIN OR Anesthesia Start: 1119 Anesthesia Stop: 1239 Procedure: CORRECTION HALLUX RIGIDUS, W IMPLANT (WRVU 8.01) (Right Foot) Diagnosis: Hallux rigidus of right foot (Right hallux rigidus) Surgeon: Pascual Pearson MD Responsible Provider: Chapin Harris MD Anesthesia Type: general ASA Status: 2 All Anesthesia Providers: Anesthesiologist: Chapin Harris MD ENVELOPE SEALER: Eveline Vides CRNA Most Recent Vitals: 10/31/18 1300 BP: 113/72 Pulse: Resp: 14 Temp: SpO2: 100% Pain Patient Location: PACU/[facility] Level of Consciousness: Awake and Alert Pain Management: Satisfactory Analgesia PONV: None Cardiovascular Status: Hemodynamically Stable Respiratory Status: Stable Respiratory Status Postoperative Fluid Status: Intravascular EUvolemia Possible Anesthetic Complications: NONE apparent at time of evaluation Final Primary Anesthesia Type: General (The anesthetic type performed was the same as planned.) Comments: Doing well in recovery All questions answered CHAPIN HARRIS MD * Anesthesia Procedure Notes - Hung Gauthier MD - 10/31/2018 11:16 AM EST Associated Order(s): Anesthesia Block Anesthesia Block Performed by: Hung Gauthier MD Authorized by: Hung Gauthier MD Start Time: 10/31/2018 11:09 AM End Time: 10/31/2018 11:14 AM Patient Location: Block Room The patient was greeted; the risks and benefits of the procedure were reviewed. Indication: Post-op Pain Control Post-op pain management at the request of surgeon. Block Type: Ankle block Laterality: Right Position: Supine Prep: Chlorhexidine and mask, cap, sterile gloves, hand hygeine Skin Anesthetic: Lidocaine 1% dose: 2 [id number] 22 5 cm Ultrasound Guided: Live, in-plane and [id number] Ultrasound guidance was used to identify the targeted neuronal structure. Ultrasound was also used to identify needle position and to identify tissue (bone, muscle, and blood vessels) to prevent inadvertent intraneural or intravascular needle placement and injection. The spread of local anesthetic was confirmed with live ultrasound imaging. Single-Shot: Single-shot BUpivacaine 0.5%, 21 mL Deep Peroneal dose: 7 Superficial Peroneal dose: 7 Tibial dose: 7 no complications Attending Physician:: Hung Gauthier MD * Anesthesia Preprocedure Evaluation - Chapin Harris MD - 10/31/2018 9:30 AM EST Pre-Anesthesia Evaluation for: Devan Chen a 53 y.o. male. Procedure(s): CORRECTION HALLUX RIGIDUS, W IMPLANT (WRVU 8.01) Patient Active Problem List Diagnosis ??? Muscle pain ??? Thoracic spondylosis without myelopathy ??? Finger infection ??? Pain in toe of left foot ??? Hallux rigidus of right foot ??? Chronic SI joint pain ??? Mechanical low back pain History reviewed. No pertinent past medical history. Past Surgical History: Procedure Laterality Date ??? PRO COLONOSCOPY, BIOPSY N/A 08/19/2018 COLONOSCOPY FLEXIBLE, WITH BX (WRVU 3.66) performed by Cirilo Pathak MD at [facility] ENDOSCOPY Social History Tobacco Use ??? Smoking status: Never Smoker ??? Smokeless tobacco: Never Used Substance Use Topics ??? Alcohol use: Yes Comment: 2/day liquor most often Social History Substance and Sexual Activity Drug Use No Comment: CBD oil as needed for pain, daily instead of advil No Known Allergies Medications: MAR and/or home medications have been reviewed. Physical Exam: Most Recent Vitals: 10/31/18 0926 BP: 129/78 Pulse: 64 Resp: 24 Temp: 36.2 ??C (97.2 ??F) SpO2: 98% There is no height or weight on file to calculate BMI. Airway Assessment: Mallampati: I TM distance: >3 FB Neck ROM: full Cardiovascular Assessment: Rhythm: regular Rate: normal (-) murmur cardiovascular exam normal Pulmonary Assessment: breath sounds clear to auscultation pulmonary exam normal Dental Assessment: - normal exam Misc Assessment: Patient is wearing No contact(s). Anesthesia Plan: ASA 2 general, with a(n) intravenous induction Devan Chen is a 53 year old male with history of asthma, chronic low back pain, thoracic spondylosis without myelopathy and hallux rigidus of right food here for right foot correction hallux rigidus. EKG: none on file Lab Results Component Value Date WBC 8.2 10/26/2017 HGB 15.0 10/26/2017 HCT 42.9 10/26/2017 MCV 86.1 10/26/2017 PLATELET 231 10/26/2017 Lab Results Component Value Date NA 138 10/26/2017 K 4.1 10/26/2017 CL 99 10/26/2017 CO2 27 10/26/2017 BUN 20 10/26/2017 CREATININE 1.03 10/26/2017 GLUCOSE 102 10/26/2017 CALCIUM 10.3 10/26/2017 ESTGFR >60 10/26/2017 No results found for: ALT, AST, GGT, ALKPHOS, BILITOT, BILIDIR, ALBUMIN, PROT No results found for: TSH, G2KAWLC, TT4, THYROIDAB No results found for: HA1C NPO appropriate No active GERD Not on anticoagulants Plan: GA with LMA, 1 PIV and standard ASA monitors. Preop ankle block for postop pain control I discussed the risks of a nerve block with the patient. These include but are not limited to, nerve injury (as part of post operative nerve dysfunction, which may be multifactorial, related to surgery, tourniquet, positioning, and/or the block), failure of the block to relieve pain, failure of theblock to numb the desired anatomical region, local anesthetic toxicity (though rare, from minor to major), and even infection and bleeding/hematoma. The patient understands the risks of having an insensate extremity (including injuring the limb and in the case of lower extremity blocks, FALLING). Iobtained full informed consent from the patient, and solicited further questions. The patient desires to proceed despite these risks and gives consent. The patient was informed of the risks, benefits and alternatives of anesthesia. These risks included, but were not limited to, post-operative nausea and/or vomiting, pain, sore throat, dental/lip trauma, and other rare but serious complications such as major organ damage, awareness, severe allergicreactions, position-related nerve injuries, and need blood transfusions. All questions were sought and answered. Consent was signed and placed in chart. Attending addendum: Patient seen and examined Plan Reviewed All questions answered CHAPIN HARRIS MD Region - Other Informed Consent: Anesthetic plan and risks discussed with patient. Use of blood products discussed with patient who consented to blood products. Plan discussed with ENVELOPE SEALER and attending. PAT Staff Note documented in this encounter Plan of Treatment Not on file documented as of this encounter Procedures Procedure Name Priority Date/Time Associated Diagnosis Comments ANESTHESIA BLOCK Routine 10/31/2018 11:1 6 AM EST Procedure Note - Hung Gauthier MD - 10/31/2018 11:16 AM ESTThis note is in progress. Anesthesia Block Performed by: Hung Gauthier MD Authorized by: Hung Gauthier MD Start Time: 10/31/2018 11:09 AM End Time: 10/31/2018 11:14 AM Patient Location: Block Room The patient was greeted; the risks and benefits of the procedure werereviewed. Indication: Post-op Pain Control Post-op pain management at the request of surgeon. Block Type: Ankle block Laterality: Right Position: Supine Prep: Chlorhexidine and mask, cap, sterile gloves, hand hygeine Skin Anesthetic: Lidocaine 1% dose: 2 [id number]-bbwrr 22 5 cm Ultrasound Guided: Live, in-plane and [id number] Ultrasound guidance was used to identify the targeted neuronal structure.Ultrasound was also used to identify needle position and to identifytissue (bone, muscle, and blood vessels) to prevent inadvertentintraneural or intravascular needle placement and injection. The spread oflocal anesthetic was confirmed with live ultrasound imaging. Single-Shot: Single-shot BUpivacaine 0.5%, 21 mL Deep Peroneal dose: 7 Superficial Peroneal dose: 7 Tibial dose: 7 no complications Attending Physician:: Hung Gauthier MD documented in this encounter Visit Diagnoses Not on filedocumented in this encounter Administered Medications Inactive Administered Medications - up to 3 most recent administrations Medication Order MAR Action Action Date Dose Rate Site BUpivacaine (PF) (MARCAINE) 0.5 % (5 mg/mL) injection Starting on Kathrine 10/31/18 at 1116, Until Kathrine 10/31/18 at 1116, Anesthesia Intra-op, Routine Given 10/31/2018 11:16 AM EST 21 mLs ceFAZolin (ANCEF) 2g in dextrose 5% 100 mL 2 g, Intravenous, EVERY 3 HOURS, 1 dose, First dose on Kathrine 10/31/18 at 0945, Administer over 30 Minutes, Redose after 3 hours., Intra-Operative (Intra-Procedure), Indication for (Active or Suspected): Prophylaxis Given 10/31/2018 11:30 AM EST 2 g dexamethasone (DECADRON) injection Intravenous, PRN, Starting on Kathrine 10/31/18 at 1130, Until Kathrine 10/31/18 at 1317, Anesthesia Intra-op, Routine Given 10/31/2018 11:30 AM EST 4 mg dexmedetomidine (PRECEDEX) injection PRN, Starting on Kathrine 10/31/18 at 1139, Until Kathrine 10/31/18 at 1317, Anesthesia Intra-op, Routine Given 10/31/2018 11:39 AM EST 8 mcg fentaNYL 50 mcg/mL multi-dose injection Intravenous, PRN, Starting on Kathrine 10/31/18 at 1153, Until Kathrine 10/31/18 at 1317, Anesthesia Intra-op, Routine Given 10/31/2018 11:53 AM EST 25 mcg lidocaine (PF) (XYLOCAINE) 100 mg/5 mL (2 %) injection Intravenous, PRN, Starting on Kathrine 10/31/18 at 1126, Until Kathrine 10/31/18 at 1317, Anesthesia Intra-op, Routine Given 10/31/2018 11:26 AM EST 100 mg ondansetron (ZOFRAN) injection Intravenous, PRN, Starting on Kathrine 10/31/18 at 1211, Until Kathrine 10/31/18 at 1317, Anesthesia Intra-op, Routine Given 10/31/2018 12:11 PM EST 4 mg propofol (DIPRIVAN) 10 mg/mL bolus injection (Anesthesia) Intravenous, PRN, Starting on Kathrine 10/31/18 at 1125, Until Kathrine 10/31/18 at 1317, Anesthesia Intra-op Given 10/31/2018 11:26 AM EST 50 mg Given 10/31/2018 11:25 AM EST 150 mg propofol (DIPRIVAN) infusion Intravenous, CONTINUOUS PRN, Starting on Kathrine 10/31/18 at 1125, Until Kathrine 10/31/18 at 1317, Anesthesia Intra-op, Routine New Bag 10/31/2018 11:25 AM EST 50 mcg/kg/min 26.3 mL/hr documented in this encounter Care Teams Practice Managers Relationship Specialty Start Date End Date Chapin Wing MD [address] [place] [id number] PCP - General Family Medicine 08/29/18 documented as of this encounter
--- OUTSIDE RECORDS SUMMARY | 2024-08-23 17:28 | XMS_ITS | Encounter Summary ---
Author Organization [facility] Address [facility] [place] [address] Care Team Providers Care Researcher Name Role Phone Giovanni Wing MD Primary Care Provider [phone] Encounter Details Date Type Department Care Team (Late st Contact Info) Description 09/21/2022 8:00 AM EDT Procedure visit Hematology and Oncology at [facility] [place] [address] Allen Mcdonald MD [facility] [address] Elevated PSA Social History Tobacco Use Types [...] Sign Reading Time Taken Comments Blood Pressure 130/83 09/21/2022 8:03 AM EDT Pulse 76 09/21/2022 8:03 AM EDT Temperature 36.4 ??C (97.5 ??F) 09/21/2022 8:03 AM ED T Respiratory Rate - - Oxygen Saturation 98% 09/21/2022 8:03 AM EDT Inhaled Oxygen Concentration - - Weight 87.1 kg (192 lb 0.3 oz) 09/21/2022 8:03 A M EDT Height 174 cm (5' 8.5) 09/21/2022 8:03 AM EDT Body Mass Index 28.77 09/21/2022 8:03 AM EDT documented in this encounter Patient Instructions * Patient Instructions* Lilian Jenkins, RN - 09/21/2022 8:00 AM EDT PROSTATE BIOPSY DISCHARGE INFORMATION You will get a call next week with your biopsy pathology. Your pathology result may be released to your [facility] account before we have had a chance to contact you. You should feel free to check your myD if you would like to see if your pathology has been release. However, by doing so, you may receive your prostate biopsy results PRIOR to us discussing them with you. If you are not comfortable with receiving your pathology prior to our discussion, please de maite from looking at your biopsy results until we can contact you. You should call your doctor if you experience any of the following: You see blood in your urine, bowel movements, or semen outside of the timeframe listed below. You have a temperature greater than 101.5 degrees. You start to pass large clots of blood in your urine or it turns the color of tomato juice. You are having increasing pain. Your doctor may be reached at weekdays from 8 AM to 5 PM. If you should develop any of these symptoms after these hours, please call the hospital roll over press operator at and ask to have the Urology Resident paged or report to the Emergency Department. What do I need to watch out for after the biopsy? You will almost certainly have some blood in your urine. This will generally be gone within 48 hours. However, it may last on and off for up to two weeks. You will almost certainly have some blood in your bowels. This will generally be gone within 48 hours. However, it may last on and off for up to two weeks. You will almost certainly have some blood in your semen or sperm. This may last on and off for up to six weeks. If you have been instructed to take an antibiotic in addition to the antibiotic given to you on theclinic day, please finish the remainder of any prescription ordered. Are there any restrictions after the prostate biopsy? You should take it easy after the biopsy until the blood clears in your urine and stool. Drink extra fluids. We suggest no heavy lifting, straining, or sports until after you stop seeing blood in theurine or stool. You should not have sexual activity for 48 hours after the biopsy. As long as you feel okay, you should be able to drive yourself home from the biopsy. We recommend that you bring someone with you but this is not absolutely necessary. You may resume aspirin and other medications containing aspirin or NSAIDS (Motrin, Advil, naprosyn,etc.) one week after your biopsy. If you are on a blood thinner, such as Coumadin, heparin, or fragmin, please contact your Primary Care Provider after the procedure to see when they wish you to resume medications. It is important you do this because some medications will require a blood test as well. When will I get the results of the biopsy? The biopsy needs to be processed and examined by a pathologist. In general, this takes about a week. Your doctor will then either see you in the office or call you on the telephone to give you the results. If you have not heard a result within 10 days of your biopsy, please call your doctor. What happens if I am found to have prostate cancer? If you are found to have prostate cancer, your doctor will discuss what this means for you. Prostate cancer is very treatable and, in most cases, there are several good treatment options. You will begiven or sent a package of information about the treatment of prostate cancer. An appointment will be made for a follow-up visit one to two weeks after the biopsy result is given to you in order to discuss all the issues in more detail and arrange a treatment plan. What happens if the biopsy does not show prostate cancer? Your doctor will discuss the results of the biopsy with you. Your doctor will give you a recommendation regarding any necessary follow up. documented in this encounter Progress Notes * Lilian Jenkins RN - 09/21/2022 8:00 AM EDT Prostate IPSS and MARGARET(Pt Entered): Today's answers and scores Prostate Scores and Responses 09/21/2022 Confidence, level - past 6 months Very High Penetration - past 6 months Almost always or always Penetration, maintain - past 6 months Almost always or always Erection, maintain - past 6 months Not difficult Sexual satisfaction - past 6 months Almost always or always Sexual Health in Men 25 Incomplete emptying Less than half the time Frequency More than half the time Intermittency About half the time Urgency Not at all Weak Stream More than half the time Straining Not at all Nocturia 3 times Quality of life Mostly satisfied Total IPSS Score 16 (MODERATE LUTS) * Allen Mcdonald MD - 09/21/2022 8:00 AM EDT Procedure Note Procedure: Transrectal ultrasound and prostate biopsy, URONAV guided Surgeon: Allen Mcdonald MD Preoperative Diagnosis: Abnormal PSA/Free PSA Abnormal Rectal Exam Post Operative Diagnosis: Successful Biopsy Complications: None Estimated Blood Loss: <10cc Procedure: A time out procedure was completed using the standard checklist. It was confirmed the patient had a urinanalysis that did not show evidence of a urinary infection prior to the biopsy. It was confirmed that the patient took Levaquin 500mg po ~ 1 hour ago. The TRUS probe was inserted into the rectum and the prostate imaged in the sagittal and transverse dimensions. Prostate volume was 29cc. The prostate was homogeneous. Prostate calcifications were observed at the junction of the peripheral and transition zones. Hypoechoic areas:Left TZ/PZ Rectum, periprostatic structures, visualized areas of the bladder, vas deferens and seminal vesicles all appeared normal Prostatic anaesthesia was achieved in the standard fashion. A series of prostatic biopsies were obtained from the lateral apex, mid,and base as well as mid sagittal apex, mid and base. Biopsies were obtained from both the right and left side of the prostate. Additional biopsies:4 from targeted area A total of 16 biopsies were obtained. The patient tolerated the procedure without difficulty. I will contact him in about a weeks time with the results. He understands that if he does not hear from me or has any problems to contact my office. documented in this encounter Plan of Treatment Not on file documented as of this encounter Results * US Guided Biopsy Prostate with Uronav Fusion (09/21/2022 9:25 AM EDT) Anatomical Region Laterality Modality Pelvis Ultrasound 09/21/2022 9:20 AM EDT Impressions 09/21/2022 1:42 PM EDT Prostate Summary Transrectal ultrasound of the prostate was performed. Hypoechoic area seen: ??Left mid anterior Prostate Biopsy Summary Ultrasound guidance was provided for Dr. Mcdonald of the section of Urology who performed multiple biopsies in the [address] [place] [address] location. UroNav fusion was used for this procedure. Electronically signed by: Ashley Jackson MD, [facility] ([phone]), at 09/21/2022 1:34 PM Thank you for letting us participate in the care of this patient. If you are a health care provider and have any questions regarding this report, please contact the number above. For patients who have questions, please contact the health group care worker that requested your imaging first. ? Ashley Jackson, [facility] Radio Equipment Installer Electronically Signed Final Report ?? 09/21/2022 01:41 pm Narrative 09/21/2022 1:42 PM EDT Male Pelvis ? (Signed Final 09/21/2022 01:41 pm) PATIENT INFO: ID #: ? [id number] ?: ??[birth year] (57 yrs)(M) Name: ? DEVAN CHEN ?Visit Date: 09/21/2022 09:20 am PERFORMED BY: Performed By: ? Toñito Moreno RDMS Attending: ?Renetta HERRERA, Ashley Wilson Referred By: ?ALLEN MCDONALD Location: ? [place] SERVICE(S) PROVIDED: UTRBXURO - Prostate Biopsy with UroNav Fusion ? [id number], [id number] - [id number] INDICATIONS: Elevated PSA 11.75, MRI PIRADs 4 TECHNIQUE/SCAN QUALITY: Technique: ?Transducer #: ??[id number] COMPARISON: MRI Pelvis: ??08/11/22 --------- PROSTATE: --------- Size (cm) ?L: ??4.1 ? AP: ??2.9 ? TV: ??4.7 Vol (ml): ?29.3 Comment: ?Hypoechoic area seen: ??Left mid ADDITIONAL FINDINGS: Template biopsies performed: 6 biopsies obtained from the right. 6 biopsies obtained from the left Several additional biopsies obtained through suspicious area(s) using UroNav fusion. Procedure Note Ashley Jackson MD - 09/21/2022 Male Pelvis (Signed Final 09/21/2022 01:41 pm) PATIENT INFO: ID #: [id number] : [birth year] (57 yrs)(M) Name: DEVAN CHEN Visit Date: 09/21/2022 09:20 am PERFORMED BY: Performed By: Toñito Moreno RDMS Attending: Ashley Jackson MD Referred By: ALLEN MCDONALD Location: [place] SERVICE(S) PROVIDED: UTRBXURO - Prostate Biopsy with UroNav Fusion [id number], [id number] - [id number] INDICATIONS: Elevated PSA 11.75, MRI PIRADs 4 TECHNIQUE/SCAN QUALITY: Technique: Transducer #: [id number] COMPARISON: MRI Pelvis: 08/11/22 --------- PROSTATE: --------- Size (cm) L: 4.1 AP: 2.9 TV: 4.7 Vol (ml): 29.3 Comment: Hypoechoic area seen: Left mid ADDITIONAL FINDINGS: Template biopsies performed: 6 biopsies obtained from the right. 6 biopsies obtained from the left Several additional biopsies obtained through suspicious area(s) using UroNav fusion. IMPRESSION Prostate Summary Transrectal ultrasound of the prostate was performed. Hypoechoic area seen: Left mid anterior Prostate Biopsy Summary Ultrasound guidance was provided for Dr. Mcdonald of the section of Urology who performed multiple biopsies in the [address] [place] [address] location. UroNav fusion was used for this procedure. Electronically signed by: Ashley Jackson MD, [facility] ([phone]), at 09/21/2022 1:34 PM Thank you for letting us participate in the care of this patient. If you are a health care provider and have any questions regarding this report, please contact the number above. For patients who have questions, please contact the health group care worker that requested your imaging first. Ashley Jackson, [facility] Radio Equipment Installer Electronically Signed Final Report 09/21/2022 01:41 pm Allen Mcdonald MD [facility] PROC ORDERA BLES documented in this encounter Visit Diagnoses Diagnosis Elevated PSA Elevated prostate specific antigen (PSA) Elevated PSA Elevated prostate specific antigen (PSA) documented in this encounter Administered Medications Inactive Administered Medications - up to 3 most recent administrations Medication Order MAR Action Action Date Dose Rate Site fosfomycin tromethamine (MONUROL) packet 3 g 3 g, Oral, ONCE, 1 dose, On Kathrine 09/21/22 at 0000, Pour the entire contents of a sachet containing the equivalent of 3 g of fosfomycin into 4 oz (1/2 cup) of water; do not use hot water. Stir to dissolve. Give immediately after dissolving., Routine, Indication for (Active or Suspected): Prophylaxis Given 09/21/2022 8:10 AM EDT 3 g levoFLOXacin (Levaquin) tablet 500 mg 500 mg, Oral, ONCE, 1 dose, On Kathrine 09/21/22 at 0000, Routine Given 09/21/2022 8:10 AM EDT 500 mg documented in this encounter Care Teams Researcher Relationship Specialty Start Date End Date Giovanni Wing MD [address] [place] [address] PCP - General Family Medicine 08/29/18 documented as of this encounter
--- OUTSIDE RECORDS SUMMARY | 2024-08-23 17:28 | XMS_ITS | Encounter Summary ---
Author Organization [facility] Address [facility] [place] [address] Care Team Providers Care Pen Tender Name Role Phone Giovanni Wing MD Primary Care Provider [phone] Encounter Details Date Type Department Care Team (Latest Contact Info) Description 11/23/2021 1:45 PM EST - 11/23/2021 11:59 PM [facility] Hospital Encounter XRay at [address] [place] [address] Carmela Rice MD [facility] [place] [address] Lateral epicondylitis of right elbow Discharge Disposition: Home Social History Tobacco Use [...] Sig Dispensed Refills Start Date End Date acetaminophen (TYLENOL) 650 mg Tablet Sustained Release 1,300 mg daily. MELATONIN ORAL Take by mouth nightly as needed. cholecalciferol, Vitamin D3, 1,000 unit Capsule Take 1,000 Units by mouth daily. VENTOLIN HFA 90 mcg/actuation HFA Aerosol Inhaler Inhale 2 puffs into the lungs as needed. 3 07/20/2017 triamcinolone (KENALOG) 0.1 % Cream Apply topically as needed. 0 06/26/2017 fluticasone propionate (Flonase) 50 mcg/actuation [place], Suspension every 24 hours. 08/14/2022 zolpidem (AMBIEN) 5 mg TabletIndications:Jet lag syndrome,Counseling for travel Take 1 tablet by mouth nightly as needed for Sleep. 2 tablet 07/25/2019 07/17/2022 azithromycin (ZITHROMAX) 500 mg TabletIndications:Couns eling for [...] Name Priority Date/Time Associated Diagnosis Comments XR ELBOW 3 VIEWS RIGHT (GENERIC) Routine 11/23/2021 1:59 PM EST Lateral epicondylitis of right elbow documented in this encounter Results * XR Elbow 3 Views Right (GENERIC) (11/23/2021 1:59 PM EST) Anatomical Region Laterality Modality Elbow Right Digital Radiogra phy Impressions 11/23/2021 2:06 PM EST No osseous abnormality. Thank you for letting us participate in the care of this patient. ??If you are a health care provider and have any questions regarding this report, please contact the number below. ??For patients who have questions please contact the health physician primary care sports medicine that requested your imaging first. ? Narrative 11/23/2021 2:06 PM EST EXAMINATION: XR ELBOW 3 VIEWS RIGHT (GENERIC) CLINICAL HISTORY: Right lateral elbow pain, , entered by ordering service TECHNIQUE: RIGHT elbow, 3 views COMPARISON: none FINDINGS: RIGHT Bones No acute fracture Elbow joint Normal alignment and no effusion. Soft tissues No soft tissue calcifications Procedure Note Alma Delia Stuart MD - 11/23/2021 EXAMINATION: XR ELBOW 3 VIEWS RIGHT (GENERIC) CLINICAL HISTORY: Right lateral elbow pain, , entered by orderingservice TECHNIQUE: RIGHT elbow, 3 views COMPARISON: none FINDINGS: RIGHT Bones No acute fracture Elbow joint Normal alignment and no effusion. Soft tissues No soft tissue calcifications IMPRESSION No osseous abnormality. Thank you for letting us participate in the care of this patient. If youare a health care provider and have any questions regarding this report,please contact the number below. For patients who have questions please contactthe health physician primary care sports medicine that requested your imaging first. Carmela Rice MD IMG DX ORDERABLES documented in this encounter Visit Diagnoses Diagnosis Lateral epicondylitis of right elbow Lateral epicondylitis of elbow documented in this encounter Care Teams Pen Tender Relationship Specialty Start Date End Date Giovanni Wing MD [facility] [address] [facility] [address] [place] [address] PCP - General Family Medicine 08/29/18 documented as of this encounter
--- OUTSIDE RECORDS SUMMARY | 2024-08-23 17:28 | XMS_ITS | Encounter Summary ---
Author Organization [facility] [place] [address] Care Team Providers Care Assistive Technology Trainer Name Role Phone Giovanni Wing MD Primary Care Provider [phone] Encounter Details Date Type Department Care Team (Latest Contact Info) Description 01/15/2020 3:00 PM EST Clinical Support Infectious Disease at [facility] [place] [id number] Counseling for travel; Need for prophylactic vaccination and inoculation against viral hepatitis Social History Tobacco Use Types Packs/Day Years [...] as of this encounter Progress Notes * Bg Lawson MA - 01/15/2020 3:00 PM EST Pt came in today for his second Hep A injection Pt tolerated injection well no adverse reaction or complaint of documented in this encounter Plan of Treatment Not on file documented as of this encounter Visit Diagnoses Diagnosis Counseling for travel Other specified counseling Need for prophylactic vaccination and inoculation against viral hepatitis documented in this encounter Care Teams Assistive Technology Trainer Relationship Specialty Start Date End Date Giovanni Wing MD [address] [place] [address] PCP - General Family Medicine 08/29/18 documented as of this encounter
--- OUTSIDE RECORDS SUMMARY | 2024-08-23 17:28 | XMS_ITS | Encounter Summary ---
Author Organization [facility] Address [facility] [place] [address] Care Team Providers Care [facility] Sales Name Role Phone Giovanni Wing MD Primary Care Provider [phone] Reason for Referral * Physical Therapy (Routine) - Closed Specialty Diagnoses / Procedures Referred By Contac t Referred To Contact Physical Therapy Diagnoses Lateral epicondylitis of right elbow Suzy Jacobs PA [facility] [place] [address] [address] [place] [address] Referral ID Status Reason Start Date Expiration Date V isits Requested Visits Authorized [id number] Closed Evaluate and Treat 11/23/2021 11/23/2022 12 12 * Occupational Therapy (Routine) - Closed Specialty Diagnoses / Procedures Referred By Contac t Referred To Contact Occupational Therapy Diagnoses Lateral epicondylitis of right elbow Suzy Jacobs PA [facility] [address] [address] [place] [address] Referral ID Status Reason Start Date Expiration Date V isits Requested Visits Authorized [id number] Closed Evaluate and Treat 11/23/2021 11/23/2022 30 30 Reason for Visit * Reason Comments Establish Care R elbow chronic tenn is elbow * Consultation (Routine) - Closed Specialty Diagnoses / Procedures Referred By Emanuel flores Referred To Contact Orthopaedics Diagnoses Right Elbow, chronic Tennis Elbow Self mail [facility] [address] [place] [address] Referral ID Status Reason Start Date Expiration Date V isits Requested Visits Authorized [id number] Closed Consult, Test & Treat 11/02/2021 11/02/2022 1 1 Encounter Details Date Type Department Care Team (Latest Contact Info) Description 11/23/2021 1:20 PM EST Office [place] [address] Suzy Jacobs PA [facility] DR ORTHOPAEDIC SURGERY [place] [id number] Lateral epicondylitis of right elbow; Stiffness of right wrist joint Social History Tobacco Use Types Packs/Day Years [...] Sign Reading Time Taken Comments Blood Pressure 120/61 11/23/2021 1:08 PM EST Pulse 73 11/23/2021 1:08 PM EST Temperature - - Respiratory Rate - - Oxygen Saturation - - Inhaled Oxygen Concentration - - Weight 81.6 kg (180 lb) 11/23/2021 1:08 PM EST r eported Height 174 cm (5' 8.5) 11/23/2021 1:08 PM EST r eported Body Mass Index 26.97 11/23/2021 1:08 PM EST documented in this encounter Progress Notes * Suzy Jacobs PA - 11/23/2021 1:20 PM EST PATIENT NAME: Devan Chen AGE: 56 y.o. MR#: [id number] DATE OF VISIT: 11/23/2021 DATE OF INJURY/ONSET: Chronic STAFF: Dr. Rice CHIEF COMPLAINT: Right elbow pain HISTORY OF PRESENT ILLNESS: Mr. Chen is a right hand dominant 56 y.o. male who comes into clinic today for evaluation of the right elbow. He states that he has had pain in his right elbow for about10 years. He denies having any major trauma to his arm. He thinks that his symptoms may have been brought on by bad ergonomics. He also states he has had chronic back pain and often splints his arm at his side in response to his back symptoms. His elbow pain is mostly over the lateral aspect of hisforearm, but at times he also has had some pain over the triceps. He also has had some intermittentwrist swelling and stiffness. He finds that his symptoms are exacerbated by activities that involvegripping and at times his arm feels weak. He states he was evaluated by his provider in the pain and spine clinic and was given stretching exercises. He also has had some massage treatments. He states at one point he tried wearing a wrist brace at night and he cannot recall whether this was helpfulor not. He will take Tylenol twice a day with occasional ibuprofen when his symptoms are more severe. He states he had a cortisone injection several years ago. He has not had any formal physical therapy. Medications and Allergies were reviewed in [facility] PAST MEDICAL HX: History reviewed. No pertinent past medical history. PAST SURGICAL HX: Past Surgical History: Procedure Laterality Date ??? PRO COLONOSCOPY, BIOPSY N/A 08/19/2018 COLONOSCOPY FLEXIBLE, WITH BX (WRVU 3.66) performed by Cirilo Pathak MD at [facility] ENDOSCOPY ??? PRO HALLUX RIGIDUS W/CHEILECTOMY 1ST MP JT W/IMPLT Right 10/31/2018 CORRECTION HALLUX RIGIDUS, W IMPLANT (WRVU 8.01) performed by Pascual Pearson MD at [facility] MAIN OR FAMILY HX: Family History Problem Relation Age of Onset ??? Seizure Disorder Mother ??? Parkinsonism Father ??? Diabetes Neg Hx SOCIAL HX: Social History Occupational History ??? 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 Smoking status: Never Smoker ??? Smokeless tobacco: Never Used Substance and Sexual Activity ??? Alcohol use: Yes Comment: 2/day liquor most often ??? Drug use: No Frequency: 7.0 times per week Comment: CBD oil as needed for pain, daily instead of advil ??? Sexual activity: Not on file ROS: Pertinent items are noted in HPI. General Health, Prior Treatments, PreExisting Condition, Health Habits, About You 11/23/2021 PROMIS-10 General Health Very Good PROMIS-10 Quality of Life Excellent PROMIS-10 Physical Health Very Good PROMIS-10 Mental Health Very Good PROMIS-10 Social Activity Very Good PROMIS-10 Everyday Activities Completely PROMIS-10 Pain 7 PROMIS-10 Fatigue Mild PROMIS-10 Social Roles Very Good PROMIS-10 Anxious or Depressed Rarely PROMIS PHYSICAL SCORE (range 16-68) 47.7 PROMIS MENTAL SCORE (range 21-68) 56 Treatments Tried Regular exercise, Heat and ice therapy, Brace, Acetaminophen (e.g. Tylenol), Over the counter anti-inflammatory drugs (e.g Advil, Aspirin, Aleve), Injection of steroids or cortisone Prior Surgery - Alzheimers or dementia No Cirrohosis or liver disease No HIV/AIDS No Pain in more than one joint in legs No Back or neck pain Yes Heart attack No Heart failure No Unclog/bypass leg arteries No Stroke, blood clot, TIA No Asthma Yes Take medication for asthma Yes Emphysema, chronic bronchities, or COPD No Stomach ulcers/peptic ulcer disease No Diabetes No Poor kidney function No Rheumatic condtions No Cancer No Weight (lbs) 185 Height (feet) 5 feet Height (Inches) 8 BMI 28.13 (Overweight) Ever used tobacco products No Ever used alcoholic beverages Yes Alcohol frequency Daily or almost daily WHO - Alcohol Advice 6 (You are at risk of health and other problems from your current pattern of alcohol use.) Live Alone No Marital situation Schooling More than 4 - year college Combined Household Income $75,000 or more # People Supported 4 Greenlandic, , No, not Greenlandic// Race White Health Literacy Extremely Currently working Yes Current job situation Full-time [facility] Response 11/28/2017 OSWESTRY DISABILITY INDEX 44 (Severe disability) [facility] Response 11/28/2017 Oswestry (GRACIELA) Score 44 (Severe disability) PHYSICAL EXAM: Mr. Chen is a 56 y.o. male who is in no apparent distress, alert and cooperative. Inspection: There is no erythema, ecchymosis, or swelling over the right elbow Palpation: He has some point tenderness over the lateral epicondyle and also has pain over the extensor musculature. He also has some pain over the distal triceps. There is no medial epicondyle pain. ROM/Strength: He is able to flex and extend his fingers without significant restriction. There is some stiffness in the right wrist with extension when compared to the opposite side. He is able to fully flex his wrist. There is no limitation with pronation and supination. He has full elbow range ofmotion in all planes without any locking or catching. He has 5/5 biceps and triceps strength. He had some increased elbow pain with resisted finger extension, but not with wrist extension. Neurovascular: He has intact sensation in all fingertips. Hand is well-perfused. DIAGNOSTIC STUDIES: X-rays of the right elbow were personally reviewed. No acute injuries are noted. There is no evidence of any significant arthritis or soft tissue calcifications ASSESSMENT: Chronic right lateral epicondylitis PLAN: He has pain over the lateral epicondyle and extensor musculature consistent with lateral epicondylitis. He also is having some pain over the triceps. He is going to continue with stretching exercises. We will place referrals to occupational therapy and physical therapy as well. He is interested in trying some dry needling to see if this might help provide better pain relief. We also discussed that different bracing options can be considered depending on his response to the exercises and dry needling. Cortisone injections are not recommended as first-line treatment, but if he continues to struggle with pain we could consider this. We also discussed that surgery is an option, but typically the symptoms can be managed nonoperatively. He will contact us for follow-up if he is not improving with therapy. He also is going to monitor his wrist mobility and if he continues to have stiffness we can obtain wrist x-rays to see if there is any intra-articular pathology here that would explain his stiffness. The patient understands to contact us if they have any other questions or concerns. The above documentation was completed using [employer] voice recognition software. documented in this encounter Plan of Treatment Scheduled Referrals Name Type Priority Associated Diagnoses Orde r Schedule Referral to Occupational Therapy Outpatient Referral Routine Lateral epicondylitis of right elbow Ordered: 11/23/2021 Referral to Physical Therapy Outpatient Referral Routine Lateral epicondylitis of right elbow Ordered: 11/23/2021 documented as of this encounter Results * XR Elbow 3 [...] who have questions please contact the health care administrative tech that requested your imaging first. ? Electronically signed by: Alma Delia Stuart MD, [facility] ([phone]), at 11/23/2021 2:06 PM Narrative 11/23/2021 2:06 PM EST EXAMINATION: XR [...] patients who have questions please contactthe health care administrative tech that requested your imaging first. Electronically signed by: Alma Delia Stuart MD, [facility]([phone]), at 11/23/2021 2:06 PM Carmela Rice MD IMG DX ORDERABLES documented in this encounter Visit Diagnoses Diagnosis Lateral epicondylitis of right elbow Lateral epicondylitis of elbow Stiffness of right wrist joint Lateral epicondylitis of right elbow Lateral epicondylitis of elbow documented in this encounter Care Teams Medical [facility] Sales Relationship Specialty Start Date End Date Giovanni Wing MD [address] [address] PCP - General Family Medicine 08/29/18 documented as of this encounter
--- OUTSIDE RECORDS SUMMARY | 2024-08-23 17:28 | XMS_ITS | Encounter Summary ---
Author Organization [facility] Address [facility] [place] [address] Care Team Providers Care Rubber Insulator Name Role Phone Giovanni Wing MD Primary Care Provider [phone] Reason for Visit * Reason Comments Follow-up Right hallux correct ion DOS: 10/31/18 Encounter Details Date Type Department Care Team (Late st Contact Info) Description 11/14/2018 1:00 PM EST Office [place] [address] Don Martino PA [facility] [place] [address] Hallux rigidus of right foot Social History [...] Sign Reading Time Taken Comments Blood Pressure 133/81 11/14/2018 12:50 PM EST Pulse 72 11/14/2018 12:50 PM EST Temperature 36.9 ??C (98.4 ??F) 11/14/2018 12:[address] Respiratory Rate - - Oxygen Saturation - - Inhaled Oxygen Concentration - - Weight 81.6 kg (180 lb) 11/14/2018 12:50 PM EST Height 172.7 cm (5' 8) 11/14/2018 12:50 PM EST Body Mass Index 27.37 11/14/2018 12:50 PM EST documented in this encounter Progress Notes * Don Martino PA - 11/14/2018 1:00 PM EST Patient Name: Devan Chen : 53 y.o. Case Date: 10-31-18 Surgeon: Dr Pearson Procedure: right correction hallux rigidus with cardiva implant HPI: Devan Chen is a very pleasant 53 y.o. male who presents for a 14 days follow-up of the above procedure. The patient has been doing well and his pain is moderately improved over preoperativestatus. No fevers, chills, nausea, vomiting, or symptoms of infection. 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 ROS: Denies fevers, chills, night sweats, nausea, or vomiting. BP 133/81 (BP Location (NBP): Right arm, Patient Position: Sitting, BP Cuff Sizes: Adult (25-34 cm)) Pulse 72 Temp 36.9 ??C (98.4 ??F) (Oral) Ht 172.7 cm (5' 8) Wt 81.6 kg (180 lb) BMI 27.37 kg/m?? Physical Exam: Well-appearing male in no acute distress. Alert and Oriented x 3 and answers all questions appropriately. The incision is clean dry intact with sutures in place. Sensation and pulses intact X-RAYS: see radiology report ASSESSMENT/PLAN: 14 days post-op and doing well. Continue weightbearing as tolerated but may transition into a post op shoe and start working on gentle dorsal range of motion of the great toe howeverno flexion, and we will see his back in 4 weeks for repeat examination. No x-rays will be needed atthat time. Patient may return to normal activities as his pain and function allow. Signed: LORENE HONG documented in this encounter Plan of Treatment Not on file documented as of this encounter Visit Diagnoses Diagnosis Hallux rigidus of right foot Hallux rigidus documented in this encounter Care Teams Rubber Insulator Relationship Specialty Start Date End Date Giovanni Wing MD [address] [place] [address] PCP - General Family Medicine 08/29/18 documented as of this encounter
--- OUTSIDE RECORDS SUMMARY | 2024-08-23 17:28 | XMS_ITS | Encounter Summary ---
Author Organization [facility] Address [facility] [place] [address] Care Team Providers Care Party Plan Sales Agent Name Role Phone Giovanni Wing MD Primary Care Provider [phone] Reason for Visit * Reason Onset Date Comments Medication Refill 07/25/2019 Encounter Details Date Type Department Care Team (Late st Contact Info) Description 07/25/2019 Refill [place] [address] Wu De La Cruz MD [facility] [place] [address] Jet lag syndrome; Counseling for travel Social History Tobacco Use Types Packs/Day Years [...] Telephone Encounter - Melany Mac RN - 07/25/2019 12:23 PM EDT Seen in clinic 07/11/19 for travel to [facility]. Requesting mediation for jet lag to reset after arrival. Has taken zolpidem with success in the past. Reviewed with Dr. De La Cruz. Rx for zolpidem 5 mg. #2 to [facility]. documented in this encounter Plan of Treatment Not on file documented as of this encounter Visit Diagnoses Diagnosis Jet lag syndrome Circadian rhythm sleep disorder, jet lag type Counseling for travel Other specified counseling documented in this encounter Care Teams Party Plan Sales Agent Relationship Specialty Start Date End Date Giovanni Wing MD [address] [place] [address] PCP - General Family Medicine 08/29/18 documented as of this encounter
--- OUTSIDE RECORDS SUMMARY | 2024-08-23 17:28 | XMS_ITS | Encounter Summary ---
Author Organization [facility] [place] [address] Care Team Providers Care Lpta Name Role Phone Giovanni Wing MD Primary Care Provider [phone] Reason for Visit * Reason Onset Date Comments Post-op Problem 11/01/2018 Encounter Details Date Type Department Care Team (Late st Contact Info) Description 11/01/2018 Telephone [facility] [place] [address] Maribel Reza RMA Post-op Problem Social History Tobacco Use Types Packs/Day Years [...] encounter Miscellaneous Notes * Telephone Encounter - Gila Gonzalez RN - 11/01/2018 1:47 PM EST Subjective: Telephone call to patient. He reports he has had numbness and tingling in his foot eversince surgery yesterday. He feels that the geovani bandage is very tight. He reports good sensation, warmth and good color to his foot and toes. He feels like his nerve block is wearing off and he thinks his symptoms are likely from that. He wonders if he can take more of the Oxycodone. He is taking one every 6 hours as directed, but his painis worsening with his nerve block wearing off. He also asks if we think he is ok to travel 5 hours to [place] to his son's hockey games. He says he would be walking around all day which would probably be difficult. He otherwise has no concerns. Plan: Reviewed with Dr. Pearson who advised ok to unwrap and re-wrap geovani bandage. Per Dr. Pearson ok to take 1-2 Oxycodone 5 mg Q 6 hours PRN for the next few days if needed. Patient advised he can certainlymake up his own mind regarding going on the trip to [place] or not, but that if he goes he is possibly likely to have increased pain and swelling. Patient agrees with plan. He was advised to call with any other concerns, questions or worsening symptoms. Patient/Responsible alliance party voices an understanding of advice? Yes Patient/Responsible alliance party intends to comply with action/disposition: Yes * Telephone Encounter - Maribel Reza RMA - 11/01/2018 10:03 AM EST Subjective: Postop concern SP Surgeon Role Mohinder Ann MD Resident-Surgeon Chief Pascual Pearson MD Primary Procedure Laterality Anesthesia CORRECTION HALLUX RIGIDUS, W IMPLANT ??(WRVU 8.01) Right DOS 10/31/18 Rahman questions/Assessment: Devan called this stating that over all he thought that he was doing well. The one concern that he has is the tightness and tingling that he is feeling. He wonders if this is normal. He did have a nerve block and wonders if that may be wearing off. He is on a bus today taking his son to a hockey tournament. He reports that his foot is elevated but as high as it should be. I let him know that I would like to have this triaged by one of our carton forming machine tender's . He has his cell phone and can be reached at [phone] Plan: Sending to Ortho Nurse for triage. Patient/Responsible alliance party voices an understanding of advice? yes documented in this encounter Plan of Treatment Not on file documented as of this encounter Visit Diagnoses Not on filedocumented in this encounter Care Teams Lpta Relationship Specialty Start Date End Date Giovanni Wing MD [address] [place] [address] PCP - General Family Medicine 08/29/18 documented as of this encounter
--- OUTSIDE RECORDS SUMMARY | 2024-08-23 17:28 | XMS_ITS | Encounter Summary ---
Author Organization [facility] [place] [address] Care Team Providers Care Food Safety Coordinator Name Role Phone Giovanni Wing MD Primary Care Provider [phone] Reason for Visit * Reason Onset Date Comments Pre Procedure Call 08/15/2022 Encounter Details Date Type Department Care Team (Late st Contact Info) Description 08/15/2022 Telephone Hematology and Oncology at [facility]note 3[facility] [id number] Lilian Jenkins, RN Pre Procedure Call Social History Tobacco Use Types Packs/Day Years [...] encounter Miscellaneous Notes * Telephone Encounter - Lilian Jenkins RN - 08/15/2022 10:47 AM EDT Reason for call: PSA clinic appointment on _09/21/22 at 0800___. Scheduled for Bx at this time? Yes [employer] Meds/Allergies: NKA Anticoagulant medications: (Coumadin, Plavix, ASA, NSAIDS) No If yes instruct pt to contact PCP or prescribing physician for further instruction as to discontinuing and restarting anti-coagulant therapy for Biopsy. If unable to discontinue medication as per PCPpt to keep appointment and if biopsy warranted will be scheduled for a later date with bridging. Review OTC, herbal and vitamin supplements for potential anti-coag effect: (ginko biloba, felicia, fever few, garlic, herbal teas with supplements added, Vit C,) No If yes and pt started: pt to stop supplements for 1 week prior and 1 week after biopsy. Labs: Free PSA (must be at least 10 days prior to clinic) Most recent PSA result and date 08/11/22, 11.75 Have all labs faxed to Urology office (fax # [phone]). 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 Yes Travel outside the [place] in the past 6 months No Other MRI done 08/11/22. Rectal swab for Fluoroquinolone-resistant organisms negative. Instructed to hold NSAIDs for 7 days prior to appointment. Will use Fleet enema morning of appointment. Patient Instructions/Information: Patient should eat breakfast. Patient to purchase Fleet Enema and use according to directions the morning of appointment if having a biopsy. Patient will meet with provider to discuss lab results and have a ARACELI. Registration is at Hem/Onc telephone operator receptionist 3K. Patient understands and is able to verbalize back to this nurse the above information. Patient agrees to the POC, knows when and how to call if need arises. documented in this encounter Plan of Treatment Not on file documented as of this encounter Visit Diagnoses Not on filedocumented in this encounter Care Teams Food Safety Coordinator Relationship Specialty Start Date End Date Giovanni Wing MD [address] [place] [address] PCP - General Family Medicine 08/29/18 documented as of this encounter
--- OUTSIDE RECORDS SUMMARY | 2024-08-23 17:28 | XMS_ITS | Encounter Summary ---
Author Organization [facility] [place] [address] Care Team Providers Care Refrigeration Specialist Name Role Phone Giovanni Wing MD Primary Care Provider [phone] Encounter Details Date Type Department Care Team (Late st Contact Info) Description 07/08/2021 8:30 AM EDT Public Health Public Health at [facility] [place] [id number] COVID-19 ruled out Social History Tobacco Use Types Packs/Day Years [...] Procedure Name Priority Date/Time Associated Diagnosis Comments COVID-19 PCR Routine 07/08/2021 11:20 AM EDT COVID-19 ruled out documented in this encounter Results * COVID-19 PCR (07/08/2021 11:20 AM EDT) SARS-CoV-2 RNA Not Detected Not Detected [facility] Comment: This result should be interpreted in combination with the clinical observations, patient history and epidemiological information in making a final diagnosis. For testing of asymptomatic individuals, assay performance characteristics and clinical utility have not been evaluated. Testing for SARS-CoV-2 (Severe acute respiratory syndrome coronavirus 2, formerly known as 2019 novel coronavirus or 2019-nCoV) to aid in the diagnosis of COVID-19 is performed using the [employer] RealTime SARS-CoV-2 Assay as authorized by the FDA Emergency Use Authorization (EUA). This EUA assay is intended for In-vitro Diagnostic (IVD) use with respiratory specimens such as nasopharyngeal swabs collected from individuals during the acute phase of infection. This assay is performed based on the instructions for use provided by [employer] and additional guidance provided by CDC and FDA. Testing is performed in the [facility]omics [facility] Laboratory within the Department of Pathology and Laboratory Medicine at [facility], certified under the Clinical Laboratory Improvement Amendments of 1988 (CLIA), 42 U.S.C. 263a, to perform high complexity tests. Assay performance has been verified according to clinical laboratory regulatory requirements for use with specimens collected from individuals suspected of COVID-19. Test results are provided above. A result of ? Not Detected? indicates that the viral RNA target is not present above the limit of detection, but does not preclude SARS-CoV-2 infection. False negative results may occur if a specimen is improperly collected, transported or handled; if amplification inhibitors are present; or if inadequate numbers of viral particles are present in the specimen. When a diagnostic test is negative, the possibility of a false negative result should be considered in the context of a patient? s recent exposures and the presence of clinical signs and symptoms consistent with COVID-19. A result of ? Detected? indicates that RNA from SARS-CoV-2 was detected and the patient is infected. As required or requested by public health authorities, positive specimens may be sent for additional testing. Positive and negative predictive values for this test are highly dependent on disease prevalence. A result of ? Invalid? indicates that neither the viral RNA targets nor the internal control target was detected. An invalid result suggests the presence of inhibitors. Recollection and re-testing is recommended in the case of an invalid result. CDC COVID-19 criteria for testing on human specimens and clinical management guidance information are available at the CDC Coronavirus Disease 2019 (COVID-19) webpage under ? Information for Healthcare Professionals? (https://www.cdc.gov/coronavirus/2019-ncov/hcp/index.html) Additional information about this and other EUA tests can be found in provider and patient fact sheets at the following FDA website: https://www.fda.gov/medical-devices/fqhtyfgyrzo-nleznta-7798-ununo-66-dvdkuyiiw- use-a rrrduwfqkrguv-bczgbvu-kmqioto/zshzc-grgafhxsbwr-olsy SARS-CoV-2 RNA Source LEASING PROFESSIONAL Swab [facility] Nasopharyngeal Swab 07/08/20 11:20 AM EDT 07/08/2021 11:20 AM EDT Comment:Symptoms->Asymptomat ic Narrative Resulting Agency Comment Spec In Lab Giovanni Wing MD MOLECULAR ORDERABLES [facility] [place] [address] documented in this encounter Visit Diagnoses Diagnosis COVID-19 ruled out documented in this encounter Care Teams Refrigeration Specialist Relationship Specialty Start Date End Date Giovanni Wing MD [address] [place] [address] PCP - General Family Medicine 08/29/18 documented as of this encounter
--- OUTSIDE RECORDS SUMMARY | 2024-08-23 17:28 | XMS_ITS | Encounter Summary ---
Author Organization [facility] Address [facility] [place] [address] Care Team Providers Care Coping Machine Operator Name Role Phone Giovanni Wing MD Primary Care Provider [phone] Encounter Details Date Type Department Care Team (Latest Contact Info) Description 11/02/2022 Travel Social History Tobacco Use Types Packs/Day [...] on filedocumented in this encounter Care Teams Coping Machine Operator Relationship Specialty Start Date End Date Giovanni Wing MD [address] [address] PCP - General Family Medicine 08/29/18 documented as of this encounter
--- OUTSIDE RECORDS SUMMARY | 2024-08-23 17:28 | XMS_ITS | Encounter Summary ---
Author Organization [facility] Address [facility] [place] [address] Care Team Providers Care Behavioral Modification Assistant Name Role Phone Giovanni Wing MD Primary Care Provider [phone] Reason for Referral * Occupational Therapy (Routine) - Closed Specialty Diagnoses / Procedures Referred By Emanuel t Referred To Contact Occupational Therapy Diagnoses Pain in left elbow Suzy Jacobs PA [facility] [place] [address] [facility] [address] [place] [address] Referral ID Status Reason Start Date Expiration Date V isits Requested Visits Authorized [id number] Closed Evaluate and Treat 11/03/2022 11/03/2023 30 30 Encounter Details Date Type Department Care Team (Late st Contact Info) Description 11/03/2022 Orders [place] [address] Suzy Jacobs PA [facility] [place] [address] Pain in left elbow Social History Tobacco [...] arm documented in this encounter Care Teams Behavioral Modification Assistant Relationship Specialty Start Date End Date Giovanni Wing MD [address] [place] [address] PCP - General Family Medicine 08/29/18 documented as of this encounter
--- OUTSIDE RECORDS SUMMARY | 2024-08-23 17:28 | XMS_ITS | Encounter Summary ---
Author Organization [facility] [place] [address] Care Team Providers Care Seconds Handler Name Role Phone Giovanni Wing MD Primary Care Provider [phone] Encounter Details Date Type Department Care Team (Late st Contact Info) Description 11/02/2018 Telephone [place] [phone] Nya Kraus MD [facility] [place] [address] Social History Tobacco Use Types Packs/Day Years [...] encounter Miscellaneous Notes * Telephone Encounter - Nya Kraus MD - 11/02/2018 12:32 PM EST Received a call from Devan Chen. 53 yo s/p correction of R hallux rigidus with cartiva implant on 10/31 regarding persistent pain and swelling on his right foot. Denies any numbness or tingling. Endorses he has been ambulating more recently in his walker boot and wants reassurance this is normal. I suggested to rest, ice, elevate as much as possible to help relieve symptomatic pain. He would like crutches to assist in ambulation. I stated this is not necessary, but if he would like it for comfort that would be OK and any neighborhood pharmacy should have a supply. He endorses he has been decreasing his oxycodone prescription over the weekend. Future Appointments Date Time Provider Department Center 11/15/2018 1:30 PM Luz Chávez PA [facility] [address] [place] [address] [facility] documented in this encounter Plan of Treatment Not on file documented as of this encounter Visit Diagnoses Not on filedocumented in this encounter Care Teams Seconds Handler Relationship Specialty Start Date End Date Giovanni Wing MD [address] [place] [address] PCP - General Family Medicine 08/29/18 documented as of this encounter
--- OUTSIDE RECORDS SUMMARY | 2024-08-23 17:28 | XMS_ITS | Encounter Summary ---
Author Organization [facility] Address [facility] [place] [address] Care Team Providers Care Remnants Cutter Name Role Phone Giovanni Wing MD Primary Care Provider [phone] Reason for Visit * Occupational Therapy (Routine) - Closed Specialty Diagnoses / Procedures Referred By Emanuel flores Referred To Contact Occupational Therapy Diagnoses Lateral epicondylitis of right elbow Suzy Jacobs PA [facility] [place] [address] [facility] [address] [place] [address] Referral ID Status Reason Start Date Expiration Date V isits Requested Visits Authorized [id number] Closed Evaluate and Treat 11/23/2021 11/23/2022 30 30 Encounter Details Date Type Department Care Team (Late st Contact Info) Description 12/14/2021 8:00 AM EST Office Visit Occupational Therapy at [facility] [address] [place] [phone] Shara Alvarado OT Pain in right elbow Social History [...] Miscellaneous Notes * Treatment - Therapy - Christiano Shara Sonia, OT - 12/14/2021 8:00 AM EST OCCUPATIONAL THERAPY TREATMENT NOTE Certification Period: 12/01/21-03/01/22 Referral Source: LORENE Cowart [...] your head Moderate difficulty 7. Do heavy cigar patcher (eg wash leon, wash floors) Moderate difficulty [...] scale indicating percent of perceived functional impairment. Pain on eval: (Assessed using the visual analog pain scale) [...] head pillow and one between knees. With bottoming room supervisor testing, had discomfort in wrist extensors afterwards. Active Range of Motion: Measured in degrees of active motion with goniometer Right on eval Left Wrist Extension/Flexion 45/73 50/73 Ulnar/Radial Deviation 25/15 28/18 Pronation/Supination WNL WNL Composite Extension/Flexion 52/55 All digits and thumb AROM WNL. Strength: Developer Automatic Testing with Dynamometer setting #2 Pinch Testing with Pinch Gauge Right on eval Left Developer Automatic setting 2 90.1, 95, 97 97.6, 102.7, 113 Developer Automatic Average 94 104.4 Rahman 23.5 31.5 3 Pt 20 23 Tip 18.5 22 12/14/21: He has been doing well - the splint at night has been helping, heat and stretches are feeling good, not having sharp pain in the elbow anymore. Able to add eccentric strengthening today and added additional shoulder stretches. Treatment Today: Hot Pack or Cold Pack (60944) Manual Therapy (17471) 20 min Therex: Strength/Endurance/ROM (64331) 15 min Educated patient in etiology and biomechanics as related to the patient's symptoms. Hot pack (41028) for 15 minutes: applied with eight layers of towels in addition to hot pack insulation for a total of 12 layers, utilized for superficial heating for soft tissue preparation prior totreatment activities applied to the right elbow. Kneading massage to right wrist extensors followed by wrist extensors stretching, both isolated andcomposite. Wall stretching for composite stretch incorporating shoulder transport engineer as well- palm and forearm flat on wall, then stretch variation with palm on wall with elbow extended. Added 2 lb weight eccentric wrist extensor exercise, 10 reps once a day - pt responded well to this, slight workout soreness feeling but no increased pain. Gave supine snow neal gentle stretch for right shoulder, as well as finger walking up the wall. Provided with home exercise program to include [...] see above, DASH for specific functional deficits. Responded well to heat and massage; he hasbeen compliant with heat and stretching at home as well as avoiding symptom-aggravating activities,and is noticing improvements in regards to his pain. He has been doing well - the splint at night has been helping, heat and stretches are feeling good, not having sharp pain in the elbow anymore. Able to add eccentric strengthening today and added additional shoulder stretches. Will do re-assessment at next visit, also see how shoulder tightness is doing and if pt would benefit from PT referral.Devan Chen is able to demonstrate home exercises with written instructions provided. Devan Chen has good potential for gains with therapy with identified needs for skilled therapy for treatment of deficits noted during evaluation, to maximize functional performance during daily activities. Jail Goals (to be met by discharge): Date [...] 3 week(s) to progress toward short and electronic semiconductor processor goals, Joint mobilizations to decrease pain and/or [...] arm documented in this encounter Care Teams Remnants Cutter Relationship Specialty Start Date End Date Giovanni Wing MD [address] [place] [address] PCP - General Family Medicine 08/29/18 documented as of this encounter
--- OUTSIDE RECORDS SUMMARY | 2024-08-23 17:28 | XMS_ITS | Encounter Summary ---
Author Organization [facility] [place] [address] Care Team Providers Care Athletic Training Internship Name Role Phone Giovanni Wing MD Primary Care Provider Encounter Details Date Type Department Care Team (Late st Contact Info) Description 07/05/2021 Orders Only Primary Care at [facility] [address] [facility] [place] [phone] Efrem Gutierrez MD [address] [facility] [place] [address] Encounter for screening laboratory testing for COVID-19 virus in asymptomatic patient Social History Tobacco Use Types Packs/Day Years [...] as of this encounter Visit Diagnoses Diagnosis Encounter for screening laboratory testing for COVID-19 virus in asymptomatic patient documented in this encounter Care Teams Athletic Training Internship Relationship Specialty Start Date End Date Giovanni Wing MD [address] [place] [address] PCP - General Family Medicine 08/29/18 documented as of this encounter
--- OUTSIDE RECORDS SUMMARY | 2024-08-23 17:28 | XMS_ITS | Encounter Summary ---
Author Organization [facility] Address [facility] [place] [address] Care Team Providers Care Wireless Consultant Name Role Phone Giovanni Wing MD Primary Care Provider [phone] Reason for Visit * Occupational Therapy (Routine) - Closed Specialty Diagnoses / Procedures Referred By Emanuel flores Referred To Contact Occupational Therapy Diagnoses Lateral epicondylitis of right elbow Suzy Jacobs PA [facility] [place] [address] [facility] [address] [place] [address] Referral ID Status Reason Start Date Expiration Date V isits Requested Visits Authorized [id number] Closed Evaluate and Treat 11/23/2021 11/23/2022 30 30 Encounter Details Date Type Department Care Team (Late st Contact Info) Description 12/22/2021 8:00 AM EST Office Visit Occupational Therapy at [facility] [address] [place] [phone] Shara Alvarado, OT Pain in right elbow [...] Progress Notes * Shara Alvarado, OT - 12/22/2021 8:00 AM EST OCCUPATIONAL THERAPY PROGRESS NOTE Certification Period: 12/01/21-03/01/22 Referral Source: LORENE Cowart MD Follow-up: Not currently scheduled Total Treatment time: 45 Minutes Timed Code [...] your head Moderate difficulty 7. Do heavy drafter civil (cad) (eg wash leon, wash floors) Moderate difficulty [...] increased to a 5-6/10 with internal rotation Now on discharge note: 0/10 With Activity: 8/10 sharp pain such as when lifting firewood Now on discharge note: minimal discomfort with pronated grasp Special Testing Completed: Internal rotation feels in [...] head pillow and one between knees. With earth moving technician testing, had discomfort in wrist extensors afterwards. Active Range of Motion: Measured in degrees of active motion with goniometer Right 2/3 Right on eval Left Wrist Extension/Flexion 52/83 45/73 50/73 Ulnar/Radial Deviation 31/20 25/15 28/18 Pronation/Supination WNL WNL WNL Composite Extension/Flexion 56/38 45/26 52/55 All digits and thumb AROM WNL. Strength: School Lunch Manager Testing with Dynamometer setting #2 Pinch Testing with Pinch Gauge Right 12/22/21 Right on eval Left School Lunch Manager setting 2 83.1, 98.5, 108.3 90.1, 95, 97 97.6, 102.7, 113 School Lunch Manager Average 96.3 94 104.4 Rahman 22 23.5 31.5 3 Pt 23 20 23 Tip 16 18.5 22 12/22/21: Has been doing eccentric with water bottle. Feeling good. Tightness in the right shoulder and gait is improving. No pain at rest. Minimal discomfort with pronated grasp. No longer pain with earth moving technician and pinch. 12/14/21: He has been doing well - the splint at night has been helping, heat and stretches are feeling good, not having sharp pain in the elbow anymore. Able to add eccentric strengthening today and added additional shoulder stretches. Re- loaded firewood and did not have pain. Treatment Today: Hot Pack or Cold Pack (14123) Manual Therapy (16320) 20 min Therex: Strength/Endurance/ROM (40822) 10 min Educated patient in etiology and biomechanics as related to the patient's symptoms. Hot pack (70987) for 15 minutes: applied with eight layers of towels in addition to hot pack insulation for a total of 12 layers, utilized for superficial heating for soft tissue preparation prior totreatment activities applied to the right elbow. Kneading massage to right wrist extensors- minimal tightness felt compared to prior treatments. 2 lb weight eccentric wrist extensor exercise, 10 reps Educated in continuing home exercise program for another month and then weaning off, which includesheat, wrist extensors stretch with elbow at side, wrist extensors stretch with elbow extended, 2 lbeccentric strengthening, voiding gripping/lifting while pronated, see scanned documents. Wean from wrist cockup orthosis by wearing every other night. Instructed in home modalities to include: Moist heat CLINICAL DECISION MAKING: Devanumair Chen has made great progress in his right lateral epicondylitis, no pain at rest, minimal discomfort with pronated grasp, no pain with earth moving technician and pinch. Tightness in shoulder has decreased as well as overall body tension and pt even feels that his gait is more relaxed. He is in agreement with discharge at this time. Managing Editor Goals (to be met by discharge): Date Goal Met: 1.) Devan Chen will demonstrate significantly improved functional performance from re-assessment Goal Status: Met 2.) Devan Chen will be able resume occupational roles independently or modified, based on the occupational profile, with a DASH score of less than 18. Goal Status: Met - DASH not formally re-administered, but pt with no reports of functional impairment. Short Term Goals (to be met by 12/22/21): Date Goal Met: Devan Chen will be independent with home exercise program with written instructions. Goal Status: Met Devan Chen will gain 5 degrees of right composite flexion to demonstrate significantly improved functional performance Goal Status: Met Devan Chen will demonstrate the ability to complete computer work, yard work, hunting, skiing tasks with 0-3/10 pain using the visual analog pain scale. Goal Status: Met Devan Chne will be able resume significantly greater occupational roles independently or modified, based on the occupational profile, with a DASH score of less than 20 (using a ten point decrease for minimal detectable change that can be considered as meeting criteria for ???significant?? ) Goal Status: Met - DASH not formally re-administered, but pt with no reports of functional impairment. PLAN: Pt has made great progress in his right lateral epicondylitis, no pain at rest, minimal discomfort with pronated grasp, no pain with earth moving technician and pinch. Tightness in shoulder has decreased as well as overall body tension and pt even feels that his gait is more relaxed. He is in agreement with discharge at this time. (X) Devan Chen participated in the evaluation, collaborated on treatment goals, and agrees to the treatment plan. documented in this encounter Plan of Treatment Not on file documented as of this encounter Visit Diagnoses Diagnosis Pain in right elbow Pain in joint, upper arm documented in this encounter Care Teams Wireless Consultant Relationship Specialty Start Date End Date Giovanni Wing MD [facility] [address] [place] [address] PCP - General Family Medicine 08/29/18 documented as of this encounter
--- OUTSIDE RECORDS SUMMARY | 2024-08-23 17:28 | XMS_ITS | Encounter Summary ---
Author Organization [facility] [place] [address] Care Team Providers Care Stick Puller Name Role Phone Giovanni Wing MD Primary Care Provider Reason for Visit * Reason Comments Travel Consult Encounter Details Date Type Department Care Team (Late st Contact Info) Description 07/11/2019 8:15 AM EDT Office Visit Infectious Disease at [facility] [place] [id number] Melany Mac RN Need for prophylactic vaccination with Marshallese encephalitis vaccine; Need for prophylactic vaccination and inoculation against viral hepatitis; Need for prophylactic vaccination with typhoid-paratyphoid (TAB) vaccine; Counseling for travel Social History Tobacco Use [...] as of this encounter Progress Notes * Melany Mac RN - 07/11/2019 8:15 AM EDT Adult Travel Clinic Reason for Visit: Devan Chen is a 54 y.o. male patient who comes to travel clinic today for pre-travel evaluation, vaccination and traveler's health education. Trip Details: Destination countries (list from first to last): [place] [facility] Departure date: 08/09/19 Length of trip: 1 week Purpose of travel: work with [employer] Type of environment: urban and rural Accommodations: hotel Medical History: Medical problems: Patient Active Problem List Diagnosis Code ??? 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 Chronic SI joint pain M53.3, G89.29 ??? Hallux rigidus of right foot M20.21 ??? Pain in toe of left foot M79.675 ??? Finger infection L08.9 ??? Thoracic spondylosis without myelopathy M47.814 ??? Muscle pain M79.10 ??? Anxiety state F41.1 ??? Asthma J45.909 ??? Pure hypercholesterolemia E78.00 ??? Overweight E66.3 ??? Back pain M54.9 ??? Health care maintenance Z00.00 Current Outpatient Medications Medication Sig Dispense Refill ??? loratadine (CLARITIN) 10 mg Tablet Take 10 mg by mouth daily. ??? Ibuprofen 200 mg Capsule Take by mouth as needed. ??? cholecalciferol, Vitamin D3, 1,000 unit Capsule Take 1,000 Units by mouth daily. ??? VENTOLIN HFA 90 mcg/actuation HFA Aerosol Inhaler Inhale 2 puffs into the lungs as needed. 3 ??? FLUoxetine (PROZAC) 20 mg Capsule Take 20 mg by mouth daily. 3 ??? triamcinolone (KENALOG) 0.1 % Cream Apply topically as needed. 0 ??? UNABLE TO FIND daily as needed. CBD Oil ??? azithromycin (ZITHROMAX) 500 mg Tablet Take 1 tablet by mouth daily. Take once daily for fever with diarrhea. 3 tablet 0 No current facility-administered medications for this visit. Immunosuppression: none History of adverse vaccine reactions: no History of latex, egg or beesting allergy: no Patient advised to carry all medications in carry on luggage. Travel Health and Safety Issues: A discussion of travel health hazards and safety issues was done, including the following topics: traffic-accidents (alcohol, seatbelts), crime, alcohol related issues, sun exposure/heat illness, Schistosomiasis and other fresh water exposures, rabies, HIV infections, Hepatitis and other STD's, control, TB, Health Insurance coverage/[employer]. Discussed food and water precautions and patient handout provided. The following strategies were recommended for the management of traveler's diarrhea according to severity: ?? For treatment of mild diarrhea: hydration and over the counter antidiarrheal recommended. ?? For treatment of diarrhea accompanied by fever or systemic illness: hydration and empiric treatment with antibiotic recommended. A prescription for Azithromycin 500 mg daily x 3 days faxed to pharmacy. Discussed antibiotic use, resistance and colonization issues. Advised to use antibiotics only for more severe symptoms, fever or worsening diarrhea. ?? For severe or bloody diarrhea, or diarrhea accompanied by vomiting: patient advised to seek medical treatment. Vector-borne Disease Prevention Discussed insect bite prevention to reduce risk of malaria, dengue, chikungunya and other insect borne illnesses. Handout given. Malaria Risk: No malaria risk on this particular trip. Altitude: Discussed altitude sickness and prevention. [place]out [place] [phone]. May do a day trip to [facility] but only for sightseeing, no trekking. He opts to not take acetazolamide. Immunizations Immunization History Administered Date(s) Administered ??? Hepatitis A Vaccine, Adult 07/11/2019 ??? Influenza Vaccine (Novel) [id number], Injectable 10/05/2011, 09/17/2012, 12/12/2013, 09/02/2014 ??? Influenza Vaccine w/Preservative, Split 08/06/2018 ??? 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 Pneumococcal Vaccine, Unspecified Formulation 10/14/2018 ??? Td Vaccine, Absorbed, Adult 10/25/2017 ??? Tdap Vaccine 01/26/2009 ??? Typhoid, VICP 07/11/2019 Immunizations given today- Hepatitis A #1, typhoid IM and Marshallese encephalitis #1. Traveler is up to date with routine vaccinations including tetanus and influenza. He is traveling for work with [employer] and anticipates frequent future travel to this area. 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 He would like to do the rabies pre-vaccination series but is out of state for 07/14 through 07/19 and departs for [facility] on 08/08 which leaves no way to complete the series schedule. He is going to try to obtain rabies #1 in [place] on 07/15. If he is successful in doing that then wecan schedule #2 and #3 for our clinic. He has my contact information and will call to schedule if ne eded. Alternate plan is to do the series after his return from [facility] to cover for future trips. Rabies- discussed animal avoidance, wound care and need for post-exposure prophylaxis. Follow-up Recommendations: Traveler will return to PCP in six months for second hepatitis A vaccine. Patient advised to call travel clinic if they return from trip with any illness. Time spent in travel counselin minutes. Vaccine information sheets given. documented in this encounter Plan of Treatment Not on file documented as of this encounter Visit Diagnoses Diagnosis Need for prophylactic vaccination with Marshallese encephalitis vaccine Need for prophylactic vaccination and inoculation against arthropod-borne viral encephalitis Need for prophylactic vaccination and inoculation against viral hepatitis Need for prophylactic vaccination with typhoid-paratyphoid (TAB) vaccine Need for prophylactic vaccination with typhoid-paratyphoid alone (TAB) Counseling for travel Other specified counseling documented in this encounter Care Teams Stick Puller Relationship Specialty Start Date End Date Giovanni Wing MD [address] [place] [address] PCP - General Family Medicine 08/29/18 documented as of this encounter
--- OUTSIDE RECORDS SUMMARY | 2024-08-23 17:28 | XMS_ITS | Encounter Summary ---
Author Organization [facility] [place] [address] Care Team Providers Care Applied Psychology Chair Name Role Phone Giovanni Wing MD Primary Care Provider [phone] Reason for Visit * Reason Comments Right Arm Pain * Consultation (Routine) - Closed Specialty Diagnoses / Procedures Referred By Contac t Referred To Contact [facility] Diagnoses Myalgia, other site Pain in right arm *reschedule- would like just Jeniffer and darell do 07/13? coming back from out of town- wait for Aug Pain- R arm pain/ myofascial pain dysfunction syndrome Giovanni Wing MD [address] [place] [address] [address] Mae Gayle V [facility] [place] [address] Referral ID Status Reason Start Date Expiration Date V isits Requested Visits Authorized [id number] Closed Consult, Test & Treat Connection Center PCP Updated and/or Approved 04/28/2021 04/28/2022 6 6 Encounter Details Date Type Department Care Team (Latest Contact Info) Description 09/30/2021 1:00 PM EST Office Visit [facility] [place] [address] Mae Gayle V [facility] [place] [address] Lateral epicondylitis of right elbow; Radial nerve entrapment, right Social History Tobacco Use Types Packs/Day Years [...] Sign Reading Time Taken Comments Blood Pressure 126/71 09/30/2021 1:08 PM EST Pulse 73 09/30/2021 1:08 PM EST Temperature - - Respiratory Rate - - Oxygen Saturation 97% 09/30/2021 1:08 PM EST Inhaled Oxygen Concentration - - Weight 81.6 kg (180 lb) 09/30/2021 1:08 PM EST Height 174 cm (5' 8.5) 09/30/2021 1:08 PM EST Body Mass Index 26.97 09/30/2021 1:08 PM EST documented in this encounter Progress Notes * Mae Gayle DO - 09/30/2021 1:00 PM EST This is a very pleasant 56-year-old male. Patient presents for initial evaluation. The patient complains of right upper extremity pain. The pain is mostly to the right lateral epicondyle. He also hasburning and swelling to the dorsum of the right hand. This is been going on for several months. Thepatient denies any chronic neck pain. Patient denies any weakness to the right upper extremity. There is no numbness to the upper extremities. There is no injury to the neck or upper extremities. Thepatient also complains of a tightness/burning to the right tricep and right latissimus dorsi area. Otherwise the patient is doing well. I know the patient from 3+ years ago in which we did thoracic ra diofrequency ablation. He continues to have good relief from the procedure. I reviewed his past medical, past surgical, and medication history. Patient is tender to palpation at the right lateral epicondyle of the right elbow. He also has sometenderness to palpation over the right wrist extensors. There is no tenderness over the right wristor right hand. There is no abnormal sensation, color, or hair growth to the right upper extremity. The right upper extremity and left upper extremity are visually equal. He has normal neurologic evaluation to the bilateral extremities. He does have about 30 degrees of extension of the right wrist. Left wrist is about 60 degrees of extension. He notes this is what makes it hard for him to shave the right side of his face. He denies any injury to his right wrist. He does show me a picture of his right hand when it was swollen and it appears mild to moderately swollen and red compared to the right side. Encounter Diagnoses Name Primary? Lateral epicondylitis of right elbow ??? Radial nerve entrapment, right I believe that he has right lateral epicondylitis. I instructed him on stretching exercises for this issue. He also likely has occasional radial nerve entrapment causing his right hand pain. Hopefully the stretching (with heat) will help with this condition. I offered formal physical therapy and heis going to try doing this himself. I also offered an x-ray of the right wrist and we are going to wait to see if his right wrist symptoms become more consistent. He will try home stretching for at least 6 weeks. He can also use a tennis elbow strap when doing activities. If there is no improvement, we will consider right wrist extensor tendon tenotomy at the lateral epicondyl area under ultrasound guidance and without steroids. He understands. He will follow up as needed. MAE GAYLE DO, MPH Intelligence Support Officer of Anesthesiology/[facility] [employer] at [facility] Com Writer, Pain Medicine Fellowship Outbound Call Center Representative, Functional Scientologist Program [employer] - Subspecialty board certification in Pain Medicine documented in this encounter Plan of Treatment Not on file documented as of this encounter Visit Diagnoses Diagnosis Lateral epicondylitis of right elbow Lateral epicondylitis of elbow Radial nerve entrapment, right documented in this encounter Care Teams Applied Psychology Chair Relationship Specialty Start Date End Date Giovanni Wing MD [address] [place] [address] PCP - General Family Medicine 08/29/18 documented as of this encounter
--- OUTSIDE RECORDS SUMMARY | 2024-08-23 17:28 | XMS_ITS | Encounter Summary ---
Author Organization [facility] [place] [address] Care Team Providers Care Military Communications Specialist Name Role Phone Giovanni Wing MD Primary Care Provider [phone] Reason for Visit * Reason Comments Follow-up MRI Encounter Details Date Type Department Care Team (Late st Contact Info) Description 08/14/2022 4:00 PM EDT Office Visit Urology at [facility] [place] [address] Lilian Rogers APRN [facility] [place] [address] Lower urinary tract symptoms (LUTS); Elevated PSA; Hemorrhoids, unspecified hemorrhoid type Social History Tobacco Use Types Packs/Day Years [...] Sign Reading Time Taken Comments Blood Pressure 121/79 08/14/2022 4:03 PM EDT Pulse 74 08/14/2022 4:03 PM EDT Temperature - - Respiratory Rate 14 08/14/2022 4:03 PM EDT Oxygen Saturation 99% 08/14/2022 4:03 PM EDT Inhaled Oxygen Concentration - - Weight 83.9 kg (185 lb) 08/14/2022 4:03 PM EDT Height 174 cm (5' 8.5) 08/14/2022 4:03 PM EDT Body Mass Index 27.72 08/14/2022 4:03 PM EDT documented in this encounter Progress Notes * Lilian Rogers APRN - 08/14/2022 4:00 PM EDT Images from the original note were not included. [facility] Section of Urologic Surgery Follow Up Visit ? HPI: Devan Chen is a 57 y.o. male who is referred by Giovanni Wing for management for followup to discuss results of Prostate MRI. PSA History review: 06/30/2022- 12.3 %free 7 07/11/2022- 11.75 He reports yesterday he noticed a lump when wiping his bottom. Feel the size of a grape. Denies itching, burning, or pain. He voids q1-2 hourx/day and 4x/night. He states this is his norm for awhile. Patient reports bowels are regular, denies constipation or diarrhea. He stops fluids right before sleep. Reports decreased stream, feels he empties pretty good. He denies any urinary hesitancy. Most bothersome symptoms urgency/frequency/nocturia. . Denies stress or urge urinary incontinence. Fluid Intake: Drinks 3-4 16oz coffee, 64oz water/day, 1-2 drinks of alcohol each evening, 1 can seltzer. Chronic back pain. Denies any new back or bone pain. Denies dysuria or hematuria. His appetite is good, denies any weight loss that is unexplained. He denies any recent UTI's. Biopsy Screening Questions: He has never had a previous prostate biopsy. He is not on any anticoagulation. He has a family history of prostate cancer. Father had prostate caner in his late 50's to 60. He was treated surgically. Heart valve replacement or joint replacement: Right great toe replacement, 10/2018. Family member in household works in healthcare: Yes, daughter who lives there in the summer, medical records receptionist in [employer]. No recent abx in the last 6 months. He has not had any recent travel outside the [place]. Prostate Today's Scores 07/17/2022 Sexual Health Inventory for Men 25 International Prostate Symptom Score 11 (Moderate LUTS) Patient Active Problem List Diagnosis Date Noted ??? Elevated PSA 07/17/2022 ??? Lower urinary [...] ??? Mechanical low back pain 07/18/2012 Past Surgical History: Procedure Laterality Date ??? LUMBAR DISC SURGERY L5-S1 ??? PRO COLONOSCOPY, BIOPSY N/A 08/19/2018 COLONOSCOPY FLEXIBLE, WITH BX (WRVU 3.66) performed by Cirilo Pathak MD at [facility] ENDOSCOPY ??? PRO HALLUX RIGIDUS W/CHEILECTOMY 1ST MP JT W/IMPLT Right 10/31/2018 CORRECTION HALLUX RIGIDUS, W IMPLANT (WRVU 8.01) performed by Pascual Pearson MD at [facility] MAIN OR Current Outpatient Medications Medication Instructions ??? acetaminophen (TYLENOL) 650 mg Tablet Sustained Release DAILY ??? cholecalciferol (Vitamin D3) 1,000 Units, Oral, DAILY ??? FISH OIL-DHA-EPA ORAL Oral ??? FLUoxetine (PROZAC) 20 mg, Oral, DAILY ??? MELATONIN ORAL Oral ??? triamcinolone (KENALOG) 0.1 % Cream Topical (Top), PRN ??? 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 Denies exposure to chemical/dyes, no hx of factory work. Smoking hx: None. ?? Family Hx: reports family hx of prostate CA (father), denies hx of kidney stones or other urological cancers. . ?? Review of Systems: General: Denies fever, chills, unexpected weight loss/gain HEENT: Denies change in hearing or vision Respiratory: Denies SOB, cough Cardiac Occasional palpitations, PCP worked up with EKG: Denies chest pain, syncope, JETER GI: Denies changes in appetite, constipation, or diarrhea. : see HPI M/S: Denies weakness or unsteady gait Neuro: Denies headaches, lightheadedness, dizziness Endocrine: Denies diabetes or thyroid disease Skin: No new skin lesions or rashes OBJECTIVE FINDINGS ?? Physical Exam: well appearing male, NAD Head: normocephalic and ataumatic No lymphadenopathy cervically, supraclavicularly or inguinally. Abdomen: His abdomen is soft, NT, ND with no palpable masses, no hernias noted : (deferred from 07/17/22: circumcised phallus with orthotopic meatus, no urethral discharge. bilateral testicles and epididymis are without nodules, skin of scrotum and michelle-anal region without lesions.) Rectal: moderately sized hemorrhoid with erythema and redness, tender to palpation at 5 o'clock. (deferred from 08/17/22: moderately enlarged prostate, without nodules, firmness, or lesions. No rectalmasses.) Skin: warm and dry, no lesions Musculoskeletal: symmetric without gait abnormalities Neurologic: no obvious abnormalities ?? PVR (with use of bladder ultrasound, by scanner): 184ml, voided. Repeat PVR 13ml. Urinalysis by my review: Urine dipstick shows negative for all components. ?? Imaging: I personally reviewed the imaging dated ??08/11/22: MRI Pelvis wwo (Prostate) Estimated prostate size on imaging 36cc. PSA Density 0.33 IMPRESSION ??Lesion 1 TZ+PZ: PI-RADS 4. Clinically significant cancer is likely to be present. T2 location: axial series 12, image 25; sagittal series 14, image 17. Impression: Elevated PSA with family history of prostate CA and PI-Rads 4 lesion noted on MRI with elevated PSAdensity. Moderate LUTS- more bothersome at this time. Rectal Hemorrhoid ?? Plan/Recommendations: ?? Discussed Prostate MRI results. Given PI-Rads 4 lesion and PSA density of 0.33, recommendation would be to proceed with prostate biopsy. ?? We discussed alternatives and the risks and benefits of prostate biopsy (including risks of blood in urine, stool, and semen, infection and rarely hospital admission.) Pt was eager to proceed withbiopsy and will have this done in clinic today. ?? Rectal swab to test for fluoroquinolone antibiotic resistance. ?? Discussed moderate LUTS. ?? Since this is more bothersome discussed behavioral chance of timed voiding, double voiding, limiting fluids 3 hours prior to sleep, bladder irritants, avoiding overhydration, ect. ?? Discussed pharmacological intervention to improve symptoms such alpha- blockers (Flomax) to relaxsmooth muscle at bladder neck & prostate to relieve bladder outlet obstruction and improve ability to empty fully. Risk/Benefit and side effects discussed. ?? Handout given for behavioral therapies & started on tamsulosin 0.4mg/night. ?? Discussed rectal hemorrhoid. Educated to try OTC remedies such as preparation H. If remains bothersome after 1 week to see PCP. The patient expressed understanding and agreement with the above. All questions answered to his apparent satisfaction. ?? Lilian Rogers APRN documented in this encounter Plan of Treatment Not on file documented as of this encounter Procedures Procedure Name Priority Date/Time Associated Diagnosis Comments [facility] Routine 08/14/2022 4:45 PM EDT MISCELLANEOUS LAB REQUEST Routine 08/14/2022 4:45 PM EDT Elevated PSA documented in this encounter Results * [facility] (08/14/2022 4:45 PM EDT) AR[facility] Test [id number] Fluoroquinolone [facility] SEE NOTE [facility] Comment: Test name ? Result Flag Units ??RefIntvl Final Report ?SEE NOTE Culture negative for fluoroquinolone-resistant organisms This test is not intended for screening donor material. Performed By: [facility] [address] [place] [id number] Channel Director: Arnel Logan MD, PHD Other Other / Unknown 08/14/2022 4 :45 PM EDT 08/15/2022 9:53 AM EDT Lilian Barraganche [facility]AMPOO PERSON LAB SEND OUT ORDERA BLES Performing Organization Address [facility] Co de Phone Number [facility] [place] [place] [address] * Miscellaneous Lab request (08/14/2022 4:45 PM EDT) Label Request received in lab. [facility] Stool 08/14/2022 4:45 PM EDT 08/14/2022 5:56 PM EDT Narrative Resulting Agency Comment Spec In Lab Lilian Barraganche [facility] PERSON LAB SEND OUT ORDERA BLES Performing Organization Address [facility] Co de Phone Number [facility] [place] [address] documented in this encounter Visit Diagnoses Diagnosis Lower urinary tract symptoms (LUTS) Other symptoms involving urinary system Elevated PSA Elevated prostate specific antigen (PSA) Hemorrhoids, unspecified hemorrhoid type documented in this encounter Care Teams Military Communications Specialist Relationship Specialty Start Date End Date Giovanni Wing MD [address] [place] [address] PCP - General Family Medicine 08/29/18 documented as of this encounter
--- OUTSIDE RECORDS SUMMARY | 2024-08-23 17:28 | XMS_ITS | Encounter Summary ---
Author Organization [facility] [place] [address] Care Team Providers Care Patcher Helper Name Role Phone Giovanni Wing MD Primary Care Provider [phone] Reason for Referral * Diagnostic Test (Routine) - Closed Specialty Diagnoses / Procedures Referred By Contac t Referred To Contact Radiology Diagnoses Elevated PSA Procedures MRI Pelvis wwo (Prostate) Lilian Quigley APRN [facility] [place] [address] [place] [address] Referral ID Status Reason Start Date Expiration Date V isits Requested Visits Authorized [id number] Closed Specialty Service Requested 08/02/2022 09/30/2022 1 1 Reason for Visit * Consultation (Routine) - Closed Specialty Diagnoses / Procedures Referred By Contac t Referred To Contact Urology Diagnoses Elevated PSA Giovanni Wing MD [facility] [address] [address] [place] [address] Referral ID Status Reason Start Date Expiration Date V isits Requested Visits Authorized [id number] Closed Consult, Test & Treat PCP Updated and/or Approved 07/12/2022 07/12/2023 6 6 Encounter Details Date Type Department Care Team (Late st Contact Info) Description 07/17/2022 8:00 AM EDT Office Visit Hematology and Oncology at [facility] [place] [address] Rj Mcdonald MD [facility] [place] [address] Elevated PSA; Lower urinary tract symptoms (LUTS) Social History Tobacco Use Types Packs/Day Years [...] Sign Reading Time Taken Comments Blood Pressure 124/84 07/17/2022 8:15 AM EDT Pulse 68 07/17/2022 8:15 AM EDT Temperature - - Respiratory Rate - - Oxygen Saturation 98% 07/17/2022 8:15 AM EDT Inhaled Oxygen Concentration - - Weight - - Height - - Body Mass Index - - documented in this encounter Progress Notes * Lilian Quigley APRN - 07/17/2022 8:00 AM EDT [facility] Section of Urologic Surgery HPI: Devan Chen is a 57 y.o. male who is referred by Giovanni Wing for management for evaluation of an elevated PSA found on life insurance screening. PSA History review: 06/30/2022- 12.3 %free 7 07/11/2022- 11.75 He reports urinary symptoms are not bothersome, no recent changes. He void a few times during the day and 1-2x at night, this has been his norm for awhile. Patient reports bowels are Regular, soft easy to pass. Denies dysuria or hematuria. Denies stress or urge urinary incontinence. Reports chronic back pain. Denies any new back or bone pain. His appetite is great, denies any weight loss that is unexplained. Any recent UTI's. He is not currently on any medication for his urination. Drinks 50oz coffee, 64-96oz water, 1-2 drinks of alcohol. No history of prostate MRI or biopsy. He has a family history of prostate cancer, father. He was last 50's-60 and had surgery which gotrid of it. Prostate IPSS and MARGARET(Pt Entered): Today's answers and scores Prostate Scores and Responses 07/17/2022 Confidence, level - past 6 months Very High Penetration - past 6 months Almost always or always Penetration, maintain - past 6 months Almost always or always Erection, maintain - past 6 months Not difficult Sexual satisfaction - past 6 months Almost always or always Sexual Health in Men 25 Incomplete emptying About half the time Frequency Less than half the time Intermittency More than half the time Urgency Not at all Weak Stream Not at all Straining Not at all Nocturia 2 times Quality of life Mostly satisfied Total IPSS Score 11 (MODERATE LUTS) Biopsy Screening Questions: Anticoagulation: no. He has a family history of prostate cancer- father Heart valve replacement or joint replacement: Right great toe replacement Family member in household works in healthcare: Yes, daughter who lives there in the summer, sales receptionist in [employer]. No recent abx in the last 6 months. He has not had any recent travel outside the [place]. Patient Active Problem List Diagnosis Code ??? Mechanical low back pain M54.59 ??? Chronic SI joint pain M53.3, G89.29 ??? Hallux rigidus of right foot M20.21 ??? Pain in toe of right foot s/p joint replacement M79.675 ??? Finger infection L08.9 ??? Thoracic spondylosis without myelopathy M47.814 ??? Muscle pain M79.10 ??? Anxiety state F41.1 ??? Asthma J45.909 ??? Pure hypercholesterolemia E78.00 ??? Overweight E66.3 ??? Back pain M54.9 ??? Health care maintenance Z00.00 ??? Pain in right elbow M25.521 Denies history of kidney stones, urological injuries, or urological cancers. Past Surgical History: Procedure Laterality Date ??? PRO COLONOSCOPY, BIOPSY N/A 08/19/2018 COLONOSCOPY FLEXIBLE, WITH BX (WRVU 3.66) performed by Cirilo Pathak MD at [facility] ENDOSCOPY ??? PRO HALLUX RIGIDUS W/CHEILECTOMY 1ST MP JT W/IMPLT Right 10/31/2018 CORRECTION HALLUX RIGIDUS, W IMPLANT (WRVU 8.01) performed by Pascual Pearson MD at [facility] MAIN OR Current Outpatient Medications Medication Instructions ??? acetaminophen (TYLENOL) 650 mg Tablet Sustained Release DAILY ??? azithromycin (ZITHROMAX) 500 mg, Oral, DAILY, Take once daily for fever with diarrhea. ??? cholecalciferol (Vitamin D3) 1,000 Units, Oral, DAILY ??? FISH OIL-DHA-EPA ORAL Oral ??? FLUoxetine (PROZAC) 20 mg, Oral, DAILY ??? fluticasone propionate (Flonase Allergy Relief) 50 mcg/actuation [place], Suspension EVERY 24 HOURS ??? Ibuprofen 200 mg Capsule Oral, PRN ??? loratadine (CLARITIN) 10 mg, Oral, DAILY ??? MELATONIN ORAL Oral ??? triamcinolone (KENALOG) 0.1 % Cream Topical (Top), PRN ??? UNABLE TO FIND DAILY PRN, CBD Oil ??? 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 Denies exposure to chemical/dyes, no hx of factory work. Smoking hx: None. Family Hx: reports family hx of prostate CA (father), denies hx of kidney stones or other urological cancers. . Review of Systems: General: Feels well. Denies fever, chills, unexpected weight loss/gain HEENT: Denies change in hearing or vision Respiratory: Denies SOB, cough Cardiac: Denies chest pain, palpitations, syncope, JETER GI: Denies changes in appetite, constipation, or diarrhea. : see HPI M/S: Denies weakness or unsteady gait Neuro: Denies lightheadedness, dizziness Endocrine: Denies diabetes or thyroid disease Skin: No new skin lesions or rashes Physical Exam: well appearing male, NAD Head: normocephalic and ataumatic No lymphadenopathy cervically, supraclavicularly or inguinally. Abdomen: His abdomen is soft, NT, ND with no palpable masses no CVAT. no hernias noted : circumcised phallus with orthotopic meatus, no urethral discharge. bilateral testicles and epididymis are without nodules, skin of scrotum and michelle-anal region without lesions Rectal: moderately enlarged prostate, without nodules, firmness, or lesions. No rectal masses. Skin: warm and dry, no lesions Musculoskeletal: symmetric without gait abnormalities Neurologic: no obvious abnormalities PVR (with use of bladder ultrasound, by scanner):44-73, has not voided in a couple hours, voided afterwards 80cc. Urinalysis by my review: Urine dipstick shows negative for all components. Imaging: I personally reviewed the imaging dated NCI prostate cancer risk calculator: 30% risk of high grade prostate cancer 58% risk of low grade prostate cancer 12% chance of having a negative prostate biopsy Impression: Elevated PSA with family history of prostate CA. Moderate LUTS- Plan/Recommendations: 1. I discussed the significance of an elevated PSA and his ARACELI findings with the pt, specifically the implications in predicting the presence of prostate cancer. We discussed his NCI prostate cancer risks per above. We discussed possibility of low vs high grade disease and the risks associated eachof these types of prostate cancer. 2. Discussed recommendation for mpMRI given his NCI risk and family history. Discussed the MRI willprovide additional information for the risk of prostate CA and if any seen will provide a more accurate targeted biopsy for diagnosis. He is agreeable to this. 3. Discussed moderate LUTS, he is not bothered by this and empties well today, he is not interestedin starting a new medication at this time. Discussed bladder irritants and overhydrating and their role in LUTS, he will consider this first if symptoms become bothersome. The patient expressed understanding and agreement with the above. Lilian Quigley APRN documented in this encounter Miscellaneous Notes * Addendum Note - Lilian Quigley APRN - 07/17/2022 8:00 AM EDTAddended by: LILIAN QUIGLEY on: 07/17/2022 09:18 AM Modules accepted: Orders documented in this encounter Plan of Treatment Not on file documented as of this encounter Results * MRI Pelvis wwo [...] J1, Faustino M1, Gold S1, Saxena G1, Rayalexandru K1, Daron MJ1, Dennis BJ1, Neema PA1, Jessica PL1, Tom B1. ??A Grading System for the Assessment of Risk of Extraprostatic Extension of Prostate Cancer at Multiparametric MRI. Radiology. 2019 Mar;290(3):709-719. doi: 10.1148/radiol.3969115715. Epub 2018Dec 10. Thank you for letting us participate in the care of this patient. ??If you are a health care provider and have any questions regarding this report, please contact the number below. ??For patients who have questions please contact the health healthcare liaison that requested your imaging first. ? Narrative 08/11/2022 1:39 PM EDT EXAMINATION: MRI [...] cancer is highly likely ernie present) References: Mehralitrupti S1, Shiela JH1, Beltran S1, Miranda C1, Wilcox J1, Czarniecki M1,Gold S1, Saxena G1, Rayn K1, Daron MJ1, Wood BJ1, Bethea PA1, Jessica PL1, Turkelodia B1.A Grading System for the Assessment of Risk of Extraprostatic Extension of Prostate Cancer at Multiparametric MRI. Radiology. 2019Mar;290(3):709-719. doi: 10.1148/radiol.2925752703. Epub 2018Dec 10. Thank you for letting us participate in the care of this patient. If youare a health care provider and have any questions regarding this report,please contact the number below. For patients who have questions please contactthe health healthcare liaison that requested your imaging first. Lilian Quigley APRN [facility] MRI ORDERABLES documented in this encounter Visit Diagnoses Diagnosis Elevated PSA Elevated prostate specific antigen (PSA) Lower urinary tract symptoms (LUTS) Other symptoms involving urinary system Elevated PSA Elevated prostate specific antigen (PSA) documented in this encounter Care Teams Patcher Helper Relationship Specialty Start Date End Date Giovanni Wing MD [address] [place] [address] PCP - General Family Medicine 08/29/18 documented as of this encounter
--- OUTSIDE RECORDS SUMMARY | 2024-08-23 17:28 | XMS_ITS | Encounter Summary ---
Author Organization [facility] [place] [address] Care Team Providers Care Adobe Ball Mixer Name Role Phone Giovanni Wing MD Primary Care Provider [phone] Encounter Details Date Type Department Care Team (Latest Contact Info) Description 09/21/2022 Travel Social History Tobacco Use Types Packs/Day [...] on filedocumented in this encounter Care Teams Adobe Ball Mixer Relationship Specialty Start Date End Date Giovanni Wing MD [address] [place] [address] PCP - General Family Medicine 08/29/18 documented as of this encounter
--- OUTSIDE RECORDS SUMMARY | 2024-08-23 17:28 | XMS_ITS | Encounter Summary ---
Author Organization [facility] [place] [address] Care Team Providers Care Litigation Manager Name Role Phone Giovanni Wing MD Primary Care Provider [phone] Encounter Details Date Type Department Care Team (Latest Contact Info) Description 10/06/2022 Travel Social History Tobacco Use Types Packs/Day [...] on filedocumented in this encounter Care Teams Litigation Manager Relationship Specialty Start Date End Date Giovanni Wing MD [address] [place] [address] PCP - General Family Medicine 08/29/18 documented as of this encounter
--- OUTSIDE RECORDS SUMMARY | 2024-08-23 17:28 | XMS_ITS | Encounter Summary ---
Author Organization [facility] Address [facility] [place] [address] Care Team Providers Care Wire Twister Name Role Phone Giovanni Wing MD Primary Care Provider [phone] Reason for Visit * Occupational Therapy (Routine) - Closed Specialty Diagnoses / Procedures Referred By Emanuel flores Referred To Contact Occupational Therapy Diagnoses Lateral epicondylitis of right elbow Suzy Jacobs PA [facility] [place] [address] [facility] [address] [place] [address] Referral ID Status Reason Start Date Expiration Date V isits Requested Visits Authorized [id number] Closed Evaluate and Treat 11/23/2021 11/23/2022 30 30 Encounter Details Date Type Department Care Team (Late st Contact Info) Description 12/07/2021 10:00 AM EST Office Visit Occupational Therapy at [facility] [address] [place] [id number] Shara Alvarado OT Pain in right elbow [...] Therapy - Christiano Shara Sonia, OT - 12/07/2021 10:00 AM EST OCCUPATIONAL THERAPY TREATMENT NOTE Certification Period: 12/01/21-03/01/22 Referral Source: LORENE Cowart MD Follow-up: Not currently scheduled Total Treatment time: 55 Minutes Timed Code Treatment Time: 40 minutes OCCUPATIONAL PROFILE: Devan Chen is a [...] your head Moderate difficulty 7. 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 With food and nutrition services supervisor testing, had discomfort in wrist extensors afterwards. Active Range of Motion: Measured in degrees of active motion with goniometer Right on eval Left Wrist Extension/Flexion 45/73 50/73 Ulnar/Radial Deviation 25/15 28/18 Pronation/Supination WNL WNL Composite Extension/Flexion 45/26 52/55 All digits and thumb AROM WNL. Strength: Senior Finance Manager Testing with Dynamometer setting #2 Pinch Testing with Pinch Gauge Right on eval Left Senior Finance Manager setting 2 90.1, 95, 97 97.6, 102.7, 113 Senior Finance Manager Average 94 104.4 Rahman 23.5 31.5 3 Pt 20 23 Tip 18.5 22 Treatment Today: Hot Pack or Cold Pack (04645) Manual Therapy (15952) 15 min Therex: Strength/Endurance/ROM (95822) 10 min Orthosis - Wrist-Hand Orthotic, W/O [employer]s Fit & Adj (L3906) Educated patient in etiology and biomechanics as related to the patient's symptoms. Hot pack (96920) for 15 minutes: applied with eight layers of towels in addition to hot pack insulation for a total of 12 layers, utilized for superficial heating for soft tissue preparation prior totreatment activities applied to the right elbow. Kneading massage to right wrist extensors followed by wrist extensors stretching, both isolated andcomposite. Wall stretching for composite stretch incorporating shoulder ferryboat operator helper as well- palm and forearm flat on wall, then stretch variation with palm on wall with elbow extended. Fabricated forearm based wrist cockup orthosis for patient to wear while sleeping to avoid prolonged wrist stretch position while sleeping. Gave two pieces of stockinette for pt to wear underneath orthosis for comfort. Provided with home exercise program to include [...] noticing improvements in regards to his pain. Fabricated wrist cockup orthosis for night wear. If symptoms are continuing to improve at next visit, will plan to add eccentric exercise for wrist extensors. Devan Chen is able to demonstrate home exercises with written instructions provided. Devan Chen has good potential for gains with therapy with identified needs for skilled therapy for treatment of deficits noted during evaluation, to maximize functional performance during daily activities. Application Packager Goals (to be met by discharge): Date [...] 3 week(s) to progress toward short and rn long term care goals, Joint mobilizations to decrease pain and/or [...] arm documented in this encounter Care Teams Wire Twister Relationship Specialty Start Date End Date Giovanni Wing MD [facility] [address] [place] [address] PCP - General Family Medicine 08/29/18 documented as of this encounter
--- OUTSIDE RECORDS SUMMARY | 2024-08-23 17:28 | XMS_ITS | Encounter Summary ---
Author Organization [facility] [place] [address] Care Team Providers Care Book Sewing Machine Operator Name Role Phone Giovanni Wing MD Primary Care Provider [phone] Encounter Details Date Type Department Care Team (Latest Contact Info) Description 08/14/2022 6:51 AM EDT - 08/14/2022 11:59 PM EDT Hospital [place] [id number] Discharge Disposition: Home Social History Tobacco Use [...] Cream Apply topically as needed. 0 06/26/2017 tamsulosin (Flomax) 0.4 mg Capsule Take 1 capsule by mouth nightly. 30 tablet 3 08/14/2022 12/27/2022 FLUoxetine (PROZAC) 20 mg Capsule Take 20 mg by mouth daily. 3 11/20/2017 09/21/2022 documented as of this encounter Plan of Treatment Not on file documented as of this encounter Visit Diagnoses Not on filedocumented in this encounter Care Teams Book Sewing Machine Operator Relationship Specialty Start Date End Date Giovanni Wing MD [address] [place] [address] PCP - General Family Medicine 08/29/18 documented as of this encounter
--- OUTSIDE RECORDS SUMMARY | 2024-08-23 17:28 | XMS_ITS | Encounter Summary ---
Author Organization [facility] [place] [address] Care Team Providers Care Dial Equipment Engineer Name Role Phone Giovanni Wing MD Primary Care Provider [phone] Encounter Details Date Type Department Care Team (Late st Contact Info) Description 08/23/2022 Telephone Urology at [facility] [place] [place] [address] Rj Mcdonald MD [facility] [place] [address] Social History Tobacco Use Types Packs/Day Years [...] encounter Miscellaneous Notes * Telephone Encounter - Hermilo Rick - 08/23/2022 8:58 AM EDT Patient calling, he is looking to discuss the after affects of the biopsy. PHONE: [phone] documented in this encounter Plan of Treatment Not on file documented as of this encounter Visit Diagnoses Not on filedocumented in this encounter Care Teams Dial Equipment Engineer Relationship Specialty Start Date End Date Giovanni Wing MD [address] [place] [address] PCP - General Family Medicine 08/29/18 documented as of this encounter
--- OUTSIDE RECORDS SUMMARY | 2024-08-23 17:28 | XMS_ITS | Encounter Summary ---
Author Organization [facility] Address [facility] [place] [address] Care Team Providers Care Logistician Name Role Phone Giovanni Wing MD Primary Care Provider [phone] Encounter Details Date Type Department Care Team (Latest Contact Info) Description 11/14/2018 12:10 PM EST - 11/14/2018 11:59 PM [facility] Hospital Encounter XRay at [address] [place] [address] Pascual Pearson MD [facility] [address] Hallux rigidus of right foot Discharge Disposition: Home Social History Tobacco Use [...] Apply topically as needed. 0 06/26/2017 oxyCODONE (ROXICODONE) 5 mg Tablet Take 1 [...] Name Priority Date/Time Associated Diagnosis Comments XR TOE(S) MIN 2 VIEW RIGHT Routine 11/14/2018 12:28 PM EST Hallux rigidus of right foot documented in this encounter Results * XR Toe(s) Min [...] rigidus documented in this encounter Care Teams Logistician Relationship Specialty Start Date End Date Giovanni Wing MD [address] [place] [address] PCP - General Family Medicine 08/29/18 documented as of this encounter
--- OUTSIDE RECORDS SUMMARY | 2024-08-23 17:28 | XMS_ITS | Encounter Summary ---
Author Organization [facility] Address [facility] [place] [address] Care Team Providers Care Hurl Shaker Name Role Phone Giovanni Wing MD Primary Care Provider [phone] Encounter Details Date Type Department Care Team (Latest Contact Info) Description 09/21/2022 7:59 AM EDT - 09/21/2022 11:59 PM EDT Hospital Encounter Ultrasound at [facility] [place] [address] [facility] [place] [address] Elevated PSA Discharge Disposition: Home Social History [...] Sig Dispensed Refills Start Date End Date fluticasone propionate (Flonase) 50 mcg/actuation [place], Suspension every 24 hours. loratadine (Claritin) 10 [...] Cream Apply topically as needed. 0 06/26/2017 naproxen sodium (ANAPROX) 220 mg Tablet Every 12 hours. 12/14/2022 acetaminophen (TYLENOL) 650 mg Tablet Sustained Release Every 8 hours. 11/09/2022 tamsulosin (Flomax) 0.4 mg Capsule Take 1 capsule by mouth nightly. 30 tablet 3 08/14/2022 12/27/2022 documented as of this encounter Plan of Treatment Not on file documented as of this encounter Procedures Procedure Name Priority Date/Time Associated Diagnosis Comments US GUIDED BIOPSY PROSTATE WITH URONAV FUSION Routine 09/21/2022 9:25 AM EDT Elevated PSA SPECIMEN TO PATHOLOGY Routine 09/21/2022 9:20 AM EDT SPECIMEN TO PATHOLOGY Routine 09/21/2022 9:20 AM EDT SPECIMEN TO PATHOLOGY Routine 09/21/2022 9:20 AM EDT SPECIMEN TO PATHOLOGY Routine 09/21/2022 9:20 AM EDT SPECIMEN TO PATHOLOGY Routine 09/21/2022 9:20 AM EDT SPECIMEN TO PATHOLOGY Routine 09/21/2022 9:20 AM EDT SPECIMEN TO PATHOLOGY Routine 09/21/2022 9:20 AM EDT SPECIMEN TO PATHOLOGY Routine 09/21/2022 9:20 AM EDT SPECIMEN TO PATHOLOGY Routine 09/21/2022 9:20 AM EDT SPECIMEN TO PATHOLOGY Routine 09/21/2022 9:20 AM EDT SPECIMEN TO PATHOLOGY Routine 09/21/2022 9:20 AM EDT SPECIMEN TO PATHOLOGY Routine 09/21/2022 9:20 AM EDT SPECIMEN TO PATHOLOGY Routine 09/21/2022 9:20 AM EDT SURGICAL PATHOLOGY REPORT Routine 09/21/2022 9:18 AM EDT documented in this encounter Results * US Guided Biopsy [...] Urology who performed multiple biopsies in the [address] [place] [address] location. UroNav fusion was used for this procedure. Electronically signed by: Ashley Jackson MD, [facility] ([phone]), at 09/21/2022 1:34 PM Thank you for letting us participate in the care of this patient. If you are a health care provider and have any questions regarding this report, please contact the number above. For patients who have questions, please contact the health personal care attendant that requested your imaging first. ? Ashley Jackson [facility] Dyer Helper Electronically Signed Final Report ?? 09/21/2022 01:41 pm Narrative 09/21/2022 1:42 PM EDT Male Pelvis ? (Signed Final 09/21/2022 01:41 pm) PATIENT INFO: ID #: ? [id number] ?: ??[birth year] (57 yrs)(M) Name: ? DEVAN Phyllis GARCIAON ?Visit Date: 09/21/2022 09:20 am PERFORMED BY: Performed By: ? Toñito Moreno RDMS Attending: ?Ashley Jackson MD Referred By: ?ALLEN MCDONALD Location: ? [place] SERVICE(S) PROVIDED: UTRBXURO - Prostate Biopsy with UroNav Fusion ? [id number], [id number] - [id number] INDICATIONS: Elevated PSA 11.75, MRI PIRADs 4 [...] 09/21/2022 01:41 pm) PATIENT INFO: ID #: [id number] : [birth year] (57 yrs)(M) Name: DEVAN CHEN Visit Date: 09/21/2022 09:20 am PERFORMED BY: Performed By: Toñito Moreno RDMS Attending: Ashley Jackson MD Referred By: ALLEN MCDONALD Location: [place] SERVICE(S) PROVIDED: UTRBXURO - Prostate Biopsy with UroNav Fusion [id number], [id number] - [id number] INDICATIONS: Elevated PSA 11.75, MRI PIRADs 4 [...] Urology who performed multiple biopsies in the [address] [place] [address] location. UroNav fusion was used for this procedure. Electronically signed by: Ashley Jackson MD, [facility] ([phone]), at 09/21/2022 1:34 PM Thank you for letting us participate in the care of this patient. If you are a health care provider and have any questions regarding this report, please contact the number above. For patients who have questions, please contact the health personal care attendant that requested your imaging first. Ashley Jackson, [facility] Dyer Helper Electronically Signed Final Report 09/21/2022 01:41 pm [facility] ORDERA [facility] * Specimen to Pathology (09/21/2022 9:20 AM EDT) AP Specimen 09/21/2022 9:20 AM EDT 09/21/2022 9:20 AM EDT Narrative [facility] - 09/21/2022 9:20 AM EDT Specimen requisition ordered. ??Separate Pathology report to follow Allen Mcdonald MD PATHOLOGY/CYTOLOGY ORDERABLES [facility] [place] [address] * Specimen to Pathology (09/21/2022 9:20 AM EDT) AP Specimen 09/21/2022 9:20 AM EDT 09/21/2022 9:20 AM EDT Narrative [facility] - 09/21/2022 9:20 AM EDT Specimen requisition ordered. ??Separate Pathology report to follow Allen cMdonald MD PATHOLOGY/CYTOLOGY ORDERABLES Performing Organization Address City/[facility]/[place] [address] * Specimen to Pathology (09/21/2022 9:20 AM EDT) AP Specimen 09/21/2022 9:20 AM EDT 09/21/2022 9:20 AM EDT Narrative [facility] - 09/21/2022 9:20 AM EDT Specimen requisition ordered. ??Separate Pathology report to follow Allen Mcdonald MD PATHOLOGY/CYTOLOGY ORDERABLES Performing Organization Address [facility]/[place] [address] * Specimen to Pathology (09/21/2022 9:20 AM EDT) AP Specimen 09/21/2022 9:20 AM EDT 09/21/2022 9:20 AM EDT Narrative [facility] - 09/21/2022 9:20 AM EDT Specimen requisition ordered. ??Separate Pathology report to follow Allen Mcdonald MD PATHOLOGY/CYTOLOGY ORDERABLES Performing Organization Address [facility]/[place] [address] * Specimen to Pathology (09/21/2022 9:20 AM EDT) AP Specimen 09/21/2022 9:20 AM EDT 09/21/2022 9:20 AM EDT Narrative [facility] - 09/21/2022 9:20 AM EDT Specimen requisition ordered. ??Separate Pathology report to follow Allen Mcdonald MD PATHOLOGY/CYTOLOGY ORDERABLES Performing Organization Address City/[facility]/[place] [address] * Specimen to Pathology (09/21/2022 9:20 AM EDT) AP Specimen 09/21/2022 9:20 AM EDT 09/21/2022 9:20 AM EDT Narrative [facility] - 09/21/2022 9:20 AM EDT Specimen requisition ordered. ??Separate Pathology report to follow Allen Mcdonald MD PATHOLOGY/CYTOLOGY ORDERABLES Performing Organization Address [facility] [place] [address] * Specimen to Pathology (09/21/2022 9:20 AM EDT) AP Specimen 09/21/2022 9:20 AM EDT 09/21/2022 9:20 AM EDT Narrative [facility] - 09/21/2022 9:20 AM EDT Specimen requisition ordered. ??Separate Pathology report to follow Allen Mcdonald MD PATHOLOGY/CYTOLOGY ORDERABLES Performing Organization Address [facility] [place] [address] * Specimen to Pathology (09/21/2022 9:20 AM EDT) AP Specimen 09/21/2022 9:20 AM EDT 09/21/2022 9:20 AM EDT Narrative [facility] - 09/21/2022 9:20 AM EDT Specimen requisition ordered. ??Separate Pathology report to follow Allen Mcdonald MD PATHOLOGY/CYTOLOGY ORDERABLES Performing Organization Address [facility] [place] [address] * Specimen to Pathology (09/21/2022 9:20 AM EDT) AP Specimen 09/21/2022 9:20 AM EDT 09/21/2022 9:20 AM EDT Narrative [facility] - 09/21/2022 9:20 AM EDT Specimen requisition ordered. ??Separate Pathology report to follow Allen Mcdonald MD PATHOLOGY/[place] [address] * Specimen to Pathology (09/21/2022 9:20 AM EDT) AP Specimen 09/21/2022 9:20 AM EDT 09/21/2022 9:20 AM EDT Narrative [facility] - 09/21/2022 9:20 AM EDT Specimen requisition ordered. ??Separate Pathology report to follow Allen Mcdonald MD PATHOLOGY/CYTOLOGY ORDERABLES Performing Organization Address City/[facility]/[place] [address] * Specimen to Pathology (09/21/2022 9:20 AM EDT) AP Specimen 09/21/2022 9:20 AM EDT 09/21/2022 9:20 AM EDT Narrative [facility] - 09/21/2022 9:20 AM EDT Specimen requisition ordered. ??Separate Pathology report to follow Allen Mcdonald MD PATHOLOGY/CYTOLOGY ORDERABLES Performing Organization Address City/[facility]/[place] [address] * Specimen to Pathology (09/21/2022 9:20 AM EDT) AP Specimen 09/21/2022 9:20 AM EDT 09/21/2022 9:20 AM EDT Narrative [facility] - 09/21/2022 9:20 AM EDT Specimen requisition ordered. ??Separate Pathology report to follow Allen Mcdonald MD PATHOLOGY/[place] [address] * Specimen to Pathology (09/21/2022 9:20 AM EDT) AP Specimen 09/21/2022 9:20 AM EDT 09/21/2022 9:20 AM EDT Narrative [facility] - 09/21/2022 9:20 AM EDT Specimen requisition ordered. ??Separate Pathology report to follow Allen Mcdonald MD PATHOLOGY/CYTOLOGY ORDERABLES [facility] [place] [address] * Surgical Pathology Report (09/21/2022 9:18 AM EDT) Final Diagnosis [id number] ? Location: 3S The signing pathologist has (i) examined the relevant preparation(s) for the specimen(s) and (ii) rendered or confirmed the diagnosis(es). . ?Surgical Pathology DIAGNOSIS A - Prostate, Right lateral base, biopsy: ?- Prostatic adenocarcinoma, Grade Group 1 ([place] score 3+3=6), involving 10% ? of a single core. B - Prostate, Right lateral mid, biopsy: ?- Benign prostatic tissue. C - Prostate, Right lateral apex, biopsy: ?- Benign prostatic tissue. D - Prostate, Right base, biopsy: ?- Benign prostatic tissue. E - Prostate, Right mid, biopsy: ?- Prostatic adenocarcinoma, Grade Group 1 (Angie score 3+3=6), involving 10% ? of the single core. F - Prostate, Right apex, biopsy: ?- Benign prostatic tissue. G - Prostate, Left lateral base, biopsy: ?- Prostatic adenocarcinoma, Grade Group 1 (Angie score 3+3=6), involving 50% ? of the single core. H - Prostate, Left lateral mid, biopsy: ?- Benign prostatic tissue. I - Prostate, Left lateral apex, biopsy: ?- Prostatic adenocarcinoma, Grade Group 1 ([place] score 3+3=6), involving 50% ? of a single core. J - Prostate, Left base, biopsy: ?- Prostatic adenocarcinoma, Grade Group 1 ([place] score 3+3=6), involving 60% ? of a single core. K - Prostate, Left mid, biopsy: ?- Benign prostatic tissue. L - Prostate, Left apex, biopsy: ?- Prostatic adenocarcinoma, Grade Group 1 ([place] score 3+3=6), involving 50% ? of a single core. M - Prostate, fusion directed lesion, biopsy: ?- Prostatic adenocarcinoma, Grade Group 1 (Angie score 3+3=6), involving 2 ? out of 4 cores (5% and 5%, respectively), comprising less than 5% of overall ? submitted tissue. Electronically signed by: ?MD Jeff, Hima Potter Verified: ??09/25/2022 17:36 ??Pathologist Performed at: ??-[facility] [place]. [place], [place], [place] ADDITIONAL STUDIES Whole slide scan: medical office representative slide(s) . SPECIMEN(S) SUBMITTED A - Prostate, Right lateral base, biopsy (1) B - Prostate, Right lateral mid, biopsy (1) C - Prostate, Right lateral apex, biopsy (1) D - Prostate, Right base, biopsy (1) E - Prostate, Right mid, biopsy (1) F - Prostate, Right apex, biopsy (1) G - Prostate, Left lateral base, biopsy (1) H - Prostate, Left lateral mid, biopsy (1) I - Prostate, Left lateral apex, biopsy (1) J - Prostate, Left base, biopsy (1) K - Prostate, Left mid, biopsy (1) L - Prostate, Left apex, biopsy (1) M - Prostate, fusion directed lesion, biopsy (4) CLINICAL INFORMATION Elevated PSA SPECIMEN PROCESSING A - Labeled/Fixative: Prostate right lateral base, formalin. Quantity/Size: Single, 1.2 x 0.1 cm Tissue Description: [place]-pink needle core biopsy. Sections/Processi ng: Entirely submitted in 1 cassette labeled A1. B - Labeled/Fixative: Prostate right lateral mid, formalin. Quantity/Size: Single, 1.7 x 0.1 cm Tissue Description: [place] needle core biopsy. Sections/Processi ng: Entirely submitted in 1 cassette labeled B1. C - Labeled/Fixative: Prostate right lateral apex, formalin. Quantity/Size: Single, 1.4 x 0.1 cm Tissue Description: [place]-pink needle core biopsy. Sections/Processi ng: Entirely submitted in 1 cassette labeled C1. D - Labeled/Fixative: Prostate right base, formalin. Quantity/Size: Single, 1.4 x 0.1 cm Tissue Description: [place]-pink needle core biopsy. Sections/Processi ng: Entirely submitted in 1 cassette labeled D1. E - Labeled/Fixative: Prostate right mid, formalin. Quantity/Size: Single, 1.1 x 0.1 cm Tissue Description: [place]-pink needle core biopsy. Sections/Processi ng: Entirely submitted in 1 cassette labeled E1. F - Labeled/Fixative: Prostate right apex, formalin. Quantity/Size: Two, averaging 0.5 x 0.1 cm Tissue Description: [place]-pink needle core biopsies. . SPECIMEN PROCESSING Sections/Processi ng: Entirely submitted in 1 cassette labeled F1. G - Labeled/Fixative: Prostate left lateral base, formalin. Quantity/Size: Single, 1.5 x 0.1 cm Tissue Description: [place]-pink needle core biopsy. Sections/Processi ng: Entirely submitted in 1 cassette labeled G1. H - Labeled/Fixative: Prostate left lateral mid, formalin. Quantity/Size: Single, 1.7 x 0.1 cm Tissue Description: [place] needle core biopsy. Sections/Processi ng: Entirely submitted in 1 cassette labeled H1. I - Labeled/Fixative: Prostate left lateral apex, formalin. Quantity/Size: Single, 1.4 x 0.1 cm Tissue Description: [place] needle core biopsy. Sections/Processi ng: Entirely submitted in 1 cassette labeled I1. J - Labeled/Fixative: Prostate left base, formalin. Quantity/Size: Single, 1.5 x 0.1 cm Tissue Description: [place]-pink needle core biopsy. Sections/Processi ng: Entirely submitted in 1 cassette labeled J1. K - Labeled/Fixative: Prostate left mid, formalin. Quantity/Size: Single, 1.5 x 0.1 cm Tissue Description: [place]-pink needle core biopsy. Sections/Processi ng: Entirely submitted in 1 cassette labeled K1. L - Labeled/Fixative: Prostate left apex, formalin. Quantity/Size: Single, 1.2 x 0.1 cm Tissue Description: [place] needle core biopsy. Sections/Processi ng: Entirely submitted in 1 cassette labeled L1. M - Labeled/Fixative: M, formalin. Quantity/Size: Four, ranging from 1.2 x 0.1 cm Tissue Description: [place]-pink needle core biopsies. Sections/Processi ng: Entirely submitted in 2 cassettes labeled M1-M2. ??sns 09/25/2022 5:36 PM [facility] PROSTATIC STRUCTURE / Unknown 09/21/2022 9:18 AM EDT 09/21/2022 9:18 AM EDT PROSTATIC STRUCTURE / Unknown 09/21/2022 9:18 AM EDT 09/21/2022 9:18 AM EDT PROSTATIC STRUCTURE / Unknown 09/21/2022 9:18 AM EDT 09/21/2022 9:18 AM EDT PROSTATIC STRUCTURE / Unknown 09/21/2022 9:18 AM EDT 09/21/2022 9:18 AM EDT PROSTATIC STRUCTURE / Unknown 09/21/2022 9:18 AM EDT 09/21/2022 9:18 AM EDT PROSTATIC STRUCTURE / Unknown 09/21/2022 9:18 AM EDT 09/21/2022 9:18 AM EDT PROSTATIC STRUCTURE / Unknown 09/21/2022 9:18 AM EDT 09/21/2022 9:18 AM EDT PROSTATIC STRUCTURE / Unknown 09/21/2022 9:18 AM EDT 09/21/2022 9:18 AM EDT PROSTATIC STRUCTURE / Unknown 09/21/2022 9:18 AM EDT 09/21/2022 9:18 AM EDT PROSTATIC STRUCTURE / Unknown 09/21/2022 9:18 AM EDT 09/21/2022 9:18 AM EDT PROSTATIC STRUCTURE / Unknown 09/21/2022 9:18 AM EDT 09/21/2022 9:18 AM EDT PROSTATIC STRUCTURE / Unknown 09/21/2022 9:18 AM EDT 09/21/2022 9:18 AM EDT PROSTATIC STRUCTURE / Unknown 09/21/2022 9:18 AM EDT 09/21/2022 9:18 AM EDT Allen Mcdonald MD PATHOLOGY/CYTOLOGY ORDERABLES [facility] [place] [address] documented in this encounter Visit Diagnoses Diagnosis Elevated PSA Elevated prostate specific antigen (PSA) documented in this encounter Care Teams Hurl Shaker Relationship Specialty Start Date End Date Giovanni Wing MD [address] [place] [address] PCP - General Family Medicine 08/29/18 documented as of this encounter
--- OUTSIDE RECORDS SUMMARY | 2024-08-23 17:28 | XMS_ITS | Encounter Summary ---
Author Organization [facility] Address [facility] [place] [address] Care Team Providers Care Roto Gravure Press Operator Name Role Phone Giovanni Wing MD Primary Care Provider [phone] Encounter Details Date Type Department Care Team (Late st Contact Info) Description 10/10/2022 Orders Only [place] [address] Henrik Yun MD [facility] [place] [address] Malignant neoplasm of prostate Social History Tobacco [...] documented as of this encounter Results * Testosterone, total (11/09/2022 10:02 AM EST) Testosterone 4.47 1.93 - 7.40 ng/mL [facility] Comment: Pediatric Reference Ranges: ? [...] In Lab Henrik Yun MD CHEMISTRY ORDERABLES [facility] [place] [address] * (ABNORMAL) PSA (Ultrasensitive) (11/09/2022 10:02 AM EST) Prostate Specific Antigen (Ultrasensitive) 16.00(H) 0.00 - 4.00 ng/mL [facility] Comment: PLEASE NOTE: The above [...] In Lab Henrik Yun MD CHEMISTRY ORDERABLES [facility] [place] [address] * (ABNORMAL) Comprehensive metabolic panel (non-fasting) (11/09/2022 10:02 AM EST) Glucose 88 65 - 199 mg/dL [facility] Comment:Diabetes: >=200 mg/d L plus symptoms Blood Urea Nitrogen 19 10 - 20 mg/dL [facility] Creatinine 1.06 0.80 - 1.50 mg/dL [facility] Sodium 138 135 - 145 mmol/L [facility] Potassium 4.8 3.5 - 5.0 mmol/L [facility] Comment: Please note: ??Patients with WBC >100,000 may have falsely elevated Potassium levels. ??For accurate Potassium quantification in these patients send serum separator tube (gold top) for subsequent determinations. ??Contact the Clinical Chemistry Laboratory if there are any questions. Chloride 105 98 - 107 mmol/L [facility] Carbon Dioxide 26 22 - 31 mmol/L [facility] Anion Gap 7 5 - 15 mmol/L [facility] Calcium 10.8(H) 8.5 - 10.5 mg/dL [facility] Protein, Total 7.3 6.1 - 8.0 g/dL [facility] Albumin 4.5 3.2 - 5.2 g/dL [facility] Aspartate Aminotransferase 23 0 - 39 unit/L [facility] Alanine Aminotransferase 27 0 - 55 unit/L [facility] Alkaline Phosphatase 69 40 - 130 unit/L [facility] Bilirubin, Total 0.7 0.2 - 1.3 mg/dL [facility] Est Glomerular Filtration Rate 83 >=60 mL/min/1. 73 m?? [facility] Comment: This patient's estimated [...] In Lab Henrik Yun MD CHEMISTRY ORDERABLES [facility] [place] [address] documented in this encounter Visit Diagnoses Diagnosis Malignant neoplasm of prostate documented in this encounter Care Teams Roto Gravure Press Operator Relationship Specialty Start Date End Date Giovanni Wing MD [address] [facility] [address] [place] [address] PCP - General Family Medicine 08/29/18 documented as of this encounter
--- OUTSIDE RECORDS SUMMARY | 2024-08-23 17:29 | XMS_ITS | Encounter Summary ---
Author Organization [facility] [place] [address] Care Team Providers Care Lokie Engineer Name Role Phone Giovanni Wing MD Primary Care Provider [phone] Reason for Referral * Routine Exam (Routine) - Specialty Diagnoses / Procedures Referred By Contac t Referred To Contact Diagnoses Thoracic spondylosis without myelopathy Procedures NERVE BLOCK - LUMBOSACRAL - Mae Harris DO [facility] [place] [address] Referral ID Status Reason Start Date Expiration Date Visits Requested Visits Authorized [id number] Specialty Service Requested 01/23/2018 01/23/2019 1 1 Reason for Visit * Reason Comments Back Pain thoracic bilateral * Surgical (Routine) - Closed Specialty Diagnoses / Procedures Referred By Contac t Referred To Contact Pain Management Diagnoses Low back pain Other chronic pain Bilaterally T10, 11, 12 MBB per Jaleesa/DVD Procedures PRO INJ, DIAG/THERAPEUTIC AGENT, PARAVERTEBRAL FACET JT, CERVICAL/THORACIC, SINGLE PRO INJ, PARAVERTEBRAL FACET JT, W/IMAGE GUIDANCE, CERVICAL/THORACIC, SECOND LEVEL PRO INJ//PARAVERTEBRAL FACET JT, W/IMAGE GUIDANCE, CERVICAL/THORACIC, 3RD OR ADDL LEVL PROCEDURE 1 Allan Quinones MD [facility] [place] [address] Mae Gayle DO [facility] [place] [place] [address] Referral ID Status Reason Start Date Expiration Date Visits Re quested Visits Authorized [id number] Closed 01/23/2018 03/25/2018 1 1 Encounter Details Date Type Department Care Team (Latest Contact Info) Description 01/23/2018 10:00 AM EST Procedure [place] [address] Mae Gayle DO [facility] [place] [address] Thoracic spondylosis without myelopathy Social History Tobacco Use Types Packs/Day Years Used Date Smoking Tobacco: Never Smokeless Tobacco: Never Alcohol Use Standard Drinks/Week Comments Yes 0 (1 standard drink = 0.6 oz pur e alcohol) 8 drinks a week Sex and Gender Information Value Date Recorded Sex Assigned at Not on file Gender Identity Not on file Sexual Orientation Not on file documented as of this encounter Last Filed Vital Signs Vital Sign Reading Time Taken Comments Blood Pressure 148/89 01/23/2018 10:34 AM EST Pulse 60 01/23/2018 10:34 AM EST Temperature - - Respiratory Rate 18 01/23/2018 10:34 AM EST Oxygen Saturation 100% 01/23/2018 10:34 AM EST Inhaled Oxygen Concentration - - Weight 83.9 kg (185 lb) 01/23/2018 10:08 AM EST Height 172.7 cm (5' 8) 01/23/2018 10:08 AM EST Body Mass Index 28.13 01/23/2018 10:08 AM EST documented in this encounter Patient Instructions * Patient Instructions* Conchis Sibley RN - 01/23/2018 10:00 AM EST Pain Management Center Discharge Instructions: You were seen by Dr. Mae Gayle DO who performed Bilateral thoracic medial branch block. It is normal that the injection site will be sore for up to 48 hours. You may also experience mild stiffness in the joint near the injection site. [x] You may resume your normal activities: today. You may shower today. DO NOT tub bathe, use whirlpools, hot tubs or pool therapy for 2 days. RemoveBand-Aid(s) later today/tomorrow. Do not drive until tomorrow. Use caution walking/climbing stairs as you may be unsteady on your feet. You may use your usual medications, including pain medications, as directed, unless otherwise instructed. You may use an ice pack as needed for the first 24 hours, on for 20 minutes then off for 20 minutes. Do not apply heat today. Attempt to empty your bladder 4-6 hours after your procedure. You received the following medications: Omnipaque (contrast dye) and Bupivacaine. During regular business hours, please phone the Pain Management Center at with any questions or if the following or other troubling symptoms develop: 1) Prolonged dizziness or weakness (more than 1 day). 2) Localized swelling, redness or drainage at the injection site(s). 3) Temperature of 101 degrees that lasts for more than 4 hours. After 5 PM or on weekends, call and ask for Pain Clinic provider on-call. If you are unable to reach the Pain Management Center and have a complication, please call your Primary Care Provider or proceed to your local emergency department. Conchis Sibley RN Special instructions Pain Management Center Post -Procedure Pain Log Patient: Devan Chen [id number] It is important for you to keep track of your pain after your procedure that took place 01/23/2018. This information will help your Provider to determine how to help reduce your pain. Today you had a procedure for pain in your bilateral thoracic T10, T11, T12. Your pain level before the procedure in this area was 4/10. Your pain level immediately after your procedure was 4 /10. Time Pain Score # Comments % of pain relief 1 hour 1130 2 hours 1230 3 hours 1:30 4 hours 2:30 Please call the nurse in the Pain Management Center a day or two after your procedure and report the information above. She will assess your response to the procedure, and will recommend appropriate follow-up. documented in this encounter Progress Notes * Conchis Sibley RN - 01/23/2018 10:00 AM EST Pre-Procedure Screening Questions: 1. Status: No 2. Patient states they have a local company intermodal truck driver to transport after procedure? Yes 3. Patient taking antibiotics at present? No 4. NPO per Pain Management Center protocol? No 5. Patient diabetic: No Patient routinely taking anticoagulants ? No Patient Vital Signs documented in Doc Flowsheets associated with this encounter. Patient Discharge Instructions were reviewed with patient and copy provided to patient. * Mae Gayle DO - 01/23/2018 10:00 AM EST PREPROCEDURE HISTORY AND PHYSICAL Date of Visit: January 23, 2018 Mr. Chen presents for thoracic medial branch blocks. Chief Complaint: Mid-back pain HPI: Subjective Devan Chen is a 52 y.o. male who presents today for thoracic medial branch blocks with a diagnosis of 1. Thoracic spondylosis without myelopathy with symptoms of Mid-back pain. The history is obtained from the patient, and I have reviewed medical records provided by the referring physician and located in the electronic medical record to fill in gaps in the patient's recollection of events, treatments and outcomes. LOCATION: Mid-back pain. PAIN LEVEL AT REST 4/10 PAST MEDICAL HISTORY: No past medical history on file. There are no medical history contraindications to this procedure. PAST SURGICAL HISTORY: No past surgical history on file.There are no past surgical contraindications to this procedure ALLERGIES: Review of patient's allergies indicates no known allergies. There are no allergic contraindications to this procedure. MEDICATIONS: Medications 01/23/18 1010 Medication Sig Taking? cholecalciferol, Vitamin D3, 1,000 unit Capsule Take by mouth. Yes econazole nitrate 1 % Cream Yes FLUoxetine (PROZAC) 20 mg Capsule Take 20 mg by mouth daily. Yes VENTOLIN HFA 90 mcg/actuation HFA Aerosol Inhaler Inhale 2 puffs into the lungs as needed. triamcinolone (KENALOG) 0.1 % Cream UNABLE TO FIND CBD Oil There are no medication contraindications to this procedure. FAMILY HISTORY: Family History Problem Relation Age of Onset ??? Diabetes Neg Hx SOCIAL HISTORY: Social History Social History ??? Marital status: Spouse name: N/A ??? Number of children: N/A ??? Years of education: N/A Occupational History ??? Not on file. Social History Main Topics ??? Smoking status: Never Smoker ??? Smokeless tobacco: Never Used ??? Alcohol use Yes Comment: 8 drinks a week ??? Drug use: No ??? Sexual activity: Not on file Other Topics Concern ??? Not on file Social History Narrative There are no social history contraindications to this procedure. ROS: Review of Systems Constitutional: Negative for fever, chills, or recent infection. Respiratory: Negative for shortness of breath. Cardiovascular: Negative for chest pain. Musculoskeletal: Positive for Mid-back pain. Psychiatric/Behavioral: Negative for agitation and behavioral problems. PHYSICAL EXAM: BP 148/89 Pulse 60 Resp 18 Ht 172.7 cm (5' 8) Wt 83.9 kg (185 lb) SpO2 100% BMI 28.13 kg/m2 No new headaches or dizziness. Physical Exam Constitutional: He appears well-developed and well-nourished. No distress. Cardiovascular: Normal heart rate. Pulmonary/Chest: Effort normal and breath sounds normal. Skin: He is not diaphoretic. This is no rash, apparent infection, or other abnormality to the area of the proposed injection. There are no physical examination findings which would preclude this procedure. ASSESSMENT: 1. Thoracic spondylosis without myelopathy PLAN: Proceed with procedure as planned. Thank you for the opportunity to participate in Devan Chen's care. Please feel free to contactme with any questions. Sincerely, MAE GAYLE DO, MPH Environmental Field Services Technician of Anesthesiology/[facility] [employer] at [facility] Talent Acquisition Project Manager, Pain Medicine Fellowship [employer] - Subspecialty board certification in Pain Medicine documented in this encounter Procedure Notes * Mae Gayle DO - 01/23/2018 10:00 AM ESTAssociated Order(s): NERVE BLOCK - LUMBOSACRAL Procedure(s): NERVE BLOCK - LUMBOSACRAL Pre-Procedure Diagnose(s): Thoracic spondylosis without myelopathy PROCEDURE NOTE THORACIC MEDIAL BRANCH DIAGNOSTIC BLOCKS Date of Service: 01/23/2018 Patient: Devan Chen Referring Physician: Giovanni Wing Md [address] [facility] [address] [place] [address] Diagnosis: 1. Thoracic spondylosis without myelopathy Pre-procedure Note History and Exam: Patient demonstrates today moderate to severe non- radicular mid-back pain without neurologic deficit aggrivated by hyperextension Yes Back pain greater than chest/leg pain Yes Patient today has tenderness over the suspected joint(s) Yes History of post-traumatic injury Yes Hypertrophic arthropathy Yes Back pain associated with suspected motion segment instability or Hypermobility or pseudoarthrosis No Pre-testing pain score (VAS): 4 Previous medial branch block testing?: No Today's Operative Note Devan Chen was greeted by the nurse who verified the patients name and . Patient was then taken to the fluoroscopy suite. Mr. Chen was interviewed and the medical record was reviewed. There were no medical contraindications to performing the bilateral thoracic medial branch nerve blocks. I first had a talk with the patient and discussed the potential risks, benefits, side effects, and alternatives of this procedure including but not limited to increased pain from the procedure, no pain relief, nerve damage, infection, and bleeding. he comprehended my conversation and accepts the risks and understands the goals of this diagnostic procedure. All questions and concerns from the patient were addressed. After I was comfortable that the patient was fully informed about this procedure, the printed consent form was signed. Standard time-out procedure was performed Mr. Chen was placed in the prone position on the fluoroscopy table and automated blood pressure cuff and pulse oximeter were applied. The anatomic target points of the segmental medial branches of bilaterally T10, T11, and T12 were identified with fluoroscopy. Following thorough Chlorhexadine preparation of the skin and draping and 1% lidocaine infiltration of the skin entry points and subcutaneous tissues, a 25 gauge spinal needle was placed under fluoroscopic guidance down on to the target point for each respective segmental medial branch.Position was confirmed in A/P, oblique and lateralviews. At each level we injected 0.5ml of Bupivacaine 0.5%. Mr. Chen's vital signs were stable throughout the procedure and were as recorded in the docflowsheet by the nursing staff. Postoperatively, today patient demonstrates the following changes with hyperextension and with tenderness over the suspected joint(s). Right side Left side Directly before the block VAS (0-10) = 4 VAS (0-10) = 4 5 minutes after the block VAS (0-10) = 3 VAS (0-10) = 3 Percentage relief obtained with this diagnostic block 20% 20% Any improved physical functioning directly after the blocks? Able to move his back more easily Next, he was asked to record their percent pain relief and any changes in provocative maneuvers forthe next 4 hours. They will report this information at the next business day to one of our nurses. Based on the medial branches blocked today, if the patient meets insurance criteria for radiofrequency, the treatment should result in the denervation of the bilaterally T11-T12 and T12-L1. We would expect to denervate a total of 4 facets during the radiofrequency ablation. Discharge plan:: he will call back with his 0-4 hour post-procedure pain scores. I personally performed the entire procedure. Mae Gayle DO, MPH [facility]-subspecialty board certification in Pain Medicine Attending Physician - Pain Management CC: [place] [place] [address] documented in this encounter Plan of Treatment Not on file documented as of this encounter Procedures Procedure Name Priority Date/Time Associated Diagnosis Comments NERVE BLOCK - LUMBOSACRAL Routine 01/23/2018 10:43 AM EST Thoracic spondylosis without myelopathy documented in this encounter Results * NERVE BLOCK - LUMBOSACRAL (01/23/2018 10:43 AM EST) Narrative Mae Gayle DO - 01/23/2018 10:43 AM EST Mae Gayle DO ? 01/23/2018 10:43 AM PROCEDURE NOTE THORACIC MEDIAL BRANCH DIAGNOSTIC BLOCKS Date of Service: 01/23/2018 Patient: ??Devan Chen ?? Referring Physician: Giovanni Wing Md [address] [place] [address] Diagnosis: 1. Thoracic spondylosis without myelopathy ?? Pre-procedure Note History and Exam: Patient demonstrates today moderate to severe non- radicular mid-back pain without neurologic deficit aggrivated by hyperextension ??Yes Back pain greater than chest/leg pain ??Yes Patient today has tenderness over the suspected joint(s) Yes History of post-traumatic injury ??Yes Hypertrophic arthropathy Yes Back pain associated with suspected motion segment instability or Hypermobility or pseudoarthrosis No Pre-testing pain score (VAS): 4 Previous medial branch block testing?: No Today's Operative Note Devan Chen was greeted by the nurse who verified the patients name and . ??Patient was then taken to the fluoroscopy suite. Mr. Chen was interviewed and the medical record was reviewed. ?? There were no medical contraindications to performing the bilateral thoracic medial branch nerve blocks. I first had a talk with the patient and discussed the potential risks, benefits, side effects, and alternatives of this procedure including but not limited to increased pain from the procedure, no pain relief, nerve damage, infection, and bleeding. ??he comprehended my conversation and accepts the risks and understands the goals of this diagnostic procedure. All questions and concerns from the patient were addressed. After I was comfortable that the patient was fully informed about this procedure, the printed consent form was signed. ??Standard time-out procedure was performed Mr. Chen was placed in the prone position on the fluoroscopy table and automated blood pressure cuff and pulse oximeter were applied. The anatomic target points of the segmental medial branches of bilaterally T10, T11, and T12 were identified with fluoroscopy. Following thorough Chlorhexadine preparation of the skin and draping and 1% lidocaine infiltration of the skin entry points and subcutaneous tissues, a 25 gauge spinal needle was placed under fluoroscopic guidance down on to the target point for each respective segmental medial branch.Position was confirmed in A/P, oblique and lateral views. At each level we injected 0.5ml of Bupivacaine 0.5%. Mr. Chen's vital signs were stable throughout the procedure and were as recorded in the docflowsheet by the nursing staff. Postoperatively, today patient demonstrates the following changes with hyperextension and with tenderness over the suspected joint(s). Right side Left side Directly before the block ??VAS (0-10) = 4 VAS (0-10) = 4 5 minutes after the block VAS (0-10) = 3 VAS (0-10) = 3 Percentage relief obtained with this diagnostic block 20% 20% Any improved physical functioning directly after the blocks? Able to move his back more easily Next, he was asked to record their percent pain relief and any changes in provocative maneuvers for the next 4 hours. They will report this information at the next business day to one of our nurses. Based on the medial branches blocked today, if the patient meets insurance criteria for radiofrequency, the treatment should result in the denervation of the bilaterally T11-T12 and T12-L1. We would expect to denervate a total of 4 facets during the radiofrequency ablation. Discharge plan:: he will call back with his 0-4 hour post-procedure pain scores. I personally performed the entire procedure. Mae Gayle DO, MPH ABPMR-subspecialty board certification in Pain Medicine Attending Physician - Pain Management CC: Giovanni Wing MD [address] [address] Mae Sharma DO NEUROLOGY ORDERABLES documented in this encounter Visit Diagnoses Diagnosis Thoracic spondylosis without myelopathy documented in this encounter Administered Medications Inactive Administered Medications - up to 3 most recent administrations Medication Order MAR Action Action Date Dose Rate Site BUpivacaine (PF) (MARCAINE) 0.5 % (5 mg/mL) injection 50 mg 50 mg (10 mL), Subcutaneous, ONCE, 1 dose, On Sun01/23/18 at 1100, Wasted 20ml, Routine Given 01/23/2018 11:00 AM EST 50 mg iohexol (OMNIPAQUE) 240 mg/mL solution 1.5 mL 1.5 mL, Other, ONCE, 1 dose, On Sun01/23/18 at 1100, Wasted 48.5ml, Routine Given 01/23/2018 11:00 AM EST 1.5 mLs documented in this encounter Care Teams Lokie Engineer Relationship Specialty Start Date End Date Giovanni Wing MD [address] [address] PCP - General Family Medicine 11/07/17 06/26/18 documented as of this encounter
--- OUTSIDE RECORDS SUMMARY | 2024-08-23 17:29 | XMS_ITS | Encounter Summary ---
Author Organization [facility] [place] [address] Care Team Providers Care Cotton Stripper Name Role Phone Giovanni Wing MD Primary Care Provider [phone] Reason for Visit * Reason Comments Follow-up Rt. Ear drainage and Rt. Ear pain. Patient states that the right ear is not any better. Encounter Details Date Type Department Care Team (Late st Contact Info) Description 09/10/2018 3:30 PM EDT Office Visit [place] [address] Aury Barth APRN [facility] [place] [address] Otitis externa, fungal Social History Tobacco Use Types Packs/Day Years [...] as of this encounter Progress Notes * Aury Barth APRN - 09/10/2018 3:30 PM EDT Subjective: Patient ID: Devan Chen is a 53 y.o. male. HPI Patient returns in follow-up. He was evaluated on September 05, 2018 for right otitis externa. The history of the problem is detailed in that initial note. His exam was consistent with a fungal otitis externa, for which he was treated with topical tramadol application and he returns for reevaluation today. He feels that his right ear fullness and pressure is largely unchanged. Unfortunately he is also having allergy exacerbation which presents as sinus congestion which may be exacerbating his ear symptoms. He has had no significant ear drainage, but continues to feel as though the ear canal is swollen and he is not hearing as well. He has no fevers. The patient is nondiabetic. He is not immune suppressed. He has no prior history of this type of infection. Review of Systems No fever, drainage. No dizziness. Objective: Physical Exam He appears well in no acute distress. Ears were examined using binocular microscope. The right external auditory canal was cleared of mucoid material with the appearance of scattered fungal spores within it using suction. The EAC is edematous with friable skin and scant bleeding. The tympanic membrane is likewise erythematous but appears intact. Gentian wanda and CSF powder applied. Ear culture shows no neutrophils, few aspergillus. Assessment and Plan: Patient with persistent otitis externa which by culture appears to be a fungal source. We will continue with topical antifungal treatments which were applied again today. I will also add an oral antifungal treatment to this. I will see him back in 1 week for a recheck. documented in this encounter Plan of Treatment Not on file documented as of this encounter Visit Diagnoses Diagnosis Otitis externa, fungal Other and unspecified mycoses documented in this encounter Care Teams Cotton Stripper Relationship Specialty Start Date End Date Giovanni Wing MD [address] [place] [address] PCP - General Family Medicine 08/29/18 documented as of this encounter
--- OUTSIDE RECORDS SUMMARY | 2024-08-23 17:29 | XMS_ITS | Encounter Summary ---
Author Organization [facility] [place] [address] Care Team Providers Care Coordinator Of Library Services Name Role Phone Giovanni Wing MD Primary Care Provider [phone] Reason for Visit * Reason Onset Date Comments Pre Procedure Call 09/24/2018 Encounter Details Date Type Department Care Team (Late st Contact Info) Description 09/24/2018 Telephone [place] [id number] Pascual Pearson MD [facility] [place] [address] Pre Procedure Call Social History Tobacco Use [...] encounter Miscellaneous Notes * Telephone Encounter - Suzette Zurita - 10/17/2018 8:14 AM EST Issa has few questions concerning the upcoming surgery he said that he will be emailing you with his concerns. Please call him back [phone]. * Telephone Encounter - Krista Jones - 09/24/2018 2:48 PM EST I called and left a message for patient to call [phone] directly and schedule surgery with Dr. pearson. documented in this encounter Plan of Treatment Not on file documented as of this encounter Visit Diagnoses Not on filedocumented in this encounter Care Teams Coordinator Of Library Services Relationship Specialty Start Date End Date Giovanni Wing MD [address] [address] PCP - General Family Medicine 08/29/18 documented as of this encounter
--- OUTSIDE RECORDS SUMMARY | 2024-08-23 17:29 | XMS_ITS | Encounter Summary ---
Author Organization [facility] [place] [address] Care Team Providers Care Financial Sales Manager Name Role Phone Giovanni Wing MD Primary Care Provider [phone] Encounter Details Date Type Department Care Team (Late st Contact Info) Description 12/12/2017 Notes Only Pain Management at [place] [phone] Mae Gayle [address] [facility] [place] [address] Social History Tobacco Use Types Packs/Day Years [...] as of this encounter Progress Notes * Mae Gayle DO - 12/12/2017 12:50 PM EST I reviewed his 12/07/17 lumbar spine MRI. He has facet arthropathy (arthritis) to the T11-T12 facet joints bilaterally and this is where he is having pain. I recommend that we complete lumbar medial branch blocks a the T10, T11, and T12 medial branches bilaterally. This will be followed by Radiofrequency ablation if it is effective. I did discuss this with him at this last visit. Pain Management nurse: Please call and inform him of the above and schedule him for this procedure if he wants to proceed. Thanks! dvd MAE GAYLE DO, MPH Mine Environmental Engineer of Anesthesiology/[facility] at [facility] Slasher Tender Helper, Pain Medicine Fellowship [employer] - Subspecialty board certification in Pain Medicine documented in this encounter Plan of Treatment Not on file documented as of this encounter Visit Diagnoses Not on filedocumented in this encounter Care Teams Financial Sales Manager Relationship Specialty Start Date End Date Giovanni Wnig MD [address] [place] [address] PCP - General Family Medicine 11/07/17 06/26/18 documented as of this encounter
--- OUTSIDE RECORDS SUMMARY | 2024-08-23 17:29 | XMS_ITS | Encounter Summary ---
Author Organization [facility] [place] [address] Care Team Providers Care Global Risk Management Director Name Role Phone Giovanni Wing MD Primary Care Provider Reason for Referral * Routine Exam (Routine) - Specialty Diagnoses / Procedures Referred By Contac t Referred To Contact Diagnoses Myofascial pain Procedures TRIGGER POINT INJECTION - 1 OR 2 MUSCLES - Kim Shipley MD [facility] [place] [address] Referral ID Status Reason Start Date Expiration Date Visits Requested Visits Authorized [id number] Specialty Service Requested 05/02/2018 05/02/2019 1 1 Reason for Visit * Reason Comments Pain In Limb * Surgical (Routine) - Closed Specialty Diagnoses / Procedures Referred By Contac t Referred To Contact Pain Management Diagnoses Myalgia right trapezius muscle ultrasound guided trigger point injections Procedures PRO INJECT TRIGGER POINT, 1 OR 2 PRG SONO GUIDE NEEDLE BIOPSY PROCEDURE 2 Giovanni Wing MD [facility] [address] [facility] [facility] [address] [place] [id number] Azael Swift DO [facility] [place] [address] Referral ID Status Reason Start Date Expiration Date Visits Re quested Visits Authorized [id number] Closed 04/10/2018 05/11/2018 1 1 Encounter Details Date Type Department Care Team (Latest Contact Info) Description 05/02/2018 2:45 PM EDT Procedure visit Pain Management at [facility] [place] [address] Azael Swift DO [facility] [place] [address] Myofascial pain (Primary Dx) Social History Tobacco Use Types Packs/Day Years [...] Sign Reading Time Taken Comments Blood Pressure 156/98 05/02/2018 3:00 PM EDT Pulse 78 05/02/2018 3:10 PM EDT Temperature - - Respiratory Rate - - Oxygen Saturation 96% 05/02/2018 3:10 PM EDT Inhaled Oxygen Concentration - - Weight 83.9 kg (185 lb) 05/02/2018 2:53 PM EDT Height 172.7 cm (5' 8) 05/02/2018 2:53 PM EDT Body Mass Index 28.13 05/02/2018 2:53 PM EDT documented in this encounter Patient Instructions * Patient Instructions* Alexandra Domínguez RN - 05/02/2018 2:45 PM EDT Pain Management Center Discharge Instructions: You were seen by Dr. Azael Swift DO and Kim Phan MD who performed Left Trapezius [place] Trigger Point Injection. It is normal that the injection site will be sore for up to 48 hours. You may also experience mild stiffness in the joint near the injection site. [x] You may resume your normal activities: tomorrow. You may shower today. DO NOT tub [...] for 20 minutes. Do not apply heat today Attempt to empty your bladder 4-6 hours after your procedure. You received the following medications: Depo-Medrol 40 mg and Lidocaine. During regular business hours, please phone the [...] or proceed to your local emergency department. Alexandra Domínguez RN Special instructions documented in this encounter Progress Notes * Alexandra Domínguez RN - 05/02/2018 2:45 PM EDT Pre-Procedure Screening Questions: 1. Status: No 2. Patient states they have a concrete mixing truck driver to transport after procedure? Yes 3. Patient taking antibiotics at present? No 4. NPO per Pain Management Center protocol? No 5. Patient diabetic: No Patient routinely taking anticoagulants ? No Patient Vital Signs documented in Doc Flowsheets associated with this encounter. Patient Discharge Instructions were reviewed with patient and copy provided to patient. * Kim Phan MD - 05/02/2018 2:45 PM EDT PREPROCEDURE HISTORY AND PHYSICAL Date of Visit: May 02, 2018 Chief Complaint: Right side of the neck that radiates to the top of right shoulder HPI: Marjorie Chen is a 52 y.o. male who presents today for ultrasound guided trapezius and rhomboid trigger point injections. The history is obtained from the patient, and I have reviewed medical records provided by the referring physician and located in the electronic medical record to fill in gaps in the patient's recollection of events, treatments and outcomes. LOCATION: neck and right shoulder pain. PAIN LEVEL AT REST 5 PAST MEDICAL HISTORY: History reviewed. No pertinent past medical history. PAST SURGICAL HISTORY: History reviewed. No pertinent surgical history. ALLERGIES: Review of patient's allergies indicates no known allergies. MEDICATIONS: Medications 05/02/18 1446 Medication Sig Taking? cholecalciferol, Vitamin D3, 1,000 unit Capsule Take 1,000 Units by mouth daily. VENTOLIN HFA 90 mcg/actuation HFA Aerosol Inhaler Inhale 2 puffs into the lungs as needed. econazole nitrate 1 % Cream Apply topically daily as needed. FLUoxetine (PROZAC) 20 mg Capsule Take 20 mg by mouth daily. triamcinolone (KENALOG) 0.1 % Cream Apply topically as needed. UNABLE TO FIND daily. CBD Oil FAMILY HISTORY: Family History Problem Relation Age [...] ??? Not on file Social History Narrative ROS: Denies fever, chills, SOB, abdominal pain, leg weakness/numbness. PHYSICAL EXAM: Ht 172.7 cm (5' 8) Wt 83.9 kg (185 lb) BMI 28.13 kg/m2 Physical Exam Constitutional: He is oriented to person, place, and time. He appears well- developed and well-nourished. Pulmonary/Chest: Effort normal and breath sounds normal. Musculoskeletal: Normal range of motion. Multiple areas of tenderness along right trapezius Neurological: He is alert and oriented to person, place, and time. Skin: Skin is warm and dry. No rash noted. Vitals reviewed. RADIOLOGIC DATA: none related ASSESSMENT: Assessment 1. Myofascial pain PLAN: - proceed with right trapezius and levator scapalea under ultrasound guidance Kim Phan Pain Fellow documented in this encounter Procedure Notes * Kim Phan MD - 05/02/2018 2:45 PM EDTAssociated Order(s): TRIGGER POINT INJECTION - 1 OR 2 MUSCLES Procedure(s): TRIGGER POINT INJECTION - 1 OR 2 MUSCLES Pre-Procedure Diagnose(s): Myofascial pain ULTRASOUND-GUIDED RIGHT TRAPIEUS AND LEVATOR SCAPULAE TRIGGER POINT INJECTION PROCEDURE NOTE The patient complains of right shoulder and neck pain.. Dx: myofascial pain Mr. Chen was greeted by the nurse who verified patients name and . Mr. Chen was interviewed and the medical record reviewed. There were no medical, pharmacologic, radiographic, or other structural contraindications to attempting an ultrasound-guided superficial radial nerve block. Risks and potential side effects were discussed. The potential benefits of the procedure were reviewed with Mr. Chen and his voiced concerns were addressed. After obtaining informed consent, the patient consent form was signed. Standard time- out procedure was performed. Mr. Chen was placed in the prone position on the examination table with her right arm above her head. The target point for the right trapezius and levator scapulae was made was marked. The skin wasthoroughly prepared with chlorhexadine preparation. Using a high-frequency linear array transducer,the ultrasound was placed over the target. Next, I entered the skin using a lateral to medial approach with a 3.5 22G spinal needle in an in-plane approach. The needle was placed through the fascia with hydrodisection of trapezius muscle, 1cc of 40mg depo-medrol followed by 3cc of 25 lidocaine wasinjected into the muscle. This was followed by identification of levator scapulae with visualization of hydrodisection (against no resistance) with 2% preservative-free lidocaine was used to confirm the location of the needle tip. The needle was flushed with additional 4 cc of 2% lidocaine. The needle was then removed without difficulty. Follow up plans and appointments were discussed with Mr. Chen. Post procedure instruction was given. Having met discharge criteria he was discharged from the Pain Management Center. I was the attending physician supervising the resident in the above care and I was present with theresident for the entire procedure. Azael Swift DO, MPH ABPMR-subspecialty board certification in Pain Medicine Attending Physician - Pain Management CC: Giovanni Wing MD [address] [place] [place] [address] documented in this encounter Plan of Treatment Not on file documented as of this encounter Procedures Procedure Name Priority Date/Time Associated Diagnosis Comments TRIGGER POINT INJECTION - 1 OR 2 MUSCLES Routine 05/03/2018 10:21 AM EDT Myofascial pain documented in this encounter Results * TRIGGER POINT INJECTION - 1 OR 2 MUSCLES (05/03/2018 10:21 AM EDT) Narrative Azael Swift DO - 05/03/2018 10:21 AM EDT Azael Swift DO ? 05/03/2018 10:21 AM ULTRASOUND-GUIDED RIGHT TRAPIEUS AND LEVATOR SCAPULAE TRIGGER POINT INJECTION PROCEDURE NOTE The patient complains of right shoulder and neck pain.. Dx: myofascial pain Mr. Chen was greeted by the nurse who verified patients name and . ?? Mr. Chen was interviewed and the medical record reviewed. ?? There were no medical, pharmacologic, radiographic, or other structural contraindications to attempting an ultrasound-guided superficial radial nerve block. Risks and potential side effects were discussed. ??The potential benefits of the procedure were reviewed with Mr. Chen and his voiced concerns were addressed. ?? After obtaining informed consent, the patient consent form was signed. ??Standard time-out procedure was performed. Mr. Chen was placed in the prone position on the examination table with her right arm above her head. ??The target point for the right trapezius and levator scapulae was made was marked. ?? The skin was thoroughly prepared with chlorhexadine preparation. ?? Using a high-frequency linear array transducer, the ultrasound was placed over the target. Next, I entered the skin using a lateral to medial approach with a 3.5 22G spinal needle in an in-plane approach. ??The needle was placed through the fascia with hydrodisection of trapezius muscle, 1cc of 40mg depo-medrol followed by 3cc of 25 lidocaine was injected into the muscle. This was followed by identification of levator scapulae with visualization of hydrodisection (against no resistance) with 2% preservative-free lidocaine was used to confirm the location of the needle tip. ?The needle was flushed with additional 4 cc of 2% lidocaine. The needle was then removed without difficulty. ?? Follow up plans and appointments were discussed with Mr. Chen. ?? Post procedure instruction was given. ??Having met discharge criteria he was discharged from the Pain Management Center. I was the attending physician supervising the resident in the above care and I was present with the resident for the entire procedure. Azael Swift DO, MPH ABPMR-subspecialty board certification in Pain Medicine Attending Physician - Pain Management CC: Giovanni Wing MD [address] [address] Azael Sharma DO NEUROLOGY ORDERABLES documented in this encounter Visit Diagnoses Diagnosis Myofascial pain- Primary Mylagia and myositis, unspecified documented in this encounter Administered Medications Inactive Administered Medications - up to 3 most recent administrations Medication Order MAR Action Action Date Dose Rate Site lidocaine (XYLOCAINE) 20 mg/mL (2 %) injection 120 mg 120 mg, Subcutaneous, ONCE, 1 dose, On Kathrine 05/02/18 at 1515, Routine Given 05/02/2018 3:15 PM EDT 120 mg methylPREDNISolone acetate (DEPO-Medrol) injection 40 mg 40 mg, Intramuscular, ONCE, 1 dose, On Kathrine 05/02/18 at 1515, Routine Given 05/02/2018 3:15 PM EDT 40 mg documented in this encounter Care Teams Global Risk Management Director Relationship Specialty Start Date End Date Giovanni Wing MD [address] [address] PCP - General Family Medicine 11/07/17 06/26/18 documented as of this encounter
--- OUTSIDE RECORDS SUMMARY | 2024-08-23 17:29 | XMS_ITS | Encounter Summary ---
Author Organization [facility] [place] [address] Care Team Providers Care Plate Furnace Operator Name Role Phone Giovanni Wing MD Primary Care Provider [phone] Encounter Details Date Type Department Care Team (Late st Contact Info) Description 01/22/2018 Telephone [place] [address] Jaleesa Singh RN Social History Tobacco Use Types Packs/Day Years [...] encounter Miscellaneous Notes * Telephone Encounter - Jaleesa Singh RN - 01/22/2018 11:05 AM EST Devan Chen :1965 Message left: I left a message on answering machine Mr. Chen at 11:14 AM regarding his upcoming Bilateral J01-23-[address] Azael Swift DO. Message included the followin. Patient instructed to arrive at 2:45 pm (30 minutes prior to procedure start time) on 3:15 pm (date of procedure) with their hi lo driver. 2. Following instructions left in the message: - Bring Updated list of medications including dosage and reason for taking. - Call the Pain Clinic Nurse at for: ~Procedure instructions. ~If you are taking antibiotics. ~If you have any signs or symptoms of infection, cold or flu. ~If you have any skin breakdown (rashes, cysts, or abscess.) ~If you are taking anticoagulants / blood thinners (Plavix, Pletal, Lovenox, Coumadin, etc). ~If you had any steroid injections anywhere in your body within the last two weeks? Jaleesa Singh RN documented in this encounter Plan of Treatment Not on file documented as of this encounter Visit Diagnoses Not on filedocumented in this encounter Care Teams Plate Furnace Operator Relationship Specialty Start Date End Date Giovanni Wing MD [address] [place] [address] PCP - General Family Medicine 11/07/17 06/26/18 documented as of this encounter
--- OUTSIDE RECORDS SUMMARY | 2024-08-23 17:29 | XMS_ITS | Encounter Summary ---
Author Organization [facility] Address [facility] [place] [address] Care Team Providers Care Route Delivery Driver Name Role Phone Giovanni Wing MD Primary Care Provider [phone] Reason for Visit * Reason Comments Toe Pain right great Encounter Details Date Type Department Care Team (Late st Contact Info) Description 10/14/2018 1:40 PM EST Office [place] [address] Pascual Pearson MD [facility] [place] [address] Hallux rigidus of right foot Social History [...] Sign Reading Time Taken Comments Blood Pressure 128/86 10/14/2018 2:16 PM EST Pulse 71 10/14/2018 2:16 PM EST Temperature - - Respiratory Rate - - Oxygen Saturation - - Inhaled Oxygen Concentration - - Weight 87.6 kg (193 lb 1.6 oz) 10/14/20 18 2:16 PM EST actual Height 172.7 cm (5' 8) 10/14/2018 2:16 PM EST pt reported Body Mass Index 29.36 10/14/2018 2:16 PM EST documented in this encounter Progress Notes * Sapna Jenkins R - 10/14/2018 1:40 PM EST PREOPERATIVE APPOINTMENT Chief complaint: Preoperative appointment for proposed right great toe cartiva implant. History of present illness: Devan Chen is a 53 y.o. year-old male here in regards to the above. He recently was spending a lo of time walking in [place] and his toe was bothering him much lessthan before. He is contemplating whether he wants to move forward with surgery of not. Past medical history: Patient Active Problem List Diagnosis Date Noted ??? Muscle pain 03/28/2018 ??? Thoracic spondylosis without myelopathy 01/23/2018 ??? Finger infection 10/26/2017 ??? Pain in toe of left foot 12/12/2016 ??? Hallux rigidus of right foot 11/21/2016 ??? Chronic SI joint pain 02/24/2016 ??? 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 diazePAM (VALIUM) 5 mg Tablet ??? Ibuprofen 200 mg Capsule ??? cholecalciferol, Vitamin D3, 1,000 unit Capsule ??? VENTOLIN HFA 90 mcg/actuation HFA Aerosol Inhaler ??? econazole nitrate 1 % Cream ??? FLUoxetine (PROZAC) 20 mg Capsule ??? triamcinolone (KENALOG) 0.1 % Cream ??? UNABLE TO FIND Allergies: No Known Allergies Social history: Social History Tobacco Use ??? Smoking status: Never Smoker ??? Smokeless tobacco: Never Used Substance Use Topics ??? Alcohol use: Yes Comment: 8 drinks a week Review of systems: No chest pain or shortness of breath No fevers, night sweats or chills Vital signs: Temp: -- Physical Exam: NAD. Remainder of exam deferred Imaging: Personal review of the patient's imaging reveals: Right great toe decreased joint space Assessment: 53 y.o. year-old male here for a preoperative appointment for proposed right great toe cartiva implant. He Is at a point where he is uncertain whether he wants to move forward with surgery or not as his symptoms have improved significantly over the past few months. Plan: The patient and I discussed in detail the risks and benefits of surgery. We have had this conversation previously and discussed the options in detail. I asked him to talk over things with his for other people who might have insight into whether this is bothering him more than he is currently feeling and has. If indeed this is not a large acute or chronic problem there is absolutely no reason to proceed with surgery. If in contemplation he feels that this is a bigger problem than he is realizing right now that I think it is reasonable to proceed with surgery and we can sign consent for the same day as surgery. I confirmed the fact that there is no reason to perform surgery prophylactically and proceeding with surgery is only advisable to control current symptoms. Postoperative anticoagulation: ASA 81 mg Identified barriers to surgery: none This plan was discussed with the patient and they are in agreement. All of the patient's questions were answered. I have personally evaluated the patient and agree with the above note as recorded by FABIANO Dawkins, who acted as scribe for this note. Pascual Pearson MD [place] 10/14/2018 documented in this encounter Plan of Treatment Not on file documented as of this encounter Visit Diagnoses Diagnosis Hallux rigidus of right foot Hallux rigidus documented in this encounter Care Teams Route Delivery Driver Relationship Specialty Start Date End Date Giovanni Wing MD [address] [place] [address] PCP - General Family Medicine 08/29/18 documented as of this encounter
--- OUTSIDE RECORDS SUMMARY | 2024-08-23 17:29 | XMS_ITS | Encounter Summary ---
Author Organization [facility] Address [facility] [place] [address] Care Team Providers Care Amalgamator Name Role Phone Alireza Torres MD Primary Care Provider [phone] Reason for Visit * Reason Comments Right Foot Pain right great toe pain Encounter Details Date Type Department Care Team (Late st Contact Info) Description 09/25/2017 8:50 AM EST Office Visit [place] [address] Pascual Pearson MD [facility] [place] [address] Hallux rigidus of right foot (Primary Dx) Social History Tobacco Use Types [...] Sign Reading Time Taken Comments Blood Pressure 128/75 09/25/2017 8:30 AM EST Pulse 67 09/25/2017 8:30 AM EST Temperature - - Respiratory Rate - - Oxygen Saturation - - Inhaled Oxygen Concentration - - Weight 81.6 kg (180 lb) 09/25/2017 8:30 AM EST Height 172.7 cm (5' 8) 09/25/2017 8:30 AM EST Body Mass Index 27.37 09/25/2017 8:30 AM EST documented in this encounter Progress Notes * Azael Scott PA - 09/25/2017 8:50 AM EST Chief complaint: Planned follow up, Right hallux rigidus, seeking non-operative treatment History of present illness: Devan Chen is a 52 y.o. year-old male who presents today for repeat consultation for osteoporosis of his right big toe. He explains he has been executing mainly conservative treatments. He is attempted no orthotics for foot wear, other than a stiff shoe. He explainshe has had multiple injections in the past with great relief. He has had about 3 injections, his most recent injection lasted for almost 6 months. His last injection was on 03/13. He is very pleased with the results from this and is considering repeat injection prior to . He is very much looking towards putting off any surgical intervention. He denies any interval inciting or traumatic events or interval change in symptoms. Past medical history: Patient Active Problem List Diagnosis Date Noted ??? Pain in toe of left foot 12/12/2016 ??? Hallux rigidus of right foot 11/21/2016 ??? Chronic SI joint pain 02/24/2016 ??? Mechanical low back pain 07/18/2012 History of blood clots or bleeding disorders: Denies Denies history of cardiac, lung, kidney, liver diease or diabetes Medications: ??? Ibuprofen 200 mg Capsule Allergies: No Known Allergies Social history: Social History Substance Use Topics ??? Smoking status: Never Smoker ??? Smokeless tobacco: Never Used ??? Alcohol use Yes Comment: 8 drinks a week Review of systems: No chest pain or shortness of breath at baseline No fevers, night sweats or chills Questionnaire Responses: myD-H Hip & Knee 09/25/2017 MODEMS Expectation - VR12 - Physical Component Summary - VR12 - Mental Component Summary - PROMIS-10 General Health Very Good PROMIS-10 Quality of Life Excellent PROMIS-10 Physical Health Very Good PROMIS-10 Mental Health Excellent PROMIS-10 Social Activity and Relationship Satisfaction Excellent PROMIS-10 Social Roles at Home and Work Excellent PROMIS-10 Everyday Physical Activities Completely PROMIS-10 Anxious or Depressed last 7 days Rarely PROMIS-10 Fatigue last 7 days Moderate PROMIS-10 Pain last 7 days 5 PROMIS PHYSICAL HEALTH SCORE (range 16-68) 47.7 PROMIS MENTAL HEALTH SCORE (range 21-68) 62.5 Physical Exam: No Apparent distress Right great toe exam: Great toe extension to 40??, with reproduction of symptoms during passive and active motion. Tenderness palpation of the dorsal medial aspect of the first MTP joint. The pieces PT pulses are 2+. Sensation is intact light touch over the superficial peroneal, deep peroneal, sural, saphenous, tibial nerve distributions. Imaging: Personal review of the patient's imaging reveals: X-rays reviewed which shows no fracture, dislocation, or displacement. There is moderate first MTP osteoarthritis characterized by dorsal osteophyte formation, subchondral sclerosis, joint space narrowing. The joint space is overall intact. Assessment: 52 y.o. year-old male with osteoarthritis of the first MTP joint Plan: We reviewed treatment options, conservative and surgical. We discussed continued use of a stiff shoe and forefoot. We discussed repeat injection with the same risks infection, bleeding, damage to nerves and vessels, steroid flare. We reviewed surgery, cheilectomy versus fusion versus Cartiva.He does have some interest in Cartiva were, however the fact that he is getting this much relief with injection we would not recommend it at this point time, as he is not exhausted all conservative treatments. He agrees to proceed with injection, we discussed keeping a pain diary at 2 hours, 2 days, 2 weeks. Patient agrees the above plan. Follow up: PRN This plan was discussed with the patient and they are in agreement. All of the patient's questions were answered. The above dictation was made with voice recogonition software Right 1st MTP injection: A timeout was performed confirming the patient's name, date of , allergies, and procedure. Patient agrees to proceed after discussion of risks and benefits which include infection, continued pain, bleeding, damage to nerves and vessels, and steroid flare. The 1st MTP joint was palpated and theinjection site was marked with the needle cap over the joint space. The injection site was cleaned with topical betadine. Using sterile gloves, 2 cc's of 1% lidocaine with 0.5 mL of 40 mg triamcinolone, totaling 20 mg total, was injected into the 1st MTP joint. No resistance was encountered advancing the needle or pushing the medication. No was seen upon aspiration. The patient tolerated the procedure well. The injection site was cleaned with sterile gauze and covered with a band- aid. Patient is instructed to monitor for fevers, chills, night sweats, injection site redness, swelling, warmth, and discharge. Patient understands to call with problems. documented in this encounter Plan of Treatment Not on file documented as of this encounter Visit Diagnoses Diagnosis Hallux rigidus of right foot- Primary Hallux rigidus documented in this encounter Administered Medications Inactive Administered Medications - up to 3 most recent administrations Medication Order MAR Action Action Date Dose Rate Site lidocaine (XYLOCAINE) 10 mg/mL (1 %) injection 20 mg 20 mg, Intra-articular, ONCE, 1 dose, On Sun09/25/17 at 0945, Routine Given 09/25/2017 9:22 AM EST 20 mg triamcinolone acetonide (KENALOG-40) injection 20 mg 20 mg, Intra-articular, ONCE, 1 dose, On Sun09/25/17 at 0945, Routine Given 09/25/2017 9:23 AM EST 20 mg documented in this encounter Care Teams Amalgamator Relationship Specialty Start Date End Date Alireza Torres MD [facility] [place] [address] PCP - General Family Medicine 04/10/17 11/01/17 documented as of this encounter
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
--- OUTSIDE RECORDS SUMMARY | 2024-08-23 17:29 | XMS_ITS | Encounter Summary ---
Author Organization [facility] [place] [address] Care Team Providers Care Party Plan Sales Unit Advisor Name Role Phone Giovanni Wing MD Primary Care Provider Reason for Visit * Consultation (Routine) - Closed Specialty Diagnoses / Procedures Referred By Emanuel t Referred To Contact Otolaryngology Diagnoses question non-healing perforation Giovanni Wing MD [address] [place] [address] [facility] [address] [place] [address] Krista Lackey APRN [facility] [place] [address] Referral ID Status Reason Start Date Expiration Date V isits Requested Visits Authorized [id number] Closed Consult, Test & Treat Connection Center 08/29/2018 08/29/2019 1 1 Encounter Details Date Type Department Care Team (Late st Contact Info) Description 09/04/2018 2:15 PM EDT Office Visit Audiology at [address] [phone] Renee Aguilar AUD [facility] [place] [address] High frequency hearing loss, left; Conductive hearing loss of right ear with restricted hearing of left ear; Otalgia, right ear Social History Tobacco Use Types Packs/Day Years [...] as of this encounter Progress Notes * Renee Aguilar AUD - 09/04/2018 2:15 PM EDT AUDIOLOGIC EVALUATION Devan Chen was seen on 09/04/2018 for an audiologic evaluation in conjunction with Aury Barth APRN in otolaryngology. Please refer to the scanned audiogram listed under Procedures for findings, impressions and recommendations. Alfonso Driver, [facility] Board Certified in Audiology [place] [phone] documented in this encounter Plan of Treatment Not on file documented as of this encounter Procedures Procedure Name Priority Date/Time Associated Diagnosis Comments COMPREHENSIVE HEARING TEST Routine 09/04/2018 2:21 PM EDT documented in this encounter Results * Comprehensive hearing test (09/04/2018 2:21 PM EDT) 09/04/2018 2:21 PM EDT Narrative [facility]UD[facility] - 09/04/2018 2:21 PM EDT Seen in anticipation of upcoming visit with Aury Barth APRN in otolaryngology for concerns of a right ear infection which has persisted for over a month and not seeming to respond to abx treatment. Reports fluctuating hearing in the right ear (today hearing is described as somewhere between baseline and the worst it has been since onset of symptoms). Has had intermittent pain in the right ear which seems to be returning today. No concerns for hearing changes or otologic symptoms in the left ear. Results: Left ear is within normal limits save for a mild hearing loss at 4000 Hz and 8000 Hz. Right ear within normal limits 250-3000 Hz followed by a mild hearing loss 4000- 8000 Hz. Conductive component is observed in the right ear at 2250-5157 Hz. Recommendations: Follow up as recommended by Aury Barth APRN. Procedure Note Unknown - 09/04/2018 Seen in anticipation of upcoming visit with Aury Barth APRN inotolaryngology for concerns of a right ear infection which has persisted for over a month and notseeming to respond to abx treatment. Reports fluctuating hearing in the right ear (today hearing isdescribed as somewhere between baseline and the worst it has been since onset ofsymptoms). Has had intermittent pain in the right ear which seems to be returning today. Noconcerns for hearing changes or otologic symptoms in the left ear. Results: Left ear is within normal limits save for a mild hearing loss [id number] Hz and 8000 Hz. Right ear within normal limits 250-3000 Hz followed by a mild hearing [id number] 8000 Hz. Conductive component is observed in the right ear at 6574-7714 Hz. Recommendations: Follow up as recommended by Aury Barth APRN. 

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
--- OUTSIDE RECORDS SUMMARY | 2024-08-23 17:29 | XMS_ITS | Encounter Summary ---
Author Organization [facility] Address [facility] [place] [address] Care Team Providers Care Informatics Physician Liaison Name Role Phone Giovanni Wing MD Primary Care Provider [phone] Reason for Referral * Surgical (Routine) - Specialty Diagnoses / Procedures Referred By Contac t Referred To Contact Diagnoses Thoracic spondylosis without myelopathy Procedures RADIOFREQUENCY - CERVICAL Mae Gayle DO [facility] [place] [address] Referral ID Status Reason Start Date Expiration Date V isits Requested Visits Authorized [id number] Consult, Test & Treat 02/13/2018 02/13/2019 1 1 Reason for Visit * Reason Comments Back Pain mid/lower * Surgical (Routine) - Closed Specialty Diagnoses / Procedures Referred By Contac t Referred To Contact Pain Management Diagnoses Spondylosis without myelopathy or radiculopathy, thoracic region Bilateral Thoracic T11-T12, T12-L1 per nursing/DVD last note. (NPO) (Bilateral okay per DVD inbasket, schedule for 90) Procedures PRO DSTR PARAVERTEBRAL FCT JNT NRVES CERVICAL OR THORACIC SINGLE PRO DSTR PARAVERTEBRAL FCT JNT NRVES CERVICAL OR THORACIC ADDL PROCEDURE 2 Allan Quinones MD [facility] [place] [address] Mae Gayle DO [facility] [place] [address] Referral ID Status Reason Start Date Expiration Date Visits Re quested Visits Authorized [id number] Closed 02/12/2018 02/12/2019 1 1 Encounter Details Date Type Department Care Team (Latest Contact Info) Description 02/12/2018 9:00 AM EDT Procedure visit [place] [address] Mae Gayle DO [facility] [place] [address] Thoracic spondylosis without myelopathy Social History Tobacco [...] Sign Reading Time Taken Comments Blood Pressure 143/81 02/12/2018 10:00 AM EDT Pulse 74 02/12/2018 10:00 AM EDT Temperature - - Respiratory Rate - - Oxygen Saturation 100% 02/12/2018 10:00 AM EDT Inhaled Oxygen Concentration - - Weight 83.9 kg (185 lb) 02/12/2018 9:09 AM EDT Height 172.7 cm (5' 8) 02/12/2018 9:09 AM EDT Body Mass Index 28.13 02/12/2018 9:09 AM EDT documented in this encounter Patient Instructions * Patient Instructions* Mohini Waller LPN - 02/12/2018 9:00 AM EDT [facility] Management [facility] Discharge Instructions: You were seen by Dr. Mae Gayle DO who performed bilateral thoracic radiofrequency. It is normal that the injection site [...] You received the following medications: Depo-Medrol 40 mg, Lidocaine and Bupivacaine. During regular business hours, please [...] or proceed to your local emergency department. Mohini Waller LPN documented in this encounter Progress Notes * Mohini Waller LPN - 02/12/2018 9:00 AM EDT Pre-Procedure Screening Questions: 1. Status: No 2. Patient states they have a school bus driver/mechanic to transport after procedure? Yes 3. Patient taking antibiotics at present? No 4. NPO per Pain Management Center protocol? Yes 5. Patient diabetic: No 6. Patient routinely taking anticoagulants ? No Patient Vital Signs documented in Doc Flowsheets associated with this encounter. Patient Discharge Instructions were reviewed with patient and copy provided to patient. * Mae Gayle DO - 02/12/2018 9:00 AM EDT PREPROCEDURE HISTORY AND PHYSICAL Date of Visit: February 13, 2018 Mr. Chen presents for thoracic medial branch radiofrequency ablation. Chief Complaint: Lower thoracic pain HPI: Subjective Devan R Chen is a 52 y.o. male who presents today for thoracic medial branch radiofrequency ablation with a diagnosis of 1. Thoracic spondylosis without myelopathy with symptoms of Lower thoracic pain. The history is obtained from the patient, and I have reviewed medical records provided by the referring physician and located in the electronic medical record to fill in gaps in the patient's recollection of events, treatments and outcomes. LOCATION: Lower thoracic pain. PAIN LEVEL AT REST 6/10 PAST MEDICAL HISTORY: No past medical history on file. There are no medical history contraindications to this procedure. PAST SURGICAL HISTORY: No past surgical history on file. There are no past surgical contraindications to this procedure ALLERGIES: Review of patient's allergies indicates no known allergies. There are no allergic contraindications to this procedure. MEDICATIONS: Medications 02/12/18 0910 Medication Sig Taking? cholecalciferol, Vitamin D3, 1,000 unit Capsule Take 1,000 Units by mouth daily. Yes FLUoxetine (PROZAC) 20 mg Capsule Take 20 mg by mouth daily. Yes UNABLE TO FIND CBD Oil Yes VENTOLIN HFA 90 mcg/actuation HFA Aerosol Inhaler Inhale 2 puffs into the lungs as needed. econazole nitrate 1 % Cream Apply topically daily. triamcinolone (KENALOG) 0.1 % Cream Apply topically 2 times daily. There are no medication contraindications to this [...] Negative for chest pain. Musculoskeletal: Positive for Lower thoracic pain. Psychiatric/Behavioral: Negative for agitation and behavioral problems. PHYSICAL EXAM: BP 143/81 Pulse 74 Ht 172.7 cm (5' 8) Wt 83.9 kg (185 lb) SpO2 100% BMI 28.13 kg/m2 Physical Exam Constitutional: He appears well-developed and [...] any questions. Sincerely, MAE GAYLE DO, MPH Veterinarian Epidemiologist of Anesthesiology/[facility] [employer] [facility] Oracle Business Analyst, Pain Medicine Fellowship ABPM&R - Subspecialty board certification in Pain Medicine documented in this encounter Procedure Notes * Mae Gayle DO - 02/12/2018 9:00 AM EDTAssociated Order(s): RADIOFREQUENCY - CERVICAL Procedure(s): RADIOFREQUENCY - CERVICAL Pre-Procedure Diagnose(s): Thoracic spondylosis without myelopathy PROCEDURE NOTE THORACIC MEDIAL BRANCH RADIOFREQUENCY Date of Service: 02/12/2018 Patient: Devan Chen Provider: MAE GAYLE DO Devan Chen has been referred to the Pain Management Center for radiofrequency treatment of chronic mid-back pain. Mr. 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 Local anesthetic medial branch blocks resulted in Mr. Chne reporting a significant reduction of the usual axial component of pain for at least the duration of the local anesthetic effect. COMMENTS: He had successful TMBBs. He does not want an IV today. Mr. Chen was interviewed and the medical record reviewed. There were no medical, pharmacologic, radiographic or other structural contraindications to attempting fluoroscopically guided radiofrequency treatment. Risks and potential side effects as well as potential benefits of the procedure were reviewed with Mr. Chen, and his voiced concerns were addressed. After we obtained informed consent,the printed consent form was signed. Standard time-out procedure was performed. Mr. Chen was placed in the prone position on the fluoroscopy table and automated blood pressure cuff and pulse oximeter applied. The skin entry points for approaching the anatomic target points of the segmental medial branches of bilaterally T10, T11 and T12 were identified with fluoroscopy and marked. Following thorough Chlorhexadine preparation of the skin and draping and 1% lidocaine infiltration of the skin entry points and subcutaneous tissues, a single 10 cm 20 guage curved needle with a 10mm active tip radiofrequency cannula was placed under fluoroscopic guidance along or across the anatomic course of each respective segmental medial branch. Each placement was stimulated at 2Hz without any evidence of distal myotomal stimulation. At each placement a continuous mode radiofrequencytreatment was done at 80 degrees C for 90 secs and then rotated 180 degrees and then repeated. This radiofrequency treatment should result in the denervation of the bilaterally T11-T12 and T12-L1. A total of 4 facets were expected to be denervated from today's treatment. Mr. Chen's vital signs were stable throughout the procedure and were as recorded in the docflowsheet by the nursing staff. If given, dosages of intravenous drugs for anxiolysis and analgesia were documented in the Medication Administration Record (MAR). Follow up plans and appointments were discussed with Devan Chen. Post procedure instruction was given as documented in the nursing documentation and having met discharge criteria, he was discharged from the Pain Management Center. COMMENTS: He did very well with the procedure. Post-procedure VAS was 2/10. I personally performed the entire procedure. Mae Gayle DO, MPH ABPMR-subspecialty board certification in Pain Medicine Attending Physician-Pain Management CC: Giovanni Wing MD [facility] [address] [facility] [place] [address] documented in this encounter Plan of Treatment Not on file documented as of this encounter Procedures Procedure Name Priority Date/Time Associated Diagnosis Comments RADIOFREQUENCY - CERVICAL Routine 02/13/2018 9:51 AM EDT Thoracic spondylosis without myelopathy documented in this encounter Results * RADIOFREQUENCY - CERVICAL (02/13/2018 9:51 AM EDT) Narrative Mae Gayle DO - 02/13/2018 9:51 AM EDT Mae Gayle DO ? 02/13/2018 ??9:51 AM PROCEDURE NOTE THORACIC MEDIAL BRANCH RADIOFREQUENCY Date of Service: ??02/12/2018 Patient: ??Devan Chen ?? Provider: ??MAE GAYLE, DO Devan Chen has been referred to the Pain Management Center for radiofrequency treatment of chronic mid-back pain. ??Mr. 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 ?? Local anesthetic medial branch blocks resulted in Mr. Chen reporting a significant reduction of the usual axial component of pain for at least the duration of the local anesthetic effect. ?? COMMENTS: He had successful TMBBs. ??He does not want an IV today. Mr. Chen was interviewed and the medical record reviewed. ?? There were no medical, pharmacologic, radiographic or other structural contraindications to attempting fluoroscopically guided radiofrequency treatment. ??Risks and potential side effects as well as potential benefits of the procedure were reviewed with Mr. Chen, and his voiced concerns were addressed. After we obtained informed consent, the printed consent form was signed. ??Standard time-out procedure was performed. Mr. Chen was placed in the prone position on the fluoroscopy table and automated blood pressure cuff and pulse oximeter applied. ??The skin entry points for approaching the anatomic target points of the segmental medial branches of bilaterally T10, T11 and T12 were identified with ??fluoroscopy and marked. ?? Following thorough Chlorhexadine preparation of the skin and draping and 1% lidocaine infiltration of the skin entry points and subcutaneous tissues, a single 10 cm 20 guage curved needle with a 10mm active tip radiofrequency cannula was placed under fluoroscopic guidance along or across the anatomic course of each respective segmental medial branch. ??Each placement was stimulated at 2Hz ??without any evidence of distal myotomal stimulation. ??At each placement a continuous mode radiofrequency treatment was done at 80 degrees C for 90 secs and then rotated 180 degrees and then repeated. This radiofrequency treatment should result in the denervation of the bilaterally T11-T12 and T12-L1. ??A total of 4 facets were expected to be denervated from today's treatment. Mr. Chen's vital signs were stable throughout the procedure and were as recorded in the docflowsheet by the nursing staff. ??If given, dosages of intravenous drugs for anxiolysis and analgesia were documented in the Medication Administration Record (MAR). Follow up plans and appointments were discussed with Devan Chen. ??Post procedure instruction was given as documented in the nursing documentation and having met discharge criteria, he was discharged from the Pain Management Center. COMMENTS: He did very well with the procedure. ??Post-procedure VAS was 2/10. I personally performed the entire procedure. Mae Gayle DO, MPH ABPMR-subspecialty board certification in Pain Medicine Attending Physician-Pain Management CC: Giovanni Wing MD [address] [address] Mae Sharma DO PROCEDURE/MINOR SURG ICAL ORDERABLES documented in this encounter Visit Diagnoses Diagnosis Thoracic spondylosis without myelopathy documented in this encounter Administered Medications Inactive Administered Medications - up to 3 most recent administrations Medication Order MAR Action Action Date Dose Rate Site lidocaine (PF) (XYLOCAINE) 10 mg/mL (1 %) injection 100 mg 100 mg, Subcutaneous, ONCE, 1 dose, On Sun02/13/18 at 1015, Wasted 20 mL, Routine Given 02/12/2018 10:15 AM EDT 100 mg methylPREDNISolone acetate (DEPO-Medrol) injection 80 mg 80 mg, Epidural, ONCE, 1 dose, On Sun02/13/18 at 1015, Routine Given 02/12/2018 10:15 AM EDT 80 mg documented in this encounter Care Teams Informatics Physician Liaison Relationship Specialty Start Date End Date Giovanni Wing MD [address] [address] PCP - General Family Medicine 11/07/17 06/26/18 documented as of this encounter
--- OUTSIDE RECORDS SUMMARY | 2024-08-23 17:29 | XMS_ITS | Encounter Summary ---
Author Organization [facility] Address [facility] [place] [address] Care Team Providers Care Ux Developer Name Role Phone Giovanni Wing MD Primary Care Provider [phone] Reason for Visit * Reason Comments Follow-up Right foot pain Encounter Details Date Type Department Care Team (Late st Contact Info) Description 03/12/2018 3:40 PM EDT Office [place] [address] Pascual Pearson MD [facility] [place] [address] Hallux rigidus of right foot Social History [...] Sign Reading Time Taken Comments Blood Pressure 105/84 03/12/2018 3:30 PM EDT Pulse 74 03/12/2018 3:30 PM EDT Temperature - - Respiratory Rate - - Oxygen Saturation - - Inhaled Oxygen Concentration - - Weight 83.9 kg (185 lb) 03/12/2018 3:30 PM EDT Height 172.7 cm (5' 8) 03/12/2018 3:30 PM EDT Body Mass Index 28.13 03/12/2018 3:30 PM EDT documented in this encounter Progress Notes * Pascual Pearson MD - 03/12/2018 3:40 PM EDT Chief complaint: Problem List Items Addressed This Visit Hallux rigidus of right foot History of present illness: Devan Chen is a 52 y.o. year-old male here in regards to the knownhallux rigidus of his right foot. He got excellent relief for a extended period of time (5 months) with his last steroid injection into his right great toe. It recently has started bothering him more. He played some barefoot soccer in the last few weeks which exacerbated his symptoms. He is also recently had radiofrequency ablation of his back. He brings up that he also has a history of psoriasisand wonders if this is contributing to his arthritis. He has not had a rash in over 20 years and takes no medications however. Past medical history: Patient Active Problem List Diagnosis Date Noted ??? Thoracic spondylosis without myelopathy 01/23/2018 ??? Finger infection 10/26/2017 ??? Pain in toe of left foot 12/12/2016 ??? Hallux rigidus of right foot 11/21/2016 ??? Chronic SI joint pain 02/24/2016 ??? 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 cholecalciferol, Vitamin D3, 1,000 unit Capsule [...] chills Vital signs: Temp: -- Physical Exam: No apparent distress. Examination of the right great toe reveals limited mobility with pain upon dorsiflexion. Imaging: Personal review of the patient's imaging reveals: X-rays of his foot were again reviewed, which show loss of joint space of the first MTP joint consistent with hallux rigidus. Assessment: 52 y.o. year-old male with hallux rigidus of the right foot, which has responded well to steroid injections. Plan: It is possible that his psoriasis is contributing to inflammatory arthropathy, so I think that without flaring of his rash and no medications, the risk of this is relatively small. I do think that it was worth bringing up with his primary care doctor however. Sunil was very interested in moving forward with another steroid injection today. After identifying the side and the patient's, hisright great toe was prepped in a sterile manner. He confirmed he had no allergies to medication. Through a dorsal approach, his right MTP joint was injected with 20 mg of Kenalog and 1-1/2 cc of 2% lidocaine. After localizing the joint the injection flowed smoothly. We again discussed operative treatment options if he wished to proceed with them. Follow up: As needed This plan was discussed with the patient and they are in agreement. All of the patient's questions were answered. The above dictation was made with voice recogonition software documented in this encounter Plan of Treatment Not on file documented as of this encounter Visit Diagnoses Diagnosis Hallux rigidus of right foot Hallux rigidus documented in this encounter Care Teams Ux Developer Relationship Specialty Start Date End Date Giovanni Wing MD [address] [place] [place] [address] PCP - General Family Medicine 11/07/17 06/26/18 documented as of this encounter
--- OUTSIDE RECORDS SUMMARY | 2024-08-23 17:29 | XMS_ITS | Encounter Summary ---
Author Organization [facility] [place] [address] Care Team Providers Care Clinical Nurse Name Role Phone Giovanni Wing MD Primary Care Provider [phone] Encounter Details Date Type Department Care Team (Late st Contact Info) Description 01/22/2018 Telephone [place] [address] Jaleesa Singh RN Social History [...] Encounter - Jaleesa Singh RN - 01/22/2018 11:25 AM EST Devan Chen :1965 Contact made with patient: I spoke to Mr. Chen at 11:25 AM regarding his upcoming Bilateral [id number] MBB scheduled on 01/24/18 (date) scheduled at 3:15 pm (time) with Dr. Azael Swift DO. Medication and Allergy reconciliation: 1. Changes were made in the telephone encounter per patient; marked as reviewed, and closed. 2. Patient confirmed no IVP dye allergy. 3. Have you had any steroid injections anywhere in your body within the last two weeks? no Arrival time: The patient was instructed to arrive at 2:45pm (30 minutes prior to procedure start time. Water Systems Designer: The patient was reminded that they need to have a home delivery driver accompany them to his procedure who will remain onsite. Antibiotics/Skin assessment/Illness symptoms/Pain level assessment : 1. The patient confirmed that he is not taking antibiotics at this time. 2. The patient confirmed that he does not have any rashes, blisters, or skin breakdown on their body. 3. The patient confirmed that he does not have any active infections. 4. The patient confirmed that he does not have any symptoms of illness: fever, chills, cold, flu, nausea, vomiting. 5. The patient confirmed that he isstill experiencing significant pain. (Significant pain is defined as interfering with performing ADL.) Pain and Anti-anxiety Medications: 1. Nerve Block Procedure Patients: Patient was instructed NOT to take their pain medications on theday of the procedure and anti-anxiety medications are part of their daily medication regiment; theycan and should continue taking that medication. 2. All Other Procedure Patients: The patient was instructed that if they take daily pain or anti-anxiety medications, they can and should continue taking on the day of the procedure. Does patient have history of any diagnosed bleeding disorders: No Anticoagulants: No Diabetic instructions: No Implant: Patient has pacemaker/defibrillator: No Prior to checking in at [employer]D Culinary Director, please be sure to empty your bladder. Patient confirmed understanding that if they do not follow the above their instructions, their procedure is likely to be cancelled. Jaleesa Singh RN documented in this encounter Plan of Treatment Not on file documented as of this encounter Visit Diagnoses Not on filedocumented in this encounter Care Teams Clinical Nurse Relationship Specialty Start Date End Date Giovanni Wing MD [address] [address] PCP - General Family Medicine 11/07/17 06/26/18 documented as of this encounter
--- OUTSIDE RECORDS SUMMARY | 2024-08-23 17:29 | XMS_ITS | Encounter Summary ---
Author Organization [facility] [place] [address] Care Team Providers Care Pan Shover Name Role Phone Munira Crawford MD Primary Care Provider [phone]- [phone] Encounter Details Date Type Department Care Team (Late st Contact Info) Description 08/19/2018 4:30 PM EDT - 08/19/2018 5:15 PM EDT Surgery Gastroenterology at [facility] [place] [address] Cirilo Pathak MD [facility] [place] [address] COLONOSCOPY FLEXIBLE, WITH BX (WRVU 3.56) Social History Tobacco Use Types Packs/Day Years [...] Sign Reading Time Taken Comments Blood Pressure 116/66 08/19/2018 5:45 PM EDT Pulse 70 08/19/2018 5:05 PM EDT Temperature 37.1 ??C (98.8 ??F) 08/19/2018 4:10 PM ED T Respiratory Rate 16 08/19/2018 5:30 PM EDT Oxygen Saturation 97% 08/19/2018 5:45 PM EDT Inhaled Oxygen Concentration - - Weight - - Height - - Body Mass Index - - documented in this encounter Discharge Instructions * Discharge Instructions* Chance Cline RN - 08/19/2018 5:40 PM EDT Colonoscopy and polyp removal What to expect after the procedure You may feel a little more gassy or bloated than usual, this is normal. You should expect the return of normal bowel function in the next 2 to 3 days. Because some polyps were removed, you may see a little blood with the next few bowel movements, this should be a small amount ( less than a few tablespoons) and will resolve on it's own. ACTIVITY Because of the sedation that you received Your judgement and reaction time are effected ?? Go home and rest for the remainder for the day. You may resume your normal activities tomorrow ?? Change from one position to the next slowly because you may lose your balance unexpectedly. ?? Be careful on stairs, as you may be unsteady. FOR THE NEXT 24 HRS ?? DO NOT DRIVE OR OPERATE MACHINERY ?? DO NOT DRINK ALCOHOLIC BEVERAGES ?? DO NOT SIGN LEGAL DOCUMENTS ?? If you are a smoker: DO NOT SMOKE WHILE YOU ARE ALONE Diet ?? Start by eating small portions of foods that ordinarily will not upset your stomach, avoid gas producing foods for the next few days. ?? Be gentle with what you choose to start with ?? Drink plenty of fluids ( unless your doctor has told you not to). Medicines Avoid medicines that influence the way your blood clots for the next week. These would include anti-inflammatory medicine, such as ibuprofen( Advil, Motrin) and naproxen ( Aleve). If you need something for discomfort, Tylenol (Acetaminophen) is safe if used as directed. Your Doctor will tell you when to restart your prescribed blood thinners The IV site-- slight tenderness, or redness is normal, you can use warm compresses if you get concerned. If the tenderness +/or redness increases or foul drainage and a red streak occurs, please contact your PCP immediately. When should you call for help? Call 911 anytime you think you may need emergency care. For example If you pass out (loss of consciousness) If you pass maroon or bloody stools If you have severe belly pain Call your healthcare provider or seek immediate medical care if: Your stools are black or tar like Your stools have streaks of blood that is more pronounced with each BM You have belly pain, or your belly is swollen and firm You vomit You have a fever You are very dizzy Watch closely for changes in your health, and be sure to contact your doctor if you have any problems. Your Doctor will let you know when you will need your next colonoscopy. The results of your test and your risk for colorectal cancer will help your doctor decide how often you need to be checked. Sunday-Sunday Same Day Endo [phone]-[phone] Otherwise contact [phone] and ask to speak to the metal tank erector commercial parts professional Follow up care is a nagy part of your treatment and safety. Be sure to make and go to all appointments, and call your doctor if you are having problems. Discharge instructions reviewed with patient who expresses understanding documented in this encounter Medications at Time of Discharge Medication Sig Dispensed Refills Start Date End Date cholecalciferol, Vitamin D3, 1,000 unit Capsule Take 1,000 Units by mouth daily. VENTOLIN HFA 90 mcg/actuation HFA Aerosol Inhaler Inhale 2 puffs into the lungs as needed. 3 07/20/2017 triamcinolone (KENALOG) 0.1 % Cream Apply topically as needed. 0 06/26/2017 diazePAM (VALIUM) 5 mg Tablet as needed. 0 08/02/2018 10/14/2018 triamcinolone (KENALOG) 0.1 % Ointment as needed. 0 07/23/2018 09/24/2018 Ibuprofen 200 mg Capsule Take by mouth as needed. 08/14/2022 econazole nitrate 1 % Cream Apply topically daily as needed. 3 06/26/2017 10/14/2018 FLUoxetine (PROZAC) 20 mg Capsule Take 20 mg by mouth daily. 3 11/20/2017 09/21/2022 UNABLE TO FIND daily as needed. CBD Oil 08/14/2022 documented as of this encounter H&P Notes * Cirilo Pathak MD - 08/19/2018 4:23 PM EDT PROBLEM LIST Patient Active Problem List Diagnosis Code ??? 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 Chronic SI joint pain M53.3, G89.29 ??? Hallux rigidus of right foot M20.21 ??? Pain in toe of left foot M79.675 ??? Finger infection L08.9 ??? Thoracic spondylosis without myelopathy M47.814 ??? Muscle pain M79.10 HISTORY OF PRESENT ILLNESS Devan Chen is a 53 y.o. man who presents for screening colonoscopy. MEDICATIONS No current facility-administered medications on file prior to encounter. Current Outpatient Prescriptions on File Prior to Encounter Medication Sig Dispense Refill ??? Ibuprofen 200 mg Capsule Take by mouth. ??? FLUoxetine (PROZAC) 20 mg Capsule Take 20 mg by mouth daily. 3 ??? cholecalciferol, Vitamin D3, 1,000 unit Capsule Take 1,000 Units by mouth daily. ??? VENTOLIN HFA 90 mcg/actuation HFA Aerosol Inhaler Inhale 2 puffs into the lungs as needed. 3 ??? econazole nitrate 1 % Cream Apply topically daily as needed. 3 ??? triamcinolone (KENALOG) 0.1 % Cream Apply topically as needed. 0 ??? UNABLE TO FIND daily. CBD Oil PHYSICAL EXAM: Blood pressure 134/87, pulse 68, temperature 37.1 ??C (98.8 ??F), temperature source Oral, SpO2 98 %. GEN: Alert, cooperative. Pleasant. In NAD MP II ASA II HEENT: No oropharyngeal lesions. Neck supple. No masses. Thyroid symmetric LUNGS: CTAB CARD: RRR without m/g/r ABD: Non-distended. Active BS. Soft. Benign. No masses. No HSM. No succussion splash. No bruits RECENT LABS No results found for this or any previous visit (from the past 24 hour(s)). ASSESSMENT AND PLAN Devan Chen is a 53 y.o. man who presents for endoscopic evaluation. Risks extensively discussed including bleeding, infection, reaction to anesthesia, perforation, pancreatitis (if applicable), bile duct injury (if applicable), missing a cancer (if applicable) and/or other unforseen complication. Consent signed and patient well informed of the risks of the procedure. documented in this encounter Plan of Treatment Not on file documented as of this encounter Procedures Procedure Name Priority Date/Time Associated Diagnosis Comments SPECIMEN TO PATHOLOGY Routine 08/19/2018 5:10 PM EDT SURGICAL PATHOLOGY REPORT Routine 08/19/2018 5:01 PM EDT COLONOSCOPY FLEXIBLE, WITH BX (WRVU 3.56) 08/19/2018 4:33 PM EDT 1st screening COLONOSCOPY Routine 08/19/2018 4:21 PM EDT documented in this encounter Results * Specimen to Pathology (08/19/2018 5:10 PM EDT) AP Specimen 08/19/2018 5:10 PM EDT 08/19/2018 6:17 PM EDT Narrative [facility] - 08/19/2018 6:17 PM EDT Specimen requisition ordered. ??Separate Pathology report to follow Resulting Agency Comment Spec In Lab Ortiz Last MD PATHOLOGY/CYTOLOGY O RDERABLES [facility] [place] [address] * Surgical Pathology Report (08/19/2018 5:01 PM EDT) Final Diagnosis [id number] ? Location: 4T; EA; A The signing pathologist has (i) examined the relevant preparation(s) for the specimen(s) and (ii) rendered or confirmed the diagnosis(es). . ?Surgical Pathology DIAGNOSIS Sigmoid colon, ??polypectomy: - Colonic mucosa, negative for diagnostic abnormality. CR-PX Electronically signed by: ??Tommy Chatterjee MD Verified: ??08/22/2018 ?Pathologist Performed at: ??-[facility] Dept. of Pathology, [place], [place] CLINICAL INFORMATION Specimen Submitted: A - 1 -2 mm sigmoid polyp bx Clinical History and Diagnosis: Screening colonoscopy SPECIMEN PROCESSING A - Labeled/Fixativ e: 1-2 mm sigmoid polyp BX, formalin. Quantity/Size: Single, 0.2 cm. TissueDescripti on: Soft, red-brown tissue. Sections/Proces sing: Submitted en toto ??in 1 cassette labeled A1. ??shb 08/22/2018 3:41 PM EDT [facility] GI Biopsy 08/19/2018 5:01 PM EDT 08/19/2018 5:01 PM EDT Cirilo Pathak MD PATHOLOGY/CYTOLOGY O VIRGIE [facility] [place] [address] * COLONOSCOPY (08/19/2018 4:21 PM EDT) COLONOSCOPY [facility] Endoscopy Procedure Date: 08/19/2018 4:21 PM ? Patient Name: Devan Chen ? N: [id number] ? Date of : 1965 ? Age: 53 ? Order #: [id number] ? Instrument Name: -[id number] ? Procedure: ? Colonoscopy Indications: ? Screening for colorectal malignant ? neoplasm Providers: ? Angy Moreno RN, ? Rachelle Delgado Referring MD: ?Munira Crawford [...] the physician, the nurse ? and the reuse technician. The procedure was ? verified in [...] preparation was evaluated using ? the BBPS ([place] Bowel Preparation ? Scale) with scores of: [...] done by the physician, nurse and ? reuse technician using the patient's name, date and [...] personally performed the entire procedure. ? Cirilo Pathak 08/19/2018 5:11:32 PM Number of Addenda: 0 Note Initiated On: 08/19/2018 4:21 PM PROVATION 08/19/2018 4:21 PM EDT Munira Crawford MD GENERAL SURGICAL O RDERABLES PROVATION documented in this encounter Visit Diagnoses Not on filedocumented in this encounter Administered Medications Inactive Administered Medications - up to 3 most recent administrations Medication Order MAR Action Action Date Dose Rate Site fentaNYL 50 mcg/mL multi-dose injection ONCE PRN, Starting on Sun08/19/18 at 1637, Until Sun08/19/18 at 1958, Intra-Operative (Intra-Procedure), Routine Given 08/19/2018 4:42 PM EDT 50 mcg Given 08/19/2018 4:40 PM EDT 50 mcg Given 08/19/2018 4:37 PM EDT 50 mcg lactated Ringers infusion 100 mL/hr, Intravenous, CONTINUOUS, Starting on Sun08/19/18 at 1630, Until Sun08/19/18 at 1752, Endoscopy (Day of Procedure) New Bag 08/19/2018 4:25 PM EDT 100 mL/hr 100 mL/hr midazolam (PF) (VERSED) 1 mg/mL multi-dose injection ONCE PRN, Starting on Sun08/19/18 at 1637, Until Sun08/19/18 at 1958, Intra-Operative (Intra-Procedure), Routine Given 08/19/2018 4:45 PM EDT 1 mg Given 08/19/2018 4:41 PM EDT 1 mg Given 08/19/2018 4:40 PM EDT 1 mg documented in this encounter Active and Recently Administered Medications Times are shown in EDT. Continuous Medication Order 08/17/2018 08/18/2018 08/19/2018 lactated Ringers infusion (CANCELED) 100 mL/hr, Intravenous, CONTINUOUS, Starting on Sun08/19/18 at 1630, Until Sun08/19/18 at 1752, Endoscopy (Day of Procedure) 1625 (New Bag - Prov ider: Mel Kaiser RN)1756 (Stopped - Provider: Chance Cline RN) PRN Medication Order 08/17/2018 08/18/2018 08/19/2018 fentaNYL 50 mcg/mL multi-dose injection (CANCELED) ONCE PRN, Starting on Sun08/19/18 at 1637, Until Sun08/19/18 at 1958, Intra-Operative (Intra-Procedure), Routine 1637 (Given - Provid er: Angy Lopez RN)1640 (Given - Provider: Angy Lopez RN)1642 (Given - Provider: Angy Lopez RN) midazolam (PF) (VERSED) 1 mg/mL multi-dose injection (CANCELED) ONCE PRN, Starting on Sun08/19/18 at 1637, Until Sun08/19/18 at 1958, Intra-Operative (Intra-Procedure), Routine 1637 (Given - Provid er: Angy Lopez RN)1640 (Given - Provider: Angy Lopez RN)1641 (Given - Provider: Angy Lopez RN)1645 (Given - Provider: Angy Lopez RN) documented in this encounter Care Teams Pan Shover Relationship Specialty Start Date End Date Munira Crawford MD [facility] [address] [place] [address] PCP - General Family Medicine 06/27/18 08/28/18 documented as of this encounter
--- OUTSIDE RECORDS SUMMARY | 2024-08-23 17:29 | XMS_ITS | Encounter Summary ---
Author Organization [facility] Address [facility] [place] [address] Care Team Providers Care Seasonal Package Handler Name Role Phone Munira Crawford MD Primary Care Provider [phone]- [phone] Encounter Details Date Type Department Care Team (Latest Contact Info) Description 07/11/2018 8:05 AM EDT - 07/11/2018 11:59 PM EDT Hospital Encounter XRay at [address] [place] [address] Pascual Pearson MD [facility] [place] [address] Hallux rigidus of right foot Discharge Disposition: [...] Cream Apply topically as needed. 0 06/26/2017 Ibuprofen 200 mg Capsule Take by mouth [...] Priority Date/Time Associated Diagnosis Comments XR FLUORO INJECTION DRAINAGE JOINT SM RIGHT Routine 07/11/2018 8:54 AM EDT Hallux rigidus of right foot documented in this encounter Results * XR Fluoro Guided Joint Injection Small Right (07/11/2018 8:54 AM EDT) Anatomical Region Laterality Modality Right Radio Fluoroscop y Impressions 07/11/2018 2:09 PM EDT Uneventful right foot first toe MTP joint injection under fluoroscopy. Resident/ Fellow: None Attending: There was no attending present for this procedure Procedure performed by Kathe Huang APRN Narrative 07/11/2018 2:09 PM EDT HISTORY: 1st MTP joint injection RIGHT FOOT FIRST TOE MTP JOINT ??INJECTION UNDER FLUOROSCOPY TECHNIQUE: After an extensive conversation with the patient regarding risks and benefits, oral and written consent were obtained.? A pre- procedural time-out was performed, including review of the patient's relevant electronic medical record and allergies, as per [facility] protocol. The patient was placed supine on the fluoroscopic table. ??The skin overlying the dorsal aspect of the right foot first MTP joint joint was prepped and draped in the usual aseptic manner. 1% Lidocaine was used to achieve local anesthesia. Under fluoroscopic guidance, a 25-gauge needle was advanced into the joint space. ??Small amount of contrast was injected to the document needle placement. A mixture of Ropivacaine and depomedrol was injected. All needles removed at end of procedure. FINDINGS: 1. ??Small amount of injected contrast in the joint space. 2. ??PAIN SCORE: ??Before: 7/10 ??After: ??6/10 3. Fluoroscopy time: 0.25 minutes 4. Medications: ??Lidocaine 1% - <5 ml, for subcutaneous anesthesia ??Omnipaque 300: < 1ml A mixture composed of the following medication was prepared: Ropivacaine HCL ??0.5% - 1 ml (5mg) methylPREDNISolone acetate 40: 40 mg Total injected volume: 1.75ml COMPLICATIONS: None immediate. POST-PROCEDURE CARE: Information regarding monitor of infection, post- procedural pain and management of steroid flare were reviewed with patient. Procedure Note Kathe Huang APRN - 07/11/2018 HISTORY: 1st MTP joint injection RIGHT FOOT FIRST TOE MTP JOINT INJECTION UNDER FLUOROSCOPY TECHNIQUE: After an extensive conversation with the patient regarding risks andbenefits, oral and written consent were obtained.? A pre- procedural time-out was performed, including review of the patient's relevant electronic medicalrecord and allergies, as per [facility] protocol. The patient was placed supine on the fluoroscopic table. The skinoverlying the dorsal aspect of the right foot first MTP joint joint was prepped anddraped in the usual aseptic manner. 1% Lidocaine was used to achieve localanesthesia. Under fluoroscopic guidance, a 25-gauge needle was advanced into thejoint space. Small amount of contrast was injected to the document needleplacement. A mixture of Ropivacaine and depomedrol was injected. All needles removedat end of procedure. FINDINGS: 1. Small amount of injected contrast in the joint space. 2. PAIN SCORE: Before: 7/10 After: 6/10 3. Fluoroscopy time: 0.25 minutes 4. Medications: Lidocaine 1% - <5 ml, for subcutaneous anesthesia Omnipaque 300: < 1ml A mixture composed of the following medication was prepared: Ropivacaine HCL 0.5% - 1 ml (5mg) methylPREDNISolone acetate 40: 40 mg Total injected volume: 1.75ml COMPLICATIONS: None immediate. POST-PROCEDURE CARE: Information regarding monitor of infection, post- procedural pain and management of steroid flare were reviewed withpatient. IMPRESSION Uneventful right foot first toe MTP joint injection under fluoroscopy. Resident/ Fellow: None Attending: There was no attending present for this procedure Procedure performed by Kathe Huang APRN Pascual Pearson MD IMG FLUORO ORDERABLE S documented in this encounter Visit Diagnoses Diagnosis Hallux rigidus of right foot Hallux rigidus documented in this encounter Administered Medications Inactive Administered Medications - up to 3 most recent administrations Medication Order MAR Action Action Date Dose Rate Site iohexol (OMNIPAQUE) 300 mg/mL solution 10 mL 10 mL, Intra-articular, ONCE, 1 dose, On Kathrine 07/11/18 at 0915, Warning Vesicant/Irritant Medication , Routine Given 07/11/2018 9:01 AM EDT 10 mLs lidocaine (XYLOCAINE) 10 mg/mL (1 %) injection 200 mg 200 mg (20 mL), Intra-articular, ONCE, 1 dose, On Kathrine 07/11/18 at 0915, Routine Given 07/11/2018 8:55 AM EDT 200 mg ROpivacaine (PF) 5 mg/mL (0.5 %) 4 mL with methylPREDNISolone acetate 40 mg, iohexol 300 mg/mL 4 mL injection Intra-articular, ONCE, 1 dose, On Kathrine 07/11/18 at 0915 Given 07/11/2018 8:56 AM EDT documented in this encounter Care Teams Seasonal Package Handler Relationship Specialty Start Date End Date Munira Crawford MD [facility] [address] [place] [address] PCP - General Family Medicine 06/27/18 08/28/18 documented as of this encounter
--- OUTSIDE RECORDS SUMMARY | 2024-08-23 17:29 | XMS_ITS | Encounter Summary ---
Author Organization [facility] [place] [address] Care Team Providers Care Telecommunications Operator Name Role Phone Giovanni Wing MD Primary Care Provider [phone] Encounter Details Date Type Department Care Team (Late st Contact Info) Description 01/24/2018 Telephone Pain Management at [facility] [place] [address] Li Mac, RN Social History Tobacco Use Types Packs/Day [...] encounter Miscellaneous Notes * Telephone Encounter - Li Mac LPN - 01/24/2018 9:14 AM EST [facility] Post-Procedure Phone Note Patient: Devan Chen [id number] Post-procedure phone call from patient to report his response to the Des. Thoracic medial branch block procedure performed on 01-23-18 in the Pain Management Center by Azael Swift DO. This is patient's : first medial branch block Patient reports that after the procedure he experienced: __x Patient reported post-block numeric pain scale: 1 /10 (average pain since procedure) __x Post-procedure pain has been reduced by 90%. (> 80% Medicare/MVP/Medicaid) If pain is reduced, it lasted: Yes 4 hours or greater Based on the information provided above and after discussion with the patient, the following actions will be taken: x__ Patient meets criteria for radiofrequency treatment and would like to proceed with a bilateral thoracic spine at T10, T11 and T12 Radiofrequency procedure with Azael Swift DO. Patient on anticoagulant medication: No Patient has pacemaker/defibrillator: No Patient has the appropriate phone number and understands that he may contact the Pain Management Center at any time with questions or concerns. Li Mac LPN documented in this encounter Plan of Treatment Not on file documented as of this encounter Visit Diagnoses Not on filedocumented in this encounter Care Teams Telecommunications Operator Relationship Specialty Start Date End Date Giovanni Wing MD [address] [place] [id number] PCP - General Family Medicine 11/07/17 06/26/18 documented as of this encounter
--- OUTSIDE RECORDS SUMMARY | 2024-08-23 17:29 | XMS_ITS | Encounter Summary ---
Author Organization [facility] Address [facility] [place] [address] Care Team Providers Care Corporate Aircraft Mechanic Name Role Phone Giovanni Wing MD Primary Care Provider [phone] Reason for Visit * Reason Comments Right Toe Pain Encounter Details Date Type Department Care Team (Late st Contact Info) Description 03/13/2017 8:50 AM EDT Office Visit [place] [address] Pascual Pearson MD [facility] [place] [address] Hallux rigidus of right foot Social History Tobacco Use Types Packs/Day Years Used Date Smoking Tobacco: Never Alcohol Use Standard Drinks/Week Comments Yes 0 (1 standard drink = 0.6 oz pur e alcohol) 8 drinks a week Sex and Gender Information Value Date Recorded Sex Assigned at Not on file Gender Identity Not on file Sexual Orientation Not on file documented as of this encounter Last Filed Vital Signs Vital Sign Reading Time Taken Comments Blood Pressure 127/69 03/13/2017 8:38 AM EDT Pulse 59 03/13/2017 8:38 AM EDT Temperature - - Respiratory Rate - - Oxygen Saturation - - Inhaled Oxygen Concentration - - Weight 81.6 kg (180 lb) 03/13/2017 8:38 AM EDT Height 172.7 cm (5' 8) 03/13/2017 8:38 AM EDT Body Mass Index 27.37 03/13/2017 8:38 AM EDT documented in this encounter Progress Notes * Pascual Pearson MD - 03/13/2017 8:50 AM EDT Chief complaint: Problem List Items Addressed This Visit Hallux rigidus of right foot History of present illness: Devan Chen is a 51 y.o. year-old male here for follow-up of the above. Specifically, he is here to discuss Cartiva. To review, he has right great toe hallux rigidus. He is undergone 3 steroid injections into the right great toe, the last being approximately 4 monthsago. He is had return of pain in the last month or so. The pain gets significant and he refers to as lava toe. Past medical history: Patient Active Problem List Diagnosis Date Noted ??? Pain in toe of left foot 12/12/2016 ??? Hallux rigidus of right foot 11/21/2016 ??? Chronic SI joint pain 02/24/2016 ??? 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 Ibuprofen 200 mg Capsule Allergies: No Known Allergies Social history: Social History Substance Use Topics ??? Smoking status: Never Smoker ??? Smokeless tobacco: Not on file ??? Alcohol use Yes Comment: 8 drinks a week Review of systems: No chest pain or shortness of breath No fevers, night sweats or chills Vital signs: Temp: -- Physical Exam: No apparent distress. Limited dorsiflexion of the great toe due to approximately 20?? above neutral. Pain with the mid range of motion. No skin breakdown. Imaging: Personal review of the patient's imaging reveals: X-rays and MRI were again reviewed which show hallux rigidus with loss of joint space, bony edema on MRI, and a moderate size dorsal osteophyte Assessment: 51 y.o. year-old male right great toe hallux rigidus Plan: We discussed treatment options again today, this time including a discussion of Cartiva, which I think he would be a candidate for. We discussed the data on this treatment option and the mechanics of it. We again reviewed the other operative and nonoperative treatment options. At this point, he would like to proceed with another intra-articular steroid injection, which I think is reasonablegiven the relief he has had, the degree of degeneration seen on his MRI, and the time since his last injection. After discussing the risks and benefits, the dorsal aspect of his right great toe is prepped sterilely and 20 mg of Kenalog along with a milliliter and a half of 1% lidocaine was injected into the great toe joint with good flow. Follow up: when necessary This plan was discussed with the patient and they are in agreement. All of the patient's questions were answered. The above dictation was made with voice recogonition software documented in this encounter Plan of Treatment Not on file documented as of this encounter Visit Diagnoses Diagnosis Hallux rigidus of right foot Hallux rigidus documented in this encounter Care Teams Corporate Aircraft Mechanic Relationship Specialty Start Date End Date Giovanni Wing MD [address] [address] PCP - General 10/11/10 04/09/17 documented as of this encounter
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
--- OUTSIDE RECORDS SUMMARY | 2024-08-23 17:29 | XMS_ITS | Encounter Summary ---
Author Organization [facility] [place] [address] Care Team Providers Care Transformation Consultant Name Role Phone Giovanni Wing MD Primary Care Provider Reason for Visit * Reason Onset Date Comments Pre Procedure Call 02/08/2018 Encounter Details Date Type Department Care Team (Late st Contact Info) Description 02/08/2018 [place]phone [place] [phone] Janet Gonzalez LNA Pre Procedure Call Social History Tobacco Use [...] encounter Miscellaneous Notes * Telephone Encounter - Janet Gonzalez LNA - 02/08/2018 2:07 PM EDT Devan Chen :1965 Contact made with patient: I spoke to Mr. Chen at 2:07 PM regarding his upcoming Bilateral Thoracic Epidural Steroid Injection scheduled on 02/12/2018 scheduled at 9:00AM with Dr. Azael Swift DO. Medication and Allergy reconciliation: 1. Changes were made in the telephone encounter per patient; marked as reviewed, and closed. 2. Patient confirmed no IVP dye allergy. 3. Have you had any steroid injections anywhere in your body within the last two weeks? no Arrival time: The patient was instructed to arrive at 8:30AM on 02/12/2018. Programming Intern: The patient was reminded that they need to have a service parts driver accompany them to his procedure who [...] vomiting. 5. The patient confirmed that he is still experiencing significant pain. Pain and Anti-anxiety Medications: 1. Nerve Block [...] any diagnosed bleeding disorders: No Anticoagulants: No NSAIDs: Does the patient take Aspirin/ASA? No Does the patient take an NSAID? No NPO instructions given to patient: 1. Last solid food intake until 3:00AM. 2. Clear liquids only intake until 7:00AM. Implant: Patient has pacemaker/defibrillator: No Prior to checking in at [facility], please be sure to empty your bladder. Patient confirmed understanding that if they do not follow the above their instructions, their procedure is likely to be cancelled. VIKRAM Villarreal documented in this encounter Plan of Treatment Not on file documented as of this encounter Visit Diagnoses Not on filedocumented in this encounter Care Teams Transformation Consultant Relationship Specialty Start Date End Date Giovanni Wing MD [address] [place] [address] PCP - General Family Medicine 11/07/17 06/26/18 documented as of this encounter
--- OUTSIDE RECORDS SUMMARY | 2024-08-23 17:29 | XMS_ITS | Encounter Summary ---
Author Organization [facility] Address [facility] [place] [address] Care Team Providers Care Management Instructor Name Role Phone Munira Crawford MD Primary Care Provider [phone] Encounter Details Date Type Department Care Team (Latest Contact Info) Description 08/19/2018 3:11 PM EDT - 08/19/2018 5:58 PM EDT Hospital Encounter Gastroenterology at [facility] [place] [address] Ortiz Last MD [facility] [place] [address] Discharge Disposition: Home Social History Tobacco Use [...] to be checked. Sunday-Sunday Same Day Endo [phone] [id number] Otherwise contact [phone] and ask to speak to the pinball machine repairer population geneticist Follow up care is a nagy part [...] PM EDT 08/19/2018 6:17 PM EDT Narrative [facility] - 08/19/2018 6:17 PM EDT Specimen requisition ordered. ??Separate Pathology report to follow Resulting Agency Comment Spec In Lab Ortiz Last MD PATHOLOGY/CYTOLOGY O RDERAJERARDO [facility] [place] [address] * Surgical Pathology Report (08/19/2018 5:01 PM EDT) Final Diagnosis [id number] ? Location: 4T; EA11; A The signing pathologist has (i) examined the relevant preparation(s) for the specimen(s) and (ii) rendered or confirmed the diagnosis(es). . ?Surgical Pathology DIAGNOSIS Sigmoid colon, ??polypectomy: - Colonic mucosa, negative for diagnostic abnormality. CR-PX Electronically signed by: ??Tommy Chatterjee MD Verified: ??08/22/2018 ?Pathologist Performed at: ??-[facility], [place], [place] CLINICAL INFORMATION Specimen Submitted: A - 1 -2 mm sigmoid polyp bx Clinical History and Diagnosis: Screening colonoscopy SPECIMEN PROCESSING A - Labeled/Fixativ e: 1-2 mm sigmoid polyp BX, formalin. Quantity/Size: Single, 0.2 cm. TissueDescripti on: Soft, red-brown tissue. Sections/Proces sing: Submitted en toto ??in 1 cassette labeled A1. ??shb 08/22/2018 3:41 PM EDT [facility] GI Biopsy 08/19/2018 5:01 PM EDT 08/19/2018 5:01 PM EDT Cirilo Pathak MD PATHOLOGY/CYTOLOGY O RDERAJERARDO [facility] [place] [address] * COLONOSCOPY (08/19/2018 4:21 PM EDT) COLONOSCOPY [facility] Endoscopy Procedure Date: 08/19/2018 4:21 PM ? Patient Name: Devan Chen ? N: [id number] ? Date of : 1965 ? Age: 53 ? Order #: [id number] ? Instrument Name: [id number] ? Procedure: ? Colonoscopy Indications: ? Screening for colorectal malignant ? neoplasm Providers: ? Angy Moreno RN, ? Rachelle Coleman MD: ?Munira Crawford MD Medicines: ? Fentanyl [...] the physician, the nurse ? and the instructor adjunct surgical technician. The procedure was ? verified in [...] preparation was evaluated using ? the BBPS (Aneta Bowel Preparation ? Scale) with scores of: [...] done by the physician, nurse and ? instructor adjunct surgical technician using the patient's name, date and [...] MAR Action Action Date Dose Rate Site lactated Ringers infusion 100 mL/hr, Intravenous, CONTINUOUS, Starting on 08/19/18 at 1630, Until 08/19/18 at 1752, Endoscopy (Day of Procedure) New Bag 08/19/2018 4:25 PM EDT 100 mL/hr 100 mL/hr documented in this encounter Active and Recently Administered Medications Times are shown in EDT. Continuous Medication Order 08/17/2018 08/18/2018 08/19/2018 lactated Ringers infusion (CANCELED) 100 mL/hr, Intravenous, CONTINUOUS, Starting on 08/19/18 at 1630, Until Sun08/19/18 at 1752, Endoscopy (Day of Procedure) 1625 (New Bag - Prov ider: Mel Kaiser, RN)1756 (Stopped - Provider: Chance Cline RN) [...] RN) documented in this encounter Care Teams Management Instructor Relationship Specialty Start Date End Date Munira Crawford MD [facility] [address] [facility] [place] [address] PCP - General Family Medicine 06/27/18 08/28/18 documented as of this encounter
--- OUTSIDE RECORDS SUMMARY | 2024-08-23 17:29 | XMS_ITS | Encounter Summary ---
Author Organization [facility] [place] [address] Care Team Providers Care Inside Sales Consultant Name Role Phone Alireza Torres MD Primary Care Provider Encounter Details Date Type Department Care Team (Late st Contact Info) Description 10/29/2017 Patient Outreach Internal Medicine at [facility] [address] [place] [address] Nataly Vo RN Social History Tobacco Use Types Packs/Day [...] Miscellaneous Notes * Telephone Encounter - Nataly Vo RN - 10/29/2017 9:40 AM EST Review of medical record, patient in CDU over the weekend for finger injury with infection- has f/uwith plastics. TCM is not appropriate for this encounter Nataly Vo RN Value Stream Leader (CC) [facility] Primary Care [facility] [phone] Clinic [phone] Desk documented in this encounter Plan of Treatment Not on file documented as of this encounter Visit Diagnoses Not on filedocumented in this encounter Care Teams Inside Sales Consultant Relationship Specialty Start Date End Date Alireza Torres MD [facility] [address] [place] [address] PCP - General Family Medicine 04/10/17 11/01/17 documented as of this encounter
--- OUTSIDE RECORDS SUMMARY | 2024-08-23 17:29 | XMS_ITS | Encounter Summary ---
Author Organization [facility] [place] [address] Care Team Providers Care Clinical Data Management Director Name Role Phone Giovanni Wing MD Primary Care Provider [phone] Reason for Visit * Reason Onset Date Comments Pre Procedure Call 04/30/2018 Encounter Details Date Type Department Care Team (Late st Contact Info) Description 04/30/2018 Telephone [place] [phone] Jorge Peguero LNA Pre Procedure Call Social History Tobacco [...] encounter Miscellaneous Notes * Telephone Encounter - Jorge Peguero LNA - 04/30/2018 1:40 PM EDT Devan Chen :1965 Message left: I left a message on answering machine Mr. Chen at 1:40 PM regarding his upcoming Right TPI with Dr. Azael Swift DO. Message included the followin. Patient instructed to arrive at 2:15 (30 minutes prior to procedure start time) on 05/02/2018 (date of procedure) with their swing driver. 2. Following instructions left in the [...] your body within the last two weeks? VIKRAM Marshall documented in this encounter Plan of Treatment Not on file documented as of this encounter Visit Diagnoses Not on filedocumented in this encounter Care Teams Clinical Data Management Director Relationship Specialty Start Date End Date Giovanni Wing MD [address] [place] [address] PCP - General Family Medicine 11/07/17 06/26/18 documented as of this encounter
--- OUTSIDE RECORDS SUMMARY | 2024-08-23 17:29 | XMS_ITS | Encounter Summary ---
Author Organization [facility] [place] [address] Care Team Providers Care Computer Video Game Designer Name Role Phone Alireza Torres MD Primary Care Provider Encounter Details Date Type Department Care Team (Latest Contact Info) Description 08/06/2017 - 08/06/2017 11:59 PM EDT Hospital Encounter Radiology Library at [facility] [address] Allan Quinones MD [facility] [place] [address] Pain Discharge Disposition: Home Social History Tobacco Use [...] Sig Dispensed Refills Start Date End Date VENTOLIN HFA 90 mcg/actuation HFA Aerosol Inhaler Inhale 2 puffs into the lungs as needed. 3 07/20/2017 triamcinolone (KENALOG) 0.1 % Cream Apply topically as needed. 0 06/26/2017 econazole nitrate 1 % Cream Apply topically daily as needed. 3 06/26/2017 10/14/2018 Ibuprofen 200 mg Capsule Take by mouth. 10/27/2017 documented as of this encounter Plan of Treatment Not on file documented as of this encounter Procedures Procedure Name Priority Date/Time Associated Diagnosis Comments FILM LIBRARY STORAGE ONLY DX SPINE Routine 08/06/2017 12:00 AM EDT Pain documented in this encounter Results * Film Library- Storage Only DX Spine (08/06/2017 12:00 AM EDT) Narrative [facility] - 11/20/2017 10:34 PM EST This exam is for storage only and is auto-finalizing. Allan Quinones MD IMG FILM LIBRARY ORD ERABLES [place], [place] documented in this encounter Visit Diagnoses Diagnosis Pain Generalized pain documented in this encounter Care Teams Computer Video Game Designer Relationship Specialty Start Date End Date Alireza Torres MD [facility] [address] [facility] [place] [address] PCP - General Family Medicine 04/10/17 11/01/17 documented as of this encounter
--- OUTSIDE RECORDS SUMMARY | 2024-08-23 17:29 | XMS_ITS | Encounter Summary ---
Author Organization [facility] Address [facility] [place] [address] Care Team Providers Care Janitor And Cleaner Name Role Phone Giovanni Wing MD Primary Care Provider [phone] Reason for Visit * Reason Comments Follow-up right foot pain, dis cuss options; [facility] only Encounter Details Date Type Department Care Team (Late st Contact Info) Description 09/24/2018 8:20 AM EST [place] [address] Pascual Pearson MD [facility] [place] [address] Hallux rigidus of right foot (Primary Dx) [...] Sign Reading Time Taken Comments Blood Pressure 129/84 09/24/2018 8:19 AM EST Pulse 63 09/24/2018 8:19 AM EST Temperature - - Respiratory Rate - - Oxygen Saturation - - Inhaled Oxygen Concentration - - Weight 83.9 kg (185 lb) 09/24/2018 8:19 AM EST Height 172.7 cm (5' 8) 09/24/2018 8:19 AM EST Body Mass Index 28.13 09/24/2018 8:19 AM EST documented in this encounter Progress Notes * Pascual Pearson MD - 09/24/2018 8:20 AM EST Chief complaint: Persistent right great toe pain and limited range of motion Problem List Items Addressed This Visit Hallux rigidus of right foot - Primary Relevant Orders XR Toe(s) Min 2 view Right (Generic) CORRECTION HALLUX RIGIDUS, W IMPLANT Chlorhexidine scrub: History of present illness: Devan Chen is a 53 y.o. year-old male who I seen previously for the above. He has radiographic signs of hallux rigidus, which has progressed slightly on x-rays obtained today. He continues with discomfort.. It is centered over the first MTP joint on the right. He has been getting less and less distended pain relief from injections. The last injection gave him only2 months of pain relief. He is contemplating surgical intervention. Past medical history: Patient Active Problem List [...] of the right great toe reveals limited dorsiflexion with discomfort. There is no skin breakdown. There is no significant hallux valgus deformity. There is no midfootor hindfoot deformity. Palpable dorsalis pedis and posterior tibial pulse. No skin breakdown. Imaging: Personal review of the patient's imaging reveals: X-rays today show some progression of his hallux rigidus of the right great toe with joint space narrowing, predominantly medially. Assessment: 53 y.o. year-old male right hallux rigidus Plan: We discussed treatment options moving forward. We again discussed that continued conservativemanagement with activity restrictions, stiff soled forefoot, and steroid injections are an option. We also discussed surgical options. I think that either first MTP fusion or Cartiva implantation areoptions for him. We discussed the pros and cons of each, included the rigidity of first MTP fusion and the limited clinical long-term data on Cartiva arthroplasty. I think he would be a candidate foreither should he wish to pursue it. He would like to consider his options a bit further, but would like to get something on the books before the end of the year as a place adam. We would have him see his primary care doctor and return for a follow-up visit before proceeding with surgery. He wouldlike to begin scheduling for Cartiva implant R great toe. Follow up: For OR This plan was discussed with the patient and they are in agreement. All of the patient's questions were answered. The above dictation was made with voice recogonition software documented in this encounter Plan of Treatment Not on file documented as of this encounter Procedures Procedure Name Priority Date/Time Associated Diagnosis Comments CORRECTION HALLUX RIGIDUS, W IMPLANT Routine 09/24/2018 8:44 AM EST Hallux rigidus of right foot documented in this encounter Results * XR Toe(s) Min 2 view Right (Generic) (09/24/2018 9:15 AM EST) Anatomical Region Laterality Modality Right Digital Radiogra phy Impressions 09/24/2018 11:41 AM EST Near complete joint space loss at the right first MTP joint with subchondral sclerosis and marginal osteophytes. No significant hallux valgus deformity. There are anterior and medial osteophytes noted. No acute fracture. Narrative 09/24/2018 11:41 AM EST EXAMINATION: XR TOE(S) MIN 2 VIEW RIGHT (GENERIC) CLINICAL HISTORY: RIght great toe MTP arthritis. ??Joint space narrowing? TECHNIQUE: Nonweightbearing views of the right foot COMPARISON: 03/13/2017 and bilateral views of the foot standing 11/04/2015 ??[place], [place] FINDINGS: There is now severe joint space loss at the right first MTP joint. Mild lateral subluxation of the proximal phalanx at the MTP joint with marginal osteophytes. Minimal degenerative change at the distal interphalangeal joint. Procedure Note Jami Novoa MD - 09/24/2018 EXAMINATION: XR TOE(S) MIN 2 VIEW RIGHT (GENERIC) CLINICAL HISTORY: RIght great toe MTP arthritis. Joint space narrowing? TECHNIQUE: Nonweightbearing views of the right foot COMPARISON: 03/13/2017 and bilateral views of the foot standing 11/04/2015 [place], [place] FINDINGS: There is now severe joint space loss at the right first MTP joint. Mildlateral subluxation of the proximal phalanx at the MTP joint with marginalosteophytes. Minimal degenerative change at the distal interphalangeal joint. IMPRESSION Near complete joint space loss at the right first MTP joint withsubchondral sclerosis and marginal osteophytes. No significant hallux valgusdeformity. There are anterior and medial osteophytes noted. No acute fracture. 11:41 AM Pascual Pearson MD IMG DX ORDERABLES documented in this encounter Visit Diagnoses Diagnosis Hallux rigidus of right foot- Primary Hallux rigidus Hallux rigidus of right foot Hallux rigidus documented in this encounter Care Teams Janitor And Cleaner Relationship Specialty Start Date End Date Giovanni Wing MD [address] [facility] [address] [place] [address] PCP - General Family Medicine 08/29/18 documented as of this encounter
--- OUTSIDE RECORDS SUMMARY | 2024-08-23 17:29 | XMS_ITS | Encounter Summary ---
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 Reminded to keep area covered for a few hours but that there were no activity restrictions noted. documented in this encounter Plan of Treatment Not on file documented as of this encounter Visit Diagnoses Not on filedocumented in this encounter Care Teams Recreation Supervisor Relationship Specialty Start Date End Date Alireza Torres MD [facility] [address] [facility] [place] [address] PCP - General Family Medicine 04/10/17 11/01/17 documented as of this encounter
--- OUTSIDE RECORDS SUMMARY | 2024-08-23 17:29 | XMS_ITS | Encounter Summary ---
Author Organization [facility] [place] [address] Care Team Providers Care Log Handling Equipment Operator Name Role Phone Giovanni Wing MD Primary Care Provider [phone] Encounter Details Date Type Department Care Team (Late st Contact Info) Description 12/06/2017 Notes [place] [phone] Luna Deras Social History Tobacco Use Types Packs/Day Years [...] on filedocumented in this encounter Care Teams Log Handling Equipment Operator Relationship Specialty Start Date End Date Giovanni Wing MD [address] [place] [address] PCP - General Family Medicine 11/07/17 06/26/18 documented as of this encounter
--- OUTSIDE RECORDS SUMMARY | 2024-08-23 17:29 | XMS_ITS | Encounter Summary ---
Author Organization [facility] Address [facility] [place] [address] Care Team Providers Care Head Girls Golf Coach Name Role Phone Giovanni Wing MD Primary Care Provider [phone] Encounter Details Date Type Department Care Team (Latest Contact Info) Description 03/13/2017 7:50 AM EDT - 03/13/2017 11:59 PM EDT Hospital Encounter XRay at [address] [place] [address] Pascual Pearson MD [facility] [place] [address] Great toe pain, right Discharge Disposition: Home Social History Tobacco Use [...] Sig Dispensed Refills Start Date End Date Ibuprofen 200 mg Capsule Take by mouth. 1 12/28/2016 documented as of this encounter Plan of Treatment Not on file documented as of this encounter Procedures Procedure Name Priority Date/Time Associated Diagnosis Comments XR TOE(S) MIN 2 VIEW RIGHT Routine 03/13/2017 8:30 AM EDT Great toe pain, right documented in this encounter Results * XR Toe(s) Min 2 view Right (Generic) (03/13/2017 8:30 AM EDT) Anatomical Region Laterality Modality Right Digital Radiogra phy Impressions 03/13/2017 9:51 AM EDT . Osteoarthritic changes of the right first metatarsal phalangeal joint as described. Moderate to severe narrowing at the right first MTP joint. Narrative 03/13/2017 9:51 AM EDT EXAMINATION: XR TOE(S) MIN 2 VIEW RIGHT (GENERIC) CLINICAL HISTORY: right great toe pain TECHNIQUE: Nonweightbearing right foot and 2 dedicated views of the right great toe. COMPARISON: Prior imaging from [facility], 11/04/2015. Prior MRI right foot 04/05/2016. FINDINGS: Moderate to severe narrowing of the right first MTP joint. There is osteophytosis over the medial anterior margin of the metatarsal head. ?? Subchondral sclerosis and subchondral cyst formation consistent with degenerative osteoarthritis. The joint space is narrowed and subchondral sclerosis is noted at the base of the right first proximal phalanx with adjacent osteophytosis. There is no evidence for fracture or for dislocation. Remainder of the bones of the foot are intact and demonstrating normal alignment Procedure Note Jami Novoa MD - 03/13/2017 EXAMINATION: XR TOE(S) MIN 2 VIEW RIGHT (GENERIC) CLINICAL HISTORY: right great toe pain TECHNIQUE: Nonweightbearing right foot and 2 dedicated views of the rightgreat toe. COMPARISON: Prior imaging from [facility], 11/04/2015. Prior MRIright foot 04/05/2016. FINDINGS: Moderate to severe narrowing of the right first MTP joint. There is osteophytosis over the medial anterior margin of the metatarsal head. Subchondral sclerosis and subchondral cyst formation consistent with degenerative osteoarthritis. The joint space is narrowed and subchondral sclerosis is noted at the base of the right first proximal phalanx withadjacent osteophytosis. There is no evidence for fracture or for dislocation.Remainder of the bones of the foot are intact and demonstrating normal alignment IMPRESSION . Osteoarthritic changes of the right first metatarsal phalangeal joint as described. Moderate to severe narrowing at the right first MTP joint. Pascual Pearson MD IMG DX ORDERABLES documented in this encounter Visit Diagnoses Diagnosis Great toe pain, right documented in this encounter Care Teams Head Girls Golf Coach Relationship Specialty Start Date End Date Giovanni Wing MD [address] [place] [address] PCP - General 10/11/10 04/09/17 documented as of this encounter
--- OUTSIDE RECORDS SUMMARY | 2024-08-23 17:29 | XMS_ITS | Encounter Summary ---
Author Organization [facility] [place] [address] Care Team Providers Care Automatic Glove Former Name Role Phone Giovanni Wing MD Primary Care Provider [phone] Encounter Details Date Type Department Care Team (Late st Contact Info) Description 06/26/2018 Orders Only [place] [address] Pascual Pearson MD [facility] [place] [address] Hallux rigidus of right foot Social History [...] as of this encounter Results * XR Fluoro Guided [...] electronic medical record and allergies, as per [facility] protocol. The patient was placed supine on [...] were reviewed with patient. Procedure Note Kathe Huang, TREVA - 07/11/2018 HISTORY: 1st MTP joint injection RIGHT FOOT FIRST TOE MTP JOINT INJECTION UNDER FLUOROSCOPY TECHNIQUE: After an extensive conversation with the patient regarding risks andbenefits, oral and written consent were obtained.? A pre- procedural time-out was performed, including review of the patient's relevant electronic medicalrecord and allergies, as per [facility] protocol. The patient was placed supine on [...] rigidus documented in this encounter Care Teams Automatic Glove Former Relationship Specialty Start Date End Date Giovanni Wing MD [address] [address] PCP - General Family Medicine 11/07/17 06/26/18 documented as of this encounter
--- OUTSIDE RECORDS SUMMARY | 2024-08-23 17:29 | XMS_ITS | Encounter Summary ---
Author Organization [facility] [place] [address] Care Team Providers Care Sales Account Leader Name Role Phone Giovanni Wing MD Primary Care Provider [phone] Reason for Visit * Reason Comments Otalgia right ear pain for a little over a month. Denies drainage. Other About a month ago he was diagnosed with an ear infection in the right ear. Hearing Loss right ear for about a month Tinnitus right ear x 1 month Encounter Details Date Type Department Care Team (Late st Contact Info) Description 09/05/2018 2:45 PM EDT Office [place] [id number] Aury Barth APRN [facility] [place] [address] Drainage from right ear; Right ear pain Social History Tobacco Use Types Packs/Day [...] Sign Reading Time Taken Comments Blood Pressure - - Pulse - - Temperature - - Respiratory Rate - - Oxygen Saturation - - Inhaled Oxygen Concentration - - Weight 83.9 kg (185 lb) 09/05/2018 2:41 PM EDT Height 172.7 cm (5' 8) 09/05/2018 2:41 PM EDT Body Mass Index 28.13 09/05/2018 2:41 PM EDT documented in this encounter Patient Instructions * Patient Instructions* Aury Barth APRN - 09/05/2018 2:45 PM EDT documented in this encounter Progress Notes * Aury Barth APRN - 09/05/2018 2:45 PM EDT Subjective: Patient ID: Devan Chen is a 53 y.o. male. RAKESH Odom is referred by Racquel Covington MD. For R otalgia. He presented 07/31/18 with R ear pain and fullness. This was treated with ciprodex gtts. At followup 08/06/18 continued with ear pain and tinnitus. Amoxiciillen oral added. 08/28/18 returned with persistent R ear pain, switched to augmentin. Also added brief oral prednisone taper for sharp ear pain/fullness. Symptoms have slightly improved but continue to wax and wane. Continues with ear fullness and pressure. No ear drainage. No fevers. Taking claritin and flonase for nasal congestion. Review of Systems Above Objective: Physical Exam Appears wel in NAD. Neck soft, supple, no lymphadenopathy. Ears examined using binocular microscope. R EAC notable for dried, mucoid drainage with appearance somewhat consistent with fungal spores. Removed using suction. Underlying mucosa is erythematous, edematous, friable. TM partially visualized given EAC edema. Culture taken following suction. Topical clotrimazole instilled into EAC. Patient tolerated well. Audiogram today AD normal sloping to mild primarily SNHL, conductive overlay 3-4K Hz. normal sloping to mild SNHL. SRS 100% bilaterally. Assessment and Plan: Patient with persistent R otalgia. Has not responded to antibiotic treatment. EAC remains edematouswith mucopurulent discharge. Possible fungal etiology. Will await culture results. RTC in 5 days for re-check and retreatment. Will keep ear dry. If no improvement, will evaluate nasal cavity for possible contribution to ETD. documented in this encounter Plan of Treatment Not on file documented as of this encounter Procedures Procedure Name Priority Date/Time Associated Diagnosis Comments EAR CULTURE Routine 09/05/2018 5:12 PM EDT Drainage from right ear Right ear pain FUNGUS CULTURE Routine 09/05/2018 5:10 PM EDT documented in this encounter Results * (ABNORMAL) Ear culture Drainage; Ear, Right (09/05/2018 5:12 PM EDT) Ear Culture Few Aspergillus niger(A) [facility] Gram Stain Few Neutrophils seen No microorganisms seen. (A) [facility] Organism Aspergillus niger(A) [facility] Drainage fluid specimen (specimen) RIGHT EAR STRUCTURE / Unknown 09/05/2018 5:12 PM EDT 09/05/2018 5:12 PM EDT Comment:SUSPECT FUNGAL INFEC TION. Narrative Resulting Agency Comment Spec In Lab Aury Annmarie Barth SKIN CARE CONSULTANT MICROBIOLOGY - GENER AL ORDERABLES Performing Organization Address City/[facility] Co de Phone Number [facility] [place] [place] [address] * (ABNORMAL) Fungus culture (09/05/2018 5:10 PM EDT) Fungus Culture Rare Aspergillus niger(A) [facility] Organism Aspergillus niger(A) [facility] Middle ear fluid specimen (specimen) 09/05/2018 5:10 PM EDT 09/05/2018 5:10 PM EDT Narrative Resulting Agency Comment Spec In Lab Aury L Barth SKIN CARE CONSULTANT MICROBIOLOGY - GENER AL ORDERABLES Performing Organization Address City/[facility]/ZIP Co de Phone Number [facility] [place] [address] documented in this encounter Visit Diagnoses Diagnosis Drainage from right ear Otorrhea, unspecified Right ear pain Otalgia, unspecified documented in this encounter Care Teams Sales Account Leader Relationship Specialty Start Date End Date Giovanni Wing MD [address] [place] [address] PCP - General Family Medicine 08/29/18 documented as of this encounter
--- OUTSIDE RECORDS SUMMARY | 2024-08-23 17:29 | XMS_ITS | Encounter Summary ---
Author Organization [facility] Address [facility] [place] [address] Care Team Providers Care Geothermal System Installer Name Role Phone Giovanni Wing MD Primary Care Provider Encounter Details Date Type Department Care Team (Latest Contact Info) Description 09/24/2018 8:49 AM EST - 09/24/2018 11:59 PM [facility] Hospital Encounter XRay at [address] [place] [address] Pascual Paerson MD [facility] [place] [address] Hallux rigidus of right foot Discharge Disposition: [...] Take 10 mg by mouth daily. 08/14/2022 diazePAM (VALIUM) 5 mg Tablet as needed. 0 08/02/2018 10/14/2018 Ibuprofen 200 mg Capsule Take by mouth [...] XR TOE(S) MIN 2 VIEW RIGHT Routine 09/24/2018 9:15 AM EST Hallux rigidus of right foot [...] bilateral views of the foot standing 11/04/2015 ??[place], [place] FINDINGS: There is now severe joint [...] bilateral views of the foot standing 11/04/2015 [place], [place] FINDINGS: There is now severe joint [...] rigidus documented in this encounter Care Teams Geothermal System Installer Relationship Specialty Start Date End Date Giovanni Wing MD [address] [place] [address] PCP - General Family Medicine 08/29/18 documented as of this encounter
--- OUTSIDE RECORDS SUMMARY | 2024-08-23 17:29 | XMS_ITS | Encounter Summary ---
Author Organization [facility] [place] [address] Care Team Providers Care Attending Radiologist Name Role Phone Giovanni Wing MD Primary Care Provider [phone] Reason for Visit * Auth/Cert Specialty Diagnoses / Procedures Referred By Contac t Referred To Contact Diagnoses Hallux rigidus, right foot Right hallux rigidus Procedures PRO HALLUX RIGIDUS W/CHEILECTOMY 1ST MP JT W/IMPLT CORRECTION HALLUX RIGIDUS, W IMPLANT (WRVU 8.01) Referral ID Status Reason Start Date Expiration Date Visits Re quested Visits Authorized [id number] 1 1 Encounter Details Date Type Department Care Team (Latest Contact Info) Description 10/31/2018 9:08 AM EST - 10/31/2018 1:59 PM [facility] Hospital Encounter [place] [address] Pascual Vásquez MD [facility] DR ORTHOPAEDIC [place] [address] Discharge Disposition: Home Social History Tobacco Use [...] Sign Reading Time Taken Comments Blood Pressure 117/79 10/31/2018 1:30 PM EST Pulse 54 10/31/2018 12:36 PM EST Temperature 36.7 ??C (98.1 ??F) 10/31/2018 12:[address] Respiratory Rate 14 10/31/2018 1:00 PM EST Oxygen Saturation 98% 10/31/2018 1:30 PM EST Inhaled Oxygen Concentration - - Weight - - Height - - Body Mass Index - - documented in this encounter Discharge Instructions * Discharge Instructions* Bradley Last RN - 10/31/2018 1:09 PM EST POST [...] or questions. After hours, call the hospital extraction operator at and ask for the anesthesiologist web application developer. SAME DAY PROGRAM POST-OPERATIVE INSTRUCTIONS NERVE BLOCK [...] or questions. After hours, call the hospital extraction operator at and ask for the anesthesiologist web application developer. * Patient Instructions* Mohinder Ann MD - [...] to facilitate abowel movement. If needed an wdhv-eew-kavrqog medication, miralax can also be used to [...] and control your pain. Call your doctor (#[phone]) if: 1. You have a fever > 101.5 or experience chills ??? Increased discharge from the incision ??? Any redness or swelling around the incision ??? Increased pain or change in the pain that is not controlled by your pain meds FOLLOWUP APPOINTMENTS: 1. You will have followup appointments at [facility] as indicated in Future Appointments and Orders. Future Appointments Date Time Provider Department Center 11/15/2018 1:30 PM Luz Chávez PA [address] documented in this encounter Medications at Time [...] 24-Hour Pre-Operative H&P Update Devan Chen [id number] Patient seen in pre-op holding area today. [...] need for future fusion, uncertainty about the fci longevity of the Cartiva implant. We reviewed [...] Vásquez MD - 10/31/2018 12:20 PM EST [facility] Operative Note Patient Name: Devan Chen : [id number] MR#: [id number] Case Date: 10/31/2018 Surgeon: Surgeon(s) and Role: [...] good placement of the implant and good confucianist of the joint space. We copiously irrigated. We closed the dorsal capsule with 3-0 Vicryls. We closed the deep dermal tissue with 3-0 Vicryls. We closed the skin with 3 oh nylons. A dry sterile dressing and a forefoot off cold press loader shoe were placed. The patient's anesthesia was reversed and he was discharged to the PACU in stable condition. Implant Name Type Inv. Item Serial No. Horse Show Judge Lot No. LRB No. Used Action CARIVA SYNTHETIC CATILAGE IMPLANT 10MM NA [id number] Right 1 Implanted Infection Bundle used? N/A [...] OR Use (10/31/2018 12:26 PM EST) Narrative [facility] - 10/31/2018 12:26 PM EST This order does not need a radiologist interpretation. ?? Pascual Vásquez MD IMG FLUORO ORDERABLE [address] [place], [place] * SCAN DOC: IMPLANTABLE DEVICES (10/31/2018 12:00 AM EST) Narrative 10/31/2018 12:00 AM EST Ordered by an unspecified provider. Scanning Provider MEDIA MGR SCAN EXT O RDR/RSLT documented in this encounter Visit Diagnoses Not [...] 10/31/18 at 1100, MALLORY ANDRES: cabinet override Given 10/31/2018 11:00 AM EST [...] 100 mL/hr, Intravenous, CONTINUOUS, Starting on Kathrine 18 at 0945, Until Kathrine 10/31/18 at 1359, [...] comment - Comment: not administered- returned to omnice) midazolam (PF) (VERSED) 1 mg/mL injection (COMPLETED) 1 dose, Starting on Kathrine 10/31/18 at 1023, Until Kathrine 10/31/18 at 1055, MALLORY ANDRES: cabinet override 1055 (Given - Provid er: Mallory Andres RN) documented in this encounter Care Teams Attending Radiologist Relationship Specialty Start Date End Date Giovanni Wing MD [address] [address] PCP - General Family Medicine 08/29/18 documented as of this encounter
--- OUTSIDE RECORDS SUMMARY | 2024-08-23 17:29 | XMS_ITS | Encounter Summary ---
Author Organization [facility] [place] [address] Care Team Providers Care Day Haul Or Farm Charter Bus Driver Name Role Phone Giovanni Wing MD Primary Care Provider [phone] Encounter Details Date Type Department Care Team (Late st Contact Info) Description 03/12/2017 Orders [place] [address] Pascual Pearson MD [facility] [place] [address] Great toe pain, right Social History Tobacco Use Types Packs/Day [...] right great toe. COMPARISON: Prior imaging from [facility], 11/04/2015. Prior MRI right foot 04/05/2016. FINDINGS: [...] the rightgreat toe. COMPARISON: Prior imaging from [facility], 11/04/2015. Prior MRIright foot 04/05/2016. FINDINGS: Moderate [...] Visit Diagnoses Diagnosis Great toe pain, right Great toe pain, right documented in this encounter Care Teams Day [employer] Charter Bus Driver Relationship Specialty Start Date End Date Giovanni Wing MD [address] [place] [address] PCP - General 10/11/10 04/09/17 documented as of this encounter
--- OUTSIDE RECORDS SUMMARY | 2024-08-23 17:29 | XMS_ITS | Encounter Summary ---
Author Organization [facility] [place] [address] Care Team Providers Care Intake Specialist Name Role Phone Giovanni Wing MD Primary Care Provider Reason for Visit * Reason Comments Pain Management Neck Pain Encounter Details Date Type Department Care Team (Late st Contact Info) Description 05/21/2018 12:00 PM EDT Office [place] [address] [facility] [place] [address] Muscle pain Social History Tobacco Use Types [...] Reading Time Taken Comments Blood Pressure 116/71 05/21/2018 11:50 AM EDT Pulse 65 05/21/2018 11:50 AM EDT Temperature - - Respiratory Rate - - Oxygen Saturation 100% 05/21/2018 11:50 AM EDT Inhaled Oxygen Concentration - - Weight 86.6 kg (191 lb) 05/21/2018 11:50 AM EDT Height 172.7 cm (5' 8) 05/21/2018 11:50 AM EDT Body Mass Index 29.04 05/21/2018 11:50 AM EDT documented in this encounter Progress Notes * JenifferMae Zachary, DO - 05/21/2018 12:00 PM EDT Subjective: Patient ID: I have been requested by Dr. Wing for my recommendation regarding the patient's right-sided anterior neck pain. This is Devan Chen's follow up evaluation by our clinic. This is an established patient for me. History of Present Illness Major changes since the last evaluation Improvement of his posterior neck pain Current pain level 3/10 Status of his complaint(s) are improving to the posterior neck pain and continuation of his anterior neck pain Medication side effects None Progress with previously stated goals Able to work and complete physical activities Injections/surgeries since last visit Trigger point injection on 05/02/2018 to the right trapezius and right levator scapula muscles. He states this led to great improvement of his pain. Imaging since the last visit None Lab [...] Severity Score 3 BPI Interference Score 2.28 He did not complete the pain diagram Objective: Physical Exam Constitutional: He appears well-developed and well-nourished. HENT/Head: Normocephalic. Cardiovascular: Normal rate. Pulmonary/Chest: Effort normal. Neurological: He is alert. Psychiatric: He has a normal mood and affect. His behavior is normal. His judgment and thought content are normal. some limitations of range of motion of the neck secondary to righ anterior neck stiffness. Labs to be reviewed None Imaging to be reviewed None Urine Drug Screen confirmations reviewed None Assessment and Plan: ASSESSMENT Encounter Diagnosis Name Primary? Muscle pain TREATMENT PLAN Mr. Chen is a 52 y.o. male who presents with the history as stated above. After a thorough review of the history and physical examination, Mr. Chen and I discussed the following treatment plan in detail: Recommended Diagnostic & Therapeutic modalities: ?? Physical Rehabilitation: I recommended home exercises as previous taught in a structured physical therapy program. We discussed specific neck musculature stretching including muscle energy stretching. ?? Diagnostic testing/Lab work: ?? After evaluating Mr. Chen, it is my medical opinion that he would not currently benefit from any diagnostic tests at this time. I did review his most recent cervical spine x-rays that were basically normal. ?? Interventional procedures: ?? After evaluating Mr. Chen, it is my opinion that he would not currently benefit from any interventional pain management procedures at this time. ?? Medication(s): No prescriptions written and no changes to his medications made/recommended. ?? Referral(s): ?? I did not recommend any new referrals today. Follow up: PRN Mr. Chen and I reviewed all of the above recommendations using anatomical models. The patient understands the risks, benefits, and indications of these options. The patient will think about his options. Devan may also discuss these recommendations with Giovanni Wing MD so that he can come to the best decision in terms of his treatment options. MAE GAYLE DO, MPH Supply Tech of Anesthesiology/[facility] [employer] [facility] New Car Make Ready Worker, Pain Medicine Fellowship [employer]BPM[employer] - Subspecialty board certification in Pain Medicine documented in this encounter Plan of Treatment Not on file documented as of this encounter Visit Diagnoses Diagnosis Muscle pain Mylagia and myositis, unspecified documented in this encounter Care Teams Intake Specialist Relationship Specialty Start Date End Date Giovanni Wing MD [address] [facility] [address] [place] [address] PCP - General Family Medicine 11/07/17 06/26/18 documented as of this encounter
--- OUTSIDE RECORDS SUMMARY | 2024-08-23 17:29 | XMS_ITS | Encounter Summary ---
Author Organization [facility] Address [facility] [place] [address] Care Team Providers Care Supervisor Alteration Workroom Name Role Phone Giovanni Wing MD Primary Care Provider [phone] Encounter Details Date Type Department Care Team (Latest Contact Info) Description 11/07/2017 3:57 PM EST - 11/07/2017 11:59 PM [facility] Hospital Encounter XRay at [address] [place] [address] Giovanni Hubbard MD [facility] [place] [address] Finger infection Discharge Disposition: Home Social History Tobacco Use [...] topically daily as needed. 3 06/26/2017 10/14/2018 sulfamethoxazole-trime thoprim (BACTRIM DS) 800-160 mg Tablet Take 2 tablets by mouth 2 times daily for 14 days. 56 tablet 10/27/2017 11/10/2017 ketorolac (TORADOL) 10 mg Tablet Take 1 tablet by mouth every 6 hours as needed for Pain. 12 tablet 10/27/2017 11/22/2017 documented as of this encounter Plan of Treatment Not on file documented as of this encounter Procedures Procedure Name Priority Date/Time Associated Diagnosis Comments XR FINGER(S) MIN 2 VIEWS LEFT Routine 11/07/2017 4:35 PM EST Finger infection documented in this encounter Results * XR Fingers Min 2 views Left (Generic) (11/07/2017 4:35 PM EST) Anatomical Region Laterality Modality Hand Left Digital Radiogra phy Impressions 11/07/2017 4:43 PM EST No evidence of osteomyelitis. Narrative 11/07/2017 4:43 PM EST EXAMINATION: XR HAND MIN 3 VIEWS LEFT (GENERIC) CLINICAL HISTORY: s/p finger infection TECHNIQUE: 3 views of the left third finger. COMPARISON: 11/07/2017 FINDINGS: No fracture or dislocation is seen. No focal bone lesions to suggest presence of osteomyelitis. Soft tissues are prominent at the dorsal aspect of the DIP joint. This is less pronounced when compared to the prior exam and secondary to resolving soft tissue infection. Giovanni Hubbard MD IMG DX ORDERABLES documented in this encounter Visit Diagnoses Diagnosis Finger infection Unspecified local infection of skin and subcutaneous tissue documented in this encounter Care Teams Supervisor Alteration Workroom Relationship Specialty Start Date End Date Giovanni Wing MD [address] [place] [address] PCP - General Family Medicine 11/07/17 06/26/18 documented as of this encounter
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
--- OUTSIDE RECORDS SUMMARY | 2024-08-23 17:29 | XMS_ITS | Encounter Summary ---
Author Organization [facility] Address [facility] [place] [address] Care Team Providers Care Transit Man Name Role Phone Giovanni Wing MD Primary Care Provider [phone] Reason for Visit * Reason Comments Follow-up s/p left middle fing er dip laceration subsequent infection Encounter Details Date Type Department Care Team (Late st Contact Info) Description 11/22/2017 8:30 AM EST Office [place] [address] Giovanni Hubbard MD [facility] [place] [place] [address] Finger infection Social History Tobacco Use Types [...] Progress Notes * Giovanni Hubbard MD - 11/22/2017 8:30 AM EST Plastic Surgery Follow Up Note CC: Left middle finger laceration and subsequent infection Date of Injury: 10/23/17 Workers Compensation: No Mechanism of Injury and HPI: Devan Chen is a 52 y.o. male who sustained an injury of the left hand. He reports some residual tightness along the left middle finger. He states he has increased ROM since his last visit. Examination: No acute distress Left Upper extremity: Hand: L long finger no edema or erythema, DIP stable, incision healed, no drainage, tip warm/pink/sensate to LT Impression: Devan Chen is a 52 y.o. male patient with a finger infection secondary to trauma. I assured the patient that he has improved since his last visit. I explained that he should expect some edema surrounding the finger that may cause more stiffness, especially after a day of using the hand. He may follow up at any time if he believes he is not improving. Plan: F/u PRN I, Jhoana Smiley, rick acting as scribe for Giovanni Ness MD [...] tissue documented in this encounter Care Teams Transit Man Relationship Specialty Start Date End Date Giovanni Wing MD [address] [place] [place] [address] PCP - General Family Medicine 11/07/17 06/26/18 documented as of this encounter
--- OUTSIDE RECORDS SUMMARY | 2024-08-23 17:29 | XMS_ITS | Encounter Summary ---
Author Organization [facility] Address [facility] [place] [address] Care Team Providers Care Alcoholism Worker Name Role Phone Alireza Torres MD Primary Care Provider Reason for Visit * Reason Comments Hand Pain * Auth/Cert Specialty Diagnoses / Procedures Referred By Contac t Referred To Contact Diagnoses Finger infection Procedures EMERGENCY Referral ID Status Reason Start Date Expiration Date Visits Re quested Visits Authorized [id number] 1 1 Encounter Details Date Type Department Care Team (Late st Contact Info) Description 10/26/2017 4:07 PM EST - 10/27/2017 12:12 PM [place] [address] Melissa Castillo MD [facility] [place] [address] Finger infection (Primary Dx); Laceration of left middle finger without foreign body without damage to nail, initial encounter; Infection of skin and subcutaneous tissue; Exposure to other specified factors, initial encounter; Activity, other specified; Encounter for long-term (current) use of antiplatelets/antithro mbotics Discharge Disposition: Home Social History Tobacco Use [...] Sign Reading Time Taken Comments Blood Pressure 117/68 10/27/2017 11:48 AM EST Pulse 68 10/27/2017 11:48 AM EST Temperature 37.1 ??C (98.8 ??F) 10/27/2017 11:[address] Respiratory Rate 20 10/27/2017 11:48 AM EST Oxygen Saturation 96% 10/27/2017 11:48 AM EST Inhaled Oxygen Concentration - - Weight 83.9 kg (185 lb) 10/26/2017 9:42 PM EST Height - - Body Mass Index 28.13 09/25/2017 8:30 AM EST documented in this encounter Discharge Instructions * Discharge Instructions* Kasandra Gaviria MD - 10/26/2017 10:06 PM EST Orthopaedic Home Care Instructions We will give you more specific instructions depending on the type and location of your injury. You will need to be aware that these guidelines are only general, each person???s recovery may vary. If you have any questions after reading this sheet, please call us. INJURY: Left middle finger laceration Activity Limit your activity for the next week. Keep your left hand elevated as much as possible for at least the next [address] while on narcotic pain medications. In addition, you cannot drive if you are in acast, splint, or sling. You will do 4 times daily soap araceli soaks to your left hand, about 10-15 minutes per soak. Continue this until you follow up with Dr. Lea. 1. Prescriptions Adults You should find yourself needing less and less pain medication after the first few days. Take your pain medicine as directed. Take any of your other usual medicines as directed. 2. Please contact us if: ??? You have excessive swelling. Typically you have not kept the injured extremity raised high enough. If the swelling does not go down after raising the injured extremity above the heart for 3 to 4 hours, call the clinic or come to the emergency department. ??? You feel excessive pain or your injured extremity becomes numb. Again, this usually happens when the injured extremity is not raised high enough. If the pain does not lessen after 3 to 4 hours ofstrict elevation, call the clinic. If you have any questions or concerns, please call the following: [facility] [place] thru Sunday 8am - 5pm (see below) Orthopaedic Physician police communications operator --After 5pm and Weekends [phone] We are interested in your prompt and healthy recovery. Please follow the above instructions. Please call the office (at number below) to verify your post fracture appointment, typically the following day or Sunday if you injure yourself over the weekend. Your care today was provided by Kasandra Gaviria MD Follow up in ~10 days will be arranged in the following orthopaedic clinic Orthopaedic Clinic: [phone] documented in this encounter Medications at Time [...] for 14 days. 56 tablet 10/27/2017 11/10/2017 oxyCODONE (ROXICODONE) 5 mg Tablet Take 1 tablet by mouth nightly as needed for Pain. No driving, no alcohol 3 tablet 10/27/2017 11/07/2017 ketorolac (TORADOL) 10 mg Tablet Take 1 tablet by mouth every 6 hours as needed for Pain. 12 tablet 10/27/2017 11/22/2017 documented as of this encounter ED Notes * Soha Coronel, CARE SPECIALIST - 10/27/2017 12:12 PM EST CLINICAL DECISION UNIT - DISCHARGE SUMMARY Patient Name: Devan Chen Patient Age: 52 y.o. Birthdate: 1965 Admit date: 10/26/2017 Discharge date and time: 10/28/2017 Attending Physician: Diane att. providers found Discharge Diagnoses: Cellulitis History of Presentation (from ED Note): 52 y.o. male comes into the emergency department left hand pain. Patient had a small laceration over his DIP as well as middle phalanx approximately one week ago. Over the past 4 days he has had increased pain, swelling and erythema. He was seen by his primary care provider yesterday and received tetanus, Rocephin and was sent home with Augmentin. Since that time his finger has become more painful and swollen. The most tender area is over the PIP. He has some purulent discharge over the dorsal aspect of the PIP. Patient states that he is unable to flex or extend his finger due to pain. No numbness, tingling, fevers, chills. No wrist tenderness and full ROM of the wrist. Exam at Time of Discharge: BP 117/68 (Patient Position: Lying) Pulse 68 Temp 37.1 ??C (98.8 ??F) (Oral) Resp 20 Wt 83.9 kg (185 lb) SpO2 96% BMI 28.13 kg/m2 Constitutional: oriented to person, place, and time. Appears well-developed and well-nourished. No distress. HENT: Head: Normocephalic and atraumatic. Eyes: EOM are normal. Neck: Normal range of motion. Neck supple. No JVD present. No tracheal deviation present. Cardiovascular: Normal rate and regular rhythm. Exam reveals no gallop and no friction rub. No murmur heard. Pulmonary/Chest: Effort normal and breath sounds normal. No respiratory distress. No wheezes. No rales. Exhibits no tenderness. Abdominal: Soft. Exhibits no distension. There is no tenderness. There is no rebound and no guarding. Normal bowel sounds Musculoskeletal: improved ROM and decreased swelling to the digit Neurological: Alert and oriented to person, place, and time. Skin: minimal drainage for wound site. Greatly improved redness Emergency Department/Clinical Decision Unit Course: H & PE IV antibiotics Lab work Imaging Ortho consult Strict elevation Summary of Important Studies and Lab Data: Recent Results (from the past 72 hour(s)) Basic Metabolic Panel (non-fasting) Result Value Ref Range Glucose Lvl 102 65 - 199 mg/dL BUN 20 10 - 20 mg/dL Creatinine 1.03 0.80 - 1.50 mg/dL Sodium 138 135 - 145 mmol/L Potassium 4.1 3.5 - 5.0 mmol/L Chloride 99 98 - 107 mmol/L CO2 27 22 - 31 mmol/L Anion Gap 12 5 - 15 mmol/L Calcium 10.3 8.5 - 10.5 mg/dL Estimated GFR >60 >=60 Sedimentation rate Result Value Ref Range Sed Rate 9 0 - 15 mm/hr CRP, acute inflammation Result Value Ref Range CRP 14.4 (H) <=4.9 mg/L Hemogram Result Value Ref Range WBC 8.2 4.0 - 9.5 x10(3)/mcL RBC 4.98 4.58 - 5.54 x10(6)/mcL Hemoglobin 15.0 13.7 - 16.5 gm/dL Hematocrit 42.9 40.5 - 48.5 % MCV 86.1 82.9 - 93.1 fL MCH 30.1 27.5 - 32.1 pg MCHC 35.0 32.0 - 35.7 gm/dL Platelets 231 145 - 357 x10(3)/mcL RDWSD 37.5 36.0 - 45.0 fL RDWCV 11.9 11.4 - 13.8 % MPV 10.2 7.6 - 12.9 fL nRBC % Auto 0.0 % nRBC Abs Auto 0.000 0.000 - 0.000 x10(3)/mcL Differential, Automated Result Value Ref Range Neutrophils % 72.1 % Neutr Abs (ANC) 5.89 1.70 - 6.10 x10(3)/mcL Lymphocytes % 15.3 % Lymphocytes Abs 1.2 0.9 - 3.2 x10(3)/mcL Monocytes % 10.2 % Monocyte Abs 0.8 0.3 - 0.9 x10(3)/mcL Eosinophils % 1.3 % Eosinophils Abs 0.1 0.0 - 0.4 x10(3)/mcL Basophils % 0.9 % Basophils Abs 0.1 0.0 - 0.1 x10(3)/mcL Immature Gran % 0.20 % Domi Gran Abs 0.02 0.00 - 0.04 x10(3)/mcL Blue Tube HOLD Result Value Ref Range Blue Hold Sample in lab. Body Fluid Culture, Aerobic Result Value Ref Range Body Fluid Culture No growth to date. Gram Stain Few White Blood Cells seen No microorganisms seen. Anaerobic Culture Result Value Ref Range Anaerobic Culture No anaerobic organisms isolated to date Pending Studies and Lab Data: Follow up with Orthopaedics outpatient Discharge Condition: good Discharge to: Home Discharge Medications: Your Medications New Medications Dose Details ketorolac 10 mg Tab Commonly known as: TORADOL Take 1 tablet by mouth every 6 hours as needed for Pain. 10 mg Quantity: 12 tablet Refills: 0 oxyCODONE 5 mg Tab Commonly known as: ROXICODONE Take 1 tablet by mouth nightly as needed for Pain. No driving, no alcohol 5 mg Quantity: 3 tablet Refills: 0 sulfamethoxazole-trimethoprim 800-160 mg Tab Commonly known as: BACTRIM DS Take 2 tablets by mouth 2 times daily for 14 days. 2 tablet Quantity: 56 tablet Refills: 0 Updated Allergies/ADRs: No Known Allergies General Instructions Orthopaedic Home Care Instructions We will give you more specific instructions depending on the type and location of your injury. You will need to be aware that these guidelines are only general, each person???s recovery may vary. If you have any questions after reading this sheet, please call us. INJURY: Left middle finger laceration Activity Limit your activity for the next week. Keep your left hand elevated as much as possible for at least the next [address] while on narcotic pain medications. In addition, you cannot drive if you are in acast, splint, or sling. You will do 4 times daily soap araceli soaks to your left hand, about 10-15 minutes per soak. Continue this until you follow up with Dr. Lea. 1. Prescriptions Adults You should find yourself needing less and less pain medication after the first few days. Take your pain medicine as directed. Take any of your other usual medicines as directed. 2. Please contact us if: ??? You have excessive swelling. Typically you have not kept the injured extremity raised high enough. If the swelling does not go down after raising the injured extremity above the heart for 3 to 4 hours, call the clinic or come to the emergency department. ??? You feel excessive pain or your injured extremity becomes numb. Again, this usually happens when the injured extremity is not raised high enough. If the pain does not lessen after 3 to 4 hours ofstrict elevation, call the clinic. If you have any questions or concerns, please call the following: Orthopaedic Clinic Sunday thru Sunday 8am - 5pm (see below) Orthopaedic Physician police communications operator --After 5pm and Weekends [phone] We are interested in your prompt and healthy recovery. Please follow the above instructions. Please call the office (at number below) to verify your post fracture appointment, typically the following day or Sunday if you injure yourself over the weekend. Your care today was provided by Kasandra Gaviria MD Follow up in ~10 days will be arranged in the following orthopaedic clinic Orthopaedic Clinic: [phone] Duffy to see this patient today. For questions regarding this document or issues relating to this admission, please contact the Clinical Decision Unit through the [facility] Lamp Shades Supervisor . Soha Coronel APRN 10/28/17 0930 * Susannah Segura RN - 10/27/2017 9:40 AM EST Soha Coronel NP is advised that Patients wanted to talk with Dr Duffy and that we haven't been able give him this message. I also let him that the patient just states I just don't want to have to come back. * Susannah Segura RN - 10/27/2017 9:05 AM EST Patient's and requests to talk with Dr Duffy. She thought he would be staying for another dose of medication this afternoon and is concerned about this. Dr Duffy is currently with a patient in the ED. H * Stevie Duffy MD - 10/27/2017 8:07 AM EST CLINICAL DECISION UNIT - ED ATTENDING DAY OF DISCHARGE NOTE Reason for CDU Admission: Soft Tissue Infection Brief Clinical Summary: 52 y.o. male presented to ED with a soft tissue infection on the finger. Evaluation in the ED did not raise concern for a deep space infection, but it was felt that IV antibiotics and observation were necessary to determine if the patient was appropriate for outpatient therapy. After IV antibiotic therapy there has been no clinical evidence of progression of the infection after >12 hours in observation. The patient's pain is well controlled. Discharge Vital Signs: BP 122/72 (BP Location (NBP): Right arm) Pulse 71 Temp 36.6 ??C (97.9 ??F) (Oral) Resp 16 Wt 83.9 kg (185 lb) SpO2 95% BMI 28.13 kg/m2 Medical Decision Making: Soft tissue infection on the finger likely representing cellulitis. Deep space or other infectious complication was considered and felt to be unlikely - seen by ortho who assessed that the patient had improved substantially overnight. At this point there is no clinical evidence of progression of the infection, and as a result, transition to outpatient management is appropriate. There have been no other active clinical issues identified. I have determined that the patient meets criteria for discharge at this time. The discharge plan was reviewed with the patient, they have had an opportunity to ask questions, and are in agreement with the plan. The patient was seen in conjunction with MERON Coronel. Stevie Duffy MD 10/27/17 0810 * Susannah Segura RN - 10/27/2017 7:40 AM EST Ortho resident in to see patient, dressing removed, very minimal drainage on his dressing. She feels his finger has improved. She placed Bacitracin ointment and gauze dressing and she let Soha Coronel NP know that he could be discharged on oral antibiotics. H * Taylor Partida RN - 10/27/2017 5:33 AM EST Went in to reassess pt's pain, pt had fallen back asleep. Pt is not exhibiting any non-verbal signsof discomfort. * Taylor Partida RN - 10/27/2017 1:30 AM EST Applied ice to hand to help ease some of the pain, until the oxycodone kicked in. * Taylor Partida RN - 10/27/2017 1:18 AM EST Pt rang, stating he just woke up and his finger is throbbing, asked if he could have something for the pain. Informed Dr. Hernandez that I did not have any orders for pain medication for the pt, and that he was rating his pain 7/10. * Zachary Mota RN - 10/26/2017 9:35 PM EST Pt family at nurses station multiple times stating pt is in pain, awaiting med orders. * Melissa Castillo MD - 10/26/2017 9:33 PM EST 52 yo male presents with hand infection, evaluated by orthopedics who performed I&D at bedside,recommended vanc/zosyn and admission for observation. Patient admitted to CDU with plan for orthopedics re-evaluation in the morning and discharge home on Bactrim if demonstrated clinical improvement. Melissa Castillo MD 10/26/17 4790 * Zachary Mota RN - 10/26/2017 9:30 PM EST Pt family requesting pain meds for pt, MD aware. * Zachary Mota RN - 10/26/2017 8:46 PM EST Ortho at bedside for I&D. * Zachary Mota RN - 10/26/2017 8:26 PM EST Pt seen and evaluated by ortho, moved to room 6 awaiting I&D of hand at this time. * Moisés Suarez PA - 10/26/2017 6:08 PM EST Chief Complaint Patient presents with ??? Hand Pain HPI 52 y.o. male comes into the emergency department left hand pain. Patient had a small laceration over his DIP as well as middle phalanx approximately one week ago. Over the past 4 days he has had increased pain, swelling and erythema. He was seen by his primary care provider yesterday and received tetanus, Rocephin and was sent home with Augmentin. Since that time his finger has become more painful and swollen. The most tender area is over the PIP. He has some purulent discharge over the dorsal aspect of the PIP. Patient states that he is unable to flex or extend his finger due to pain. No numbness, tingling, fevers, chills. No wrist tenderness and full ROM of the wrist. No Known Allergies Review of Systems Constitutional: Negative for chills and fever. HENT: Negative for trouble swallowing. Eyes: Negative for redness. Respiratory: Negative for shortness of breath. Cardiovascular: Negative for chest pain. Gastrointestinal: Negative for abdominal pain. Musculoskeletal: Negative for back pain. Skin: Positive for color change. Allergic/Immunologic: Negative for immunocompromised state. Neurological: Negative for light-headedness. Psychiatric/Behavioral: Negative for agitation. Physical Exam Constitutional: He is oriented to person, place, and time. He appears well- developed and well-nourished. No distress. HENT: Head: Normocephalic and atraumatic. Eyes: Conjunctivae are normal. Neck: Normal range of motion. Cardiovascular: Normal rate, regular rhythm and normal heart sounds. Pulmonary/Chest: Effort normal and breath sounds normal. No respiratory distress. Abdominal: He exhibits no distension. Musculoskeletal: He exhibits tenderness. Left shoulder: He exhibits normal range of motion and no tenderness. Left elbow: He exhibits normal range of motion and no swelling. No tenderness found. Left wrist: He exhibits normal range of motion and no tenderness. Left middle phalanx Erythema and edema left middle finger standing the dorsal aspect of the hand Purulent drainage over DIP Decreased range of motion at DIP and PIP due to discomfort Full range of motion of MCP Brisk capillary refill, sensation intact to light touch Full range of motion strength against resistance of digits 1, 2, 4, 5 and wrist with no discomfort. No erythema streaking up left forearm Mild axillary tenderness without erythema Neurological: He is alert and oriented to person, place, and time. Skin: Skin is warm and dry. He is not diaphoretic. There is erythema. Psychiatric: He has a normal mood and affect. Procedures X-ray reviewed by myself: Soft tissue swelling middle phalanx CT: Pending CRP 14.4 CBC and BMP unremarkable MDM 52-year-old male comes emergency department with an infected left middle phalanx. Symptoms have gotten worse after getting a dose of Rocephin and started on Augmentin. He is currently neurovascularlyintact. X-ray showed soft tissue swelling without evidence of osteomyelitis. CRP was elevated at 14.4, otherwise CBC and BMP are unremarkable. Orthopedics was consulted and recommendations are pending at this time. CT is pending at this time. If patient is cleared by orthopedics for joint infectionand infection of the tendon sheath patient may be appropriate for admission to the CDU for IV antibiotics. Patient is hemodynamically stable at this time with no systemic signs of infection. Moisés Suarez PA 10/26/171910 Patient was signed out to ED attending pending orthopedics recommendations and CT scan Moisés Suarez PA 10/26/171924 documented in this encounter Miscellaneous Notes * Consult Note - Kasandra Gaviria MD - 10/27/2017 8:29 AM EST Images from the original note were not included. Orthopaedic Emergency Department Note Attending: Leonora Chief Complaint: Left middle finger pain History of Present Illness: Devan Chen is a 52 y.o. male who presents to the emergency department with left hand middle phalanx dorsal DIP laceration. Patient injured himself last Sunday (5 daysago) while gutting a deer. Initially treated his laceration with topical Neosporin and bandage changes. Starting on , 1 day ago, he noted increased swelling and redness of the middle finger going from the distal phalanx to the proximal phalanx. He presented to his primary care physician's office at [place] where he was given IV Rocephin, tetanus, and oral Augmentin on discharge. They attempted to zara swelling in the dorsal DIP joint but were unable to have satisfactory expression of fluid. The erythema and swelling around his middle finger continue to progress despite the antibiotics that he proceeded to the [facility] emergency department for further evaluation. Patient denies any numbness or tingling in his left upper extremity. He has significant pain the distal phalanx and DIP joint of the middle finger. He does note that the laceration was in contactwith dirty material from gutting the deer. Denies any fevers or chills, no systemic symptoms. Past Medical History: Patient Active Problem List Diagnosis Code ??? 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 Chronic SI joint pain M53.3, G89.29 ??? Hallux rigidus of right foot M20.21 ??? Pain in toe of left foot M79.675 ??? Finger infection L08.9 Past Surgical History: History reviewed. No pertinent surgical history. No Known Allergies No current facility-administered medications on file prior to encounter. Current Outpatient Prescriptions on File Prior to Encounter Medication Sig Dispense Refill ??? Ibuprofen 200 mg Capsule Take by mouth. Home medications: (Not in a hospital admission) Family History: Negative for bleeding/clotting disorders or anesthetic complications. Family History Problem Relation Age of Onset ??? Diabetes Neg Hx History Alcohol Use ??? Yes Comment: 8 drinks a week History Smoking Status ??? Never Smoker Smokeless Tobacco ??? Never Used Review of Systems: As per HPI, otherwise negative Objective: Temp: [36.9 ??C (98.4 ??F)] Heart Rate: [67] Resp: [14] BP: (138)/(79) SpO2: [94 %-100 %] Heart Rate from SPO2: [63 bpm-84 bpm] Gen- NAD, awake, alert, appr HEENT- NC, AT CV- RRR checked peripherally Pulm- No incr WOB Skin- Intact Psych- Nl mood and affect Left Upper Extremity Exam- Left hand, middle finger dorsal DIP swelling with superficial laceration and small area of dried purulence. Overall fusiform swelling of middle finger. No tenderness to palpation of the flexor tendonat proximal phalanx, proximal interphalangeal joint. Tenderness to palpation of DIP joint. Intact but limited DIP flexion / extension due to swelling. No mallet finger deformity. Erythema dorsal aspect of hand that extends to MCP joint Sensation grossly intact throughout hand in median, radial, ulnar nerve distributions Motor intact (5/5) shoulder abduction, elbow flexion/extension, wrist flexion/extension, fundraising officer, EPL,AIN, IO Brisk capillary refill distally 2+ radial pulse Imaging: X-ray left hand: 1. Soft tissue irregularity along the dorsal aspect of the long finger DIP consistent with a soft tissue wound. Extensive soft tissue swelling of the long finger, more focally at the DIP and PIP. Findings are concerning for soft tissue infection. ?? 2. No radiographic findings of osteomyelitis. Procedures: After discussion pertaining the risks and benefits of irrigation and debridement, a nerve block wasapplied with 1% lidocaine without epinephrine to the left hand middle finger. The middle finger wassterilized with Betadine and sterile knife was used to make an incision from the previous lancing at [place] primary care physician's office. A blunt hemostat was used to express fluid from within the soft tissue, minimal purulent material that was removed. The wound was then thoroughly irrigated with 1 L of normal saline, sterile. Bacitracin was placed over the less than 1 cm incision, and the wound was wrapped with 4 x 4 gauze. Patient was given a removable splint to keep the middle finger in extension, specifically the DIP joint in extension. The patient tolerated the procedure well. Assessment/Plan: 52 y.o. male [id number] who presents with left middle finger, dorsal DIP laceration resulting in erythema/cellulitis. Dorsal DIP swelling was lanced with minimal expression of yellow murky fluid. A superficial culture was sent to lab after the wound was thoroughly irrigated with a liter of normal saline. The patient will be admitted to the CDU with IV vancomycin and Zosyn overnight. We will reexamine the patient in the morning and at that point likely discharge him home on oral Bactrim for 2 weeks. -Patient will follow up with Dr. Lea in 10-14 days - While at the hospital, he will have strict elevation of his left upper extremity w/ stockinette and an IV pole -Vanco and Zosyn at CDU Kasandra Gaviria MD Orthopaedic Surgery 2100 Addendum: 10/27/2017 Patient evaluated in the morning. His hand swelling and eythema have greatly improved. Pain is wellcontrolled. Plan to proceed with plan as listed above. * Plan of Care - Taylor Partida RN - 10/26/2017 11:22 PM EST Problem: Skin and Soft Tissue Infection (Adult) Goal: Signs and Symptoms of Listed Potential Problems Will be Absent, Minimized or Managed (Skin and Soft Tissue Infection) Signs and symptoms of listed potential problems will be absent, minimized or managed by discharge/transition of care (reference Skin and Soft Tissue Infection (Adult) CPG). 10/26/17 2321 Skin and Soft Tissue Infection Problems Assessed (Skin and Soft Tissue Infection) all Problems Present (Skin and Soft Tissue Infection) pain Comments: Pain meds given as needed. Morphine 4mg was given, and pain has decreased from a 9/10 to a 4/10. * ED Triage - Soha Stovall RN - 10/26/2017 3:45 PM EST Pt presents to ED c/o left middle finger pain. Pt experienced a small laceration on Sunday while killing out a deer. Distal aspect of finger has progressively become more red, swollen, and painful. He was seen by his PCP and received a tetanus and antibiotics. He is currently taking Augmentin. Skinotherwise pwd. Resps equal and non labored. documented in this encounter Plan of Treatment Not on file documented as of this encounter Procedures Procedure Name Priority Date/Time Associated Diagnosis Comments ANAEROBIC CULTURE STAT 10/26/2017 9:5 5 PM EST BODY FLUID CULTURE, AEROBIC & ANAEROBIC STAT 10/26/2017 9:55 PM EST BODY FLUID CULTURE, AEROBIC STAT 10/26/2017 9:55 PM EST XR FINGER(S) MIN 2 VIEWS LEFT STAT 10/26/2017 5:03 PM EST CRP, ACUTE INFLAMMATION STAT 10/26/2017 4:45 PM EST HEMOGRAM STAT 10/26/2017 4:45 PM EST DIFFERENTIAL, AUTOMATED STAT 10/26/2017 4:45 PM EST BLUE TUBE HOLD STAT 10/26/2017 4:45 PM EST SEDIMENTATION RATE STAT 10/26/2017 4: 45 PM EST CBC (WITH DIFF) STAT 10/26/2017 4:45 PM EST BASIC METABOLIC PANEL STAT 10/26/2017 4:45 PM EST documented in this encounter Results * Anaerobic Culture (10/26/2017 9:55 PM EST) Anaerobic Culture No anaerobic organisms isolated [facility] Fluid specimen (specimen) 10/26/2017 9:55 PM EST 10/26/2017 10:43 PM EST Comment:LEFT HAND, MIDDLE FI NGER DORSAL DISTAL PHALANX Narrative Resulting Agency Comment Spec In Lab Melissa Castillo MD MICROBIOLOGY - GENER AL ORDERABLES [facility] [place] [address] * Body Fluid Culture, Aerobic (10/26/2017 9:55 PM EST) Body Fluid Culture No growth [facility] Gram Stain Few White Blood Cells seen No microorganisms seen. [facility] Fluid specimen (specimen) 10/26/2017 9:55 PM EST 10/26/2017 10:43 PM EST Comment:LEFT HAND, MIDDLE FI NGER DORSAL DISTAL PHALANX Narrative Resulting Agency Comment Spec In Lab Melissa Castillo MD MICROBIOLOGY - GENER AL ORDERABLES [facility] [place] [address] * XR Fingers Min 2 views Left (Generic) (10/26/2017 5:03 PM EST) Anatomical Region Laterality Modality Hand Left Digital Radiogra phy Impressions 10/26/2017 5:10 PM EST 1. ??Soft tissue irregularity along the dorsal aspect of the long finger DIP consistent with a soft tissue wound. Extensive soft tissue swelling of the long finger, more focally at the DIP and PIP. Findings are concerning for soft tissue infection. 2. ??No radiographic findings of osteomyelitis. Narrative 10/26/2017 5:10 PM EST EXAMINATION: XR FINGERS MIN 2 VIEWS LEFT (GENERIC) CLINICAL HISTORY: finger infection TECHNIQUE: PA view of the left hand with oblique and lateral views of the left long finger. COMPARISON: None FINDINGS: Soft tissue swelling of the long finger, more focally swollen at the PIP and DIP. There is mild soft tissue irregularity and skin irregularity along the dorsal aspect of the DIP, suggesting a skin wound. No soft tissue gas. No radiodense foreign bodies. No visible fracture or malalignment. No periosteal reaction or osseous destruction/erosion. Joint space narrowing and osteophyte formation of the interphalangeal joint of the thumb. Well-corticated ossicle adjacent to the ulnar styloid process likely represents sequela of old injury. Procedure Note Hayley Galeas MD - 10/26/2017 EXAMINATION: XR FINGERS MIN 2 VIEWS LEFT (GENERIC) CLINICAL HISTORY: finger infection TECHNIQUE: PA view of the left hand with oblique and lateral views of the left longfinger. COMPARISON: None FINDINGS: Soft tissue swelling of the long finger, more focally swollen at the PIPand DIP. There is mild soft tissue irregularity and skin irregularity alongthe dorsal aspect of the DIP, suggesting a skin wound. No soft tissue gas.No radiodense foreign bodies. No visible fracture or malalignment. Noperiosteal reaction or osseous destruction/erosion. Joint space narrowing and osteophyte formation of the interphalangealjoint of the thumb. Well-corticated ossicle adjacent to the ulnar styloid processlikely represents sequela of old injury. IMPRESSION 1. Soft tissue irregularity along the dorsal aspect of the long fingerDIP consistent with a soft tissue wound. Extensive soft tissue swelling of thelong finger, more focally at the DIP and PIP. Findings are concerning for softtissue infection. 2. No radiographic findings of osteomyelitis. Melissa Castillo MD IMG DX ORDERABLES * Blue Tube HOLD (10/26/2017 4:45 PM EST) Pathologist [facility] Blue Hold Sample in lab. [facility] Blood specimen (specimen) Venous Draw / Unknown 10/26/2017 4:45 PM EST 10/26/2017 4:51 PM EST Melissa Castillo MD HEMATOLOGY ORDERABLE S [facility] [place] [address] * Differential, Automated (10/26/2017 4:45 PM EST) Neutrophil % 72.1 % [facility] Neutrophil Absolute 5.89 1.70 - 6.10 x10(3)/[facility] Lymph % 15.3 % [facility] Lymphocytes Abs 1.2 0.9 - 3.2 x10(3)/[facility] Monocyte % 10.2 % [facility] Monocyte Abs 0.8 0.3 - 0.9 x10(3)/[facility] Eos % 1.3 % [facility] Eosinophils Abs 0.1 0.0 - 0.4 x10(3)/[facility] Basophil % 0.9 % [facility] Baso Absolute 0.1 0.0 - 0.1 x10(3)/[facility] Immature Gran % 0.20 % [facility] Comment: Immature granulocytes(IG's)percentage and absolute count will include metamyelocytes, myelocytes, and promyelocytes. Blood smears from CBCs yielding IG's will be scanned manually for concordance. If this scan disagrees with the automated IG or if promyelocytes are noted, a manual differential will be performed. Immature Gran Absolute 0.02 0.00 - 0.04 x10(3)/[facility] Blood specimen (specimen) 10/26/2017 4:45 PM EST 10/26/2017 4:50 PM EST Narrative Resulting Agency Comment Spec In Lab Melissa Castillo MD HEMATOLOGY ORDERABLE S [facility] [place] [address] * Hemogram (10/26/2017 4:45 PM EST) White Blood Cell 8.2 4.0 - 9.5 x10(3)/[facility] Red Blood Cell 4.98 4.58 - 5.54 x10(6)/[facility] Hemoglobin 15.0 13.7 - 16.5 gm/dL [facility] Hematocrit 42.9 40.5 - 48.5 % [facility] Mean Cell Volume 86.1 82.9 - 93.1 fL [facility] Mean Cell Hemoglobin 30.1 27.5 - 32.1 pg [facility] Mean Cell Hemoglobin Concentration 35.0 32.0 - 35.7 gm/dL [facility] Platelet 231 145 - 357 x10(3)/[facility] RDW Standard Deviation 37.5 36.0 - 45.0 fL [facility] RDW coefficient of variation 11.9 11.4 - 13.8 % [facility] Mean Platelet Volume 10.2 7.6 - 12.9 fL [facility] NRBC% auto 0.0 % [facility] NRBC Absolute 0.000 0.000 - 0.000 x10(3)/[facility] Blood specimen (specimen) 10/26/2017 4:45 PM EST 10/26/2017 4:50 PM EST Narrative Resulting Agency Comment Spec In Lab Melissa Castillo MD HEMATOLOGY ORDERABLE S Performing Organization Address [facility] [place] [address] * (ABNORMAL) CRP, acute inflammation (10/26/2017 4:45 PM EST) C-Reactive Protein 14.4(H) <=4.9 mg/L [facility] Blood specimen (specimen) 10/26/2017 4:45 PM EST 10/26/2017 4:50 PM EST Narrative Resulting Agency Comment Spec In Lab Melissa Castillo MD CHEMISTRY ORDERABLES Performing Organization Address [facility]/ZIP Co de Phone Number [facility] [place] [address] * Sedimentation rate (10/26/2017 4:45 PM EST) Sedimentation Rate Automated 9 0 - 15 mm/hr [facility] Blood specimen (specimen) 10/26/2017 4:45 PM EST 10/26/2017 4:50 PM EST Narrative Resulting Agency Comment Spec In Lab Melissa Castillo MD HEMATOLOGY ORDERABLE S Performing Organization Address City/[facility]/ZIP Co de Phone Number [facility] [place] [address] * Basic Metabolic Panel (non-fasting) (10/26/2017 4:45 PM EST) Glucose 102 65 - 199 mg/dL [facility] Comment:Diabetes: >=200 mg/d L plus symptoms Blood Urea Nitrogen 20 10 - 20 mg/dL [facility] Creatinine 1.03 0.80 - 1.50 mg/dL [facility] Sodium 138 135 - 145 mmol/L [facility] Potassium 4.1 3.5 - 5.0 mmol/L [facility] Comment: Please note: ??Patients with WBC >100,000 may have falsely elevated Potassium levels. ??For accurate Potassium quantification in these patients send serum separator tube (gold top) for subsequent determinations. ??Contact the Clinical Chemistry Laboratory if there are any questions. Chloride 99 98 - 107 mmol/L [facility] Carbon Dioxide 27 22 - 31 mmol/L [facility] Anion Gap 12 5 - 15 mmol/L [facility] Calcium 10.3 8.5 - 10.5 mg/dL [facility] Est Glomerular Filtration Rate >60 >=60 [facility] Comment: The reported eGFR should be multiplied by 1.2 for patients. The MDRD is not an appropriate measure of renal function for patients with body mass extremes or in patients with acute kidney failure. http://[employer]ar[employer]/DHnkdep http://Narvii[employer] Kin [employer]/DHMCnkf Blood specimen (specimen) 10/26/2017 4:45 PM EST 10/26/2017 4:50 PM EST Narrative Resulting Agency Comment Spec In Lab Melissa Castillo MD CHEMISTRY ORDERABLES [facility] [place] [address] documented in this encounter Visit Diagnoses Diagnosis Finger infection- Primary Unspecified local infection of skin and subcutaneous tissue Finger infection Unspecified local infection of skin and subcutaneous tissue Laceration of left middle finger without foreign body without damage to nail, initial encounter Infection of skin and subcutaneous tissue Unspecified local infection of skin and subcutaneous tissue Exposure to other specified factors, initial encounter Activity, other specified Encounter for long-term (current) use of antiplatelets/antithrombotics documented in this encounter Admitting Diagnoses Diagnosis Finger infection Unspecified local infection of skin and subcutaneous tissue documented in this encounter Administered Medications Inactive Administered Medications - up to 3 most recent administrations Medication Order MAR Action Action Date Dose Rate Site acetaminophen (TYLENOL) tablet 1,000 mg 1,000 mg, Oral, ONCE, 1 dose, On 10/27/17 at 0855, Maximum dose of acetaminophen is 4000 mg from all sources in 24 hours., STAT Given 10/27/2017 9:08 AM EST 1,000 mg HYDROmorphone (DILAUDID) injection 0.5 mg 0.5 mg, Intravenous, ONCE, 1 dose, On Sun10/26/17 at 1632, STAT Given 10/26/2017 4:47 PM EST 0.5 mg HYDROmorphone (DILAUDID) injection 0.5 mg 0.5 mg, Intravenous, ONCE, 1 dose, On Sun10/26/17 at 1809, STAT Given 10/26/2017 6:13 PM EST 0.5 mg ketorolac (TORADOL) injection 15 mg 15 mg, Intravenous, EVERY 6 HOURS PRN, Starting on Sun10/27/17 at 0505, Until Sun10/27/17 at 1413, Pain, Routine Given 10/27/2017 5:08 AM EST 15 mg LORazepam (ATIVAN) tablet 1 mg 1 mg, Oral, ONCE, 1 dose, On Sun10/26/17 at 2044, STAT Given 10/26/2017 8:49 PM EST 1 mg morphine 4 mg/mL carpuject 4 mg 4 mg, Intravenous, ONCE, 1 dose, On Sun10/26/17 at 2202, Routine Given 10/26/2017 10:08 PM EST 4 mg oxyCODONE (ROXICODONE) immediate release tablet 5 mg 5 mg, Oral, ONCE, 1 dose, On Sun10/26/17 at 2140, STAT Given 10/26/2017 9:40 PM EST 5 mg oxyCODONE (ROXICODONE) immediate release tablet 5 mg 5 mg, Oral, ONCE, 1 dose, On Sun10/27/17 at 0123, STAT Given 10/27/2017 1:24 AM EST 5 mg piperacillin-tazobactam (ZOSYN) 4.5 g in dextrose 5% 100 mL 4.5 g, Intravenous, ONCE, 1 dose, On Sun10/26/17 at 2133, Administer over 30 Minutes, Warning Vesicant/Irritant Medication , Indication for (Active or Suspected): Skin/Skin Structure Given 10/26/2017 10:11 PM EST 4.5 g 200 mL/hr piperacillin-tazobactam (ZOSYN) 4.5 g in dextrose 5% 100 mL 4.5 g, Intravenous, EVERY 8 HOURS, First dose on 10/27/17 at 0600, Until Discontinued, Administer over 30 Minutes, Warning Vesicant/Irritant Medication , Indication for (Active or Suspected): Skin/Skin Structure Given 10/27/2017 5:52 AM EST 4.5 g 200 mL/hr sulfamethoxazole-trimethopri m (BACTRIM DS) 800-160 mg per tablet 2 tablet 2 tablet, Oral, EVERY 12 HOURS SCHEDULED (2 times per day), First dose on 10/27/17 at 1003, Until Discontinued, Routine, Indication for (Active or Suspected): Skin/Skin Structure Given 10/27/2017 10:21 AM EST 2 tablets vancomycin 1 g in 0.9 % sodium chloride 200 mL 1 g, Intravenous, at 200 mL/hr, ONCE, 1 dose, On Sun10/26/17 at 2133, Maximum infusion rate is 1 gram/hour. If flushing of the face, neck, upper body, arms, and/or back occurs decrease infusion rate by 50% to reduce the severity of symptoms. This medication may have an associated drug lab level. Please see MAR for scheduled level. Warning Vesicant/Irritant Medication , STAT, Indication for (Active or Suspected): Skin/Skin Structure New Bag 10/26/2017 10:51 PM EST 1 g 200 mL/hr documented in this encounter Active and Recently Administered Medications Times are shown in EST. Scheduled Medication Order 10/25/2017 10/26/2017 10/27/2017 acetaminophen (TYLENOL) tablet 1,000 mg (COMPLETED) 1,000 mg, Oral, ONCE, 1 dose, On 10/27/17 at 0855, Maximum dose of acetaminophen is 4000 mg from all sources in 24 hours., STAT 0908 (Given - Provid er: Susannah Segura RN) HYDROmorphone (DILAUDID) injection 0.5 mg (COMPLETED) 0.5 mg, Intravenous, ONCE, 1 dose, On Sun10/26/17 at 1632, STAT 1647 (Given - Provider: Jess Hunt RN) HYDROmorphone (DILAUDID) injection 0.5 mg (COMPLETED) 0.5 mg, Intravenous, ONCE, 1 dose, On Sun10/26/17 at 1809, STAT 1813 (Given - Provider: Tayler Langston RN) LORazepam (ATIVAN) tablet 1 mg (COMPLETED) 1 mg, Oral, ONCE, 1 dose, On Sun10/26/17 at 2044, STAT 2049 (Given - Provider: Zachary Mota RN) morphine 4 mg/mL carpuject 4 mg (COMPLETED) 4 mg, Intravenous, ONCE, 1 dose, On Sun10/26/17 at 2202, Routine 2208 (Given - Provider: Taylor Partida RN) oxyCODONE (ROXICODONE) immediate release tablet 5 mg (COMPLETED) 5 mg, Oral, ONCE, 1 dose, On Sun10/26/17 at 2140, STAT 2140 (Given - Provider: Zachary Mota RN) oxyCODONE (ROXICODONE) immediate release tablet 5 mg (COMPLETED) 5 mg, Oral, ONCE, 1 dose, On Sun10/27/17 at 0123, STAT 0124 (Given - Provid er: Taylor Partida RN) piperacillin-tazobactam (ZOSYN) 4.5 g in dextrose 5% 100 mL (COMPLETED) 4.5 g, Intravenous, ONCE, 1 dose, On Sun10/26/17 at 2133, Administer over 30 Minutes, Warning Vesicant/Irritant Medication , Indication for (Active or Suspected): Skin/Skin Structure 2210 (Given - Provider: Taylor Partida RN)2250 (IV Stop - Provider: Taylor Partida RN) piperacillin-tazobactam (ZOSYN) 4.5 g in dextrose 5% 100 mL 4.5 g, Intravenous, EVERY 8 HOURS, First dose on 10/27/17 at 0600, Until Discontinued, Administer over 30 Minutes, Warning Vesicant/Irritant Medication , Indication for (Active or Suspected): Skin/Skin Structure 0552 (Given - Provid er: Taylor Partida RN)0637 (IV Stop - Provider: Taylor Partida RN) sulfamethoxazole-trimethopr im (BACTRIM DS) 800-160 mg per tablet 2 tablet 2 tablet, Oral, EVERY 12 HOURS SCHEDULED (2 times per day), First dose on 10/27/17 at 1003, Until Discontinued, Routine, Indication for (Active or Suspected): Skin/Skin Structure 1021 (Given - Provid er: Susannah Segura RN) vancomycin 1 g in 0.9 % sodium chloride 200 mL (COMPLETED) 1 g, Intravenous, at 200 mL/hr, ONCE, 1 dose, On Sun10/26/17 at 2133, Maximum infusion rate is 1 gram/hour. If flushing of the face, neck, upper body, arms, and/or back occurs decrease infusion rate by 50% to reduce the severity of symptoms. This medication may have an associated drug lab level. Please see MAR for scheduled level. Warning Vesicant/Irritant Medication , STAT, Indication for (Active or Suspected): Skin/Skin Structure 2251 (New Bag - Provider: Taylor Partida RN)2355 (Stopped - Provider: Taylor Partida RN) PRN Medication Order 10/25/2017 10/26/2017 10/27/2017 ketorolac (TORADOL) injection 15 mg 15 mg, Intravenous, EVERY 6 HOURS PRN, Starting on 10/27/17 at 0505, Until 10/27/17 at 1413, Pain, Routine 0508 (Given - Provid er: Taylor Partida RN) documented in this encounter Care Teams Alcoholism Worker Relationship Specialty Start Date End Date Alireza Torres MD [facility] [address] [place] [address] PCP - General Family Medicine 04/10/17 11/01/17 documented as of this encounter
--- OUTSIDE RECORDS SUMMARY | 2024-08-23 17:29 | XMS_ITS | Encounter Summary ---
Author Organization [facility] Address [facility] [place] [address] Care Team Providers Care Interactive Media Specialist Name Role Phone Giovanni Wing MD Primary Care Provider [phone] Reason for Visit * Reason Comments Follow-up fungal infection in the right ear. Patient states that the ear feels good and it has stopped draining. Encounter Details Date Type Department Care Team (Late st Contact Info) Description 09/19/2018 9:00 AM EDT Office [place] [address] Aury Barth APRN [facility] [place] [place] [address] Fungal otitis externa Social History Tobacco Use Types Packs/Day Years [...] - - Weight 83.9 kg (185 lb) 09/19/2018 9:11 AM EDT Height 172.7 cm (5' 8) 09/19/2018 9:11 AM EDT Body Mass Index 28.13 09/19/2018 9:11 AM EDT documented in this encounter Progress Notes * Aury Barth APRN - 09/19/2018 9:00 AM EDT Subjective: Patient ID: Devan Chen is a 53 y.o. male. HPI Patient returns in follow-up. He was seen initially on September 05, 2018 for right-sided otitis externa. The culture was returned with a few Aspergillus species. He was treated initially with topical clotrimazole. At his last visit he did not have significant improvement. The external auditory canalwas coated with gentian wanda and CSF powder. He was also placed on an oral antifungal. He returnsfor reevaluation. He feels much improved. He has had no further ear drainage. He has no ear fullness. He feels that his hearing continues to be somewhat muffled in both ears but is also in the midst of his annual fallallergy exacerbation. For his allergies, he does do nasal saline rinses as well as an allergy medication regimen. Review of Systems Above. Objective: Physical Exam He appears well in no acute distress. His facial movement is symmetric. He is alert and oriented with fluent and articulate speech. The right ear was examined using the binocular microscope. I see noevidence of fungal spores. Tympanic membrane is translucent and intact. No evidence of middle ear disease. Assessment and Plan: Patient with what appears to be resolving fungal otitis. He will continue to keep the ear dry for afew more days and may resume his usual routines. He did have a slight conductive hearing loss on his hearing test earlier this month so he will contact me in a few weeks once he feels that his sinus congestion has more fully resolved in order to schedule a repeat audiogram. I discussed with him that fungal infections are not nearly as common as bacterial infections and that I suspect that the reason for it taking a while to resolve is that we did not realize it was fungal, and that this is difficult to ascertain without the advantage of the oral microscope and a fungal culture. I discussed with him that I do not suspect any kind of underlying autoimmune problem. Other than a repeat audiogram which he will call to schedule, will follow him on an as-needed basis documented in this encounter Plan of Treatment Not on file documented as of this encounter Visit Diagnoses Diagnosis Fungal otitis externa Other and unspecified mycoses documented in this encounter Care Teams Interactive Media Specialist Relationship Specialty Start Date End Date Giovanni Wing MD [address] [place] [id number] PCP - General Family Medicine 08/29/18 documented as of this encounter
--- OUTSIDE RECORDS SUMMARY | 2024-08-23 17:29 | XMS_ITS | Encounter Summary ---
Author Organization [facility] [place] [address] Care Team Providers Care City Tax Auditor Name Role Phone Munira Crawford MD Primary Care Provider [phone] Encounter Details Date Type Department Care Team (Late st Contact Info) Description 08/28/2018 [place]phone [place] [phone] Jaleesa Singh RN Social History Tobacco Use [...] Telephone Encounter - Jaleesa Singh RN - 08/28/2018 8:41 AM EDT Mr. Chen was set up for a 45 minute office visit for consult /trigger point injections per Dr. Wadsworth request. documented in this encounter Plan of Treatment Not on file documented as of this encounter Visit Diagnoses Not on filedocumented in this encounter Care Teams City Tax Auditor Relationship Specialty Start Date End Date Munira Crawford MD [facility] [address] [facility] [place], [place] [id number] PCP - General Family Medicine 06/27/18 08/28/18 documented as of this encounter
--- OUTSIDE RECORDS SUMMARY | 2024-08-23 17:29 | XMS_ITS | Encounter Summary ---
Author Organization [facility], Located [facility] [place] [address] Care Team Providers Care Gas Station Clerk Name Role Phone Giovanni Wing MD Primary Care Provider [phone] Reason for Visit * Reason Onset Date Comments Injections 02/18/2018 Encounter Details Date Type Department Care Team (Late st Contact Info) Description 02/18/2018 Telephone [place] [id number] Pascual Pearson MD [facility] [place] [address] Injections Social History Tobacco Use Types Packs/Day Years [...] * Telephone Encounter - Suzette Zurita - 02/19/2018 8:20 AM EDT Scheduled * Telephone Encounter - Margareth Contreras - 02/18/2018 2:36 PM EDT LM#1 to schedule an appointment with Dr. Pearson's team clinic for NXR, RIGHT FOOT INJECTION? SURGERY? * Telephone Encounter - Gila Gonzalez RN - 02/18/2018 2:29 PM EDT Patient's request for injection appointment of the right foot has been reviewed by Clinical Support. Is it too soon for patient to have this injection? No Date of last injection? 09/25/17 Is this a synvisc/orthovisc injection? No Enter [employer] Prior Auth if Synvisc or Orthovisc injection. N/A Does this injection need to be scheduled in radiology under fluoro? No Have orders been placed? N/A Injection within 3 months prior to joint arthroplasty or arthroscopy is associated with increased rates of postoperative infection: this includes, hip, knee, and shoulder. * Telephone Encounter - Shahana Taveras I - 02/18/2018 8:59 AM EDT Best phone # to reach patient for [phone] Patient requests appointment for injection of the Right foot. Patient requests an injection of (product type: cortisone/Synvisc/Monovisc/other): Cortisone- He ismentioning to have an appointment with Dr. Pearson and not sure if injection will happen or move forward with Surgery. I will send this request to the Clinical Support team for review. Some injections require prior authorization, special orders, or an appointment somewhere other thanour clinic, so knowing this in advance will help us to better meet your needs. If the injection requires prior authorization, it may take 14 or more business days before we can schedule your appointment. As soon as this service approved by the clinical support team, we will call you to schedule the appointment. documented in this encounter Plan of Treatment Not on file documented as of this encounter Visit Diagnoses Not on filedocumented in this encounter Care Teams Gas Station Clerk Relationship Specialty Start Date End Date Giovanni Wing MD [address] [address] PCP - General Family Medicine 11/07/17 06/26/18 documented as of this encounter
--- OUTSIDE RECORDS SUMMARY | 2024-08-23 17:29 | XMS_ITS | Encounter Summary ---
Author Organization [facility] [place] [address] Care Team Providers Care Armoured Car Escort Name Role Phone Giovanni Wing MD Primary Care Provider [phone] Encounter Details Date Type Department Care Team (Late st Contact Info) Description 12/12/2017 Telephone [place] [address] Jaleesa Singh, RN Social History Tobacco Use Types Packs/Day [...] Telephone Encounter - Jaleesa Singh RN - 12/12/2017 3:45 PM EST Fluoroscopy Procedure Request Procedure Requested: Bilateral T10, T11 or T12 thoracic medical branch blocks Per Dr. Swift- ?? I reviewed 12/07/17 lumbar spine MRI. ??He has facet arthropathy (arthritis) to the T11-T12 facetjoints bilaterally and this is where he is having pain. ??I recommend that we complete lumbar medial branch blocks a the T10, T11, and T12 medial branches bilaterally. ??This will be followed by Radiofrequency ablation if it is effective. Have you had any steroid injections anywhere in your body within the last two weeks? no Patient taking anticoagulants? _x__ No Patient has pacemaker/defibrillator: No Changes in usual pain pattern or pertinent recent trauma or surgery? _x__ No, patient transferred or will be contacted by brake engineer to make appointment for requested procedure. Patient's questions regarding requested procedure were answered and patient verbalized understanding. Patient knows how to contact the Pain Management Center and understands that they may do so at any time should they have further questions or concerns. Jaleesa Singh RN documented in this encounter Plan of Treatment Not on file documented as of this encounter Visit Diagnoses Not on filedocumented in this encounter Care Teams Armoured Car Escort Relationship Specialty Start Date End Date Giovanni Wign MD [address] [place] [id number] PCP - General Family Medicine 11/07/17 06/26/18 documented as of this encounter
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
--- OUTSIDE RECORDS SUMMARY | 2024-08-23 17:30 | XMS_ITS | Encounter Summary ---
Author Organization [facility] Address [facility] [place] [address] Care Team Providers Care Outpatient Receptionist Name Role Phone Giovanni Wing MD Primary Care Provider [phone] Encounter Details Date Type Department Care Team (Latest Contact Info) Description 04/05/2016 - 04/05/2016 11:59 PM EDT Hospital Encounter Radiology Library at [facility] [place] [address] Pascual Pearson MD [facility] [place] [address] Pain Discharge Disposition: Home Social History Tobacco Use Types Packs/Day Years Used Date Smoking Tobacco: Never Sex and Gender Information Value Date Recorded Sex Assigned at Not on file Gender Identity Not on file Sexual Orientation Not on file documented as of this encounter Medications at Time of Discharge Medication Sig Dispensed Refills Start Date End Date naproxen (NAPROSYN) 500 mg tablet Take 500 mg by mouth daily as needed. 11/21/2016 Chlorpheniramine Maleate 4 mg Cap Take 4 mg by mouth daily. 11/21/2016 diaZEPam (VALIUM) 5 mg tablet Take 5 mg by mouth daily as needed. Reported on 03/13/2017 03/13/2017 documented as of this encounter Plan of Treatment Not on file documented as of this encounter Procedures Procedure Name Priority Date/Time Associated Diagnosis Comments FILM LIBRARY STORAGE ONLY MR LOWER EXTREMITY Routine 04/05/2016 12:00 AM EDT Pain documented in this encounter Results * Film Library- Storage Only MR Lower Extremity (04/05/2016 12:00 AM EDT) Narrative RAD - 11/21/2016 1:23 PM EST This exam is for storage only and is auto-finalizing. Pascual Pearson MD IMG FILM LIBRARY ORD ERABLES [place], [place] documented in this encounter Visit Diagnoses Diagnosis Pain Generalized pain documented in this encounter Care Teams Outpatient Receptionist Relationship Specialty Start Date End Date Giovanni Wing MD [address] [place] [address] PCP - General 10/11/10 04/09/17 documented as of this encounter
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
--- OUTSIDE RECORDS SUMMARY | 2024-08-23 17:30 | XMS_ITS | Encounter Summary ---
Author Organization [facility] Address [facility] [place] [address] Care Team Providers Care Gluer Name Role Phone Giovanni Wing MD Primary Care Provider [phone] Encounter Details Date Type Department Care Team (Latest Contact Info) Description 11/04/2015 - 11/04/2015 11:59 PM EST Hospital Encounter Radiology Library at [facility] [place] [address] Pascual Pearson MD [facility] [place] [address] Pain Discharge Disposition: Home Social History Tobacco [...] Diagnosis Comments FILM LIBRARY STORAGE ONLY DX FOOT Routine 11/04/2015 12:00 AM EST Pain documented in this encounter Results * Film Library- Storage Only DX Foot (11/04/2015 12:00 AM EST) Narrative RAD - 11/21/2016 9:44 AM EST This exam is for storage only and is auto-finalizing. Pascual Pearson MD IMG FILM LIBRARY ORD ERABLES Performing Organization Address City/State/[facility] [[email or web address]] Co de Phone Number [place], [place] documented in this encounter Visit Diagnoses Diagnosis Pain Generalized pain documented in this encounter Care Teams Gluer Relationship Specialty Start Date End Date Giovanni Wing MD [address] [place] [address] PCP - General 10/11/10 04/09/17 documented as of this encounter
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
--- OUTSIDE RECORDS SUMMARY | 2024-08-23 17:30 | XMS_ITS | Encounter Summary ---
Author Organization [facility] Address [facility] [place] [address] Care Team Providers Care Pension Examiner Name Role Phone Giovanni Wing MD Primary Care Provider [phone] Encounter Details Date Type Department Care Team (Latest Contact Info) Description 02/24/2016 8:38 AM EDT - 02/24/2016 11:59 PM EDT Hospital Encounter XRay at [address] [place] [address] Kaylee Florez MD [facility] [place] [address] Chronic SI joint pain Discharge Disposition: Home Social History Tobacco Use [...] Name Priority Date/Time Associated Diagnosis Comments XR SACROILIAC JOINTS (GENERIC) Routine 02/24/2016 8:54 AM EDT Chronic SI joint pain documented in this encounter Results * XR S-I Joints [...] encounter Visit Diagnoses Diagnosis Chronic SI joint pain Disorders of sacrum documented in this encounter Care Teams Pension Examiner Relationship Specialty Start Date End Date Giovanni Wing MD [address] [place] [address] PCP - General 10/11/10 04/09/17 documented as of this encounter
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
--- OUTSIDE RECORDS SUMMARY | 2024-08-23 17:30 | XMS_ITS | Encounter Summary ---
Author Organization [facility] [place] [address] Care Team Providers Care Job Captain Name Role Phone Giovanni Wing MD Primary Care Provider [phone] Reason for Visit * Reason Onset Date Comments Questions 11/24/2016 Encounter Details Date Type Department Care Team (Late st Contact Info) Description 11/24/2016 Telephone Orthopaedics [place] [address] Carlos Amin, RN Questions Social History Tobacco Use Types Packs/Day Years [...] encounter Miscellaneous Notes * Telephone Encounter - Carlos Amin, RN - 11/24/2016 3:46 PM EST Name:Devan Chen Contacted via: [facility] Learning Needs Assessment done within 12 months (no change identified): Yes Patient question: He is wondering if the orthotic recently prescribed will throw his gate off balance. Pt advised that he should discuss his concerns with the orthotic maker when the prescribed one is made. Mr. Chen would like to pose the possibility of a orthotic for his R foot to Michel's team. Pt encouraged to evaluate difference first and should he find the difference in his gate troublesome contact department for further advise. documented in this encounter Plan of Treatment Not on file documented as of this encounter Visit Diagnoses Not on filedocumented in this encounter Care Teams Job Captain Relationship Specialty Start Date End Date Giovanni Wing MD [address] [address] PCP - General 10/11/10 04/09/17 documented as of this encounter
--- OUTSIDE RECORDS SUMMARY | 2024-08-23 17:30 | XMS_ITS | Encounter Summary ---
Author Organization [facility] [place] [address] Care Team Providers Care Bit Bender Name Role Phone Giovanni Wing MD Primary Care Provider [phone] Reason for Visit * Reason Comments Back, Buttock, Leg Pain Encounter Details Date Type Department Care Team (Late st Contact Info) Description 03/20/2016 8:00 AM EDT Office [place] [address] Kelley Joe, PT [facility] Mechanical low back pain Social History Tobacco Use Types Packs/Day Years Used Date Smoking Tobacco: Never Sex and Gender Information Value Date Recorded Sex Assigned at Not on file Gender Identity Not on file Sexual Orientation Not on file documented as of this encounter Progress Notes * Kelley Joe PT - 03/20/2016 12:47 PM EDT [facility] Physical Therapy Note Referring provider: Sara Mathur APRN Diagnosis: 1. 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 Chen reports his symptoms are gradually improving since beginning to do the prescribed extension stretches. Most importantly, the leg pain is present less frequently. Mr. Chen currently complains of low back pain radiating to the right buttock and intermittently down the lateralaspect of the right thigh to the knee and great toe. The pain is rated 2/10 at its least and 5/10 at its worst. Symptoms worsen when sitting, standing, walking, and turning. Symptoms ease when changing position activity frequently and stretching. Sleep is occasionally disturbed due to the pain. When asked about a gait or balance disturbance he reports walking guarded due to the right leg discomfort. Functionally, he is able to sit 20-30 minutes, stand 15-30 minutes, and walk 45- 60 minutes. Objective: Mr. Chen returns today for a scheduled follow up appointment. He moves about in the exam room without difficulty and appears comfortable while seated. Sitting posture is poor and standing is good. Active range of motion of the lumbar spine is limited to 90?? flexion and 20?? extension.Gait is unremarkable. He is able to heel/toe walk and squat fully. Repeated movement testing of thelumbar spine did seem to once again suggested directional preference toward extension. Treatment Received: Discussed the natural history of mechanical low back pain and the rational for exercise based treatment. Patient Education/ Home Exercise Program: Reviewed and modified Mr. Chen 's home exercise program. The home exercise program now includes extension in lying with a sag, extension in lying with overpressure, extension in standing, or counter press ups 6-8 times per day. He was also prescribed hip flexor in the supine and lunging position. Assessment: Mr. Chen's range of motion is improving and he is ready to progress the forces. Goals: 1. Independent with home exercise program 2. Able to stand without discomfort 3. Able to walk without discomfort 4. Able to sit without discomfort Plan: Follow up in 1 week to reassess and progress the home exercise program. Mr. Chen was encouraged to call with any questions or concerns regarding todays visit or the home exercise program. Length of visit: A total of 20 minutes was spent re-assessing, treating, and instructing Devan Chen in a home exercise program. documented in this encounter Plan of Treatment Not on file documented as of this encounter Visit Diagnoses Diagnosis Mechanical low back pain Lumbago documented in this encounter Care Teams Bit Bender Relationship Specialty Start Date End Date Giovanni Wing MD [address] [place] [address] PCP - General 10/11/10 04/09/17 documented as of this encounter
--- OUTSIDE RECORDS SUMMARY | 2024-08-23 17:30 | XMS_ITS | Encounter Summary ---
Author Organization [facility] [place] [address] Care Team Providers Care Music Teacher Name Role Phone Giovanni Fu MD Primary Care Provider [phone] Encounter Details Date Type Department Care Team (Late st Contact Info) Description 04/19/2015 1:50 PM EDT Office Visit Audiology at [address] [address] Sarahi Bolivar, [facility] [place] [address] Other examination of ears and hearing; Abnormal auditory perception of both ears Discharge Disposition: Home Social History Tobacco Use Types Packs/Day Years Used Date Smoking Tobacco: Never Sex and Gender Information Value Date Recorded Sex Assigned at Not on file Gender Identity Not on file Sexual Orientation Not on file documented as of this encounter Progress Notes * Sarahi Bolivar, MS - 04/22/2015 8:26 PM EDT AUDIOLOGIC EVALUATION SUMMARY BACKGROUND: Devan Chen was seen today for an audiological evaluation as referred by GIOVANNI FU MD. He shared the following background information: ??? Suspects the presence of bilateral hearing loss, as he has become aware of increased difficulties hearing when in groups in the presence of background noise. ??? Some history of unprotected noise exposure: Music ??? Familial hearing loss: grandparents - later onset ??? Denied a history of ear infections, otalgia, aural fullness, tinnitus, dizziness, imbalance, orhead trauma. TEST RESULTS: Otoscopic: Ears were clear of occluding debris, bilaterally. Right ear: Pure tone test results revealed hearing to be within normal limits at 250-8000 Hz. Speech pelletizer threshold was in agreement with pure tone results. Speech discrimination for words presented in quiet at an elevated listening level was excellent (10/10). Left ear: Pure tone test results revealed hearing to be within normal limits at 250-8000 Hz. Speechreception threshold was in agreement with pure tone results. Speech discrimination for words presented in quiet at an elevated listening level was excellent (10/10). Quick SIN (Speech in Noise): 0.5 SNR loss (normal/near normal handicap) Tympanometry: Normal ear canal volume, TM compliance, and middle ear pressure, bilaterally. See audiogram dated 04/19/2015. Test results were reviewed with Chen. RECOMMENDATIONS: ?? Audiologic re-evaluation as medically indicated to monitor hearing sensitivity. Gennaro Bolivar MS,[facility] [place] [address] (fax) Copy: GIOVANNI FU MD [facility] [address] [place] [address] documented in this encounter Plan of Treatment Not on file documented as of this encounter Visit Diagnoses Diagnosis Other examination of ears and hearing Abnormal auditory perception of both ears documented in this encounter Care Teams Music Teacher Relationship Specialty Start Date End Date Giovanni Fu MD [address] [facility] [address] [place] [address] (Rcst) PCP - General 10/11/10 04/09/17 documented as of this encounter
--- OUTSIDE RECORDS SUMMARY | 2024-08-23 17:30 | XMS_ITS | Encounter Summary ---
Author Organization [facility] [place] [address] Care Team Providers Care Floral Designer Name Role Phone Giovanni Wing MD Primary Care Provider [phone] Reason for Visit * Reason Comments Low Back Pain Encounter Details Date Type Department Care Team (Late st Contact Info) Description 03/07/2016 4:00 PM EDT Office [place] [address] Kelley Joe, PT [facility] Mechanical low back pain Social History Tobacco Use Types Packs/Day Years Used Date Smoking Tobacco: Never Sex and Gender Information Value Date Recorded Sex Assigned at Not on file Gender Identity Not on file Sexual Orientation Not on file documented as of this encounter Progress Notes * Kelley Joe PT - 03/07/2016 4:28 PM EDT [facility] Physical Therapy Note Referring provider: Sara Mathur APRN Diagnosis: 1. 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 Chen reports his symptoms are improving since beginning to do the prescribed stretches. Mr. Chen currently complains of low back [...] sit 15 minutes, stand 10 minutes, and walk 45 minutes. Objective: Mr. Chen returns today for a scheduled follow up appointment. He moves about in the exam room without difficulty and appears comfortable while seated. Sitting posture is poor and standing is good. Active range of motion of the lumbar spine is limited to 90?? flexion and 15?? extension.Gait is unremarkable. He is able to [...] now includes extension in lying with a sag or counter press ups 6-8 times per day. Assessment: Mr. Whitaker range of motion is improving and he [...] Lumbago documented in this encounter Care Teams Floral Designer Relationship Specialty Start Date End Date Giovanni Wing MD [address] [place] [address] PCP - General 10/11/10 04/09/17 documented as of this encounter
--- OUTSIDE RECORDS SUMMARY | 2024-08-23 17:30 | XMS_ITS | Encounter Summary ---
Author Organization [facility] [place] [address] Care Team Providers Care Dupligraph Operator Name Role Phone Giovanni Wing MD Primary Care Provider [phone] Reason for Visit * Reason Comments Low Back Pain Encounter Details Date Type Department Care Team (Late st Contact Info) Description 03/27/2016 8:00 AM EDT Office [place] [address] Kelley Joe, PT [facility] Mechanical low back pain Social History Tobacco Use Types Packs/Day Years Used Date Smoking Tobacco: Never Sex and Gender Information Value Date Recorded Sex Assigned at Not on file Gender Identity Not on file Sexual Orientation Not on file documented as of this encounter Progress Notes * Kelley Joe PT - 03/27/2016 12:46 PM EDT Spine Center Physical Therapy Note Referring provider: Sara Mathur APRN Diagnosis: 1. 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 Chen reports [...] discomfort. Functionally, he is able to sit 30-35 minutes, stand 20-30 minutes, and walk 45- 60 minutes. Objective: [...] hip flexor in the supine and lunging position, plank, side plank, superman, and alternate arm and leg lift in the prone once daily. Assessment: Mr. Chen's range of motion is improving and he is ready to progress the exercise program. Goals: 1. Independent with home exercise program 2. Able to stand without discomfort 3. Able to walk without discomfort 4. Able to sit without discomfort Plan: Follow up as needed only. Mr. Chen was encouraged to call with any questions or concerns regarding todays visit or the home exercise program. Length of visit: A total of 25 minutes was spent re-assessing, treating, and instructing Devan Chen in a home exercise program. documented in this encounter Plan of Treatment Not on file documented as of this encounter Visit Diagnoses Diagnosis Mechanical low back pain Lumbago documented in this encounter Care Teams Dupligraph Operator Relationship Specialty Start Date End Date Giovanni Wing MD [address] [place] [address] PCP - General 10/11/10 04/09/17 documented as of this encounter
--- OUTSIDE RECORDS SUMMARY | 2024-08-23 17:30 | XMS_ITS | Encounter Summary ---
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 JAMMED TO BADLY 1995 AND GAIN 2014 XR SHOWS NO FX MRI SHOWS JOINT CARTILEGE DAMAGE. DR ZEN [facility]. Procedures Self mail Zen Clancy MD [facility] [place] [address] Referral ID Status Reason Start Date Expiration Date V isits Requested Visits Authorized [id number] Consult, Test & Treat 11/06/2016 11/06/2017 1 1 Encounter Details Date Type Department Care Team (Late st Contact Info) Description 11/21/2016 3:10 PM EST Office [place] [address] Pascual Pearson MD [facility] [place] [address] Hallux rigidus of right foot Social History [...] Sign Reading Time Taken Comments Blood Pressure 130/72 11/21/2016 3:14 PM EST Pulse 67 11/21/2016 3:14 PM EST Temperature - - Respiratory Rate - - Oxygen Saturation - - Inhaled Oxygen Concentration - - Weight 83.9 kg (185 lb) 11/21/2016 3:14 PM EST Height 172.7 cm (5' 8) 11/21/2016 3:14 PM EST Body Mass Index 28.13 11/21/2016 3:14 PM EST documented in this encounter Progress Notes * Pascual Pearson MD - 11/21/2016 3:10 PM EST Chief complaint: Right great toe pain History of present illness: Devan Chen is a 51 y.o. year-old male who has the above complaint attributed to hallux rigidus. He describes stubbing his toe on a couple different occasions when he was younger. He has been followed at [facility] by Dr. Miranda. He has discussed various treatment options with Dr. Miranda. He has had 2 injections of steroid into the first MTP joint which it helped significantly. The last one lasted for about 6 months. He then had a repeat injection around and is getting good relief from the injection now. He wears stiff soled wide toebox Altra shoes which are comfortable for him. He has no trouble cycling, but does get discomfort when he is hunting in the fall in the spring. He has not tried specific inserts. He has had no surgical interventions. Past medical history: Patient Active Problem List Diagnosis Date Noted ??? Hallux rigidus of right foot 11/21/2016 ??? Chronic SI joint pain 02/24/2016 ??? Mechanical low back pain 07/18/2012 History of blood clots or bleeding disorders: None Denies history of cardiac, lung, kidney, liver diease or diabetes Medications: ??? Ibuprofen 200 mg Capsule ??? acetaminophen (TYLENOL) 325 mg Tablet ??? diaZEPam (VALIUM) 5 mg tablet Allergies: No Known Allergies Social history: Social History Substance Use Topics ??? Smoking status: Never Smoker ??? Smokeless tobacco: Not on file ??? 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 He is able to heel raise. He has a palpable dorsalis pedis and posterior tibial pulse. Sensation is intact in the deep peroneal, superficial peroneal, sural, saphenous, tibial nerve distribution. He has pain with palpation over a palpable dorsal osteophyte of the first MTP joint. No significant hallux valgus. Great toe dorsiflexion to approximately 15?? which is approximately 10?? less than the contralateralside. Most significant pain is with toe plantarflexion. Very mild pain with mid range of motion. Imaging: Personal review of the patient's imaging reveals: We have some x-rays in 2015 which showed narrowing of the first MTP joint and a dorsal osteophyte. 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 Assessment: 51 y.o. year-old male with hallux rigidus with a relatively focal area of full-thickness cartilage loss and inflammation within the metatarsal head. Plan: We discussed different treatment options. We discussed injections: In my mind, given the degeneration he has, he would be a candidate for occasional steroid injections, though we did discuss the fact that this can lead to further degeneration of the soft tissue and the joint. We discussed theliterature on PRP, discussed supplementation, and anti-inflammatory injections. I would tend towards steroid injections as opposed to these options. We discussed using a stiff soled Mix's extension insole. He is wearing very appropriate stiff soled shoes. We discussed surgical options. We discussed the 2 main surgical options of cheilectomy and first MTP fusion. Given his activity level and his pain level, I would defer first MTP fusion. Cheilectomy may give him some relief of symptoms. Thiscould be coupled with microfracture of any isolated areas of full-thickness cartilage loss. We discussed the limited literature on this, as well as autologous chondrocyte implantation, cartilage implantation, and partial or full arthroplasty or resurfacing. At this point, he would like to move forward with a Dominguez's extension insole. If he is interested in further treatment he will contactus. Follow up: When necessary This plan was discussed with the patient and they are in agreement. All of the patient's questions were answered. The above dictation was made with voice recogonition software documented in this encounter Plan of Treatment Not on file documented as of this encounter Visit Diagnoses Diagnosis Hallux rigidus of right foot Hallux rigidus documented in this encounter Care Teams Tortilla Maker Relationship Specialty Start Date End Date Giovanni Wing MD [address] [address] PCP - General 10/11/10 04/09/17 documented as of this encounter
--- OUTSIDE RECORDS SUMMARY | 2024-08-23 17:30 | XMS_ITS | Encounter Summary ---
Author Organization [facility] [place] [address] Care Team Providers Care Hairspring Staker Name Role Phone Giovanni Wing MD Primary Care Provider [phone] Reason for Referral * Consultation (Routine) - Closed Specialty Diagnoses / Procedures Referred By Contac t Referred To Contact Pain Management Diagnoses Mechanical low back pain Procedures PRO INJECT TRIGGER POINT, 1 OR 2 PRG SONO GUIDE NEEDLE BIOPSY Sara Mathur CAFETERIA HELPER [facility] [place] [address] Azael Swift DO [facility] [place] [address] Referral ID Status Reason Start Date Expiration Date V isits Requested Visits Authorized [id number] Closed Consult, Test & Treat 05/01/2016 05/01/2017 1 1 Encounter Details Date Type Department Care Team (Late st Contact Info) Description 05/01/2016 Orders [place] [address] Sara Mathur [facility] [place] [address] Mechanical low back pain Social History Tobacco [...] Referral Routine Mechanical low back pain Ordered: 05/01/2016 documented as of this encounter Visit Diagnoses Diagnosis Mechanical low back pain Lumbago documented in this encounter Care Teams Hairspring Staker Relationship Specialty Start Date End Date Giovanni Wing MD [address] [place] [address] PCP - General 10/11/10 04/09/17 documented as of this encounter
--- OUTSIDE RECORDS SUMMARY | 2024-08-23 17:30 | XMS_ITS | Encounter Summary ---
Author Organization [facility] Address [facility] [place] [address] Care Team Providers Care Lavatory Attendant Name Role Phone Giovanni Wing MD Primary Care Provider [phone] Encounter Details Date Type Department Care Team (Latest Contact Info) Description 05/30/2016 - 05/30/2016 11:59 PM EDT Hospital Encounter Radiology Library at [facility] [place] [address] Allan Quinones MD [facility] [address] Pain Discharge Disposition: Home Social History Tobacco [...] FILM LIBRARY STORAGE ONLY DX SPINE Routine 05/30/2016 12:00 AM EDT Pain documented in this encounter Results * Film Library- Storage Only DX Spine (05/30/2016 12:00 AM EDT) Narrative VICTORINA RAD - 11/20/2017 10:33 PM EST This exam is for storage only and is auto-finalizing. Allan Quinones MD IMG FILM LIBRARY ORD ERABLES [place], [place] documented in this encounter Visit Diagnoses Diagnosis Pain Generalized pain documented in this encounter Care Teams Lavatory Attendant Relationship Specialty Start Date End Date Giovanni Wing MD [address] [place] [address] PCP - General 10/11/10 04/09/17 documented as of this encounter
--- OUTSIDE RECORDS SUMMARY | 2024-08-23 17:30 | XMS_ITS | Encounter Summary ---
Author Organization [facility] [place] [address] Care Team Providers Care Slubber Machine Operator Name Role Phone Unavailable Primary Care Provider Unavailabl e Encounter Details Date Type Department Care Team (Latest Contact Info) Description 09/22/2010 - 09/22/2010 11:59 PM EDT Hospital Encounter Radiology Library at [facility] [place] [phone] Allan Quinones MD [facility] [place] [address] Pain Discharge Disposition: Home Social History Tobacco Use Types Packs/Day Years Used Date Smoking Tobacco: Never Assessed Sex and Gender Information Value Date Recorded Sex Assigned at Not on file Gender Identity Not on file Sexual Orientation Not on file documented as of this encounter Plan of Treatment Not on file documented as of this encounter Procedures Procedure Name Priority Date/Time Associated Diagnosis Comments FILM LIBRARY STORAGE ONLY DX SPINE Routine 09/22/2010 12:00 AM EDT Pain documented in this encounter Results * Film Library- Storage Only DX Spine (09/22/2010 12:00 AM EDT) Narrative ANTONETTE - 11/21/2017 9:18 AM EST This exam is for storage only and is auto-finalizing. Allan KENTG FILM LIBRARY ORD ERABLES [place], [place] documented in this encounter Visit Diagnoses Diagnosis Pain Generalized pain documented in this encounter
--- OUTSIDE RECORDS SUMMARY | 2024-08-23 17:30 | XMS_ITS | Encounter Summary ---
Author Organization [facility] [place] [address] Care Team Providers Care Railroad Conductor Name Role Phone Giovanni Wing MD Primary Care Provider [phone] Encounter Details Date Type Department Care Team (Late st Contact Info) Description 12/12/2016 Orders Only Orthopaedics at [facility] [place] [phone] Sandra Cruz, RN DEPT OF ORTHOPAEDICS Hallux rigidus of right foot; Pain in both feet Social History Tobacco Use Types Packs/Day Years [...] Hallux rigidus of right foot Hallux rigidus Pain in both feet Pain in limb documented in this encounter Care Teams Railroad Conductor Relationship Specialty Start Date End Date Giovanni Wing MD [address] [place] [address] PCP - General 10/11/10 04/09/17 documented as of this encounter
--- OUTSIDE RECORDS SUMMARY | 2024-08-23 17:30 | XMS_ITS | Encounter Summary ---
Author Organization [facility] [place] [address] Care Team Providers Care Wireworker Name Role Phone Giovanni Wing MD Primary Care Provider [phone] Encounter Details Date Type Department Care Team (Late st Contact Info) Description 04/20/2015 External Results [place] [address] Sarahi Bolivar [facility] [place] [address] Social History Tobacco Use Types Packs/Day Years Used Date Smoking Tobacco: Never Sex and Gender Information Value Date Recorded Sex Assigned at Not on file Gender Identity Not on file Sexual Orientation Not on file documented as of this encounter Plan of Treatment Not on file documented as of this encounter Procedures Procedure Name Priority Date/Time Associated Diagnosis Comments AUDIOLOGY SCAN Routine 04/19/2015 documented in this encounter Results * Scan Doc: Audiology (04/19/2015) Sarahi Bolivar AUD MEDIA MGR SCAN E XT ORDR/RSLT documented in this encounter Visit Diagnoses Not on filedocumented in this encounter Care Teams Wireworker Relationship Specialty Start Date End Date Giovanni Wing MD [address] [place] [address] PCP - General 10/11/10 04/09/17 documented as of this encounter
--- OUTSIDE RECORDS SUMMARY | 2024-08-23 17:30 | XMS_ITS | Encounter Summary ---
Author Organization [facility] [place] [address] Care Team Providers Care Signal Timer Name Role Phone Giovanni Wing MD Primary Care Provider [phone] Reason for Visit * Reason Comments Low Back Pain Encounter Details Date Type Department Care Team (Late st Contact Info) Description 03/13/2016 8:00 AM EDT Office [place] [address] Kelley Joe, PT SPINE CENTER Mechanical low back pain Social History Tobacco Use Types Packs/Day Years Used Date Smoking Tobacco: Never Sex and Gender Information Value Date Recorded Sex Assigned at Not on file Gender Identity Not on file Sexual Orientation Not on file documented as of this encounter Progress Notes * Kelley Joe PT - 03/13/2016 10:00 AM EDT Spine Center Physical Therapy Note Referring provider: Sara Mathur APRN Diagnosis: 1. 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 Chen reports his symptoms are gradually improving since beginning to do the prescribed extension stretches. Mr. Chen currently complains of low back pain radiating to the right buttock and intermittently down the lateral aspect of the right thigh to the knee [...] discomfort. Functionally, he is able to sit 15-20 minutes, stand 1 5 minutes, and walk 45 minutes. Objective: Mr. [...] ups 6-8 times per day. Assessment: Mr. Chapmans range of motion is improving and he [...] Lumbago documented in this encounter Care Teams Signal Timer Relationship Specialty Start Date End Date Giovanni Wing MD [address] [address] PCP - General 10/11/10 04/09/17 documented as of this encounter
--- OUTSIDE RECORDS SUMMARY | 2024-08-23 17:30 | XMS_ITS | Encounter Summary ---
Author Organization [facility] [place] [address] Care Team Providers Care Plant Health Manager Name Role Phone Giovanni Wing MD Primary Care Provider Encounter Details Date Type Department Care Team (Late st Contact Info) Description 06/26/2016 Telephone [place] [phone] Samanta Mac, RN Social History Tobacco Use Types Packs/Day Years Used Date Smoking Tobacco: Never Sex and Gender Information Value Date Recorded Sex Assigned at Not on file Gender Identity Not on file Sexual Orientation Not on file documented as of this encounter Miscellaneous Notes * Telephone Encounter - Samanta Mac RN - 06/26/2016 4:53 PM EDT Devan Chen :1965 Message left: I left a message on answering machine Mr. Chen at 4:53 PM regarding his upcoming Neither ultrasound guided Quadratus Lumborum and iliopsoas with Dr. Azael Swift DO. Message included the followin. 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 2. Following instructions left in the [...] your body within the last two weeks? Samanta Mac RN documented in this encounter Plan of Treatment Not on file documented as of this encounter Visit Diagnoses Not on filedocumented in this encounter Care Teams Plant Health Manager Relationship Specialty Start Date End Date Giovanni Wing MD [address] [place] [address] PCP - General 10/11/10 04/09/17 documented as of this encounter
--- NOTE | 2024-08-23 18:15 | DI.VRAD_ITS ---
PROCEDURE INFORMATION: Exam: XR Right Hand Exam date and time: 08/23/2024 4:57 PM Age: 59 years old Clinical indication: Patient HX: Right hand pain TECHNIQUE: Imaging protocol: Radiologic exam of the right hand. Views: 3 or more views. COMPARISON: No relevant prior studies available. FINDINGS: Bones/joints: Fracture 5th metacarpal. Positive ulnar variance. Soft tissues: Soft tissue swelling of the hand. IMPRESSION: Fractured 5th metacarpal. Dictated and Authenticated by: Clarissa Villagran MD. Ordering:LORENZO Correa MD
== END 2024-08-23 18:01 | disposition home or self-care (01) ==
LOC: ER 17:24
PROVIDERS: Emergency Provider Emergency Medicine; PCP Family Medicine
DX: S62.326A Displaced fracture of shaft of fifth metacarpal bone, right hand, initial encounter for closed fracture (principal); W18.39XA Other fall on same level, initial encounter; Y93.19 Activity, other involving water and watercraft; Y92.39 Other specified sports and athletic area as the place of occurrence of the external cause
CPT/HCPCS: 99283; 73130